=== PATIENT | female | born 1930 | race Caucasian/White ===

== ENCOUNTER 2016-07-18 12:14 | Inpatient (IN) | payer MEDICARE, OTHER ==
[~2016-07-18] VITALS: Ht 162.6 cm; Wt 80.0 kg
[~2016-07-18 12:14] MED LIST: ALPR0.254 PO; ASPI-676; ATEN50TA; CLON-379 PO; CLON0.3T PO; DARI7.5T3; DOCU-144 PO; DOCUSATE PO; DONE5TAB46 PO; IBUP800T25 PO; MEMA10TA16; PARO20TA58; RAMI5CAP23; RISE35TA3 PO; VALS1TAB65 PO
[2016-07-18] MEDS ORDERED: morphine 2 MG INJ IV STA (12:32)
[2016-07-18] MEDS ORDERED: SOD CHLORIDE 0.9% 500 ML IV STA (12:32)
[2016-07-18 13:11] LABS: ADD SCAN DIFF NO
[2016-07-18 13:12] LABS: BASOPHILS % 0.4 % (0.0-2.0); EOSINOPHILS # 0.1 10^3/ul (0.0-0.5); EOSINOPHILS % 0.7 % (0.0-7.0); HEMATOCRIT 41.9 % (37.0-47.0); HEMOGLOBIN 13.5 g/dl (12.0-16.0); LYMPHOCYTES % 13.8 % (15.0-51.0); MEAN CORPUSCULAR HEMOGLOBIN 29.4 pg (29.0-33.0); MEAN CORPUSCULAR HGB CONC 32.2 g/dl (32.0-37.0); MEAN CORPUSCULAR VOLUME 91.3 fl (82.0-101.0); MEAN PLATELET VOLUME 10.3 fl (7.4-10.4); MONOCYTE # 0.5 10^3/ul (0.3-0.9); MONOCYTES % 7.4 % (0.0-11.0); NEUTROPHIL # 5.6 10^3/ul (1.6-7.5); NEUTROPHILS % 77.4 % (39.0-77.0); PLATELET COUNT 226 10^3/UL (140-415); RED BLOOD COUNT 4.59 10^6/ul (4.20-5.40); RED CELL DISTRIBUTION WIDTH 13.5 % (11.5-14.5); WHITE BLOOD COUNT 7.2 10^3/ul (4.8-10.8)
[2016-07-18 13:27] LABS: ALBUMIN 4.1 g/dl (3.3-4.9); CHLORIDE 103 mmol/L (97-110)
[2016-07-18 13:28] LABS: POTASSIUM 3.9 mmol/L (3.5-5.1); SODIUM 142 mmol/L (135-144)
[2016-07-18 13:29] LABS: INR 0.91; PROTIME 12.3 Sec (12.2-14.2)
[2016-07-18 13:30] LABS: ALKALINE PHOSPHATASE 93 IU/L (42-121); ANION GAP 16 (8-16); ASPARTATE AMINO TRANSFERASE 38 IU/L (15-46); BILIRUBIN,INDIRECT 0.9 mg/dl (0-1.1); BILIRUBIN,TOTAL 0.9 mg/dl (0.2-1.3); CARBON DIOXIDE 27 mmol/L (21-31); CREATININE 0.72 mg/dl (0.44-1.00); PARTIAL THROMBOPLASTIN TIME 31.5 Sec (25.0-35.0); TOTAL PROTEIN 7.8 g/dl (6.1-8.1)
[2016-07-18 13:31] LABS: ALANINE AMINOTRANSFERASE 32 IU/L (13-69); BLOOD UREA NITROGEN 25 mg/dl (7-20); CALCIUM 9.6 mg/dl (8.4-10.2); GLUCOSE 113 mg/dl (70-220)
[2016-07-18] MEDS ORDERED: ATOR20TA38 PO (13:42)
[2016-07-18 13:43] LABS: TROPONIN-I < 0.012 ng/ml (0.00-0.12)
[2016-07-18] MEDS ORDERED: ALEN70TA30 PO ×2 (13:43→13:52)
[2016-07-18] MEDS ORDERED: VALS160T20 PO (13:43)
[2016-07-18] MEDS ORDERED: FURO40TA4 PO (13:52)
[2016-07-18] MEDS ORDERED: ESCI5TAB10 PO (13:52)
[2016-07-18] MEDS ORDERED: ASPI81TA3 PO (13:52)
[2016-07-18] MEDS ORDERED: RISP0.5T3 PO (13:53)
[2016-07-18] MEDS ORDERED: MEMA5TAB PO (13:53)
[2016-07-18] MEDS ORDERED: ZOLP5TAB7 PO (13:53)
[2016-07-18] MEDS ORDERED: SENN-53 PO (13:54)
[2016-07-18 14:06] VITALS: Ht 162.6 cm; Wt 80.0 kg
[2016-07-18 14:21] LABS: ADD UMIC YES; URINE BILIRUBIN (Dip) NEGATIVE (NEGATIVE); URINE BLOOD (Dip) TRACE (NEGATIVE); URINE COLOR LT. YELLOW (YELLOW); URINE GLUCOSE (Dip) NEGATIVE (NEGATIVE); URINE KETONES (Dip) NEGATIVE (NEGATIVE); URINE LEUKOCYTE ESTERASE (Dip) NEGATIVE (NEGATIVE); URINE NITRITE (Dip) NEGATIVE (NEGATIVE); URINE TOTAL PROTEIN (Dip) NEGATIVE (NEGATIVE); URINE UROBILINOGEN (Dip) 0.2 E.U./dL (0.1-1.0)
[2016-07-18 14:33] LABS: BACTERIA,URINE RARE; URINE RBCS 0-2 /HPF (0)
--- NOTE | 2016-07-18 14:49 | RADRPT ---
PROCEDURE: XR Chest. CLINICAL INDICATION: Chest pain. Status post fall. TECHNIQUE: Single frontal chest x-ray. COMPARISON: 08/22/2014 FINDINGS: The lungs are clear of acute infiltrates, edema, effusions, or masses. There is left-sided dual natasha jarrett cardiac pacer in place. Low lung volumes with mild bibasilar atelectasis is present.. Cardiac silhouette is magnified. Calcific atherosclerosis of the aorta is present.. The osseous structures a re intact. IMPRESSION: No acute cardiopulmonary disease. Low lung volumes with mild bibasilar atelectasis. Left-sided cardiac pacer in place. RPTAT: JJ .Perry Croft MD, Date Time Electronically viewed and signed by .Perry Croft MD, on 07/18/2016 14:48 .L/
--- NOTE | 2016-07-18 15:01 | RADRPT ---
PROCEDURE: XR Pelvis. CLINICAL INDICATION: Trauma. Pelvic pain. TECHNIQUE: Single AP view of the pelvis. COMPARISON: No prior studies are available for comparison. FINDINGS: There is no fracture or dislocation. There is no lytic or blastic lesion. Articular surfaces are intact. The sacroiliac joints are grossly unremarkable. There is no radiopaque foreign body. IMPRESSION: 1. Unremarkable x-ray pelvis. RPTAT: QQ .Lyndon Encarnacoin MD, MD Date Time Electronically viewed and signed by .Lyndon Encarnacion MD, MD on 07/18/2016 15:01 .R/
--- NOTE | 2016-07-18 15:02 | RADRPT ---
PROCEDURE: Left knee radiographs. CLINICAL INDICATION: Trauma due to a fall. Left knee pain. TECHNIQUE: Three views. Frontal, lateral, and patellar view. COMPARISON: No prior studies are available for comparison. FINDINGS: There is no fracture or dislocation. Vascular calcifications are present consistent with atherosclerosis. There are degenerative changes with osteophytes arising from all 3 joint compartment margins. There is medial and lateral joint compartment narrowing. There is no lytic or blastic lesion. There is no radiopaque foreign body. IMPRESSION: 1. Atherosclerosis. 2. Moderate degenerative change. 3. No fracture. RPTAT: QQ .Lyndon Encarnacion MD, MD Date Time Electronically viewed and signed by .Lyndon Encarnacion MD, on 07/18/2016 15:02 .R/
--- NOTE | 2016-07-18 15:16 | RADRPT ---
PROCEDURE: CT Facial Bones. CLINICAL INDICATION: Trauma. Facial pain. TECHNIQUE: Helical axial sections were obtained through the facial bones without intravenous contr ast enhancement. Sagittal and coronal reformatted images were accomplished using the data from the axial images. Total exam DLP is 831.62 mGy-cm. CTDIvol is 29.52 mGy. One or more of the followin g dose reduction techniques were used: Automated exposure control, adjustment of the mA and/or kV ac cording to patient size, use of iterative reconstruction technique. COMPARISON: No prior study is available for comparison. FINDINGS: This is a limited study due to patient motion. The visualized portions of the paranasal sinuses are grossly normal. There is a comminuted fracture of the nasal bones with posterior displacement on the left. There is no other fracture. The orbits are normal. The globes are intact. The extraocular muscles and optic nerves are normal. The nasal septum is midline. The ostiomeatal complexes are normal. The turbinates are unremarkable. The mandible and maxilla are intact. The zygomatic arches and pterygoid plates are normal. Images through the upper cervical spine demonstrate degenerative change with osteophytes at C3-4, C4-5, C5- 6, and C6-7. IMPRESSION: 1. Limited study due to patient motion. 2. Comminuted fracture of the nasal bones with posterior displacement on the left. 3. Degenerative changes of the cervical spine. 4. Otherwise unremarkable CT scan of the facial bones. RPTAT: QQ .Lyndon Encarnacion MD, MD Date Time Electronically viewed and signed by .Lyndon Encarnacion MD, on 07/18/2016 15:15 .R/
--- NOTE | 2016-07-18 15:21 | RADRPT ---
PROCEDURE: Noncontrast CT Head. CLINICAL INDICATION: Status post fall. Trauma. TECHNIQUE: Noncontrast CT of the head was obtained. The administered radiation dose was CTDI vol = 43.38 mGy, DLP = 630.2 mGy-cm. One or more of the following dose reduction techniques were used: Aut omated exposure control, Adjustment of the mA and/or kV according to patient size, or Use of iterati ve reconstruction technique. COMPARISON: Noncontrast CT of the head from August 22, 2014. FINDINGS: There is moderate central and peripheral cerebral volume loss. There is severe bilateral hippocampal volume loss. There is extensive periventricular hypoattenuation suggesting chronic microvascular is chemic changes. There are mild to moderate vascular calcifications within the intracranial carotid arteries. There is a chronic right basal ganglia lacunar infarction. There is a partially empty sella turcica. There is a 4 mm ovoid hyperdensity within the right fronta l vertex (image 52 series 601).There is also a smaller lateral ovoid hyperdensity. There is no loss of shin-white differentiation to suggest acute territorial infarction. There is no extra-axial fluid collection. There is no mass effect. No midline shift is identified. The patient is status post bilateral lens surgery. The paranasal sinuses are well aerated. No destructive osseous lesion is identified. There is subcutaneous air within the left nasal soft ti ssues which may represent underlying laceration. IMPRESSION: 1. New subcentimeter right posterior frontal vertex hyperdensity with smaller adjacent more lateral hyperdensity. These may represent small intraparenchymal hemorrhages/contusions given history of tra jose however short follow-up imaging is recommended to document resolution. If these persist, MRI of the brain with and without contrast may be performed to exclude cortical metastases versus other hy perdense lesions which cannot be excluded. 2. Moderate central and peripheral cerebral volume loss with severe bilateral hippocampal volume los s. 3. Advanced chronic microvascular ischemic changes. 4. Partially empty sella turcica. 5. Chronic right basal ganglia lacunar infarction. 6. Subcutaneous air within the left nasal soft tissues which may represent underlying laceration. P lease refer to the CT of the facial bones report from the same day. Further findings as detailed above. These findings were discussed with Dr. Gabriel High at 03:12 p.m. on July 18, 2016. RPTAT: PP .Ozzie Shepherd MD, MD Date Time Electronically viewed and signed by .Ozzie Shepherd MD, MD on 07/18/2016 15:20 .F/
--- NOTE | 2016-07-18 15:22 | RADRPT ---
PROCEDURE: CT Cervical Spine without contrast. CLINICAL INDICATION: Trauma due to a fall. Neck pain. TECHNIQUE: Helical axial sections were obtained through the cervical spine without intravenous con trast enhancement. Sagittal and coronal reformatted images were accomplished using the data from th e axial images. Total exam DLP is 461.67 mGy-cm. CTDIvol is 22.19 mGy. One or more of the followi ng dose reduction techniques were used: Automated exposure control, adjustment of the mA and/or kV a ccording to patient size, use of iterative reconstruction technique. COMPARISON: No prior studies are available for comparison. FINDINGS: This is a limited study due to patient motion. There is grossly normal alignment of the vertebrae. There is no fracture. There are degenerative changes with osteophytes at C3-4, C4-5, C5-6, and C6-7. The prevertebral soft tissues are unremarkable. The lung apices are grossly normal. IMPRESSION: 1. Limited study due to patient motion. 2. No obvious fracture or malalignment. 3. Degenerative changes. 4. Otherwise grossly normal CT scan of the cervical spine. RPTAT: QQ .Lyndon Encarnacion MD, Date Time Electronically viewed and signed by .Lyndon Encarnacion MD, on 07/18/2016 15:21 .R/
[2016-07-18] MEDS ORDERED: ONDANSETRON 4 MG INJ IV STA (15:26)
--- NOTE | 2016-07-18 18:12 | HP ---
Date/Time of Note Date/Time of Note DATE: 07/18/16 TIME: 18:09 Assessment/Plan VTE Prophylaxis VTE Prophylaxis Intervention: other Lines/Catheters IV C[facility]ter Type [facility]from [facility] Saline Lock Urinary Cath still in place: No Assessment/Plan Assessment/Plan 85 yo F s/p fall with 1. Brain lesions concerning for bleeing versus dementia 2. Comminuted nasal bone fracture with nasal bleed 3. HTN 4. Dyslipidemia 5. s/p Pacemaker 6. 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 7. Previous CVA PLAN: * Admit med surg * ENT / neurosurgical consults * repeat CT in am / unable to do MRI 2/ pacemaker * Continue home meds * Supportive care and pain control PROPHYLAXIS: SCDS / Pepcid HPI/ROS Admit Date/Time Admit Date/Time 07/18/16 Hx of Present Illness PRESENTING COMPLAINT: fall and nose bleeds HISTORY OF PRESENTING COMPLAINT: This 85-year-old female is brought in for a fall yesterday in which she fell forward and struck her face on the floor. The mechanism of the fall is unknown because the patient has baseline dementia and which makes her not communicative. She did strike her knee she does have mild swelling that has improved since yesterday. She still is able to walk but has not ambulated since her fall yesterday. She has been able to take p.o. today. The patient is usually very ambulant and spends the better part of most days ambulating aimlessly. She was on hospice therapy and whenshe initially fell, she had a bad nosebleed, the hospice nurse came and checked her, and used icepacks which helped, but bleeding recurred over night which made family decide to bring her to ER. ROS Subjective hx not possible: pt non-verbal (due to severe dementia), other PMH/Family/Social Past Medical History * endstage dementia * HTN * HLD * Pacemaker Social History Smoking Status: Never smoker Exam/Review of Systems Vital Signs Vitals VS - Last 72 Hours, by Label Date Time Temp Pulse Resp B/P Pulse Ox O2 Delivery O2 Flow Rate FiO2 07/18/16 14:21 62 20 148/74 95 Room Air 07/18/16 14:15 Nasal Cannula 07/18/16 14:06 98.9 64 18 148/74 98 Vital Signs Date Time Temp Pulse Resp B/P Pulse Ox O2 Delivery O2 Flow Rate FiO2 07/18/16 14:21 62 20 148/74 95 Room Air 07/18/16 14:06 98.9 Exam Exam Const: [] Mild distress, appears uncomfortable Head: See ENT section Eyes: Normal Conjunctiva, EOMI, PERRL ENT: Bilateral nares full of blood clot, facial bruising surrounding nose,, tenderness to palpation of facial bones, tympanic membranes clear bilaterally with no fluid or blood. Somewhat dry mucous membranes of the mouth Neck: Full range of motion..~ No apparent midline tenderness Resp: Clear to auscultation bilaterally Cardio: Regular rate and rhythm, no murmurs Abd: Soft, no apparent tenderness, non distended. Normal bowel sounds Skin: No petechiae or rashes Back: No midline or flank tenderness Ext: No cyanosis, or edema, complete skeletal survey performed. Patient still does have mild edema of her left knee without apparent tenderness, other joints movable without deformity limitation of motion or evidence of pain. Distal pulses intact all 4 extremities Neur: Awake and alert, noncommunicative even with [place] grid caster, able to move all 4 extremities, able to perform purposeful movements of pushing people away are attempting to do anything to her. Psych: Agitation. Labs Result Diagram: 07/18/16 1305 07/18/16 1305 Procedures Procedures Laboratory Tests Test 07/18/16 12:32 07/18/16 13:05 Urine Color LT. YELLOW Urine Clarity CLEAR Urine pH 6.0 Urine Specific Fate 1.020 Urine Ketones NEGATIVE Urine Nitrite NEGATIVE Urine Bilirubin NEGATIVE Urine Urobilinogen 0.2 E.U./dL Urine Leukocyte Esterase NEGATIVE Urine Microscopic RBC 0-2/HPF Urine Microscopic WBC NONE SEEN/HPF Urine Epithelial Cells RARE Urine Squamous Epithelial Cells Urine Bacteria RARE Urine Hemoglobin TRACE Urine Glucose NEGATIVE% Urine Total Protein NEGATIVE White Blood Count 7.210^3/ul Red Blood Count 4.5910^6/ul Hemoglobin 13.5g/dl Hematocrit 41.9% Mean Corpuscular Volume 91.3fl Mean Corpuscular Hemoglobin 29.4pg Mean Corpuscular Hemoglobin Concent 32.2g/dl Red Cell Distribution Width 13.5% Platelet Count 84029^3/UL Mean Platelet Volume 10.3fl Neutrophils % 77.4% Lymphocytes % 13.8% Monocytes % 7.4% Eosinophils % 0.7% Basophils % 0.4% Nucleated Red Blood Cells % 0.0/100WBC Neutrophils # 5.610^3/ul Lymphocytes # 1.010^3/ul Monocytes # 0.510^3/ul Eosinophils # 0.110^3/ul Basophils # 0.010^3/ul Nucleated Red Blood Cells # 0.010^3/ul Prothrombin Time 12.3Sec Prothrombin Time Ratio 1.0 INR International Normalized Ratio 0.91 Activated Partial Thromboplast Time 31.5Sec Sodium Level 142mmol/L Potassium Level 3.9mmol/L Chloride Level 103mmol/L Carbon Dioxide Level 27mmol/L Anion Gap 16 Blood Urea Nitrogen 25mg/dl Creatinine 0.72mg/dl Glucose Level 113mg/dl Calcium Level 9.6mg/dl Total Bilirubin 0.9mg/dl Direct Bilirubin 0.00mg/dl Indirect Bilirubin 0.9mg/dl Aspartate Amino Transf (AST/SGOT) 38IU/L Alanine Aminotransferase (ALT/SGPT) 32IU/L Alkaline Phosphatase 93IU/L Troponin I < 0.012ng/ml Total Protein 7.8g/dl Albumin 4.1g/dl Globulin 3.70g/dl Albumin/Globulin Ratio 1.10 ER INTERVENTIONS Medications (Trade) Dose Ordered Sig/Luiza Route PRN Reason Start Time Stop Time Status Last Admin Dose Admin Sodium Chloride (NS) 500 ml @ 500 mls/hr Q1H STAT IV 07/18/16 12:32 07/18/16 13:31 DC 07/18/16 13:56 500 MLS/HR Morphine Sulfate (morphine) 2 mg ONCE STAT IV 07/18/16 12:32 07/18/16 12:37 DC 07/18/16 13:57 2 MG Ondansetron HCl (Zofran Inj) 4 mg ONCE STAT IV 07/18/16 15:26 07/18/16 15:27 DC 07/18/16 15:31 4 MG Ondansetron HCl (Zofran Inj) 4 mg BRIDGE ORDER PRN IV NAUSEA AND/OR VOMITING 07/18/16 18:30 07/19/16 18:29 Acetaminophen (Tylenol Tab) 650 mg ER BRIDGE PRN PO MILD PAIN/FEVER 07/18/16 18:30 07/19/16 18:29 PROCEDURE: XR Chest. CLINICAL INDICATION: Chest pain. Status post fall. TECHNIQUE: Single frontal chest x-ray. COMPARISON: 08/22/2014 FINDINGS: The lungs are clear of acute infiltrates, edema, effusions, or masses. There is left-sided dual chamber cardiac pacer in place. Low lung volumes with mild bibasilar atelectasis is present.. Cardiac silhouette is magnified. Calcific atherosclerosis of the aorta is present.. The osseous structures are intact. IMPRESSION: No acute cardiopulmonary disease. Low lung volumes with mild bibasilar atelectasis. Left-sided cardiac pacer in place. RPTAT: JJ .Perry Croft MD, MD Date Time Electronically viewed and signed by .Perry Croft MD, MD on 07/18/2016 14:48 .L/ CC: GABRIEL ALONSO DO PROCEDURE: Noncontrast CT Head. CLINICAL INDICATION: Status post fall. Trauma. TECHNIQUE: Noncontrast CT of the head was obtained. The administered radiation dose was CTDI vol = 43.38 mGy, DLP = 630.2 mGy-cm. One or more of the following dose reduction techniques were used: Automated exposure control, Adjustment of the mA and/or kV according to patient size, or Use of iterative reconstruction technique. COMPARISON: Noncontrast CT of the head from August 22, 2014. FINDINGS: There is moderate central and peripheral cerebral volume loss. There is severe bilateral hippocampal volume loss. There is extensive periventricular hypoattenuation suggesting chronic microvascular ischemic changes. There are mild to moderate vascular calcifications within the intracranial carotid arteries. There is a chronic right basal ganglia lacunar infarction. There is a partially empty sella turcica. There is a 4 mm ovoid hyperdensity within the right frontal vertex (image 52 series 601).There is also a smaller lateral ovoid hyperdensity. There is no loss of shin-white differentiation to suggest acute territorial infarction. There is no extra-axial fluid collection. There is no mass effect. No midline shift is identified. The patient is status post bilateral lens surgery. The paranasal sinuses are well aerated. No destructive osseous lesion is identified. There is subcutaneous air within the left nasal soft tissues which may represent underlying laceration. IMPRESSION: 1. New subcentimeter right posterior frontal vertex hyperdensity with smaller adjacent more lateral hyperdensity. These may represent small intraparenchymal hemorrhages/contusions given history of trauma however short follow-up imaging is recommended to document resolution. If these persist, MRI of the brain with and without contrast may be performed to exclude cortical metastases versus other hyperdense lesions which cannot be excluded. 2. Moderate central and peripheral cerebral volume loss with severe bilateral hippocampal volume loss. 3. Advanced chronic microvascular ischemic changes. 4. Partially empty sella turcica. 5. Chronic right basal ganglia lacunar infarction. 6. Subcutaneous air within the left nasal soft tissues which may represent underlying laceration. Please refer to the CT of the facial bones report from the same day. Further findings as detailed above. These findings were discussed with Dr. Gabriel Alonso at 03:12 p.m. on July 18, 2016. RPTAT: PP .Ozzie Shepherd MD, MD Date Time Electronically viewed and signed by .Ozzie Shepherd MD, MD on 07/18/2016 15:20 .F/ CC: GABRIEL ALONSO DO PROCEDURE: CT Cervical Spine without contrast. CLINICAL INDICATION: Trauma due to a fall. Neck pain. TECHNIQUE: Helical axial sections were obtained through the cervical spine without intravenous contrast enhancement. Sagittal and coronal reformatted images were accomplished using the data from the axial images. Total exam DLP is 461.67 mGy-cm. CTDIvol is 22.19 mGy. One or more of the following dose reduction techniques were used: Automated exposure control, adjustment of the mA and/or kV according to patient size, use of iterative reconstruction technique. COMPARISON: No prior studies are available for comparison. FINDINGS: This is a limited study due to patient motion. There is grossly normal alignment of the vertebrae. There is no fracture. There are degenerative changes with osteophytes at C3-4, C4-5, C5-6, and C6-7. The prevertebral soft tissues are unremarkable. The lung apices are grossly normal. IMPRESSION: 1. Limited study due to patient motion. 2. No obvious fracture or malalignment. 3. Degenerative changes. 4. Otherwise grossly normal CT scan of the cervical spine. RPTAT: QQ .Lyndon Encarnacion MD, MD Date Time Electronically viewed and signed by .Lyndon Encarnacion MD, MD on 07/18/2016 15:21 .R/ CC: GABRIEL ALONSO DO PROCEDURE: CT Facial Bones. CLINICAL INDICATION: Trauma. Facial pain. TECHNIQUE: Helical axial sections were obtained through the facial bones without intravenous contrast enhancement. Sagittal and coronal reformatted images were accomplished using the data from the axial images. Total exam DLP is 831.62 mGy-cm. CTDIvol is 29.52 mGy. One or more of the following dose reduction techniques were used: Automated exposure control, adjustment of the mA and/or kV according to patient size, use of iterative reconstruction technique. COMPARISON: No prior study is available for comparison. FINDINGS: This is a limited study due to patient motion. The visualized portions of the paranasal sinuses are grossly normal. There is a comminuted fracture of the nasal bones with posterior displacement on the left. There is no other fracture. The orbits are normal. The globes are intact. The extraocular muscles and optic nerves are normal. The nasal septum is midline. The ostiomeatal complexes are normal. The turbinates are unremarkable. The mandible and maxilla are intact. The zygomatic arches and pterygoid plates are normal. Images through the upper cervical spine demonstrate degenerative change with osteophytes at C3-4, C4-5, C5-6, and C6-7. IMPRESSION: 1. Limited study due to patient motion. 2. Comminuted fracture of the nasal bones with posterior displacement on the left. 3. Degenerative changes of the cervical spine. 4. Otherwise unremarkable CT scan of the facial bones. RPTAT: QQ .Lyndon Encarnacion MD, MD Date Time Electronically viewed and signed by .Lyndon Encarnacion MD, MD on 07/18/2016 15:15 .R/ CC: GABRIEL ALONSO BOLATITO M. July 18, 2016 18:12
[2016-07-18] MEDS ORDERED: ONDANSETRON 4 MG INJ IV PRN ×2 (18:30→20:00)
[2016-07-18] MEDS ORDERED: ACETAMINOPHEN 325 MG TAB PO PRN (18:30)
[2016-07-18] MEDS ORDERED: morphine 2 MG INJ IV ONE (19:30)
--- NOTE | 2016-07-18 19:36 | ERA ---
ER Documentation Chief Complaint Date/Time DATE: 07/18/16 TIME: 19:24 Chief Complaint BIBA FOR NOSE BLEEDING,S/P FALL HPI This 85-year-old female is brought in for a fall yesterday in which she fell forward and struck her face on the floor. The mechanism of the fall is unknown because the patient has baseline dementia and which makes her not communicative. She did strike her knee she does have mild swelling that has improved since yesterday. She still is able to walk but has not ambulated since her fall yesterday. She has been able to take p.o. today. ROS All systems reviewed and are negative except as per history of present illness. Medications Home Meds Reported Medications Sennosides* (Senna Lax*) 8.6 Mg Tablet, 1 TAB PO DAILY, TAB 07/18/16 Zolpidem Tartrate* (Zolpidem Tartrate*) 5 Mg Tablet, 5 MG PO QHS Y for INSOMNIA , #30 TAB 07/18/16 Memantine* (Namenda*) 5 Mg Tablet, 5 MG PO DAILY, #30 TAB 07/18/16 Risperidone* (Risperidone*) 0.5 Mg Tablet, 0.5 MG PO DAILY, TAB 07/18/16 Escitalopram Oxalate* (Escitalopram Oxalate*) 5 Mg Tablet, 5 MG PO DAILY, #30 TAB 07/18/16 Furosemide* (Furosemide*) 40 Mg Tablet, 40 MG PO DAILY, TAB 07/18/16 Aspirin* (Aspirin* Chew) 81 Mg Tab.chew, 81 MG PO DAILY, TAB.CHEW 07/18/16 Alendronate Sodium* (Fosamax*) 70 Mg Tablet, 70 MG PO Q7D, #4 TAB 07/18/16 Alendronate Sodium* (Fosamax*) 70 Mg Tablet, 70 MG PO Q7D, #4 TAB 07/18/16 Valsartan* (Diovan*) 160 Mg Tablet, 160 MG PO DAILY, TAB HOLD FOR SBP<120 07/18/16 Atorvastatin Calcium* (Atorvastatin Calcium*) 20 Mg Tablet, 20 MG PO QHS, #30 TAB 07/18/16 Discontinued Reported Medications Risedronate* (Atelvia*) 35 Mg Tablet.dr, 35 MG PO Q7D, TAB 08/22/14 Docusate Sodium* (Colace*) 100 Mg Capsule, 100 MG PO BID, CAP 08/22/14 Clonidine Hcl* (Clonidine Hcl*) 0.3 Mg Tablet, 0.1 MG PO Q6 Y 03/02/13 Ibuprofen* (Motrin*) 800 Mg Tab, 800 MG PO TID 12/05/12 Valsartan-Hydrochlorothiazide (Diovan HCT) 1 Tab Tablet, 1 TAB PO DAILY 12/05/12 Alprazolam (Xanax) 0.25 Mg Tab, 0.25 MG PO DAILY 12/05/12 Clonidine Hcl* (Clonidine Hcl*) 0.1 Mg Tab, 0.1 MG PO Q6 Y 12/05/12 Paroxetine Hcl* (Paxil*) 20 Mg Tablet, DAILY 12/08/11 [Docusate] No Conflict Check, 100 MG PO BID 12/08/11 Donepezil* (Aricept*) 5 Mg Tablet, PO DAILY 12/08/11 Darifenacin* (Enablex*) 7.5 Mg Tab.sr.24h, PO DAILY 03/02/11 Ramipril (Altace) 5 Mg Capsule, PO DAILY 03/02/11 Memantine* (Namenda*) 10 Mg Tablet, PO DAILY 03/02/11 Aspirin (Carissa Child) 81 Mg Chew, PO DAILY 03/02/11 Atenolol* (Atenolol*) 50 Mg Tablet, PO DAILY 03/02/11 Allergies Allergies: Coded Allergies: No Known Allergy (Unverified , 07/18/16) PMhx/Soc History of Surgery: Yes (Pacemaker ) Anesthesia Reaction: No Hx Neurological Disorder: Yes (CVA) Hx Respiratory Disorders: No Hx Cardiac Disorders: Yes (HTN, Hypercholestoremia.) Hx Psychiatric Problems: No Hx Miscellaneous Medical Probl: Yes (Anxiety, Alzheimers, HTN, hyperlipidemia) Hx Alcohol Use: No Hx Substance Use: No Hx Tobacco Use: No Smoking Status: Never smoker Physical Exam Vitals Vital Signs Date Time Temp Pulse Resp B/P Pulse Ox O2 Delivery O2 Flow Rate FiO2 07/18/16 17:59 149/133 97 Room Air 07/18/16 14:21 62 20 148/74 95 Room Air 07/18/16 14:15 Nasal Cannula 07/18/16 14:06 98.9 64 18 148/74 98 Physical Exam Const: [] Mild distress, appears uncomfortable Head: See ENT section Eyes: Normal Conjunctiva, EOMI, PERRL ENT: Bilateral nares full of blood clot, facial bruising surrounding nose,, tenderness to palpation of facial bones, tympanic membranes clear bilaterally with no fluid or blood. Somewhat dry mucous membranes of the mouth Neck: Full range of motion..~ No apparent midline tenderness Resp: Clear to auscultation bilaterally Cardio: Regular rate and rhythm, no murmurs Abd: Soft, no apparent tenderness, non distended. Normal bowel sounds Skin: No petechiae or rashes Back: No midline or flank tenderness Ext: No cyanosis, or edema, complete skeletal survey performed. Patient still does have mild edema of her left knee without apparent tenderness, other joints movable without deformity limitation of motion or evidence of pain. 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 Psych: Occasional agitation. Result Diagram: 07/18/16 1305 07/18/16 1305 Results 24 hrs Laboratory Tests Test 07/18/16 12:32 07/18/16 13:05 Urine Color LT. YELLOW Urine Clarity CLEAR Urine pH 6.0 Urine Specific [place] 1.020 Urine Ketones NEGATIVE Urine Nitrite NEGATIVE Urine Bilirubin NEGATIVE Urine Urobilinogen 0.2 E.U./dL Urine Leukocyte Esterase NEGATIVE Urine Microscopic RBC 0-2/HPF Urine Microscopic WBC NONE SEEN/HPF Urine Epithelial Cells RARE Urine Squamous Epithelial Cells Urine Bacteria RARE Urine Hemoglobin TRACE Urine Glucose NEGATIVE% Urine Total Protein NEGATIVE White Blood Count 7.210^3/ul Red Blood Count 4.5910^6/ul Hemoglobin 13.5g/dl Hematocrit 41.9% Mean Corpuscular Volume 91.3fl Mean Corpuscular Hemoglobin 29.4pg Mean Corpuscular Hemoglobin Concent 32.2g/dl Red Cell Distribution Width 13.5% Platelet Count 61239^3/UL Mean Platelet Volume 10.3fl Neutrophils % 77.4% Lymphocytes % 13.8% Monocytes % 7.4% Eosinophils % 0.7% Basophils % 0.4% Nucleated Red Blood Cells % 0.0/100WBC Neutrophils # 5.610^3/ul Lymphocytes # 1.010^3/ul Monocytes # 0.510^3/ul Eosinophils # 0.110^3/ul Basophils # 0.010^3/ul Nucleated Red Blood Cells # 0.010^3/ul Prothrombin Time 12.3Sec Prothrombin Time Ratio 1.0 INR International Normalized Ratio 0.91 Activated Partial Thromboplast Time 31.5Sec Sodium Level 142mmol/L Potassium Level 3.9mmol/L Chloride Level 103mmol/L Carbon Dioxide Level 27mmol/L Anion Gap 16 Blood Urea Nitrogen 25mg/dl Creatinine 0.72mg/dl Glucose Level 113mg/dl Calcium Level 9.6mg/dl Total Bilirubin 0.9mg/dl Direct Bilirubin 0.00mg/dl Indirect Bilirubin 0.9mg/dl Aspartate Amino Transf (AST/SGOT) 38IU/L Alanine Aminotransferase (ALT/SGPT) 32IU/L Alkaline Phosphatase 93IU/L Troponin I < 0.012ng/ml Total Protein 7.8g/dl Albumin 4.1g/dl Globulin 3.70g/dl Albumin/Globulin Ratio 1.10 Current Medications Medications (Trade) Dose Ordered Sig/Luiza Route PRN Reason Start Time Stop Time Status Last Admin Dose Admin Sodium Chloride (NS) 500 ml @ 500 mls/hr Q1H STAT IV 07/18/16 12:32 07/18/16 13:31 DC 07/18/16 13:56 Morphine Sulfate (morphine) 2 mg ONCE STAT IV 07/18/16 12:32 07/18/16 12:37 DC 07/18/16 13:57 Ondansetron HCl (Zofran Inj) 4 mg ONCE STAT IV 07/18/16 15:26 07/18/16 15:27 DC 07/18/16 15:31 Ondansetron HCl (Zofran Inj) 4 mg BRIDGE ORDER PRN IV NAUSEA AND/OR VOMITING 07/18/16 18:30 07/19/16 18:29 Acetaminophen (Tylenol Tab) 650 mg ER BRIDGE PRN PO MILD PAIN/FEVER 07/18/16 18:30 07/19/16 18:29 Morphine Sulfate (morphine) 2 mg ONCE ONCE IV 07/18/16 19:30 07/18/16 19:31 07/18/16 19:06 Procedures/MDM Head injury with change in behavior and unwillingness to ambulate, nasal bone fractures, possible very small acute brain lesions, dehydration, as well as GI bleed while in the emergency room.. Patient did have dark brown emesis while in the emergency room. This is most likely secondary to the bleeding from her nares pulling up in her stomach causing irritation and vomiting. Other cause of GI bleeding not excluded in the ER. No apparent abdominal pain or abnormalities on physical exam. Reportedly patient has been on hospice. I spoke with Dr. Kaur, neurosurgeon, stated the patient could be admitted to this hospital as the lesions do not require any acute intervention currently. Unable to obtain MRI because patient has a pacemaker. Patient was given IV fluid and Zofran. No signs of infection. Evidence of dehydration on physical exam as well as elevated BUN. Patient will be admitted for hydration and further monitoring status post head injury with altered behavior and a fragile condition. Spoke with Dr. Cummings who saw the patient at the bedside and will be admitting. EKG interpretation: Normal sinus rhythm rate of 79, incomplete bundle branch block, Q waves in lead III, no ST or T-wave changes including face acute ischemia, indeterminate axis manager monitoring interpretation: Normal sinus rhythm without arrhythmia Chest x-ray interpretation: I see no acute process. Poor inspiration, no pulmonary edema, pneumothorax, no infiltrates, no fractures CT brain interpretation: I see no acute process, no hemorrhage no mass-effect no midline shift. 2 hypodensities are mentioned by radiologist which cannot exclude various etiologies including hemorrhage and metastatic disease. CT C-spine interpretation: I see no acute fracture or subluxation. CT facial bones: Comminuted nasal fracture with no orbital fractures and no [place] fractures currently. X-ray left knee interpretation: See no fracture dislocation or other acute process. CT pelvis interpretation: No acute fracture or dislocation. Departure Diagnosis: Primary Impression: Acute head injury Additional Impressions: Unable to ambulate Dehydration Nasal bone fractures Hematemesis Abnormal head CT Condition: Stable ASHLEE ALONSO DO July 18, 2016 19:34
[2016-07-18] MEDS ORDERED: HALOPERIDOL 5 MG INJ IM PRN (20:00)
[2016-07-18] MEDS ORDERED: morphine 2 MG INJ IV PRN (20:00)
[2016-07-18] MEDS ORDERED: HALOPERIDOL 5 MG INJ IM ONE (20:00)
[2016-07-18] MEDS: DEXTROSE 5%-0.45% NACL 1,000 ML IV SCH (21:00)
[2016-07-18 21:41] VITALS: TEMP 97.9
[2016-07-18 22:24] VITALS: BP 176/84; RESP 18
[2016-07-18] MEDS: DOCUSATE SODIUM 100 MG CAP PO SCH (22:45)
[2016-07-19] VITALS (13 sets, daily range): BP systolic 106–167; BP diastolic 51–111; PULSE 60–80; RESP 16–20
--- NOTE | 2016-07-19 01:07 | CONS ---
DATE OF ADMISSION: 07/18/2016 DATE OF CONSULTATION: 07/18/2016 TYPE OF CONSULTATION: Neurological. Thank you, Dr. Cummings, for your kind referral for evaluation of encephalopathy, dementia, status post blunt head trauma, possible contusion. HISTORY OF PRESENT ILLNESS: The patient is an 85-year-old lady with past medical history of severe dementia and hypertension. Her [id number] present at bedside providing details of the history. The patient is not verbal , does not follow commands, does not eat by herself, only drinks Ensure. She wears diapers, and she is completely confused and lost even in her house. Dementia has been present for the last 4 or 5 years but especially worsening in the last year or two. Forgot to mention that she has history of dysrhythmia. She has a pacemaker placed. The patient usually ambulates in her house. She fell forward, not clear reason for the fall. According to the [id number], she speculates that maybe patient felt dizzy, impossible to find out for sure. In any case, her labs show normal CBC. BUN 25, creatinine 0.72. Rest of comprehensive metabolic panel within normal limits. Normal PT, PTT. Urinalysis essentially within normal limits as well. She had facial CAT scan showing limited study because of the motion, but comminuted fracture of the nasal bones with posterior displacement on the left was seen. CT of the cervical spine: No obvious misalignment or fractures. CAT scan of the head shows hyperdensity, subcentimeter, in the right posterior frontal vertex with smaller one adjacent laterally, may represent small intraparenchymal hemorrhages or contusions, or other etiology of hyperdensity could include cortical metastasis for example. MRI of the brain could not be done because of the pacemaker, so close followup imaging was suggested by radiologist. Chest x-ray: No acute disease. Pacemaker is in place. MEDICATIONS: Prior to admission: 1. Atorvastatin. 2. Diovan. 3. Aspirin 81. 4. Lexapro 5 mg. 5. Namenda 5 mg daily. 6. Risperidone 0.5 daily. 7. Zolpidem. 8. Lasix. 9. Senokot. 10. Fosamax. Currently she is on: 1. Pepcid. 2. Colace. 3. Haldol 3 mg q.6 hours p.r.n. agitation. She received 5 mg of Haldol earlier IM because of constant agitation and movements. ALLERGIES: NONE. SOCIAL HISTORY: No alcohol, tobacco, drug use. FAMILY HISTORY: Not contributory. REVIEW OF SYSTEMS: Unable to obtain. PHYSICAL EXAMINATION: VITAL SIGNS: Temperature 97.9, pulse 62, respirations 20, blood pressure 150/ 73. GENERAL: Not in acute distress, lying in bed. HEENT: Normocephalic head. There is a small abrasion, some laceration on the face. NECK: Supple. No meningeal signs. LUNGS: Clear to auscultation bilaterally. CARDIAC: Normal cardiac rhythm and sounds. ABDOMEN: Soft, nontender. EXTREMITIES: No cyanosis, clubbing or edema. NEUROLOGIC: She is lethargic, arousable by voice, restless when aroused. She does have periorbital bruises, forgot to mention as well. Present response to visual threat bilaterally. Pupils about 2 mm bilaterally. Extraocular movements intact. Symmetrical face. Corneal reflexes present bilaterally as well as gag. Motor strength examination limited, but she moves all extremities spontaneously symmetrically, at least 3/5 bilaterally. Present response to noxious stimuli bilaterally. Deep tendon reflexes 2+ upper extremities and knees, was able to get ankle jerk. Upgoing toes bilaterally. Coordination preserved when she is reaching for objects. Gait was not assessed. IMPRESSION: 1. Status post fall, etiology ? 2. Possible small contusions on the CAT scan. Will repeat CAT scan to evaluate stability. 3. The patient has nasal fracture. 4. She has severe baseline dementia. Not verbal, does not follow commands. Does not eat, drinks only Ensure. The patient is trying to pull her IV and trying to get out of bed. Will restart her home risperidone 0.5 mg at least. I'll make it twice daily with additional Haldol as needed. Continue current treatment otherwise. Thank you very much for this interesting consultation. Will also probably put her in soft restraints. Dictated By: SUDARSHAN GRANADOS/JG Conf#: [id number] DID#: [id number] MTDD
[2016-07-19] MEDS: DOCUSATE SODIUM 100 MG CAP PO SCH ×2 (09:00→20:17)
[2016-07-19] MEDS: RISPERIDONE 0.25 MG TAB PO SCH ×2 (09:00→20:17)
[2016-07-19] MEDS: FAMOTIDINE 20 MG INJ IV SCH (09:00)
[2016-07-19] MEDS: DEXTROSE 5%-0.45% NACL 1,000 ML IV SCH ×2 (09:04→22:50)
--- NOTE | 2016-07-19 09:05 | CONS ---
Date/Time of Note Date/Time of Note DATE: 07/19/16 TIME: 08:48 Assessment/Plan Assessment/Plan Problems: (1) Acute head injury Status: Acute Comment: Patient s/p fall with broken nose. Since fall has been non-ambulatory but was very confused at baseline. She did receive pain meds right after fall. CT shows 2 small R frontal lesions which could represent very small contusions but also could be small masses, either intra or extra-axial and either benign or malignant (meningioma or metastasis). If injury, change in status due to concussive effect of fall rather than from mass effect or direct action of presumed contusions. Also, although there is no clear evidence of this, spinal cord pathology such as central cord syndrome cannot be excluded from differential diagnosis. In any case, given her underlying severe dementia, IMO there is no consideration of any neurosurgical intervention be it for head injury, tumor, or spine pathology. Repeat CT brain has been ordered, but even if there is change this would not alter my recommendations. Given pacemaker it would be difficult to further assess either cranial or spinal pathology. I have no strong recommendations regarding medications or other interventions. Consider return to hospice/DNR. Discussed with patient's son. Consultation Date/Type/Reason Admit Date/Time 07/18/16 Date of Consultation: July 19, 2016 Type of Consultation: Neurosurgery Reason for Consultation Brain contusion Hx of Present Illness History obtained from chart as well as patient's son at bedside. Used telephone staff interpreter for [place]. The patient has baseline history of severe dementia over the past few years, especially worse over past 2 years. She had been confused and non-communicative , requiring assistance with all ADLs but ambulatory and walking a lot. Has nurse as caregiver at home. About 24 hours prior to admission she fell, striking face, and she had ongoing bleeding from the nose. After fall she also complained of pain and received medications from nurse for this. Since then she had been unable to walk, bound to bed or wheelchair. Due to bleeding and change, she was brought to the ER. She had been on hospice. Son reports that she is perhaps a bit more drowsy than usual but he thinks this could be due to medications. She has no specific complaints at this time as communication is difficult even in [place]. Of note she has pacemaker in place due to past history of arrhythmia and possible CVA. Also on ASA 81mg daily. ROS impossible due to neurological status Subjective hx not possible: pt non-verbal Past Medical History Medical History: high cholesterol, hypertension, other (severe dementia) Past Surgical History Past Surgical Hx: other (pacemaker) Social History Smoking Status: Never smoker Exam/Review of Systems Vital Signs Vitals Vital Signs Date Time Temp Pulse Resp B/P Pulse Ox O2 Delivery O2 Flow Rate FiO2 07/19/16 04:12 60 07/19/16 04:10 97.9 18 138/85 96 07/18/16 21:41 Room Air Exam Constitutional: other (arouses to stimulation), No alert, No oriented Head: normocephalic Eyes: other (pupils small), No nl conjunctiva (L conjunctival irritation) ENMT: other (perinasal bruising and swelling) Neck: No masses Cardiovascular: nl pulses, No edema Extremities: normal pulses Neurological: other (opens eyes to stimulation, moving purposefully UEs > LEs bilaterally but not to command, incomprehensible vocalizations; face symmetric; increased tone throughout R=L; withdraws all extremities to stimulation; DTRs 0/ 2 throughout; toes upgoing bilaterally; seems to manipulate sheets in coordinated way with hands; detailed exam impossible due to status) Results I reviewed CT. Small hyperdense area about 6mm superior R frontal and tiny 2mm dot further laterally. could be intra-axial or extra-axial; no mass effect; significant brain atrophy Result Diagram: 07/18/16 1305 07/18/16 1305 Results 24 hrs Laboratory Tests Test 07/18/16 12:32 07/18/16 13:05 Urine Color LT. YELLOW Urine Clarity CLEAR Urine pH 6.0 Urine Specific [place] 1.020 Urine Ketones NEGATIVE Urine Nitrite NEGATIVE Urine Bilirubin NEGATIVE Urine Urobilinogen 0.2 E.U./dL Urine Leukocyte Esterase NEGATIVE Urine Microscopic RBC 0-2 Urine Microscopic WBC NONE SEEN Urine Epithelial Cells RARE Urine Squamous Epithelial Cells Urine Bacteria RARE Urine Hemoglobin TRACE Urine Glucose NEGATIVE Urine Total Protein NEGATIVE White Blood Count 7.2 Red Blood Count 4.59 Hemoglobin 13.5 Hematocrit 41.9 Mean Corpuscular Volume 91.3 Mean Corpuscular Hemoglobin 29.4 Mean Corpuscular Hemoglobin Concent 32.2 Red Cell Distribution Width 13.5 Platelet Count 226 Mean Platelet Volume 10.3 # Neutrophils % 77.4 H Lymphocytes % 13.8 L Monocytes % 7.4 Eosinophils % 0.7 Basophils % 0.4 Nucleated Red Blood Cells % 0.0 Neutrophils # 5.6 Lymphocytes # 1.0 Monocytes # 0.5 Eosinophils # 0.1 Basophils # 0.0 Nucleated Red Blood Cells # 0.0 Prothrombin Time 12.3 Prothrombin Time Ratio 1.0 INR International Normalized Ratio 0.91 Activated Partial Thromboplast Time 31.5 Sodium Level 142 Potassium Level 3.9 Chloride Level 103 Carbon Dioxide Level 27 Anion Gap 16 Blood Urea Nitrogen 25 H Creatinine 0.72 Glucose Level 113 Calcium Level 9.6 Total Bilirubin 0.9 Direct Bilirubin 0.00 Indirect Bilirubin 0.9 Aspartate Amino Transf (AST/SGOT) 38 Alanine Aminotransferase (ALT/SGPT) 32 Alkaline Phosphatase 93 Troponin I < 0.012 Total Protein 7.8 Albumin 4.1 Globulin 3.70 H Albumin/Globulin Ratio 1.10 Medications Medications Current Medications Haloperidol (Haldol) 3 mg Q6H PRN IM agitation Last administered on 07/18/16 22:50; Admin Dose 3 MG; Start 07/18/16 at 20:00 Morphine Sulfate (morphine) 2 mg Q4H PRN IV pain; Start 07/18/16 at 20:00 Famotidine (Pepcid Iv) 20 mg DAILY IV ; Start 07/19/16 at 09:00 Docusate Sodium (Colace) 100 mg BID PO ; Start 07/18/16 at 21:00 Ondansetron HCl 4 mg 4 mg Q6H PRN IV NAUSEA AND/OR VOMITING; Start 07/18/16 at 20:00 Dextrose/Sodium Chloride (D5-1/2ns) 1,000 ml @ 75 mls/hr [id number] IV Last administered on 07/18/16 21:00; Admin Dose 75 MLS/HR; Start 07/18/16 at 20:00 Risperidone (Risperdal) 0.5 mg BID PO ; Start 07/19/16 at 09:00 LATISHA HANSON MD July 19, 2016 08:59
[2016-07-19 10:16] LABS: ADD SCAN DIFF NO
[2016-07-19 10:26] LABS: BASOPHILS % 0.7 % (0.0-2.0); EOSINOPHILS # 0.1 10^3/ul (0.0-0.5); EOSINOPHILS % 1.3 % (0.0-7.0); HEMATOCRIT 40.9 % (37.0-47.0); HEMOGLOBIN 13.1 g/dl (12.0-16.0); LYMPHOCYTES # 1.2 10^3/ul (0.8-2.9); LYMPHOCYTES % 20.4 % (15.0-51.0); MEAN CORPUSCULAR HEMOGLOBIN 29.1 pg (29.0-33.0); MEAN CORPUSCULAR VOLUME 90.9 fl (82.0-101.0); MEAN PLATELET VOLUME 10.4 fl (7.4-10.4); MONOCYTE # 0.5 10^3/ul (0.3-0.9); MONOCYTES % 7.8 % (0.0-11.0); NEUTROPHIL # 4.2 10^3/ul (1.6-7.5); NEUTROPHILS % 69.6 % (39.0-77.0); PLATELET COUNT 227 10^3/UL (140-415); RED CELL DISTRIBUTION WIDTH 13.5 % (11.5-14.5)
[2016-07-19 10:36] LABS: POTASSIUM 3.4 mmol/L (3.5-5.1)
[2016-07-19 10:39] LABS: CREATININE 0.7 mg/dl (0.44-1.00)
[2016-07-19 10:41] LABS: INR 0.96; PROTIME 12.8 Sec (12.2-14.2)
[2016-07-19 10:43] LABS: PARTIAL THROMBOPLASTIN TIME 31.2 Sec (25.0-35.0)
--- NOTE | 2016-07-19 11:02 | RADRPT ---
PROCEDURE: CT Brain without. CLINICAL INDICATION: Contusion. TECHNIQUE: A CT of the brain was performed on multidetector high-resolution CT scanner utilizing a xial sections from the skull base through the vertex without contrast. The scan was reviewed in sof t tissue brain and high frequency resolution bone algorithm windows. Images were reviewed on a high -resolution PACS workstation. One or more the following does reduction techniques were utilized: Aut omated exposure control, adjustment of the mA/ or kV according to patient's size, or use of iterativ e reconstruction technique. The exam CTDI = 45.0 mGy and the DLP = 630.2 mGy-cm. COMPARISON: Brain CT 07/18/2016. FINDINGS: Similar 4-5 mm ovoid hyperdensity within the right posterior frontal vertex as well as smaller 2-3 m m ovoid hyperdensity more laterally are again noted which could be extra-axial or juxta-cortical and are concerning for hemorrhage considering history of trauma. The ventricles and sulci are moderately prominent indicative of volume loss. There is no intracrania l hemorrhage, mass effect or midline shift. No abnormal intra-axial or extra-axial fluid collection s are seen. The shin/white matter differentiation is preserved. There is a partially empty sella tur cica. There are moderate to marked foci of hypoattenuation in the white matter, which are nonspecific in e tiology but likely reflect chronic small vessel ischemic changes. Old lacunar infarct in the right l entiform nucleus is noted. There are mild to moderate intracranial vascular calcifications consisten t with atherosclerosis. The visualized paranasal sinuses are essentially clear. There is thinning of bilateral lens indicative of prior lens replacement. IMPRESSION: 1. Similar subcentimeter right posterior frontal vertex hyperdensities which may represent small he morrhagic foci considering history of trauma. Consider follow-up MRI of the brain with and without c ontrast to evaluate for other possible etiologies. 2. Mild to moderate intracranial atherosclerosis and moderate to marked chronic small vessel ischem ic changes. 3. Moderate generalized cerebral and mild cerebellar volume loss. 4. Partially empty sella. 5. Old lacunar infarct in the right lentiform nucleus. RPTAT: HH .Farbod Nasseri, MD, MD Date Time Electronically viewed and signed by .Torie Pearce MD, MD on 07/19/2016 11:02 .N/
[2016-07-19] MEDS ORDERED: POTASSIUM CHLORIDE 20 MEQ POWDER FOR ORAL SOLN PO ONE (12:30)
[2016-07-19] MEDS ORDERED: POTASSIUM CHLORIDE (SR) 10 MEQ TAB PO ONE (12:30)
--- NOTE | 2016-07-19 14:54 | PN ---
DATE: 07/19/2016 HOSPITALIST PROGRESS NOTE TIME OF EVALUATION: 1:30 p.m. SUBJECTIVE DATA: The patient has been lethargic since last night after she got Haldol last night. OBJECTIVE DATA: VITAL SIGNS: Temperature 98.0, pulse rate 60, respiratory rate 16, blood pressure 157/89, oxygen saturation 96% on room air. GENERAL: This is an 85-year-old elderly female lying in bed in no apparent distress. HEENT: Head normocephalic. Eyes: Anicteric sclerae, conjunctivae clear. ENT : Facial bruising.Tenderness on palpation of the facial bones. No active epistaxis. NECK: Supple. No JVD noticed. RESPIRATORY: Bilaterally diminished breath sounds with no adventitious breath sounds heard with no use of accessory muscles of respiration. CARDIAC: Regular rate and rhythm. S1 and S2 heard. GASTROINTESTINAL: Abdomen soft, nontender, nondistended. Bowel sounds positive in all 4 quadrants. GENITOURINARY: Deferred. EXTREMITIES: Bilateral trivial pretibial edema. Peripheral pulses palpable. NEUROLOGIC: The patient is lethargic. LABORATORY AND DIAGNOSTIC DATA: WBC 6.0, hemoglobin 13.1, hematocrit 40.9, platelet count 227. Sodium 141, potassium 3.4, chloride 102, carbon dioxide 26 , anion gap 16, BUN 7, creatinine 0.70, glucose 89, calcium 9.0, magnesium 2.0. Repeat brain CT scan. Similar subcentimeter right posterior frontal vertex hyperdensities which may represent small hemorrhagic foci. ASSESSMENT AND PLAN: 1. Acute head injury. Brain CT scan showing subcentimeter right posterior frontal vertex hyperdensities which may represent a small hemorrhagic foci. Status post evaluation by neurosurgery. Repeat CT scan of the brain also showing similar findings. No surgical interventions. The patient unable to obtain an MRI because the patient has underlying pacemaker. 2. Comminuted fractures of the nasal bones with posterior displacement on the left. No active bleeding. ENT consult has been ordered. Continue pain control. 3. Advanced dementia. Continue conservative management. 4. Essential hypertension. The patient will be started on p.r.n. antihypertensives for any systolic blood pressure readings greater than 160 mmHg. 5. Hypokalemia. The patient's potassium will be repleted. 6. Dyslipidemia. Fasting lipid panel pending. 7. Fluid, electrolytes, and nutrition. Mechanical soft diet. 8. Deep venous thrombosis prophylaxis. Chemical DVT prophylaxis contraindicated. 9. Gastrointestinal prophylaxis with histamine 2 receptor blockers. PLAN: Continue current management. Obtain physical therapy evaluation. Await ENT consultation. The plan of care was discussed with the patient's son, with the help of a certified [facility] manager surgery. The patient will be made a DNR as per the patient's son's request. The case was discussed with Dr. Cordero. SIMON CORDERO MD, AM/JG Conf#: [id number] DID#: [id number] MTDD
--- NOTE | 2016-07-19 20:07 | CONS ---
Date/Time of Note Date/Time of Note DATE: 07/19/16 TIME: 20:03 Consult Date/Type/Reason Admit Date/Time July 18, 2016 at 18:05 Initial Consult Date 07/19/16 Type of Consultation: neurology Subjective no acute events CT x 2 - stable lesions Objective Vital Signs Date Time Temp Pulse Resp B/P Pulse Ox O2 Delivery O2 Flow Rate FiO2 07/19/16 19:55 97.6 85 18 167/72 95 07/18/16 21:41 Room Air Results/Medications Result Diagram: 07/19/16 1000 07/19/16 1000 Results 24 hrs Laboratory Tests Test 07/19/16 10:00 White Blood Count 6.0 Red Blood Count 4.50 Hemoglobin 13.1 Hematocrit 40.9 Mean Corpuscular Volume 90.9 Mean Corpuscular Hemoglobin 29.1 Mean Corpuscular Hemoglobin Concent 32.0 Red Cell Distribution Width 13.5 Platelet Count 227 Mean Platelet Volume 10.4 Neutrophils % 69.6 Lymphocytes % 20.4 Monocytes % 7.8 Eosinophils % 1.3 Basophils % 0.7 Nucleated Red Blood Cells % 0.0 Neutrophils # 4.2 Lymphocytes # 1.2 Monocytes # 0.5 Eosinophils # 0.1 Basophils # 0.0 Nucleated Red Blood Cells # 0.0 Prothrombin Time 12.8 Prothrombin Time Ratio 1.0 INR International Normalized Ratio 0.96 Activated Partial Thromboplast Time 31.2 Sodium Level 141 Potassium Level 3.4 L Chloride Level 102 Carbon Dioxide Level 26 Anion Gap 16 Blood Urea Nitrogen 17 Creatinine 0.70 Glucose Level 89 Calcium Level 9.0 Magnesium Level 2.0 Medications Current Medications Haloperidol (Haldol) 3 mg Q6H PRN IM agitation Last administered on 07/18/16t 22:50; Admin Dose 3 MG; Start 07/18/16 at 20:00 Morphine Sulfate (morphine) 2 mg Q4H PRN IV pain; Start 07/18/16 at 20:00 Famotidine (Pepcid Iv) 20 mg DAILY IV ; Start 07/19/16 at 09:00 Docusate Sodium (Colace) 100 mg BID PO ; Start 07/18/16 at 21:00 Ondansetron HCl 4 mg 4 mg Q6H PRN IV NAUSEA AND/OR VOMITING; Start 07/18/16 at 20:00 Dextrose/Sodium Chloride (D5-1/2ns) 1,000 ml @ 75 mls/hr [id number] IV Last administered on 07/18/16t 21:00; Admin Dose 75 MLS/HR; Start 07/18/16 at 20:00 Risperidone (Risperdal) 0.5 mg BID PO ; Start 07/19/16 at 09:00 Clonidine (Catapres) 0.1 mg Q6H PRN PO SBP>160; Start 07/19/16 at 10:30 Assessment/Plan Chief Complaint/Hosp Course PHYSICAL EXAMINATION: GENERAL: Not in acute distress, lying in bed. HEENT: Normocephalic head. There is a small abrasion on the face, periorbital bruises,. NECK: Supple. No meningeal signs. LUNGS: Clear to auscultation bilaterally. CARDIAC: Normal cardiac rhythm and sounds. ABDOMEN: Soft, nontender. EXTREMITIES: No cyanosis, clubbing or edema. NEUROLOGIC: She is lethargic, arousable by voice, restless when aroused. Present response to visual threat bilaterally. Pupils about 2 mm bilaterally. Extraocular movements intact. Symmetrical face. Corneal reflexes present bilaterally as well as gag. Motor strength examination limited, but she moves all extremities spontaneously symmetrically, at least 3/5 bilaterally. Present response to noxious stimuli bilaterally. Deep tendon reflexes 2+ upper extremities and knees, was able to get ankle jerk. Upgoing toes bilaterally. Coordination preserved when she is reaching for objects. Gait was not assessed. IMPRESSION: 1. Status post fall, etiology ? 2. Possible small contusions on the CAT scan, stable. 3. The patient has nasal fracture. 4. She has severe baseline dementia. Not verbal, does not follow commands. Does not eat, drinks only Ensure. May be d/c home from my perspective. D/w pt's daughter in law, who BTW mentioned to me that pt's son, next of kin, does not want DNR, but full code. I passed to nurse. Problems: SUDARSHAN CUNNINGHAM MD July 19, 2016 20:07
[2016-07-20] VITALS (11 sets, daily range): BP systolic 126–162; BP diastolic 50–83; PULSE 63–94; RESP 18
[2016-07-20 07:46] LABS: ADD SCAN DIFF NO
[2016-07-20 07:47] LABS: BASOPHILS % 0.3 % (0.0-2.0); EOSINOPHILS # 0.1 10^3/ul (0.0-0.5); EOSINOPHILS % 0.7 % (0.0-7.0); HEMATOCRIT 39.4 % (37.0-47.0); HEMOGLOBIN 12.6 g/dl (12.0-16.0); LYMPHOCYTES # 1.3 10^3/ul (0.8-2.9); LYMPHOCYTES % 17.8 % (15.0-51.0); MEAN CORPUSCULAR HEMOGLOBIN 29.4 pg (29.0-33.0); MEAN CORPUSCULAR VOLUME 91.8 fl (82.0-101.0); MEAN PLATELET VOLUME 11.5 fl (7.4-10.4); MONOCYTE # 0.6 10^3/ul (0.3-0.9); MONOCYTES % 7.5 % (0.0-11.0); NEUTROPHIL # 5.4 10^3/ul (1.6-7.5); NEUTROPHILS % 73.4 % (39.0-77.0); PLATELET COUNT 181 10^3/UL (140-415); RED BLOOD COUNT 4.29 10^6/ul (4.20-5.40); RED CELL DISTRIBUTION WIDTH 13.7 % (11.5-14.5); WHITE BLOOD COUNT 7.4 10^3/ul (4.8-10.8)
[2016-07-20 08:07] LABS: MAGNESIUM 1.9 mg/dl (1.7-2.5); PHOSPHORUS 3.5 mg/dl (2.5-4.9)
[2016-07-20] MEDS: RISPERIDONE 0.25 MG TAB PO SCH ×2 (08:47→20:09)
[2016-07-20] MEDS: FAMOTIDINE 20 MG INJ IV SCH (08:47)
[2016-07-20] MEDS: DOCUSATE SODIUM 100 MG CAP PO SCH ×2 (08:47→20:09)
[2016-07-20 09:12] LABS: POTASSIUM 4.5 mmol/L (3.5-5.1)
[2016-07-20 09:15] LABS: CREATININE 0.74 mg/dl (0.44-1.00)
[2016-07-20 09:16] LABS: CALCIUM 9.2 mg/dl (8.4-10.2); CHOL/HDL RATIO 4.3 RATIO
[2016-07-20] MEDS: DEXTROSE 5%-0.45% NACL 1,000 ML IV SCH (11:12)
--- NOTE | 2016-07-20 12:41 | HP ---
DATE OF ADMISSION: 07/18/2016 HISTORY OF PRESENT ILLNESS: Lola Richey is an 85-year-old female with severe dementia who had fal anna 2 days ago. She was at [facility] and ENT was consulted. She has a comminuted nasal sept al fracture seen on CT scan. PAST MEDICAL HISTORY: Severe dementia, hyperlipidemia, hypertension. PAST SURGICAL HISTORY: Pacemaker. MEDICATIONS: List was reviewed. ALLERGIES: NO KNOWN DRUG ALLERGIES. SOCIAL HISTORY: Negative for tobacco, alcohol, drug abuse. FAMILY HISTORY: Negative for any heart, lung, kidney, thyroid disease. REVIEW OF SYSTEMS: Patient has dementia but in discussing with her son, there have been no other is sues. PHYSICAL EXAMINATION: Today, her septum does appear to be deviated to the left but her nasal caviti es are completely impacted with dried blood. The nasal bones are tender. There does appear to be m ild asymmetry and tenderness of the left anterior nasal bone. The oral cavity and oropharynx show t ongue, throat and mouth are normal. Oropharynx is clear. Bilateral nasal endoscopy, I was able to see significant crusting of blood, but there is no evidence of a septal hematoma. IMPRESSION: Deviated septum, nasal fracture, dementia. PLAN: At this point, from my standpoint given that she is DNR, I would not do anything with regards to her nasal bones or septum. I would start some saline nasal spray so it will help to clear out t he dried blood from her posterior nasal cavities so she can breathe more easily. Should there be an y questions or concerns, please feel free to reconsult at that time. Dictated By: VIKKI RUTH/JG Conf#: [id number] DID#: [id number]
--- NOTE | 2016-07-20 13:43 | PN ---
Date/Time of Note Date/Time of Note DATE: 07/20/16 TIME: 13:38 Assessment/Plan VTE Prophylaxis VTE Prophylaxis Intervention: SCD's Lines/Catheters [facility] (from [facility]): Peripheral IV Urinary Cath still in place: No Assessment/Plan Assessment/Plan 1. Status post fall, PT SNF transfer 2. Possible small contusions on the CAT scan, stable. 3. Nasal fracture and deviated septum, no surgery needed per ENT 4. Dementia, chronic, follow up with PCP Subjective 24 Hr Interval Summary Free Text/Dictation no distress. nonverbal. alert, demented Exam/Review of Systems Vital Signs Vitals Vital Signs Date Time Temp Pulse Resp B/P Pulse Ox O2 Delivery O2 Flow Rate FiO2 07/20/16 12:26 80 07/20/16 12:17 98.0 18 139/50 98 07/18/16 21:41 Room Air Intake and Output 07/19/16 07/19/16 07/20/16 15:00 23:00 07:00 Intake Total 560 ml 630 ml Balance 560 ml 630 ml Exam Constitutional: alert, non-verbal Head: normocephalic Eyes: EOMI, PERRL, nl conjunctiva, nl lids ENMT: nl external ears & nose, nl lips & teeth, other (swelling on nose) Neck: non-tender, supple Respiratory: clear to auscultation, normal air movement, No congested cough, No crackles/rales, No diminished breath sounds, No intercostal retraction, No labored breathing, No other, No respirations, No tactile fremitus, No wheezing Cardiovascular: nl pulses, regular rate and rhythm, No S3, No S4, No bruits, No diastolic murmur, No edema, No gallop, No irregular rhythm, No jugular venous distention (JVD), No murmurs/extra sounds, No other, No rub, No systolic murmur Gastrointestinal: nl liver, spleen, non-tender, soft, No ascites, No bowel sounds, No distended, No firm, No hepatomegaly, No mass , No other, No rebound or guarding, No splenomegaly, No surgical scars, No tender Musculoskeletal: nl extremities to inspection Extremities: normal pulses, No calf tenderness, No clubbing, No cyanosis, No edema, No other, No palpable cord, No pitting pedal edema, No tenderness 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, confused Lymph: nl lymph nodes Results Result Diagram: 07/20/16 0707 07/20/16 0707 Results 24 hrs Laboratory Tests Test 07/20/16 07:07 White Blood Count 7.4 # Red Blood Count 4.29 Hemoglobin 12.6 Hematocrit 39.4 Mean Corpuscular Volume 91.8 Mean Corpuscular Hemoglobin 29.4 Mean Corpuscular Hemoglobin Concent 32.0 Red Cell Distribution Width 13.7 Platelet Count 181 # Mean Platelet Volume 11.5 H Neutrophils % 73.4 Lymphocytes % 17.8 Monocytes % 7.5 Eosinophils % 0.7 Basophils % 0.3 Nucleated Red Blood Cells % 0.0 Neutrophils # 5.4 Lymphocytes # 1.3 Monocytes # 0.6 Eosinophils # 0.1 Basophils # 0.0 Nucleated Red Blood Cells # 0.0 Sodium Level 140 Potassium Level 4.5 Chloride Level 105 Carbon Dioxide Level 20 L Anion Gap 20 H Blood Urea Nitrogen 19 Creatinine 0.74 Glucose Level 128 Calcium Level 9.2 Phosphorus Level 3.5 Magnesium Level 1.9 Triglycerides Level 150 H Cholesterol Level 214 H LDL Cholesterol, Calculated 135 HDL Cholesterol 49 Cholesterol/HDL Ratio 4.3 Medications Medications Current Medications Haloperidol (Haldol) 3 mg Q6H PRN IM agitation Last administered on 07/18/16 22:50; Admin Dose 3 MG; Start 07/18/16 at 20:00 Morphine Sulfate (morphine) 2 mg Q4H PRN IV pain; Start 07/18/16 at 20:00 Famotidine (Pepcid Iv) 20 mg DAILY IV Last administered on 07/20/16 08:47; Admin Dose 20 MG; Start 07/19/16 at 09:00 Docusate Sodium (Colace) 100 mg BID PO Last administered on 07/20/16 08:47; Admin Dose 100 MG; Start 07/18/16 at 21:00 Ondansetron HCl 4 mg 4 mg Q6H PRN IV NAUSEA AND/OR VOMITING; Start 07/18/16 at 20:00 Dextrose/Sodium Chloride (D5-1/2ns) 1,000 ml @ 75 mls/hr [id number] IV Last administered on 07/20/16 11:12; Admin Dose 75 MLS/HR; Start 07/18/16 at 20:00 Risperidone (Risperdal) 0.5 mg BID PO Last administered on 07/20/16t 08:47; Admin Dose 0.5 MG; Start 07/19/16 at 09:00 Clonidine (Catapres) 0.1 mg Q6H PRN PO SBP>160; Start 07/19/16 at 10:30 PABLO SALAZAR MD July 20, 2016 13:43
[2016-07-21] VITALS (13 sets, daily range): BP systolic 100–175; BP diastolic 54–93; PULSE 79–100; RESP 16–20
[2016-07-21] MEDS: DEXTROSE 5%-0.45% NACL 1,000 ML IV SCH ×2 (02:07→15:35)
[2016-07-21] MEDS: DOCUSATE SODIUM 100 MG CAP PO SCH (08:45)
[2016-07-21] MEDS: FAMOTIDINE 20 MG INJ IV SCH (08:46)
[2016-07-21] MEDS: RISPERIDONE 0.25 MG TAB PO SCH (08:46)
[2016-07-21 09:11] LABS: ADD SCAN DIFF NO
[2016-07-21 09:20] LABS: BASOPHILS % 0.2 % (0.0-2.0); EOSINOPHILS % 0.3 % (0.0-7.0); HEMATOCRIT 36.9 % (37.0-47.0); HEMOGLOBIN 11.9 g/dl (12.0-16.0); LYMPHOCYTES # 1.1 10^3/ul (0.8-2.9); MEAN CORPUSCULAR HGB CONC 32.2 g/dl (32.0-37.0); MEAN PLATELET VOLUME 10.3 fl (7.4-10.4); MONOCYTE # 0.7 10^3/ul (0.3-0.9); MONOCYTES % 6.9 % (0.0-11.0); NEUTROPHIL # 8.9 10^3/ul (1.6-7.5); NEUTROPHILS % 82.2 % (39.0-77.0); PLATELET COUNT 229 10^3/UL (140-415); RED CELL DISTRIBUTION WIDTH 13.9 % (11.5-14.5); WHITE BLOOD COUNT 10.8 10^3/ul (4.8-10.8)
[2016-07-21 09:37] LABS: CALCIUM 8.8 mg/dl (8.4-10.2); CREATININE 0.62 mg/dl (0.44-1.00); POTASSIUM 3.7 mmol/L (3.5-5.1)
[2016-07-21] MEDS ORDERED: ACETAMINOPHEN 325 MG TAB PO PRN (14:30)
--- NOTE | 2016-07-21 14:48 | PN ---
Date/Time of Note Date/Time of Note DATE: 07/21/16 TIME: 14:42 Assessment/Plan VTE Prophylaxis VTE Prophylaxis Intervention: SCD's Lines/Catheters [facility] Peripheral IV Urinary Cath still in place: No Assessment/Plan Assessment/Plan 1. Altered mental status, repeat and CXR, needs to repeat CT head if UA and CXR negative 2. s/p fall with possible small contusions on the CAT scan, may need to repeat CT head 3. Nasal fracture and deviated septum, no surgery needed per ENT 4. Dementia, chronic, follow up with PCP Subjective 24 Hr Interval Summary Free Text/Dictation demented Exam/Review of Systems Vital Signs Vitals Vital Signs Date Time Temp Pulse Resp B/P Pulse Ox O2 Delivery O2 Flow Rate FiO2 07/21/16 12:43 100 07/21/16 11:41 99.3 19 134/93 98 07/18/16 21:41 Room Air Intake and Output 07/20/16 07/20/16 07/21/16 15:00 23:00 07:00 Intake Total 570 ml 1200 ml Balance 570 ml 1200 ml Exam Constitutional: non-verbal Psych: nl mood/affect, no complaints Head: atraumatic, normocephalic Eyes: EOMI, nl conjunctiva, nl lids ENMT: other (nose swelling) Neck: non-tender, supple Respiratory: clear to auscultation, normal air movement, No congested cough, No crackles/rales, No diminished breath sounds, No intercostal retraction, No labored breathing, No other, No respirations, No tactile fremitus, No wheezing Cardiovascular: nl pulses, regular rate and rhythm, No S3, No S4, No bruits, No diastolic murmur, No edema, No gallop, No irregular rhythm, No jugular venous distention (JVD), No murmurs/extra sounds, No other, No rub, No systolic murmur Gastrointestinal: nl liver, spleen, non-tender, soft, No ascites, No bowel sounds, No distended, No firm, No hepatomegaly, No mass , No other, No rebound or guarding, No splenomegaly, No surgical scars, No tender Musculoskeletal: nl extremities to inspection Extremities: normal pulses, No calf tenderness, No clubbing, No cyanosis, No edema, No other, No palpable cord, No pitting pedal edema, No tenderness Neurological: confused, lethargic Skin: nl turgor Lymph: nl lymph nodes Results Result Diagram: 07/21/1690407/21/16 08 Results 24 hrs Laboratory Tests Test 07/21/16 08:05 07/21/16 09:05 Sodium Level 135 Potassium Level 3.7 Chloride Level 106 Carbon Dioxide Level 22 Anion Gap 11 # Blood Urea Nitrogen 13 Creatinine 0.62 Glucose Level 159 Calcium Level 8.8 White Blood Count 10.8 # Red Blood Count 4.10 L Hemoglobin 11.9 L Hematocrit 36.9 L Mean Corpuscular Volume 90.0 Mean Corpuscular Hemoglobin 29.0 Mean Corpuscular Hemoglobin Concent 32.2 Red Cell Distribution Width 13.9 Platelet Count 229 # Mean Platelet Volume 10.3 Neutrophils % 82.2 H Lymphocytes % 10.0 L Monocytes % 6.9 Eosinophils % 0.3 Basophils % 0.2 Nucleated Red Blood Cells % 0.0 Neutrophils # 8.9 H Lymphocytes # 1.1 Monocytes # 0.7 Eosinophils # 0.0 Basophils # 0.0 Nucleated Red Blood Cells # 0.0 Medications Medications Current Medications Haloperidol (Haldol) 3 mg Q6H PRN IM agitation Last administered on 07/18/16 22:50; Admin Dose 3 MG; Start 07/18/16 at 20:00 Morphine Sulfate (morphine) 2 mg Q4H PRN IV pain; Start 07/18/16 at 20:00 Famotidine (Pepcid Iv) 20 mg DAILY IV Last administered on 07/21/16 08:46; Admin Dose 20 MG; Start 07/19/16 at 09:00 Docusate Sodium (Colace) 100 mg BID PO Last administered on 07/20/16 20:09; Admin Dose 100 MG; Start 07/18/16 at 21:00 Ondansetron HCl 4 mg 4 mg Q6H PRN IV NAUSEA AND/OR VOMITING; Start 07/18/16 at 20:00 Dextrose/Sodium Chloride (D5-1/2ns) 1,000 ml @ 75 mls/hr [id number] IV Last administered on 07/21/16 02:07; Admin Dose 75 MLS/HR; Start 07/18/16 at 20:00 Risperidone (Risperdal) 0.5 mg BID PO Last administered on 07/21/16 08:46; Admin Dose 0.5 MG; Start 07/19/16 at 09:00 Clonidine (Catapres) 0.1 mg Q6H PRN PO SBP>160 Last administered on 07/20/16 20:12; Admin Dose 0.1 MG; Start 07/19/16 at 10:30 Acetaminophen (Tylenol Tab) 650 mg Q6H PRN PO PAIN AND OR ELEVATED TEMP; Start 07/21/16 at 14:30 PABLO SALAZAR MD July 21, 2016 14:48
--- NOTE | 2016-07-21 15:27 | DS ---
Date/Time of Note Date/Time of Note DATE: 07/21/16 TIME: 15:12 Discharge Summary Admission/Discharge Info Admit Date/Time July 18, 2016 at 18:05 Discharge Date/Time Final Diagnosis 2. s/p mechanical fall, fall precaution, home health 2. possible small contusions on the CAT scan, stable 3. Nasal fracture and deviated septum, no surgery needed per ENT 4. Dementia, chronic, follow up with PCP 5. Dyslipidemia, on statin 6. Hypertension, controlled Patient Condition: Stable Hx of Present Illness This 85-year-old female is brought in for a fall yesterday in which she fell forward and struck her face on the floor. The mechanism of the fall is unknown because the patient has baseline dementia and which makes her not communicative. She did strike her knee she does have mild swelling that has improved since yesterday. She still is able to walk but has not ambulated since her fall yesterday. She has been able to take p.o. today. The patient is usually very ambulant and spends the better part of most days ambulating aimlessly. She was on hospice therapy and when she initially fell, she had a bad nosebleed , the hospice nurse came and checked her, and used icepacks which helped, but bleeding recurred over night which made family decide to bring her to ER. Hospital Course CT scan of head revealed subcentimeter right posterior frontal vertex hyperdensity with smaller adjacent more lateral hyperdensity. These may represent small intraparenchymal CT scan of head reported as hemorrhages/ contusions given history of trauma Patient cannot have MRI due to pacemaker. Neurology consultation recommend no further evaluation and treatment for this. CT face revealed comminuted fracture of the nasal bones with posterior displacement on the left. Patient is seen by ENT, no surgery needed. Patient was sleeping when I check her today and I had difficulty in waking her up. Then the nurse woke her up and she yelled, indicating no acute mental status change. Home Meds Reported Medications Sennosides* (Senna Lax*) 8.6 Mg Tablet, 1 TAB PO DAILY, TAB 07/18/16 Zolpidem Tartrate* (Zolpidem Tartrate*) 5 Mg Tablet, 5 MG PO QHS Y for INSOMNIA , #30 TAB 07/18/16 Memantine* (Namenda*) 5 Mg Tablet, 5 MG PO DAILY, #30 TAB 07/18/16 Risperidone* (Risperidone*) 0.5 Mg Tablet, 0.5 MG PO DAILY, TAB 07/18/16 Escitalopram Oxalate* (Escitalopram Oxalate*) 5 Mg Tablet, 5 MG PO DAILY, #30 TAB 07/18/16 Furosemide* (Furosemide*) 40 Mg Tablet, 40 MG PO DAILY, TAB 07/18/16 Aspirin* (Aspirin* Chew) 81 Mg Tab.chew, 81 MG PO DAILY, TAB.CHEW 07/18/16 Alendronate Sodium* (Fosamax*) 70 Mg Tablet, 70 MG PO Q7D, #4 TAB 07/18/16 Valsartan* (Diovan*) 160 Mg Tablet, 160 MG PO DAILY, TAB HOLD FOR SBP<120 07/18/16 Atorvastatin Calcium* (Atorvastatin Calcium*) 20 Mg Tablet, 20 MG PO QHS, #30 TAB 07/18/16 Discontinued Reported Medications Alendronate Sodium* (Fosamax*) 70 Mg Tablet, 70 MG PO Q7D, #4 TAB 07/18/16 Risedronate* (Atelvia*) 35 Mg Tablet.dr, 35 MG PO Q7D, TAB 08/22/14 Docusate Sodium* (Colace*) 100 Mg Capsule, 100 MG PO BID, CAP 08/22/14 Clonidine Hcl* (Clonidine Hcl*) 0.3 Mg Tablet, 0.1 MG PO Q6 Y 03/02/13 Ibuprofen* (Motrin*) 800 Mg Tab, 800 MG PO TID 12/05/12 Valsartan-Hydrochlorothiazide (Diovan HCT) 1 Tab Tablet, 1 TAB PO DAILY 12/05/12 Alprazolam (Xanax) 0.25 Mg Tab, 0.25 MG PO DAILY 12/05/12 Clonidine Hcl* (Clonidine Hcl*) 0.1 Mg Tab, 0.1 MG PO Q6 Y 12/05/12 Paroxetine Hcl* (Paxil*) 20 Mg Tablet, DAILY 12/08/11 [Docusate] No Conflict Check, 100 MG PO BID 12/08/11 Donepezil* (Aricept*) 5 Mg Tablet, PO DAILY 12/08/11 Darifenacin* (Enablex*) 7.5 Mg Tab.sr.24h, PO DAILY 03/02/11 Ramipril (Altace) 5 Mg Capsule, PO DAILY 03/02/11 Memantine* (Namenda*) 10 Mg Tablet, PO DAILY 03/02/11 Aspirin (Carissa Child) 81 Mg Chew, PO DAILY 03/02/11 Atenolol* (Atenolol*) 50 Mg Tablet, PO DAILY 03/02/11 Follow-up Plan PCP in one week Home health Primary Care Provider [facility] Pending Labs Laboratory Tests Test 07/21/16 08:05 07/21/16 09:05 Sodium Level 135mmol/L (135-144) Potassium Level 3.7mmol/L (3.5-5.1) Chloride Level 106mmol/L (97-110) Carbon Dioxide Level 22mmol/L (21-31) Anion Gap 11 (8-16) Blood Urea Nitrogen 13mg/dl (7-20) Creatinine 0.62mg/dl (0.44-1.00) Glucose Level 159mg/dl (70-220) Calcium Level 8.8mg/dl (8.4-10.2) White Blood Count 10.810^3/ul (4.8-10.8) Red Blood Count 4.1010^6/ul (4.20-5.40) Hemoglobin 11.9g/dl (12.0-16.0) Hematocrit 36.9% (37.0-47.0) Mean Corpuscular Volume 90.0fl (82.0-101.0) Mean Corpuscular Hemoglobin 29.0pg (29.0-33.0) Mean Corpuscular Hemoglobin Concent 32.2g/dl (32.0-37.0) Red Cell Distribution Width 13.9% (11.5-14.5) Platelet Count 86128^3/UL (140-415) Mean Platelet Volume 10.3fl (7.4-10.4) Neutrophils % 82.2% (39.0-77.0) Lymphocytes % 10.0% (15.0-51.0) Monocytes % 6.9% (0.0-11.0) Eosinophils % 0.3% (0.0-7.0) Basophils % 0.2% (0.0-2.0) Nucleated Red Blood Cells % 0.0/100WBC (0.0-0.0) Neutrophils # 8.910^3/ul (1.6-7.5) Lymphocytes # 1.110^3/ul (0.8-2.9) Monocytes # 0.710^3/ul (0.3-0.9) Eosinophils # 0.010^3/ul (0.0-0.5) Basophils # 0.010^3/ul (0.0-0.1) Nucleated Red Blood Cells # 0.010^3/ul (0.0-0.0) PABLO SALAZAR MD July 21, 2016 15:23
--- NOTE | 2016-07-21 17:27 | RADRPT ---
PROCEDURE: XR Chest. CLINICAL INDICATION: Shortness of breath. TECHNIQUE: Single frontal view. COMPARISON: 07/18/2016. FINDINGS: There is mild atelectasis at the lung bases. The lungs are otherwise clear. Calcification is prese nt in the aorta consistent with atherosclerosis. The heart size is normal. There is a left-sided dual lead permanent pacemaker with leads in the right atrium and right ventric le. There is no pleural effusion. There is no pneumothorax. IMPRESSION: 1. Mild atelectasis at the lung bases. 2. Atherosclerosis. 3. Permanent pacemaker. RPTAT: QQ .Lyndon Encarnacion MD, MD Date Time Electronically viewed and signed by .Lyndon Encarnacion MD, MD on 07/21/2016 17:27 .R/
== END 2016-07-21 20:50 | disposition home health service (06) | DRG 154 ==
LOC: E/R 12:14 → MS4 18:05
PROVIDERS: ADMIT Family Medicine; ATTEND Family Medicine
DX: S02.2XXA Fracture of nasal bones, initial encounter for closed fracture (principal); S06.330A Contusion and laceration of cerebrum, unspecified, without loss of consciousness, initial encounter; F03.90 Unspecified dementia, unspecified severity, without behavioral disturbance, psychotic disturbance, mood disturbance, and anxiety; E86.0 Dehydration; I10 Essential (primary) hypertension; Z95.0 Presence of cardiac pacemaker; E78.5 Hyperlipidemia, unspecified; E87.6 Hypokalemia; J34.2 Deviated nasal septum; W17.89XA Other fall from one level to another, initial encounter; Y92.019 Unspecified place in single-family (private) house as the place of occurrence of the external cause; Z86.73 Personal history of transient ischemic attack (TIA), and cerebral infarction without residual deficits
CPT/HCPCS: 70450; 70486; 71010; 72125; 72170; 73562; 80048; 80053; 80061; 81001; 81003; 83735; 84100; 84484; 85025; 85610; 85730; 87086; 93005; 96374; 96375; 96376; 97110; 97162; 97530; A4310; J1630; J2270; J2405; J7040; J7042; P9612

== ENCOUNTER 2016-08-10 23:11 | Inpatient (IN) | payer MEDICARE, OTHER ==
[~2016-08-10] VITALS: Ht 162.6 cm; Wt 70.5 kg
[~2016-08-10 23:11] MED LIST changes: +ALEN70TA30 PO; -ALPR0.254 PO; -ASPI-676; +ASPI81TA3 PO; -ATEN50TA; +ATOR20TA38 PO; -CLON-379 PO; -CLON0.3T PO; -DARI7.5T3; -DOCU-144 PO; -DOCUSATE PO; -DONE5TAB46 PO; +ESCI5TAB10 PO; +FURO40TA4 PO; -IBUP800T25 PO; -MEMA10TA16; +MEMA5TAB PO; -PARO20TA58; -RAMI5CAP23; -RISE35TA3 PO; +RISP0.5T3 PO; +SENN-53 PO; +VALS160T20 PO; -VALS1TAB65 PO; +ZOLP5TAB7 PO
--- NOTE | 2016-08-10 23:25 | ERA ---
ER Documentation Chief Complaint Date/Time DATE: 08/10/16 TIME: 23:24 Chief Complaint Altered level of consciousness HPI The patient is a 85-year-old female, presenting to the ER because of altered level of consciousness more than normal for 2 days, decreased appetite. She does not any fever, chills, neck pain, chest pain, dyspnea, abdominal pain, vomiting. The history is obtained from granddaughter and medical record. She does not smoke nor drink nor walk Past medical history: Dementia, hypertension, dyslipidemia, CAD, history of CVA Past surgical history: Pacemaker ROS All systems reviewed and are negative except as per history of present illness. Medications Home Meds Reported Medications Sennosides* (Senna Lax*) 8.6 Mg Tablet, 1 TAB PO DAILY, TAB 07/18/16 Zolpidem Tartrate* (Zolpidem Tartrate*) 5 Mg Tablet, 5 MG PO QHS Y for INSOMNIA , #30 TAB 07/18/16 Memantine* (Namenda*) 5 Mg Tablet, 5 MG PO DAILY, #30 TAB 07/18/16 Risperidone* (Risperidone*) 0.5 Mg Tablet, 0.5 MG PO DAILY, TAB 07/18/16 Escitalopram Oxalate* (Escitalopram Oxalate*) 5 Mg Tablet, 5 MG PO DAILY, #30 TAB 07/18/16 Furosemide* (Furosemide*) 40 Mg Tablet, 40 MG PO DAILY, TAB 07/18/16 Aspirin* (Aspirin* Chew) 81 Mg Tab.chew, 81 MG PO DAILY, TAB.CHEW 07/18/16 Alendronate Sodium* (Fosamax*) 70 Mg Tablet, 70 MG PO Q7D, #4 TAB 07/18/16 Valsartan* (Diovan*) 160 Mg Tablet, 160 MG PO DAILY, TAB HOLD FOR SBP<120 07/18/16 Atorvastatin Calcium* (Atorvastatin Calcium*) 20 Mg Tablet, 20 MG PO QHS, #30 TAB 07/18/16 Allergies Allergies: Coded Allergies: No Known Allergy (Unverified , 08/11/16) PMhx/Soc History of Surgery: No Anesthesia Reaction: No Hx Neurological Disorder: Yes (Dementia) Hx Respiratory Disorders: No Hx Cardiac Disorders: Yes (HTN, Hypercholestoremia.) Hx Psychiatric Problems: No Hx Miscellaneous Medical Probl: Yes (dementia, ALzheimer's) Hx Alcohol Use: No Hx Substance Use: No Hx Tobacco Use: No Physical Exam Vitals Vital Signs Date Time Temp Pulse Resp B/P Pulse Ox O2 Delivery O2 Flow Rate FiO2 08/11/16 01:42 84 22 104/87 99 Nasal Cannula 2.0 08/11/16 00:01 90 26 105/61 100 Nasal Cannula 3.0 08/10/16 23:30 100 3.0 08/10/16 23:27 Nasal Cannula 3 08/10/16 23:24 97.4 92 17 97/69 97 Physical Exam Const: No acute distress. Dehydrated Head: Atraumatic. Eyes: Normal Conjunctiva. ENT: Normal External Ears, Nose and Mouth. Neck: Full range of motion. No meningismus. Resp: Clear to auscultation bilaterally. Cardio: Regular rate and rhythm. Abd: Soft, non distended, normal bowel sounds, non tender. Skin: No petechiae or rashes. Back: No midline or flank tenderness. Ext: No cyanosis, or edema. Neur: Unable to perform due to her condition Psych: Unable to perform due to her condition Result Diagram: 08/11/16 0150 08/11/16 0150 Results 24 hrs Laboratory Tests Test 08/10/16 23:25 08/11/16 00:40 08/11/16 01:30 08/11/16 01:50 Blood Gas Specimen Source Blood arterial Arterial Blood Date Drawn 08/10/2016 11:30:02 PM Arterial Blood pH (Temp corrected) 7.384 Arterial Blood pCO2 (Temp correct) 32.5mmhg Arterial Blood pO2 (Temp corrected) 90.3mmHG Arterial Blood HCO3 19.0mmol/L Arterial Blood Base Excess -5.0mmol/L Arterial Blood Oxygen Saturation 96.5mmHG Chad Test ACCEPTAB Arterial Blood Gas Puncture Site Right Brachial Arterial Blood Carboxyhemoglobin 0.2% Arterial Blood Methemoglobin 0.3% Blood Gas A-a O2 Differential 85.4mmHg Oxyhemoglobin Percent 96.0% Total Hemoglobin 14.0g/dl Blood Gas Temperature 37.0C Blood Gas Modality NASAL CANNULA FiO2 30.0% Blood Gas Notified Whom MA Blood Gas Notified Time 08/10/2016 11:48:38 PM Bedside Glucose 96mg/dL Urine Color LT. YELLOW Urine Clarity CLOUDY Urine pH 5.5 Urine Specific Harmony 1.020 Urine Ketones NEGATIVE Urine Nitrite POSITIVE Urine Bilirubin NEGATIVE Urine Urobilinogen 1.0 E.U./dL Urine Leukocyte Esterase 3+ Urine Microscopic RBC 5-10/HPF Urine Microscopic WBC >200/HPF Urine Squamous Epithelial Cells FEW Urine Bacteria MANY Urine Hemoglobin 2+ Urine Glucose NEGATIVE% Urine Total Protein 1+ White Blood Count 14.310^3/ul Red Blood Count 4.9210^6/ul Hemoglobin 14.0g/dl Hematocrit 45.3% Mean Corpuscular Volume 92.1fl Mean Corpuscular Hemoglobin 28.5pg Mean Corpuscular Hemoglobin Concent 30.9g/dl Red Cell Distribution Width 14.9% Platelet Count 35190^3/UL Mean Platelet Volume 10.7fl Neutrophils % 83.1% Lymphocytes % 9.5% Monocytes % 6.3% Eosinophils % 0.4% Basophils % 0.4% Nucleated Red Blood Cells % 0.0/100WBC Neutrophils # 11.910^3/ul Lymphocytes # 1.410^3/ul Monocytes # 0.910^3/ul Eosinophils # 0.110^3/ul Basophils # 0.110^3/ul Nucleated Red Blood Cells # 0.010^3/ul Prothrombin Time Pending Prothrombin Time Ratio 1.3 INR International Normalized Ratio 1.28 Activated Partial Thromboplast Time 23.0Sec Sodium Level 154mmol/L Potassium Level 5.9mmol/L Chloride Level 117mmol/L Carbon Dioxide Level 23mmol/L Anion Gap 20 Blood Urea Nitrogen 131mg/dl Creatinine 2.84mg/dl Glucose Level 133mg/dl Lactic Acid Level 1.7mmol/L Calcium Level 9.5mg/dl Total Bilirubin 0.4mg/dl Direct Bilirubin 0.00mg/dl Indirect Bilirubin 0.4mg/dl Aspartate Amino Transf (AST/SGOT) 70IU/L Alanine Aminotransferase (ALT/SGPT) 74IU/L Alkaline Phosphatase 198IU/L Troponin I 0.026ng/ml Total Protein 8.0g/dl Albumin 4.1g/dl Globulin 3.90g/dl Albumin/Globulin Ratio 1.05 Test 08/11/16 01:57 Bedside Urine pH (LAB) 5.5 Bedside Urine Protein (LAB) 2+ Bedside Urine Glucose (UA) Negative Bedside Urine Ketones (LAB) Negative Bedside Urine Blood 2+ Bedside Urine Nitrite (LAB) Positive Bedside Urine Leukocyte Esterase (L 3+ Current Medications Medications (Trade) Dose Ordered Sig/Liuza Route PRN Reason Start Time Stop Time Status Last Admin Dose Admin Sodium Chloride 2180 ml 2,180 ml BOLUS OVER 2 HOURS STAT IV* 08/10/16 23:42 08/11/16 03:04 DC 08/11/16 01:20 Piperacillin Sod/ Tazobactam Sod (Zosyn 3.375gm/ 100 ml (Pmx)) 100 ml @ 200 mls/hr ONCE ONCE IVPB 08/11/16 02:00 08/11/16 02:29 DC 08/11/16 02:08 Lidocaine (Xylocaine 1% (Mpf)) 5 ml ONCE ONCE SC 08/11/16 03:00 08/11/16 03:01 DC Albuterol (Proventil 0.5% (Neb)) 15 mg ONCE ONCE INH 08/11/16 02:58 08/11/16 02:59 DC 08/11/16 03:07 Dextrose (D50w Syringe) 100 ml ONCE ONCE IV 08/11/16 03:00 08/11/16 03:01 DC Insulin Human Regular (Humulin R) 10 unit ONCE ONCE IV 08/11/16 03:00 08/11/16 03:01 DC Sodium Polystyrene Sulfonate 30 gm 30 gm ONCE ONCE MN 08/11/16 03:00 08/11/16 03:01 DC Sodium Chloride (NS) 1,000 ml @ 1,000 mls/hr Q1H ONCE IV 08/11/16 03:30 08/11/16 04:29 Procedures/[place] [id number] Radiology Main Line: [phone] DIAGNOSTIC IMAGING REPORT Patient: MICHELLE PFEIFFER : 1930 Age: 85 Sex: F MR #: [id number] DOS: 08/10/16 2342 Ordering MD: WELLINGTON LUGO MD Location: E/R Room/Bed: PROCEDURE: XR Chest. CLINICAL INDICATION: Chest pain. Possible stroke TECHNIQUE: Portable AP semi right view of the chest was obtained. COMPARISON: 07/21/2016 FINDINGS: The cardiomediastinal silhouette is within normal limits. The left subclavian approach dual chamber cardiac pacemaker is again noted. Left lower lobe subsegmental atelectasis with possible tiny left pleural effusion is noted, the right lung appears clear. There is no evidence of congestive heart failure. Demineralization is noted without evidence of acute osseous abnormality. Calcification of the aorta is present. RPTAT:HJJR IMPRESSION: 1. Mild left lower lobe subsegmental atelectasis with possible small left pleural effusion, pneumonia with parapneumonic effusion is a differential diagnostic possibility in the proper clinical setting, the appearance of the chest not significantly changed from the prior exams. 2. Cardiac pacemaker without congestive heart failure pattern. Physician Ambrose Date Time Electronically viewed and signed by Isaac Cai Physician on 08/11/2016 00:14 JR/ CC: WELLINGTON LUGO MD [place] [id number] Radiology Main Line: [phone] DIAGNOSTIC IMAGING REPORT Patient: MICHELLE PFEIFFER : 1930 Age: 85 Sex: F MR #: [id number] DOS: 08/10/16 2342 Ordering MD: WELLINGTON LUGO MD Location: E/R Room/Bed: PROCEDURE: CT Head without. CLINICAL INDICATION: Sepsis, altered mental status. TECHNIQUE: The study was performed utilizing a multi-slice, multidetector CT scanner. Direct spiral 1 mm axial sections were obtained through the head without the use of intravenous contrast material. 1 or more of the following dose reduction techniques were utilized: Automated exposure control, adjustment of the mA and/or kV according to patient's size, iterative reconstruction technique. Coronal and sagittal reformations were obtained. The images were reviewed on a PACS workstation. RADIATION DOSE: CTDIvol: 45.0 mGy DLP: 720.2 mGy-cm COMPARISON: 07/19/2016, 07/18/2016 FINDINGS: There is no intracranial hemorrhage, extra-axial fluid collection, mass lesion, midline shift or hydrocephalus. The previously visualized subtle hyperdensity in the right posterior frontal / parietal lobe has resolved. No evidence of residual hemorrhage is seen at this time. There is moderate prominence of the cerebral sulci, lateral and third ventricles. There is severe patchy and confluent periventricular and subcortical white matter hypodensity. There is stable mild to moderate arteriosclerotic calcification of the parasellar internal carotid arteries. The shin-white matter differentiation is preserved. The basal cisterns are patent. The midline structures are intact. There is bilateral aphakia. The orbits, calvarium and extracranial soft tissues are normal in appearance. The visualized paranasal sinuses, mastoid air cells and middle ear cavities are normally aerated. IMPRESSION: 1. No acute intracranial abnormality. No intracranial hemorrhage, extra-axial fluid collection, mass lesion or hydrocephalous. 2. Stable moderate peripheral and central cerebral volume loss. 3. Stable severe patchy and confluent periventricular and subcortical white matter hypodensity, likely related to chronic microangiopathic changes. 4. Interval resolution of the previously visualized hyperdense hemorrhage right posterior frontal / parietal lobe RPTAT: HGAS .Dinesh Garcia MD, MD Date Time Electronically viewed and signed by .Dinesh Garcia MD, MD on 08/11/2016 00: 47 .S/ CC: WELLINGTON LUGO MD EKG: Read by emergency physician Rate/Rhythm: Normal Sinus Rhythm 90 beats/min QRS, ST, T-waves: No ST elevation, no T inversion, LAD, low voltage QRS, inferior Q waves Impression: Abnormal EKG MEDICAL MAKING DECISION: The patient is a 85-year-old female, presenting with acute encephalopathy most likely due to metabolic encephalopathy, acute kidney injury, acute hyperkalemia, acute UTI. She was treated with 1 L normal saline for acute dehydration, Zosyn IV for acute cystitis, Goins catheter for acute kidney injury, 2 ampules of D50 IV, 10 units of Regular Insulin IV, albuterol 15 mg nebulizer and Kayexalate suppository for acute hyperkalemia. The differential diagnoses considered include but are not limited to medication non-compliance, pyelonephritis, pneumonia, CVA, tumor, metabolic encephalopathy , septic encephalopathy. Critical Care: Time: 45 minutes excluding all billable procedures. Treatments/Evaluations: Close monitoring and treatment of unstable vital signs, cardiorespiratory, and neurologic status, while maintaining tight balance of fluid, respiratory, and cardiac interventions. Departure Diagnosis: Primary Impression: Acute encephalopathy Additional Impressions: Acute kidney injury Acute cystitis Acute hyperkalemia Abnormal LFTs Dehydration Acute hypernatremia Condition: Critical Comments I discussed the findings with the patient. I discussed the patient with the on- call hospitalist Dr. Cordon at 3 AM who was made aware of the lab, the treatment, the patient condition. The patient is admitted to ICU WELLINGTON LUGO MD Aug 10, 2016 23:25
[2016-08-10] MEDS ORDERED: SODIUM CHLORIDE 0.9% 1L BAG IV* STA (23:42)
[2016-08-10 23:48] LABS: AADO2 Arterial 85.4 mmHg (7.0-24.0); Allen Test ACCEPTAB; Arterial COHb 0.2 % (0.0-3.0); Arterial MetHb 0.3 % (0.0-1.5); MODE NASAL CANNULA
[2016-08-11] VITALS (27 sets, daily range): BP systolic 75–151; BP diastolic 40–115; PULSE 68–90; RESP 14–23; Ht 162.6 cm; Wt 70.5 kg
--- NOTE | 2016-08-11 00:14 | RADRPT ---
PROCEDURE: XR Chest. CLINICAL INDICATION: Chest pain. Possible stroke TECHNIQUE: Portable AP semi right view of the chest was obtained. COMPARISON: 07/21/2016 FINDINGS: The cardiomediastinal silhouette is within normal limits. The left subclavian approach dual chamber cardiac pacemaker is again noted. Left lower lobe subsegmental atelectasis with possible tiny left pleural effusion is noted, the right lung appears clear. There is no evidence of congestive heart failure. Demineralization is noted without evidence of acute osseous abnormality. Calcification of the aorta is present. RPTAT:HJJR IMPRESSION: 1. Mild left lower lobe subsegmental atelectasis with possible small left pleural effusion, pneumoni a with parapneumonic effusion is a differential diagnostic possibility in the proper clinical settin g, the appearance of the chest not significantly changed from the prior exams. 2. Cardiac pacemaker without congestive heart failure pattern. Physician Ambrose Date Time Electronically viewed and signed by Physician Ambrose on 08/11/2016 00:14 /
--- NOTE | 2016-08-11 00:47 | RADRPT ---
PROCEDURE: CT Head without. CLINICAL INDICATION: Sepsis, altered mental status. TECHNIQUE: The study was performed utilizing a multi-slice, multidetector CT scanner. Direct spira l 1 mm axial sections were obtained through the head without the use of intravenous contrast materia l. 1 or more of the following dose reduction techniques were utilized: Automated exposure control, adjustment of the mA and/or kV according to patient's size, iterative reconstruction technique. Co anushka and sagittal reformations were obtained. The images were reviewed on a PACS workstation. RADIATION DOSE: CTDIvol: 45.0 mGyDLP: 720.2 mGy-cm COMPARISON: 07/19/2016, 07/18/2016 FINDINGS: There is no intracranial hemorrhage, extra-axial fluid collection, mass lesion, midline shift or hyd rocephalus. The previously visualized subtle hyperdensity in the right posterior frontal / parietal lobe has resolved. No evidence of residual hemorrhage is seen at this time. There is moderate pro minence of the cerebral sulci, lateral and third ventricles. There is severe patchy and confluent p eriventricular and subcortical white matter hypodensity. There is stable mild to moderate arteriosc lerotic calcification of the parasellar internal carotid arteries. The shin-white matter differenti ation is preserved. The basal cisterns are patent. The midline structures are intact. There is bi lateral aphakia. The orbits, calvarium and extracranial soft tissues are normal in appearance. The visualized paranasal sinuses, mastoid air cells and middle ear cavities are normally aerated. IMPRESSION: 1. No acute intracranial abnormality. No intracranial hemorrhage, extra-axial fluid collection, ma ss lesion or hydrocephalous. 2. Stable moderate peripheral and central cerebral volume loss. 3. Stable severe patchy and confluent periventricular and subcortical white matter hypodensity, lik choco related to chronic microangiopathic changes. 4. Interval resolution of the previously visualized hyperdense hemorrhage right posterior frontal / parietal lobe RPTAT: HGAS .Dinesh Garcia MD, Date Time Electronically viewed and signed by .Dinesh Garcia MD, on 08/11/2016 00:47 .S/
[2016-08-11 01:54] LABS: URINE BLOOD (Dip) POC 2+ (NEGATIVE)
[2016-08-11] MEDS ORDERED: PIPER-TAZO 3.375 GM IV (PMX) 100 ML IVPB ONE (02:00)
[2016-08-11 02:02] LABS: ADD SCAN DIFF NO
[2016-08-11 02:05] LABS: BASOPHIL # 0.1 10^3/ul (0.0-0.1); BASOPHILS % 0.4 % (0.0-2.0); EOSINOPHILS # 0.1 10^3/ul (0.0-0.5); EOSINOPHILS % 0.4 % (0.0-7.0); HEMATOCRIT 45.3 % (37.0-47.0); LYMPHOCYTES # 1.4 10^3/ul (0.8-2.9); LYMPHOCYTES % 9.5 % (15.0-51.0); MEAN CORPUSCULAR HEMOGLOBIN 28.5 pg (29.0-33.0); MEAN CORPUSCULAR HGB CONC 30.9 g/dl (32.0-37.0); MEAN CORPUSCULAR VOLUME 92.1 fl (82.0-101.0); MEAN PLATELET VOLUME 10.7 fl (7.4-10.4); MONOCYTE # 0.9 10^3/ul (0.3-0.9); MONOCYTES % 6.3 % (0.0-11.0); NEUTROPHIL # 11.9 10^3/ul (1.6-7.5); NEUTROPHILS % 83.1 % (39.0-77.0); PLATELET COUNT 359 10^3/UL (140-415); RED BLOOD COUNT 4.92 10^6/ul (4.20-5.40); RED CELL DISTRIBUTION WIDTH 14.9 % (11.5-14.5); WHITE BLOOD COUNT 14.3 10^3/ul (4.8-10.8)
[2016-08-11 02:21] LABS: INR 1.28; PROTIME 16.1 Sec (12.2-14.2); PT RATIO 1.3
[2016-08-11 02:25] LABS: ALBUMIN 4.1 g/dl (3.3-4.9); ALBUMIN/GLOBULIN RATIO 1.05; BILIRUBIN,INDIRECT 0.4 mg/dl (0-1.1); BILIRUBIN,TOTAL 0.4 mg/dl (0.2-1.3); CALCIUM 9.5 mg/dl (8.4-10.2); CREATININE 2.84 mg/dl (0.44-1.00); POTASSIUM 5.9 mmol/L (3.5-5.1)
[2016-08-11 02:34] LABS: ADD UMIC YES; UR BILIRUBIN (Dip) NEGATIVE (NEGATIVE); UR BLOOD (Dip) 2+ (NEGATIVE); UR CLARITY CLOUDY (CLEAR); UR COLOR LT. YELLOW (YELLOW); UR GLUCOSE (Dip) NEGATIVE (NEGATIVE); UR KETONES (Dip) NEGATIVE (NEGATIVE); UR LEUKOCYTE ESTERASE (Dip) 3+ (NEGATIVE); UR NITRITE (Dip) POSITIVE (NEGATIVE); UR TOTAL PROTEIN (Dip) 1+ (NEGATIVE); UR UROBILINOGEN (Dip) 1.0 E.U./dL (0.1-1.0)
[2016-08-11 02:36] LABS: TROPONIN-I 0.026 ng/ml (0.00-0.12)
[2016-08-11] MEDS ORDERED: ALBUTEROL 0.5% (NEB) 2.5 MG/0.5 ML AMP INH ONE (02:58)
[2016-08-11] MEDS ORDERED: INSULIN REGULAR, HUMAN 100 UNIT/1 ML 3ML VIAL IV ONE (03:00)
[2016-08-11] MEDS ORDERED: DEXTROSE 50% 50 ML SYRINGE IV ONE (03:00)
[2016-08-11] MEDS ORDERED: LIDOCAINE 1% (MPF) 5 ML VIAL SC ONE ×2 (03:00→10:00)
[2016-08-11] MEDS ORDERED: NA POLYST SULFON 15 GM/60 ML BTL PR ONE (03:00)
[2016-08-11 03:06] LABS: UR BACTERIA MANY; UR SQUAMOUS EPITHELIAL CELL FEW
[2016-08-11] MEDS ORDERED: SOD CHLORIDE 0.9% 1,000 ML IV ONE (03:30)
[2016-08-11] MEDS ORDERED: DEXTROSE 5%-0.45% NACL 1,000 ML IV SCH (05:04)
[2016-08-11] MEDS: DEXTROSE 5% 1,000 ML IV SCH ×2 (05:23→08:33)
[2016-08-11] MEDS ORDERED: METOCLOPRAMIDE 10 MG INJ IV PRN (05:30)
[2016-08-11] MEDS ORDERED: ALBUTEROL/IPRATROPIUM (NEB) 3 ML AMP NEB PRN (05:30)
[2016-08-11] MEDS ORDERED: ACETAMINOPHEN 650 MG SUPP PR PRN (05:30)
[2016-08-11] MEDS ORDERED: morphine 2 MG INJ IV PRN (05:30)
--- NOTE | 2016-08-11 09:02 | RADRPT ---
PROCEDURE: Retroperitoneal US. CLINICAL INDICATION: JASON,TRANSFERED TO ICU FROM ER AT 6:30AM TECHNIQUE: Multiple sonographic images of the retroperitoneum were obtained. The images were revi ewed on a PACS workstation. COMPARISON: No prior studies are available for comparison. FINDINGS: The right kidney measures 9.6 cm. The left kidney measures 9.8 cm. The renal parenchymal echotexture is mildly increased bilaterally. There is no hydronephrosis. There is no focal renal mass or calcification seen. The bladder is collapsed around a Goins catheter balloon which limits evaluation. IMPRESSION: Mildly atrophic and echogenic kidneys suggest mild medical renal disease. Correlation with BUN and creatinine levels is recommended. No hydronephrosis bilaterally. The bladder is collapsed around a Goins catheter balloon which limits evaluation. RPTAT: EE Physician Yuridia Date Time Electronically viewed and signed by Physician Yuridia on 08/11/2016 09:01 /
[2016-08-11 09:59] LABS: AADO2 Arterial 141.2 mmHg (7.0-24.0); Arterial COHb 0.3 % (0.0-3.0); Arterial Fraction of Oxyhgb 97.8 % (93.0-99.0); Arterial HCO3 18.2 mmol/L (22.0-26.0); Arterial MetHb 0.4 % (0.0-1.5); Arterial Total Hemglobin 13.2 g/dl (12.0-18.0); MODE MASK - SIMPLE
[2016-08-11] MEDS: FAMOTIDINE 20 MG INJ IV SCH (12:28)
--- NOTE | 2016-08-11 12:51 | HP ---
Date/Time of Note Date/Time of Note DATE: 08/11/16 TIME: 12:37 Assessment/Plan VTE Prophylaxis VTE Prophylaxis Intervention: SCD's Lines/Catheters IV Catheter Type (from Nrs): Peripheral IV Urinary Cath still in place: Yes Reason Cath still needed: other (indicate) Assessment/Plan Assessment/Plan IMPRESSION 1. Acute on chronic Encephalopathy 2. Recent Brain bleed s/p fall: resolved 3. JASON 4. Hyperkalemia 5. Hypernatremia 6. Sepsis 2/2 UTI 7. Hx of HTN 8. Dyslipidemia 9. s/p Pacemaker 10. Severe Dementia: pt is non-verbal at baseline 11. Hx of CVA PLAN Broad spectrum abx f/u blood and urine culture results IV fluid Renal u/s, urine electrolytes and nephrology consult Correct electrolytes as needed frequent neurochecks HPI/ROS Admit Date/Time Admit Date/Time Aug 11, 2016 at 05:11 Hx of Present Illness This is an 85 yo female with hx of severe dementia, CVA, HTN, pacemaker, dyslipidemia, brain bleed and comminuted nasal bone fracture s/p recent fall. patient was brought to ER with worsening mentation. Pt is not able to provide hx and as such information is gathered from chart review and from ER. Patient was recently admitted here for comminuted nasal bone fracture and brain bleed after fall. When pt presented to ER, CT head showed Stable severe patchy and confluent periventricular and subcortical white matter hypodensity, likely related to chronic microangiopathic changes. Interval resolution of the previously visualized hyperdense hemorrhage right posterior frontal / parietal lobe. Labs showed several abnormalities including cr of 2.8, K 5.9, Na, 154, BUN 131, cl 117 and abnormal LFTs. . PMH/Family/Social Past Surgical History Past Surgical Hx: other Social History Smoking Status: Never smoker Exam/Review of Systems Vital Signs Vitals Vital Signs Date Time Temp Pulse Resp B/P Pulse Ox O2 Delivery O2 Flow Rate FiO2 08/11/16 12:19 88 08/11/16 10:07 140/115 Mask 8.0 08/11/16 10:00 20 91 08/11/16 08:00 97.9 Intake and Output 08/10/16 08/10/16 08/11/16 15:00 23:00 07:00 Intake Total 1250 ml Output Total 500 ml Balance 750 ml Exam Constitutional: alert, oriented, well developed Head: atraumatic, normocephalic Respiratory: clear to auscultation Cardiovascular: nl pulses, regular rate and rhythm Gastrointestinal: soft, tender Extremities: normal pulses Labs Result Diagram: 08/11/16 0150 08/11/16 0150 Medications Medications Current Medications Metoclopramide HCl (Reglan) 10 mg Q6H PRN IV NAUSEA AND/OR VOMITING; Start 08/11 at 05:30 Acetaminophen (Tylenol Supp) 650 mg Q4H PRN NV PAIN LEVEL 1-3 OR FEVER; Start 08/11/16 at 05:30 Morphine Sulfate (morphine) 2 mg Q4H PRN IV PAIN LEVEL 7-10; Start 08/11/16 at 05:30 Famotidine 20 mg 20 mg DAILY IV Last administered on 08/11/16 12:28; Admin Dose 20 MG; Start 08/11/16 at 09:00 Dextrose (D5W) 1,000 ml @ 100 mls/hr Q10H IV Last administered on 08/11/16 08: 33; Admin Dose 100 MLS/HR; Start 08/11/16 at 05:30 SAMSON HERNANDEZ MD Aug 11, 2016 12:51
[2016-08-11 15:44] LABS: CALCIUM 8.5 mg/dl (8.4-10.2); CREATININE 1.93 mg/dl (0.44-1.00); POTASSIUM 4.5 mmol/L (3.5-5.1)
[2016-08-11 16:30] LABS: POTASSIUM,URINE RANDOM 59.1 mmol/L (25-125)
[2016-08-11] MEDS ORDERED: PIPER-TAZO 3.375 GM IV (PMX) 100 ML IVPB SCH (16:30)
[2016-08-11] MEDS: PIPER-TAZO 2.25 GM (PMX) 50 ML IVPB SCH ×2 (16:46→23:32)
--- NOTE | 2016-08-11 17:14 | CONS ---
DATE OF ADMISSION: 08/11/2016 DATE OF CONSULTATION: 08/11/2016 TYPE OF CONSULTATION: Pulmonary REASON FOR CONSULTATION: Shortness of breath, desaturation. Thank you, Dr. Lennon, for this consultation. HISTORY OF PRESENT ILLNESS: This is an 85-year-old lady with advanced dementia, comes in from home with decreased p.o. intake, increasing confusion, increasing shortness of breath. The patient's fam win state that she has had worsening symptoms as noted, but they have been unable to identify the so urce of infection. She is normally mostly bed bound, is mostly nonverbal. They feed her with a pur eed diet. Admission labs showed leukocytosis and possible left lower lobe infiltrate in addition to renal insufficiency with a BUN of 114, creatinine 1.93. PAST MEDICAL HISTORY: Dementia, history of pacemaker, history of CVA, essential hypertension. MEDICATIONS: Per chart. ALLERGIES: NONE. SOCIAL HISTORY: Nonsmoker, no alcohol, no history of drug use. FAMILY HISTORY: Noncontributory. SOCIAL HISTORY: She lives with her family, requires assistance in ADLs. PHYSICAL EXAMINATION: GENERAL: Elderly-appearing lady, grimaces to painful stimuli. Opens eyes. VITAL SIGNS: Temperature 98, pulse 68, blood pressure 107/71, O2 saturation 96% on face mask. NECK: Supple. No JVD or lymphadenopathy. CARDIAC: S1, S2, no added sounds or murmurs. CHEST: Diminished air entry bilaterally. ABDOMEN: Soft, nontender. No guarding or rebound. EXTREMITIES: No cyanosis, clubbing, or edema. NEUROLOGIC: Generalized weakness. LABORATORY DATA: White count 14.3, hemoglobin 14.0, platelets of 359. BUN 114, creatinine 1.93. A BG: pH 7.36, pCO2 of 32, PaO2 of 142 on simple face mask. IMPRESSION AND PLAN: 1. Possible aspiration pneumonia. 2. Acute on chronic encephalopathy. 3. History of advanced dementia. 4. Likely significant dysphagia. 5. Acute hypoxemic respiratory failure secondary to above. 6. Hyponatremia and renal insufficiency, likely secondary to dehydration. RECOMMENDATIONS: 1. Continue broad-spectrum antibiotics, currently on Zosyn. 2. Aspiration precautions. 3. N.p.o. 4. IV fluids. 5. DVT and GI prophylaxis. I discussed with family at length regarding the patient's poor prognosi s and advanced age. They will discuss code status and let us know their wishes; likely, they do not wish intubation or feeding tube. Dictated By: ENZO ANTONIO MD SV/JG Conf#: [id number] DID#: [id number] CC: ANN LENNON MD;*EndCC*
--- NOTE | 2016-08-11 17:57 | CONS ---
DATE OF ADMISSION: 08/11/2016 DATE OF CONSULTATION: 08/11/2016 TYPE OF CONSULTATION: Nephrology CHIEF COMPLAINT: Shortness of breath. REASON FOR CONSULTATION: Acute versus acute on chronic renal failure with hyperkalemia and fluid ov erload. HISTORY OF PRESENT ILLNESS: This is an 85-year-old female with a history of severe dementia, CVA, h ypertension, history of pacemaker, dyslipidemia, history of previous intracranial hemorrhage and a c omminuted nasal bone fracture status post recent fall. She was brought in for acute on chronic ence phalopathy. The patient had acute kidney injury with hyperkalemia, the potassium was 5.8. She also had sepsis secondary to UTI. The patient gets admitted to the ICU. She is currently making urine about 30 to 40 mL/hour, but she is not able to provide any detailed history. All the history is obt ained from the patient's daughter at bedside. As per the daughter, the patient had a fall episode recently and she has been feeling shortness of b reath, weakness, fatigue and not eating well for the last few days. REVIEW OF SYSTEMS: Other review of systems has been obtained and is negative except what is mention ed in the history of present illness. PAST MEDICAL HISTORY: Notable for hypertension, hyperlipidemia, history of pacemaker placement, sev ere Alzheimer's dementia, history of CVA. SOCIAL HISTORY: The patient lives with her daughter and son-in-law. No smoking, alcohol or recreat ional drug use. FAMILY HISTORY: No family history of coronary artery disease/stroke/chronic kidney disease. PHYSICAL EXAMINATION: VITAL SIGNS: Temperature 97.4, heart rate 79, respirations 22, blood pressure 97/71, saturation is 90% on 8 liters mask. GENERAL: Alert but patient is lethargic and not cooperative. HEENT: Pupils equal, round, reactive to light and accommodation. NECK: Supple. Jugular venous distention up to the mid neck. No lymphadenopathy. LUNGS: Bibasilar crackles present up to the mid lung zone. HEART: S1, S2, tachycardia, no murmur. ABDOMEN: Soft, nontender, nondistended. Bowel sounds are present. EXTREMITIES: Mild to 1+ pitting edema, no clubbing, no cyanosis. GENITOURINARY: Goins catheter in place. NEUROLOGICAL: The patient is currently lethargic secondary to sepsis and encephalopathy, not able t o cooperate in a full neurological examination. PSYCHIATRIC: Not able to assess due to encephalopathy. SKIN: No rash. LABORATORY DATA/DIAGNOSTIC IMAGING: WBC 14.3, hemoglobin 14, platelet count 359. Sodium 154, pota ssium 5.9, chloride 114, bicarbonate 23, BUN 131, creatinine 2.8, glucose 133, calcium 9.5. LFTs ar e slightly elevated, AST 70, ALT 74. Troponin 0.026. PT 16.1, PTT 23, INR 1.23. Urinalysis shows positive nitrite, 3+ leukocyte esterase, 2+ hemogl obin, 1+ hemoglobin. IMPRESSION: This is an 85-year-old female with multiple medical problems including hypertension, hy perlipidemia, history of pacemaker and dementia, who gets admitted for acute on chronic encephalopat hy and sepsis secondary to urinary tract infection and renal has been consulted for: 1. Acute kidney injury, multifactorial, possibly secondary to severe prerenal azotemia causing isch emic acute tubular necrosis and secondary to sepsis causing ischemic acute tubular necrosis. 2. Acute hyperkalemia secondary to acute kidney injury. 3. Acute hypernatremia secondary to moderate to severe dehydration. 4. Sepsis secondary to urinary tract infection. 5. Acute on chronic encephalopathy. 6. History of recent intracranial hemorrhage, status post fall. 7. History of cerebrovascular accident. 8. History of severe dementia. 9. History of pacemaker placement. 10. History of hypertension. 11. History of dyslipidemia. PLAN: 1. Thank you, Dr. Lokesh keller, for this consultation. The patient has already received Kayexalate for her hyperkalemia in the emergency room. Currently, she is making urine approximately 30 to 40 m L/hour. I will start the patient on IV fluids D5W at 100 mL/hour. 2. BMP at 3 p.m. 3. Urine studies including a urine sodium, urine protein-creatinine ratio and urine eosinophils wit h a CK total and uric acid has been ordered. 4. Renal ultrasound for workup of the chronic kidney disease and to assess the kidney size and echo genicity. The patient's daughter was at bedside and I had a discussion with the patient's daughter about possi ble need of hemodialysis if patient does not improve, because currently she has hyperkalemia and sev ere uremia, possibly causing acute uremic encephalopathy. She agreed for it and we will continue to monitor her renal functions and decide for further plan about renal replacement therapy if she need s it. The patient is currently seen in the ICU, and total time spent in this patient's evaluation, making assessment and plan, communicating with the patient's daughter at bedside took more than 90 minutes. Dictated By: SONIA COY MD, KP/JG Conf#: [id number] DID#: [id number]
[2016-08-11 18:01] LABS: PROTEIN/CREAT RATIO 0.64 RATIO
[2016-08-11] MEDS: ENOXAPARIN 30 MG/0.3 ML SYG SC SCH (18:21)
[2016-08-12] VITALS (16 sets, daily range): BP systolic 94–137; BP diastolic 49–94; PULSE 79–88; RESP 16–28
[2016-08-12] MEDS: DEXTROSE 5% 1,000 ML IV SCH ×4 (03:22→20:34)
[2016-08-12] MEDS: PIPER-TAZO 2.25 GM (PMX) 50 ML IVPB SCH ×3 (06:06→20:33)
[2016-08-12 06:31] LABS: ADD SCAN DIFF NO
[2016-08-12 06:35] LABS: BASOPHILS % 0.2 % (0.0-2.0); EOSINOPHILS # 0.1 10^3/ul (0.0-0.5); EOSINOPHILS % 0.5 % (0.0-7.0); HEMATOCRIT 35.8 % (37.0-47.0); HEMOGLOBIN 11.1 g/dl (12.0-16.0); LYMPHOCYTES # 0.8 10^3/ul (0.8-2.9); LYMPHOCYTES % 7.6 % (15.0-51.0); MEAN CORPUSCULAR HEMOGLOBIN 28.5 pg (29.0-33.0); MEAN CORPUSCULAR VOLUME 91.8 fl (82.0-101.0); MEAN PLATELET VOLUME 11.3 fl (7.4-10.4); MONOCYTE # 0.7 10^3/ul (0.3-0.9); MONOCYTES % 6.7 % (0.0-11.0); NEUTROPHIL # 8.5 10^3/ul (1.6-7.5); NEUTROPHILS % 84.7 % (39.0-77.0); PLATELET COUNT 277 10^3/UL (140-415); RED CELL DISTRIBUTION WIDTH 15.1 % (11.5-14.5); WHITE BLOOD COUNT 10.1 10^3/ul (4.8-10.8)
[2016-08-12 06:57] LABS: ALBUMIN 3.1 g/dl (3.3-4.9); ALBUMIN/GLOBULIN RATIO 0.91; BILIRUBIN,INDIRECT 0.5 mg/dl (0-1.1); BILIRUBIN,TOTAL 0.5 mg/dl (0.2-1.3); CALCIUM 8.8 mg/dl (8.4-10.2); CREATININE 1.25 mg/dl (0.44-1.00); POTASSIUM 3.6 mmol/L (3.5-5.1); TOTAL PROTEIN 6.5 g/dl (6.1-8.1)
[2016-08-12 07:00] LABS: URIC ACID 7.3 mg/dl (3.1-7.9)
[2016-08-12] MEDS: FAMOTIDINE 20 MG INJ IV SCH (08:40)
[2016-08-12] MEDS ORDERED: LIDOCAINE 1% (MPF) 5 ML VIAL SC ONE (09:30)
--- NOTE | 2016-08-12 09:56 | PN ---
Date/Time of Note Date/Time of Note DATE: 08/12/16 TIME: 09:52 Assessment/Plan VTE Prophylaxis VTE Prophylaxis Intervention: LMWH Lines/Catheters IV [facility] Type (from [facility] Peripheral IV Urinary Cath still in place: Yes Reason Cath still needed: other (indicate) (monitor I&O) Assessment/Plan Chief Complaint/Hosp Course Assessment and plan 1. Sepsis UTI. Follow-up on urine culture. Continue antibiotics. Afebrile at present. Continue to monitor. 2. Acute on chronic encephalopathy. Discussed with family, patient appears to be at her baseline. Continue with aspiration precautions 3. AK I. Deputy Manager following. Medications to be renally dosed. 4. Hypernatremia. IV fluids per tanning drum operator 5. Anemia likely of chronic disease. Stable at present. Will monitor. 6. History of hypertension. Appears stable at present. Will continue to monitor. 7. Dementia. Continue with aspiration precautions Disposition and plan: Transfer to telemetry. Continue antibiotics. Follow-up on urine culture. Monitor renal panel. Discussed plan of care with Dr. Lennon Problems: Subjective 24 Hr Interval Summary Free Text/Dictation No apparent distress seen at this time. Exam/Review of Systems Vital Signs Vitals Vital Signs Date Time Temp Pulse Resp B/P Pulse Ox O2 Delivery O2 Flow Rate FiO2 08/12/16 08:00 Nasal Cannula 3.0 08/12/16 08:00 87 08/12/16 08:00 97.5 19 94/71 100 Intake and Output 08/11/16 08/11/16 08/12/16 14:59 22:59 06:59 Intake Total 800 ml 450 ml 1050 ml Output Total 390 ml 420 ml 400 ml Balance 410 ml 30 ml 650 ml Exam Constitutional: alert, other (Incoherent) Head: atraumatic Neck: supple, No jvd Respiratory: other (Minimally diminished at base) Cardiovascular: other (Pacemaker in place regular rate) Gastrointestinal: non-tender, soft (Regular rate) Musculoskeletal: other (Noted with deformity of bilateral feet) Neurological: confused Results Result Diagram: 08/12/16 0555 08/12/16 0555 Results 24 hrs Laboratory Tests Test 08/11/16 11:45 08/11/16 15:10 08/11/16 15:15 08/12/16 05:55 Lactic Acid Level 1.7 Sodium Level 152 H 153 H Potassium Level 4.5 3.6 Chloride Level 122 H 123 H Carbon Dioxide Level 22 22 Anion Gap 13 # 12 Blood Urea Nitrogen 114 H 87 H Creatinine 1.93 H 1.25 H Glucose Level 177 160 Calcium Level 8.5 8.8 Urine Eosinophils % 3.0 H Urine Random Creatinine 63.76 Urine Random Sodium 29 L Urine Protein/Creatinine Ratio 0.64 Urine Total Protein 41.0 H White Blood Count 10.1 # Red Blood Count 3.90 #L Hemoglobin 11.1 #L Hematocrit 35.8 #L Mean Corpuscular Volume 91.8 Mean Corpuscular Hemoglobin 28.5 L Mean Corpuscular Hemoglobin Concent 31.0 L Red Cell Distribution Width 15.1 H Platelet Count 277 # Mean Platelet Volume 11.3 H Neutrophils % 84.7 H Lymphocytes % 7.6 L Monocytes % 6.7 Eosinophils % 0.5 Basophils % 0.2 Nucleated Red Blood Cells % 0.0 Neutrophils # 8.5 H Lymphocytes # 0.8 Monocytes # 0.7 Eosinophils # 0.1 Basophils # 0.0 Nucleated Red Blood Cells # 0.0 Uric Acid 7.3 Total Bilirubin 0.5 Direct Bilirubin 0.00 Indirect Bilirubin 0.5 Aspartate Amino Transf (AST/SGOT) 87 H Alanine Aminotransferase (ALT/SGPT) 72 H Alkaline Phosphatase 166 H Creatine Kinase 2327 H Total Protein 6.5 # Albumin 3.1 #L Globulin 3.40 H Albumin/Globulin Ratio 0.91 Medications Medications Current Medications Metoclopramide HCl (Reglan) 10 mg Q6H PRN IV NAUSEA AND/OR VOMITING; Start 08/11 at 05:30 Acetaminophen (Tylenol Supp) 650 mg Q4H PRN [place] PAIN LEVEL 1-3 OR FEVER; Start 08/11/16 at 05:30 Morphine Sulfate (morphine) 2 mg Q4H PRN IV PAIN LEVEL 7-10; Start 08/11/16 at 05:30 Famotidine 20 mg 20 mg DAILY IV Last administered on 08/12/16 08:40; Admin Dose 20 MG; Start 08/11/16 at 09:00 Dextrose 1,000 ml @ 100 mls/hr Q10H IV Last administered on 08/12/16 07:00; Admin Dose 100 MLS/HR; Start 08/11/16 at 05:30 Piperacillin Sod/ Tazobactam Sod (Zosyn 2.25gm/ 50ml (Pmx)) 50 ml @ 100 mls/hr Q8 IVPB Last administered on 08/12/16 06:06; Admin Dose 100 MLS/HR; Start 08/11 at 16:30 Enoxaparin Sodium (Lovenox) 30 mg DAILY SC Last administered on 08/11/16 18:21 ; Admin Dose 30 MG; Start 08/11/16 at 17:00 CAMDEN ANDRADE Aug 12, 2016 09:56
[2016-08-12] MEDS: ENOXAPARIN 30 MG/0.3 ML SYG SC SCH ×2 (12:00→18:50)
--- NOTE | 2016-08-12 15:49 | CONS ---
Date/Time of Note Date/Time of Note DATE: 08/12/16 TIME: 15:34 Assessment/Plan Assessment/Plan Additional Assessment/Plan This is an 85-year-old female with multiple medical problems including hypertension, hyperlipidemia, history of pacemaker and dementia, who gets admitted for acute on chronic encephalopathy and sepsis secondary to urinary tract infection and renal has been consulted for: - Acute kidney injury, multifactorial, possibly secondary to severe prerenal azotemia causing ischemic acute tubular necrosis and secondary to sepsis causing ischemic acute tubular necrosis. - BUN/Cr = 87/1.25 - UO = 1.2 ML - cont. IV fluids D5W at 100 mL/hour. Am labs - Acute hyperkalemia secondary to acute kidney injury- resolved - Acute hypernatremia secondary to moderate to severe dehydration - Na 153 - Sepsis secondary to urinary tract infection. - Acute on chronic encephalopathy. - History of recent intracranial hemorrhage, status post fall. - History of cerebrovascular accident. - History of severe dementia. - History of pacemaker placement. - History of hypertension. - History of dyslipidemia. PLAN: - Urine studies including a - urine sodium- 29 - urine protein- 41.0 - creatinine ratio- 0.64 - urine eosinophils with a CK- total - 3.0 - uric acid- 7.3 - Renal ultrasound - Mildly atrophic and echogenic kidneys suggest mild medical renal disease. No hydronephrosis bilaterally. Further recommendations depend upon patient's clinical course. Plan of care komal Dale /staff Consultation Date/Type/Reason Admit Date/Time Aug 11, 2016 at 05:11 Initial Consult Date Type of Consultation: Nephrology 24 HR Interval Summary Free Text/Dictation afebrile, got transferred from ICU, seems comfortable, dw staff Exam/Review of Systems Vital Signs Vitals Vital Signs Date Time Temp Pulse Resp B/P Pulse Ox O2 Delivery O2 Flow Rate FiO2 08/12/16 15:32 98.2 79 19 119/58 98 08/12/16 11:18 Nasal Cannula 08/12/16 10:00 3.0 Intake and Output 08/11/16 08/11/16 08/12/16 15:00 23:00 07:00 Intake Total 800 ml 350 ml 1200 ml Output Total 420 ml 440 ml 400 ml Balance 380 ml -90 ml 800 ml Exam Respiratory: clear to auscultation, normal air movement Cardiovascular: nl pulses, regular rate and rhythm Gastrointestinal: non-tender, soft Musculoskeletal: other Extremities: normal pulses Neurological: lethargic Results Result Diagram: 08/12/16 0555 08/12/16 0555 Results 24 hrs Laboratory Tests Test 08/12/16 05:55 White Blood Count 10.1 # Red Blood Count 3.90 #L Hemoglobin 11.1 #L Hematocrit 35.8 #L Mean Corpuscular Volume 91.8 Mean Corpuscular Hemoglobin 28.5 L Mean Corpuscular Hemoglobin Concent 31.0 L Red Cell Distribution Width 15.1 H Platelet Count 277 # Mean Platelet Volume 11.3 H Neutrophils % 84.7 H Lymphocytes % 7.6 L Monocytes % 6.7 Eosinophils % 0.5 Basophils % 0.2 Nucleated Red Blood Cells % 0.0 Neutrophils # 8.5 H Lymphocytes # 0.8 Monocytes # 0.7 Eosinophils # 0.1 Basophils # 0.0 Nucleated Red Blood Cells # 0.0 Sodium Level 153 H Potassium Level 3.6 Chloride Level 123 H Carbon Dioxide Level 22 Anion Gap 12 Blood Urea Nitrogen 87 H Creatinine 1.25 H Glucose Level 160 Uric Acid 7.3 Calcium Level 8.8 Total Bilirubin 0.5 Direct Bilirubin 0.00 Indirect Bilirubin 0.5 Aspartate Amino Transf (AST/SGOT) 87 H Alanine Aminotransferase (ALT/SGPT) 72 H Alkaline Phosphatase 166 H Creatine Kinase 2327 H Total Protein 6.5 # Albumin 3.1 #L Globulin 3.40 H Albumin/Globulin Ratio 0.91 Medications Medications Current Medications Metoclopramide HCl (Reglan) 10 mg Q6H PRN IV NAUSEA AND/OR VOMITING; Start 08/11 at 05:30 Acetaminophen (Tylenol Supp) 650 mg Q4H PRN [place] PAIN LEVEL 1-3 OR FEVER; Start 08/11/16 at 05:30 Morphine Sulfate (morphine) 2 mg Q4H PRN IV PAIN LEVEL 7-10; Start 08/11/16 at 05:30 Famotidine 20 mg 20 mg DAILY IV Last administered on 08/12/16 08:40; Admin Dose 20 MG; Start 08/11/16 at 09:00 Dextrose 1,000 ml @ 100 mls/hr Q10H IV Last administered on 08/12/16 13:00; Admin Dose 100 MLS/HR; Start 08/11/16 at 05:30 Piperacillin Sod/ Tazobactam Sod (Zosyn 2.25gm/ 50ml (Pmx)) 50 ml @ 100 mls/hr Q8 IVPB Last administered on 08/12/16 13:31; Admin Dose 100 MLS/HR; Start 08/11 at 16:30 Enoxaparin Sodium (Lovenox) 30 mg DAILY SC Last administered on 08/11/16 18:21 ; Admin Dose 30 MG; Start 08/11/16 at 17:00 ESDRAS HUDSON Aug 12, 2016 15:45
--- NOTE | 2016-08-12 16:55 | RADRPT ---
PROCEDURE: Left Lower Extremity Venous Duplex US CLINICAL INDICATION: Left lower extremity pain and swelling. TECHNIQUE: Multiple longitudinal and transverse images of the the left lower extremity veins were obtained with shin scale and color Doppler imaging. 2D grayscale measurements with compression, col or Doppler flow, and augmentation was performed. The calf veins were interrogated as well. COMPARISON: No prior studies are available for comparison. FINDINGS: There is a partially occlusive deep venous thrombosis in the distal left common femoral vein. The s uperficial femoral vein, popliteal vein are normally compressible and patent.. IMPRESSION: 1. Partially occlusive deep venous thrombosis at the distal left common femoral vein. Call report: A call report of the findings was made to patient's nurse Radha on 08/12/2016 4:51:08 PM.. RPTAT: QQ .Perry Croft MD, MD Date Time Electronically viewed and signed by .Perry Croft MD, MD on 08/12/2016 16:55 .L/
--- NOTE | 2016-08-12 19:03 | CONS ---
Date/Time of Note Date/Time of Note DATE: 08/12/16 TIME: 19:02 Consult Date/Type/Reason Admit Date/Time Aug 11, 2016 at 05:11 Initial Consult Date Type of Consultation: Pulm Subjective No events. Objective Vital Signs Date Time Temp Pulse Resp B/P Pulse Ox O2 Delivery O2 Flow Rate FiO2 08/12/16 15:32 98.2 79 19 119/58 98 08/12/16 12:00 Nasal Cannula 2.0 Intake and Output 08/11/16 08/11/16 08/12/16 15:00 23:00 07:00 Intake Total 800 ml 350 ml 1200 ml Output Total 420 ml 440 ml 400 ml Balance 380 ml -90 ml 800 ml Exam HEENT: Neck supple; no JVD; no LAD CVS: RRR, S1 and S2 CHEST: Clear ABD: Soft, NT, + BS EXT: No c/c/e Results/Medications Result Diagram: 08/12/16 0555 08/12/16 0555 Results 24 hrs Laboratory Tests Test 08/12/16 05:55 White Blood Count 10.1 # Red Blood Count 3.90 #L Hemoglobin 11.1 #L Hematocrit 35.8 #L Mean Corpuscular Volume 91.8 Mean Corpuscular Hemoglobin 28.5 L Mean Corpuscular Hemoglobin Concent 31.0 L Red Cell Distribution Width 15.1 H Platelet Count 277 # Mean Platelet Volume 11.3 H Neutrophils % 84.7 H Lymphocytes % 7.6 L Monocytes % 6.7 Eosinophils % 0.5 Basophils % 0.2 Nucleated Red Blood Cells % 0.0 Neutrophils # 8.5 H Lymphocytes # 0.8 Monocytes # 0.7 Eosinophils # 0.1 Basophils # 0.0 Nucleated Red Blood Cells # 0.0 Sodium Level 153 H Potassium Level 3.6 Chloride Level 123 H Carbon Dioxide Level 22 Anion Gap 12 Blood Urea Nitrogen 87 H Creatinine 1.25 H Glucose Level 160 Uric Acid 7.3 Calcium Level 8.8 Total Bilirubin 0.5 Direct Bilirubin 0.00 Indirect Bilirubin 0.5 Aspartate Amino Transf (AST/SGOT) 87 H Alanine Aminotransferase (ALT/SGPT) 72 H Alkaline Phosphatase 166 H Creatine Kinase 2327 H Total Protein 6.5 # Albumin 3.1 #L Globulin 3.40 H Albumin/Globulin Ratio 0.91 Medications Current Medications Metoclopramide HCl (Reglan) 10 mg Q6H PRN IV NAUSEA AND/OR VOMITING; Start 08/11 at 05:30 Acetaminophen (Tylenol Supp) 650 mg Q4H PRN [place] PAIN LEVEL 1-3 OR FEVER; Start 08/11/16 at 05:30 Morphine Sulfate (morphine) 2 mg Q4H PRN IV PAIN LEVEL 7-10; Start 08/11/16 at 05:30 Famotidine 20 mg 20 mg DAILY IV Last administered on 08/12/16 08:40; Admin Dose 20 MG; Start 08/11/16 at 09:00 Dextrose 1,000 ml @ 100 mls/hr Q10H IV Last administered on 08/12/16 13:00; Admin Dose 100 MLS/HR; Start 08/11/16 at 05:30 Piperacillin Sod/ Tazobactam Sod (Zosyn 2.25gm/ 50ml (Pmx)) 50 ml @ 100 mls/hr Q8 IVPB Last administered on 08/12/16 13:31; Admin Dose 100 MLS/HR; Start 08/11 at 16:30 Enoxaparin Sodium (Lovenox) 30 mg DAILY SC Last administered on 08/12/16 18:50 ; Admin Dose 30 MG; Start 08/11/16 at 17:00 Assessment/Plan Additional Assessment/Plan IMP: 1. Sepsis UTI. 2. Acute on chronic encephalopathy. 3. JASON 4. Hypernatremia. 5. Anemia RECS: 1. Abx 2. Aspiration precautions 3. Increase free H20 VITA JONES MD Aug 12, 2016 19:03
[2016-08-13] VITALS (11 sets, daily range): BP systolic 112–151; BP diastolic 60–65; PULSE 64–77; RESP 16–18
[2016-08-13] MEDS: PIPER-TAZO 2.25 GM (PMX) 50 ML IVPB SCH ×3 (05:23→21:04)
[2016-08-13 06:04] LABS: ADD SCAN DIFF NO
[2016-08-13 06:12] LABS: BASOPHILS % 0.3 % (0.0-2.0); EOSINOPHILS # 0.1 10^3/ul (0.0-0.5); EOSINOPHILS % 1.6 % (0.0-7.0); HEMATOCRIT 37.4 % (37.0-47.0); LYMPHOCYTES # 1.4 10^3/ul (0.8-2.9); LYMPHOCYTES % 15.8 % (15.0-51.0); MEAN CORPUSCULAR HEMOGLOBIN 27.7 pg (29.0-33.0); MEAN CORPUSCULAR HGB CONC 29.4 g/dl (32.0-37.0); MEAN CORPUSCULAR VOLUME 94.2 fl (82.0-101.0); MEAN PLATELET VOLUME 11.2 fl (7.4-10.4); MONOCYTE # 0.7 10^3/ul (0.3-0.9); MONOCYTES % 8.1 % (0.0-11.0); NEUTROPHIL # 6.3 10^3/ul (1.6-7.5); NEUTROPHILS % 73.5 % (39.0-77.0); PLATELET COUNT 254 10^3/UL (140-415); RED BLOOD COUNT 3.97 10^6/ul (4.20-5.40); WHITE BLOOD COUNT 8.6 10^3/ul (4.8-10.8)
[2016-08-13 06:35] LABS: CALCIUM 8.5 mg/dl (8.4-10.2); CREATININE 1.02 mg/dl (0.44-1.00); POTASSIUM 3.3 mmol/L (3.5-5.1)
[2016-08-13] MEDS: DEXTROSE 5% 1,000 ML IV SCH ×3 (07:30→17:30)
[2016-08-13] MEDS: ENOXAPARIN 30 MG/0.3 ML SYG SC SCH ×2 (09:00→19:23)
[2016-08-13] MEDS: FAMOTIDINE 20 MG INJ IV SCH (09:30)
--- NOTE | 2016-08-13 11:15 | PN ---
Date/Time of Note Date/Time of Note DATE: 08/13/16 TIME: 11:08 Assessment/Plan VTE Prophylaxis VTE Prophylaxis Intervention: LMWH Lines/Catheters [facility] Peripheral IV Urinary Cath still in place: Yes Reason Cath still needed: other (indicate) (monitor I&O) Assessment/Plan Chief Complaint/Hosp Course Assessment and plan 1. Sepsis UTI. Follow-up on urine culture. Continue antibiotics. Afebrile at present. Continue to monitor. 2. Acute on chronic encephalopathy. Discussed with family, patient appears to be at her baseline. Continue with aspiration precautions 3. [place] I. Electric Stove Mechanic following. Medications to be renally dosed. 4. Hypernatremia. IV fluids per regional administrative assistant 5. Anemia likely of chronic disease. Stable at present. Will monitor. 6. History of hypertension. Appears stable at present. Will continue to monitor. 7. Dementia. Continue with aspiration precautions 8. Dysphagia. will get GI consult for possible peg placement Disposition and plan: will get GI consult for possible PEG placement. Will follow up Discussed plan of care with Dr. Lennon Problems: Subjective 24 Hr Interval Summary Free Text/Dictation no s/s of distress. comfortable at present Exam/Review of Systems Vital Signs Vitals Vital Signs Date Time Temp Pulse Resp B/P Pulse Ox O2 Delivery O2 Flow Rate FiO2 08/13/16 08:20 65 08/13/16 08:05 Nasal Cannula 2.0 08/13/16 07:13 98.3 18 151/63 97 Intake and Output 08/12/16 08/12/16 08/13/16 15:00 23:00 07:00 Intake Total 350 ml 550 ml 550 ml Output Total 175 ml 250 ml 650 ml Balance 175 ml 300 ml -100 ml Results Result Diagram: 08/13/16 0535 08/13/16 0535 Results 24 hrs Laboratory Tests Test 08/13/16 05:35 White Blood Count 8.6 Red Blood Count 3.97 L Hemoglobin 11.0 L Hematocrit 37.4 Mean Corpuscular Volume 94.2 Mean Corpuscular Hemoglobin 27.7 L Mean Corpuscular Hemoglobin Concent 29.4 L Red Cell Distribution Width 15.0 H Platelet Count 254 Mean Platelet Volume 11.2 H Neutrophils % 73.5 Lymphocytes % 15.8 Monocytes % 8.1 Eosinophils % 1.6 Basophils % 0.3 Nucleated Red Blood Cells % 0.0 Neutrophils # 6.3 Lymphocytes # 1.4 Monocytes # 0.7 Eosinophils # 0.1 Basophils # 0.0 Nucleated Red Blood Cells # 0.0 Sodium Level 148 H Potassium Level 3.3 L Chloride Level 117 H Carbon Dioxide Level 22 Anion Gap 12 Blood Urea Nitrogen 54 #H Creatinine 1.02 H Glucose Level 123 Calcium Level 8.5 Medications Medications Current Medications Metoclopramide HCl (Reglan) 10 mg Q6H PRN IV NAUSEA AND/OR VOMITING; Start 08/11 at 05:30 Acetaminophen (Tylenol Supp) 650 mg Q4H PRN [place] PAIN LEVEL 1-3 OR FEVER; Start 08/11/16 at 05:30 Morphine Sulfate (morphine) 2 mg Q4H PRN IV PAIN LEVEL 7-10; Start 08/11/16 at 05:30 Famotidine 20 mg 20 mg DAILY IV Last administered on 08/13/16 09:30; Admin Dose 20 MG; Start 08/11/16 at 09:00 Dextrose 1,000 ml @ 100 mls/hr Q10H IV Last administered on 08/12/16 20:34; Admin Dose 100 MLS/HR; Start 08/11/16 at 05:30 Piperacillin Sod/ Tazobactam Sod (Zosyn 2.25gm/ 50ml (Pmx)) 50 ml @ 100 mls/hr Q8 IVPB Last administered on 08/13/16 05:23; Admin Dose 100 MLS/HR; Start 08/11 at 16:30 Enoxaparin Sodium 30 mg 30 mg DAILY SC Last administered on 08/12/16 18:50; Admin Dose 30 MG; Start 08/11/16 at 17:00 Potassium Chloride/Sodium Chloride (KCl/NS) 165 ml @ 55 mls/hr ONCE ONCE IVPB ; Start 08/13/16 at 12:00; Stop 08/13/16 at 14:59 CAMDEN ANDRADE Aug 13, 2016 11:15
[2016-08-13] MEDS ORDERED: POTASSIUM CHLORIDE 30 MEQ in SOD CHLORIDE 0.9% 150 ML IVPB ONE (12:00)
--- NOTE | 2016-08-13 14:40 | CONS ---
Date/Time of Note Date/Time of Note DATE: 08/13/16 TIME: 14:26 Assessment/Plan Assessment/Plan Additional Assessment/Plan Assessment * Failure to thrive/Dysphagia * Encephalopathy * Dementia * Sepsis improving * Anemia improving Plan * PEG tomorrow risk and benefit explained to family agreed with the planned procedure * Continue present management Consultation Date/Type/Reason Admit Date/Time Aug 11, 2016 at 05:11 Date of Consultation: Aug 13, 2016 Type of Consultation: Gastroenterology Reason for Consultation PEG placement Referring Provider: CAMDEN ANDRADE Hx of Present Illness 85 year old female who was referred to us for possible PEG placement for nutrition.Past medical history includes dementia,CVA,hypertension,pacemaker , dyslipidemia and was brought to ER because of worsening mental status She was encephalopathic.She was admitted ICU later transferred to telemetry.Speech therapy was unable to evaluate the patient because she is non verbal,and has not been eating for the past 3 days in our hospital so a referral for PEG insertion was made. I talked with the granddaughter regarding the planned PEG insertion and agreed with the planned procedure Past Medical History Medical History: GERD, hypertension, other (CVA) Past Surgical History Past Surgical Hx: other Social History Smoking Status: Never smoker Exam/Review of Systems Vital Signs Vitals Vital Signs Date Time Temp Pulse Resp B/P Pulse Ox O2 Delivery O2 Flow Rate FiO2 08/13/16 12:16 64 08/13/16 11:24 97.6 18 124/60 97 08/13/16 08:05 Nasal Cannula 2.0 Intake and Output 08/12/16 08/12/16 08/13/16 15:00 23:00 07:00 Intake Total 350 ml 550 ml 550 ml Output Total 175 ml 250 ml 650 ml Balance 175 ml 300 ml -100 ml Exam Constitutional: frail Psych: other (flat affect) Head: atraumatic, normocephalic Eyes: PERRL Neck: non-tender, supple Respiratory: clear to auscultation, diminished breath sounds, normal air movement Cardiovascular: nl pulses, regular rate and rhythm Gastrointestinal: bowel sounds, nl liver, spleen, non-tender, soft Musculoskeletal: nl extremities to inspection Neurological: lethargic Skin: nl turgor, No rash or lesions Lymph: nl lymph nodes Results Result Diagram: 08/13/16 0535 08/13/16 0535 Results 24 hrs Laboratory Tests Test 08/13/16 05:35 White Blood Count 8.6 Red Blood Count 3.97 L Hemoglobin 11.0 L Hematocrit 37.4 Mean Corpuscular Volume 94.2 Mean Corpuscular Hemoglobin 27.7 L Mean Corpuscular Hemoglobin Concent 29.4 L Red Cell Distribution Width 15.0 H Platelet Count 254 Mean Platelet Volume 11.2 H Neutrophils % 73.5 Lymphocytes % 15.8 Monocytes % 8.1 Eosinophils % 1.6 Basophils % 0.3 Nucleated Red Blood Cells % 0.0 Neutrophils # 6.3 Lymphocytes # 1.4 Monocytes # 0.7 Eosinophils # 0.1 Basophils # 0.0 Nucleated Red Blood Cells # 0.0 Sodium Level 148 H Potassium Level 3.3 L Chloride Level 117 H Carbon Dioxide Level 22 Anion Gap 12 Blood Urea Nitrogen 54 #H Creatinine 1.02 H Glucose Level 123 Calcium Level 8.5 Medications Medications Current Medications Metoclopramide HCl (Reglan) 10 mg Q6H PRN IV NAUSEA AND/OR VOMITING; Start 08/11 at 05:30 Acetaminophen (Tylenol Supp) 650 mg Q4H PRN [place] PAIN LEVEL 1-3 OR FEVER; Start 08/11/16 at 05:30 Morphine Sulfate (morphine) 2 mg Q4H PRN IV PAIN LEVEL 7-10; Start 08/11/16 at 05:30 Famotidine 20 mg 20 mg DAILY IV Last administered on 08/13/16 09:30; Admin Dose 20 MG; Start 08/11/16 at 09:00 Dextrose 1,000 ml @ 100 mls/hr Q10H IV Last administered on 08/13/16 11:20; Admin Dose 100 MLS/HR; Start 08/11/16 at 05:30 Piperacillin Sod/ Tazobactam Sod (Zosyn 2.25gm/ 50ml (Pmx)) 50 ml @ 100 mls/hr Q8 IVPB Last administered on 08/13/16 14:08; Admin Dose 100 MLS/HR; Start 08/11 at 16:30 Enoxaparin Sodium 30 mg 30 mg DAILY SC Last administered on 08/12/16 18:50; Admin Dose 30 MG; Start 08/11/16 at 17:00 Potassium Chloride/Sodium Chloride (KCl/NS) 165 ml @ 55 mls/hr ONCE ONCE IVPB Last administered on 6/11/17at 14:12; Admin Dose 55 MLS/HR; Start 08/13/16 at 12:00; Stop 08/13/16 at 14:59 Zinc Sulfate (Zinc Sulfate) 220 mg DAILY PO ; Start 08/14/16 at 09:00 Ascorbic Acid (Vitamin C) 500 mg DAILY PO ; Start 08/14/16 at 09:00 MONROE FAGAN MD Aug 13, 2016 14:36
--- NOTE | 2016-08-13 15:11 | CONS ---
Date/Time of Note Date/Time of Note DATE: 08/13/16 TIME: 15:05 Assessment/Plan Assessment/Plan Additional Assessment/Plan This is an 85-year-old female with multiple medical problems including hypertension, hyperlipidemia, history of pacemaker and dementia, who gets admitted for acute on chronic encephalopathy and sepsis secondary to urinary tract infection and renal has been consulted for: - Acute kidney injury, multifactorial, possibly secondary to severe prerenal azotemia causing ischemic acute tubular necrosis and secondary to sepsis causing ischemic acute tubular necrosis. - BUN/Cr improved = 87/1.25 - UO = 1.1 ML - cont. IV fluids D5W at 100 mL/hour. Am labs - LLE DVT-Partially occlusive deep venous thrombosis at the distal left common femoral vein. -per primary - on Lovenox- was held this am as patient will get PICC line today - Acute hyperkalemia secondary to acute kidney injury- resolved - Acute hypernatremia secondary to moderate to severe dehydration - Na 153 - Sepsis secondary to urinary tract infection. - Acute on chronic encephalopathy. - History of recent intracranial hemorrhage, status post fall. - History of cerebrovascular accident. - History of severe dementia. - History of pacemaker placement. - History of hypertension. - History of dyslipidemia. PLAN: - Urine studies including a - urine sodium- 29 - urine protein- 41.0 - creatinine ratio- 0.64 - urine eosinophils with a CK- total - 3.0 - uric acid- 7.3 - Renal ultrasound - Mildly atrophic and echogenic kidneys suggest mild medical renal disease. No hydronephrosis bilaterally. Further recommendations depend upon patient's clinical course. Plan of care dw Dr Teresa Dale /staff Consultation Date/Type/Reason Admit Date/Time Aug 11, 2016 at 05:11 Type of Consultation: Nephrology Referring Provider: CAMDEN ANDRADE 24 HR Interval Summary Free Text/Dictation Patient is going for PICC placement, afebrile, LLE DVT posotive.granddaughter at bed side- all Qs aswered Subjective hx not possible: pt non-verbal Constitutional: requiring IVF, requiring O2 Exam/Review of Systems Vital Signs Vitals Vital Signs Date Time Temp Pulse Resp B/P Pulse Ox O2 Delivery O2 Flow Rate FiO2 08/13/16 12:16 64 08/13/16 11:24 97.6 18 124/60 97 08/13/16 08:05 Nasal Cannula 2.0 Intake and Output 08/12/16 08/12/16 08/13/16 15:00 23:00 07:00 Intake Total 350 ml 550 ml 550 ml Output Total 175 ml 250 ml 650 ml Balance 175 ml 300 ml -100 ml Exam Respiratory: clear to auscultation, normal air movement Cardiovascular: nl pulses, regular rate and rhythm Gastrointestinal: non-tender, soft Neurological: lethargic, other (responsed to pain) Skin: other (LLE large bruise- no bleeding, positive for DVT) Results Result Diagram: 08/13/16 0535 08/13/16 0535 Results 24 hrs Laboratory Tests Test 08/13/16 05:35 White Blood Count 8.6 Red Blood Count 3.97 L Hemoglobin 11.0 L Hematocrit 37.4 Mean Corpuscular Volume 94.2 Mean Corpuscular Hemoglobin 27.7 L Mean Corpuscular Hemoglobin Concent 29.4 L Red Cell Distribution Width 15.0 H Platelet Count 254 Mean Platelet Volume 11.2 H Neutrophils % 73.5 Lymphocytes % 15.8 Monocytes % 8.1 Eosinophils % 1.6 Basophils % 0.3 Nucleated Red Blood Cells % 0.0 Neutrophils # 6.3 Lymphocytes # 1.4 Monocytes # 0.7 Eosinophils # 0.1 Basophils # 0.0 Nucleated Red Blood Cells # 0.0 Sodium Level 148 H Potassium Level 3.3 L Chloride Level 117 H Carbon Dioxide Level 22 Anion Gap 12 Blood Urea Nitrogen 54 #H Creatinine 1.02 H Glucose Level 123 Calcium Level 8.5 Medications Medications Current Medications Metoclopramide HCl (Reglan) 10 mg Q6H PRN IV NAUSEA AND/OR VOMITING; Start 08/11 at 05:30 Acetaminophen (Tylenol Supp) 650 mg Q4H PRN [place] PAIN LEVEL 1-3 OR FEVER; Start 08/11/16 at 05:30 Morphine Sulfate (morphine) 2 mg Q4H PRN IV PAIN LEVEL 7-10; Start 08/11/16 at 05:30 Famotidine 20 mg 20 mg DAILY IV Last administered on 08/13/16 09:30; Admin Dose 20 MG; Start 08/11/16 at 09:00 Dextrose 1,000 ml @ 100 mls/hr Q10H IV Last administered on 08/13/16 11:20; Admin Dose 100 MLS/HR; Start 08/11/16 at 05:30 Piperacillin Sod/ Tazobactam Sod (Zosyn 2.25gm/ 50ml (Pmx)) 50 ml @ 100 mls/hr Q8 IVPB Last administered on 08/13/16 14:08; Admin Dose 100 MLS/HR; Start 08/11 at 16:30 Enoxaparin Sodium (Lovenox) 30 mg DAILY SC Last administered on 08/12/16 18:50 ; Admin Dose 30 MG; Start 08/11/16 at 17:00 Zinc Sulfate (Zinc Sulfate) 220 mg DAILY PO ; Start 08/14/16 at 09:00 Ascorbic Acid (Vitamin C) 500 mg DAILY PO ; Start 08/14/16 at 09:00 ESDRAS HUDSON Aug 13, 2016 15:11 ESDRAS HUDSON Aug 13, 2016 15:11
--- NOTE | 2016-08-13 16:44 | RADRPT ---
PROCEDURE: XR Chest. CLINICAL INDICATION: Respiratory distress. TECHNIQUE: AP view of the chest was performed. COMPARISON: August 10, 2016 FINDINGS: There is a right PICC line with the tip in the superior vena cava in good positioning and ready for use. The heart size is unchanged. There is a stable left subclavian dual-chamber pacer. There is stable left base atelectasis with a trace effusion. No pneumothorax. The osseous structures are osteopenic. IMPRESSION: Right PICC line in good positioning and ready for use. Stable left base atelectasis with a trace le ft pleural effusion. Overall, no significant interval change. RPTAT: QQ. .Lina Britton MD, Date Time Electronically viewed and signed by .Lina Britton MD, on 08/13/2016 16:43 .F/
[2016-08-13] MEDS ORDERED: HEPARIN (10 UNITS/ML) 5ML SYG IV ONE (17:30)
--- NOTE | 2016-08-13 18:10 | CONS ---
Date/Time of Note Date/Time of Note DATE: 08/13/16 TIME: 18:09 Consult Date/Type/Reason Admit Date/Time Aug 11, 2016 at 05:11 Type of Consultation: pulm Ordering Provider: CAMDEN ANDRADE Subjective No events. Objective Vital Signs Date Time Temp Pulse Resp B/P Pulse Ox O2 Delivery O2 Flow Rate FiO2 08/13/16 17:47 72 08/13/16 16:13 3.0 08/13/16 11:24 97.6 18 124/60 97 08/13/16 08:05 Nasal Cannula Intake and Output 08/12/16 08/12/16 08/13/16 15:00 23:00 07:00 Intake Total 350 ml 550 ml 550 ml Output Total 175 ml 250 ml 650 ml Balance 175 ml 300 ml -100 ml Exam HEENT: Neck supple; no JVD; no LAD CVS: RRR, S1 and S2 CHEST: Clear ABD: Soft, NT, + BS EXT: No c/c/e Results/Medications Result Diagram: 08/13/16 0535 08/13/16 0535 Results 24 hrs Laboratory Tests Test 08/13/16 05:35 White Blood Count 8.6 Red Blood Count 3.97 L Hemoglobin 11.0 L Hematocrit 37.4 Mean Corpuscular Volume 94.2 Mean Corpuscular Hemoglobin 27.7 L Mean Corpuscular Hemoglobin Concent 29.4 L Red Cell Distribution Width 15.0 H Platelet Count 254 Mean Platelet Volume 11.2 H Neutrophils % 73.5 Lymphocytes % 15.8 Monocytes % 8.1 Eosinophils % 1.6 Basophils % 0.3 Nucleated Red Blood Cells % 0.0 Neutrophils # 6.3 Lymphocytes # 1.4 Monocytes # 0.7 Eosinophils # 0.1 Basophils # 0.0 Nucleated Red Blood Cells # 0.0 Sodium Level 148 H Potassium Level 3.3 L Chloride Level 117 H Carbon Dioxide Level 22 Anion Gap 12 Blood Urea Nitrogen 54 #H Creatinine 1.02 H Glucose Level 123 Calcium Level 8.5 Medications Current Medications Metoclopramide HCl (Reglan) 10 mg Q6H PRN IV NAUSEA AND/OR VOMITING; Start 08/11 at 05:30 Acetaminophen (Tylenol Supp) 650 mg Q4H PRN [place] PAIN LEVEL 1-3 OR FEVER; Start 08/11/16 at 05:30 Morphine Sulfate (morphine) 2 mg Q4H PRN IV PAIN LEVEL 7-10; Start 08/11/16 at 05:30 Famotidine 20 mg 20 mg DAILY IV Last administered on 08/13/16 09:30; Admin Dose 20 MG; Start 08/11/16 at 09:00 Dextrose 1,000 ml @ 100 mls/hr Q10H IV Last administered on 08/13/16 11:20; Admin Dose 100 MLS/HR; Start 08/11/16 at 05:30 Piperacillin Sod/ Tazobactam Sod (Zosyn 2.25gm/ 50ml (Pmx)) 50 ml @ 100 mls/hr Q8 IVPB Last administered on 08/13/16 14:08; Admin Dose 100 MLS/HR; Start 08/11 at 16:30 Enoxaparin Sodium (Lovenox) 30 mg DAILY SC Last administered on 08/12/16 18:50 ; Admin Dose 30 MG; Start 08/11/16 at 17:00 Zinc Sulfate (Zinc Sulfate) 220 mg DAILY PO ; Start 08/14/16 at 09:00 Ascorbic Acid (Vitamin C) 500 mg DAILY PO ; Start 08/14/16 at 09:00 Assessment/Plan Additional Assessment/Plan IMP: 1. Sepsis/UTI 2. Acute on chronic encephalopathy. 3. JASON 4. Hypernatremia. 5. Anemia RECS: 1. Abx 2. Aspiration precautions 3. Increase free H20 4 Await PEG VITA JONES MD Aug 13, 2016 18:10
[2016-08-14] VITALS (19 sets, daily range): BP systolic 104–151; BP diastolic 53–79; PULSE 61–86; RESP 16–29
[2016-08-14] MEDS: DEXTROSE 5% 1,000 ML IV SCH ×3 (05:17→21:40)
[2016-08-14] MEDS: PIPER-TAZO 2.25 GM (PMX) 50 ML IVPB SCH ×3 (05:20→21:40)
[2016-08-14 06:52] LABS: ADD SCAN DIFF NO
[2016-08-14 06:59] LABS: BASOPHILS % 0.4 % (0.0-2.0); EOSINOPHILS # 0.1 10^3/ul (0.0-0.5); EOSINOPHILS % 1.9 % (0.0-7.0); HEMATOCRIT 32.7 % (37.0-47.0); HEMOGLOBIN 10.1 g/dl (12.0-16.0); LYMPHOCYTES # 1.4 10^3/ul (0.8-2.9); LYMPHOCYTES % 20.8 % (15.0-51.0); MEAN CORPUSCULAR HEMOGLOBIN 28.1 pg (29.0-33.0); MEAN CORPUSCULAR HGB CONC 30.9 g/dl (32.0-37.0); MEAN CORPUSCULAR VOLUME 90.8 fl (82.0-101.0); MEAN PLATELET VOLUME 11.4 fl (7.4-10.4); MONOCYTE # 0.6 10^3/ul (0.3-0.9); MONOCYTES % 8.8 % (0.0-11.0); NEUTROPHIL # 4.7 10^3/ul (1.6-7.5); NEUTROPHILS % 67.1 % (39.0-77.0); PLATELET COUNT 231 10^3/UL (140-415); RED CELL DISTRIBUTION WIDTH 14.5 % (11.5-14.5); WHITE BLOOD COUNT 6.9 10^3/ul (4.8-10.8)
[2016-08-14] MEDS ORDERED: LIDOCAINE 2% (SDV) 5 ML INJ ONE (07:00)
[2016-08-14 07:25] LABS: CALCIUM 8.5 mg/dl (8.4-10.2); CREATININE 0.72 mg/dl (0.44-1.00); POTASSIUM 3.3 mmol/L (3.5-5.1)
[2016-08-14] MEDS: ZINC SULFATE 220 MG CAP PO SCH (09:00)
[2016-08-14] MEDS: ASCORBIC ACID 500 MG TAB PO SCH (09:00)
[2016-08-14] MEDS: FAMOTIDINE 20 MG INJ IV SCH (09:15)
[2016-08-14] MEDS: ENOXAPARIN 30 MG/0.3 ML SYG SC SCH (09:18)
--- NOTE | 2016-08-14 10:06 | CONS ---
DATE OF ADMISSION: 08/11/2016 DATE OF CONSULTATION: 08/13/2016 HISTORY OF PRESENT ILLNESS: This is an 85-year-old female who was admitted to [facility] on 08/11/2016. Patient was admitted with acute on chronic encephalopathy, prior history of intracranial hemorrhage, status post mechanical fall. She also has comorbid medical problems includ ing fluid and electrolyte disorders, urinary tract infection. MEDICATIONS: Please refer to reconciliation sheet. ALLERGIES: NO KNOWN DRUG ALLERGIES. MAJOR MEDICAL PROBLEMS IN THE PAST: Entirely as per history of present illness, plus I have an inco mplete database. The patient has been moved out of the intensive care unit and is currently on medi cindy/surgical floor. The patient's granddaughter was in the room at the time when I examined the pat iefrannie and obtained a more clear past medical history. SOCIAL HISTORY: Lives with family members. FAMILY HISTORY: Noncontributory. REVIEW OF SYSTEMS: Noncontributory towards this consultation and otherwise unremarkable. PHYSICAL EXAMINATION: GENERAL: Shows an ill-appearing female in no major acute distress, clearly confused on examination. Not responding to any verbal commands. HEENT: She is normocephalic and atraumatic. Anicteric, acyanotic. CHEST: Shows bilateral clear breath sounds throughout both lung keating. COR: S1, S2, without S3, S4, murmur, gallop, rub. Normal rate, normal rhythm. ABDOMEN: Grossly benign. NEUROLOGIC: She is noncommunicative. She does not respond to any verbal or tactile stimulation. S he is moving all 4 extremities. She is grimacing and moaning. LABORATORY TESTS: White blood cell count of 8.6, hemoglobin 11.0, hematocrit of 37.4, MCV of 94.2, platelet count of 254,000. Chemistries: Serum sodium 148, potassium 3.3, chloride 117, bicarbonate 22, BUN of 54, creatinine of 1.02, blood sugar 123. ASSESSMENT AND PLAN: In speaking to family member, granddaughter at the bedside, there are other [facility] members, but she is the only participant the discussion at this time. In so far as background information, she states her grandmother could not participate in any activities of daily living and required total care, although she was able to walk on her own, but not do any other activities. She was walking outside her house when she did fall. They found the patient on the ground, and called paramedics to bring her to the emergency room, where she was admitted at that time. Family member h as a clear understanding of her grandmother's medical condition and quality of life. Acceptable jesi lity of life will be discussed with other family members, her fears, concerns, and spirituality has been discussed and are not major issues at this time. Communication preferences are directly health care delivery team to family members. Caregiver concerns that her grandmother will not suffer, and that she receives good care both in the hospital and when she is discharged from the hospital. Goal s of care are not clearly outlined at this time, except the patient is a DO NOT RESUSCITATE. The estimated prognosis based upon physical findings and past history is very poor. Palliative perf ormance scale was less than 30%. FAST 7E: I am concerned about pain and symptom management, as the patient is grimacing at this time, probably secondary to her recent fall. Psychosocial, spiritual issues, existentitial issues will be addressed. Ethical issues: Patient is a DO NOT RESUSCITATE. I believe there is indication here that patient could be referred to hospice care at the time of her discharge. Code status once again has been addressed, and a POLST form should be addressed prior to patient lacey martinez discharged from the hospital. Dictated By: ATIF ODOM MD, LP/JG Conf#: [id number] DID#: [id number]
--- NOTE | 2016-08-14 10:52 | RADRPT ---
PROCEDURE: US guidance for PICC line CLINICAL INDICATION: PICC line placement TECHNIQUE: Multiple real-time images were acquired of the patient's arm utilizing a high resolutio n transducer. This was performed by the PICC line nurse for venous access. COMPARISON: None FINDINGS: Ultrasound guidance for PICC line placement. IMPRESSION: Ultrasound guidance for PICC line placement. RPTAT: AA .Ko Hodge MD, MD Date Time Electronically viewed and signed by .Ko Hodge MD, on 08/14/2016 10:51 .S/
--- NOTE | 2016-08-14 11:59 | CONS ---
Date/Time of Note Date/Time of Note DATE: 08/14/16 TIME: 11:57 Assessment/Plan Assessment/Plan Additional Assessment/Plan Assessment recommendations; 1. Patient admitted for UTI with sepsis with clinical improvement. 2. Intravascular volume depletion with prerenal azotemia, improving with IV hydration. 3. Left common femoral vein DVT. 4. Possible underlying dementia. Continue current treatment. Consultation Date/Type/Reason Admit Date/Time Aug 11, 2016 at 05:11 Initial Consult Date 08/13/16 Type of Consultation: Pulmonary Referring Provider: CAMDEN ANDRADE 24 HR Interval Summary Free Text/Dictation Patient condition is gradually improving. Patient is arousable but does not follow any commands. Has remained hemodynamically stable. General exam; elderly woman, arousable, currently in no distress. Exam/Review of Systems Vital Signs Vitals Vital Signs Date Time Temp Pulse Resp B/P Pulse Ox O2 Delivery O2 Flow Rate FiO2 08/14/16 11:12 98.0 79 19 151/76 97 08/14/16 02:14 2.0 08/13/16 20:00 Nasal Cannula Intake and Output 08/13/16 08/13/16 08/14/16 15:00 23:00 07:00 Intake Total 500 ml 50 ml 1700 ml Output Total 500 ml 700 ml Balance 500 ml -450 ml 1000 ml Exam HEENT examination; supple neck, no JVD. No lymphadenopathy. Midline trachea. No thyromegaly. Patient is edentulous. Has bilateral intraocular lens implants. Chest examination; clear to auscultation. S1-S2 audible, no murmurs. Regular rhythm. Abdomen examination; soft, no organomegaly. Nondistended. Bowel sounds audible. Extremity examination; no peripheral edema. ECONOMICS LECTURER examination; patient is awake but does not respond to any commands. Results Result Diagram: 08/14/16 0552 08/14/16 0552 Results 24 hrs Laboratory Tests Test 08/14/16 05:52 White Blood Count 6.9 Red Blood Count 3.60 L Hemoglobin 10.1 L Hematocrit 32.7 L Mean Corpuscular Volume 90.8 Mean Corpuscular Hemoglobin 28.1 L Mean Corpuscular Hemoglobin Concent 30.9 L Red Cell Distribution Width 14.5 Platelet Count 231 Mean Platelet Volume 11.4 H Neutrophils % 67.1 Lymphocytes % 20.8 Monocytes % 8.8 Eosinophils % 1.9 Basophils % 0.4 Nucleated Red Blood Cells % 0.0 Neutrophils # 4.7 Lymphocytes # 1.4 Monocytes # 0.6 Eosinophils # 0.1 Basophils # 0.0 Nucleated Red Blood Cells # 0.0 Sodium Level 146 H Potassium Level 3.3 L Chloride Level 118 H Carbon Dioxide Level 21 Anion Gap 10 Blood Urea Nitrogen 31 #H Creatinine 0.72 Glucose Level 99 Calcium Level 8.5 Medications Medications Current Medications Metoclopramide HCl (Reglan) 10 mg Q6H PRN IV NAUSEA AND/OR VOMITING; Start 08/11 at 05:30 Acetaminophen (Tylenol Supp) 650 mg Q4H PRN [place] PAIN LEVEL 1-3 OR FEVER; Start 08/11/16 at 05:30 Morphine Sulfate (morphine) 2 mg Q4H PRN IV PAIN LEVEL 7-10; Start 08/11/16 at 05:30 Famotidine 20 mg 20 mg DAILY IV Last administered on 08/14/16 09:15; Admin Dose 20 MG; Start 08/11/16 at 09:00 Dextrose 1,000 ml @ 100 mls/hr Q10H IV Last administered on 08/14/16 05:17; Admin Dose 100 MLS/HR; Start 08/11/16 at 05:30 Piperacillin Sod/ Tazobactam Sod (Zosyn 2.25gm/ 50ml (Pmx)) 50 ml @ 100 mls/hr Q8 IVPB Last administered on 08/14/16 05:20; Admin Dose 100 MLS/HR; Start 08/11 at 16:30 Enoxaparin Sodium (Lovenox) 30 mg DAILY SC Last administered on 08/14/16 09:18 ; Admin Dose 30 MG; Start 08/11/16 at 17:00 Zinc Sulfate (Zinc Sulfate) 220 mg DAILY PO ; Start 08/14/16 at 09:00 Ascorbic Acid (Vitamin C) 500 mg DAILY PO ; Start 08/14/16 at 09:00 YESENIA STONE 12, 2017 11:59
[2016-08-14] MEDS ORDERED: ENOXAPARIN 40 MG/0.4 ML SYG SC SCH (13:00)
--- NOTE | 2016-08-14 14:05 | PN ---
Date/Time of Note Date/Time of Note DATE: 08/14/16 TIME: 13:55 Assessment/Plan VTE Prophylaxis VTE Prophylaxis Intervention: SCD's Lines/Catheters IV Catheter Type (from Nrsg): PICC Line Central line still needed: No Urinary Cath still in place: Yes Reason Cath still needed: skin wounds contaminated by urine Assessment/Plan Assessment/Plan 85 yo F with pmhx advanced Alzheimers admitted for acute renal failure likely 2/ 2 multipathogen UTI. Pt also with progressive dysphagia, most likely the result of her Alzheimers. Family requesting PEG placement, already seen by GI last week. #UTI: cont zosyn pending further culture data #dysphagia: long discussion had today with family about how given pt's advanced Alzheimers, PEG will not prolong life. Giving pt more calories than she's currently taking in PO will not impact her aspiration risk or the trajectory of her underlying neurodegenerative disorder. Family insisting on PEG nonetheless. #pressure ulcers: wound care on cs of note, family requesting eval for additional help at home, especially with wound care. social service consult placed dispo pending PEG placement. plan is for pt to return to family home DNR Subjective 24 Hr Interval Summary Free Text/Dictation Pt sitting up in bed. I had a long coversation with patient''s daughter and daughter's about role of PEG tubes in advanced Alzheimers-->notably that this will not improve/correct pt's dysphagia which is the result of her Alzheimers which unfortunately is not amenable to correction. Also dw pt's family that PEG placement will not prolong patient's life. Of note all of the above was dw pt's family using [place] language line Exam/Review of Systems Vital Signs Vitals Vital Signs Date Time Temp Pulse Resp B/P Pulse Ox O2 Delivery O2 Flow Rate FiO2 08/14/16 12:18 79 08/14/16 11:12 98.0 19 151/76 97 08/14/16 02:14 2.0 08/13/16 20:00 Nasal Cannula Intake and Output 08/13/16 08/13/16 08/14/16 15:00 23:00 07:00 Intake Total 500 ml 50 ml 1700 ml Output Total 500 ml 700 ml Balance 500 ml -450 ml 1000 ml Exam nad, sitting up in bed, tracks to family no mrg lungs clear abd soft +multiple pressure sores on LEs Results Result Diagram: 08/14/16 0552 08/14/16 0552 Results 24 hrs Laboratory Tests Test 08/14/16 05:52 White Blood Count 6.9 Red Blood Count 3.60 L Hemoglobin 10.1 L Hematocrit 32.7 L Mean Corpuscular Volume 90.8 Mean Corpuscular Hemoglobin 28.1 L Mean Corpuscular Hemoglobin Concent 30.9 L Red Cell Distribution Width 14.5 Platelet Count 231 Mean Platelet Volume 11.4 H Neutrophils % 67.1 Lymphocytes % 20.8 Monocytes % 8.8 Eosinophils % 1.9 Basophils % 0.4 Nucleated Red Blood Cells % 0.0 Neutrophils # 4.7 Lymphocytes # 1.4 Monocytes # 0.6 Eosinophils # 0.1 Basophils # 0.0 Nucleated Red Blood Cells # 0.0 Sodium Level 146 H Potassium Level 3.3 L Chloride Level 118 H Carbon Dioxide Level 21 Anion Gap 10 Blood Urea Nitrogen 31 #H Creatinine 0.72 Glucose Level 99 Calcium Level 8.5 Medications Medications Current Medications Metoclopramide HCl (Reglan) 10 mg Q6H PRN IV NAUSEA AND/OR VOMITING; Start 08/11 at 05:30 Acetaminophen (Tylenol Supp) 650 mg Q4H PRN [place] PAIN LEVEL 1-3 OR FEVER; Start 08/11/16 at 05:30 Morphine Sulfate (morphine) 2 mg Q4H PRN IV PAIN LEVEL 7-10; Start 08/11/16 at 05:30 Famotidine 20 mg 20 mg DAILY IV Last administered on 08/14/16 09:15; Admin Dose 20 MG; Start 08/11/16 at 09:00 Dextrose 1,000 ml @ 100 mls/hr Q10H IV Last administered on 08/14/16 12:50; Admin Dose 100 MLS/HR; Start 08/11/16 at 05:30 Piperacillin Sod/ Tazobactam Sod (Zosyn 2.25gm/ 50ml (Pmx)) 50 ml @ 100 mls/hr Q8 IVPB Last administered on 08/14/16 13:15; Admin Dose 100 MLS/HR; Start 08/11 at 16:30 Zinc Sulfate (Zinc Sulfate) 220 mg DAILY PO ; Start 08/14/16 at 09:00 Ascorbic Acid (Vitamin C) 500 mg DAILY PO ; Start 08/14/16 at 09:00 Enoxaparin Sodium (Lovenox) 70 mg DAILY SC ; Start 08/15/16 at 09:00 Procedures Procedures urine culture results reviewed. Mel Mi, sensitives for other pathogens pending SUMMER BHATTI MD Aug 14, 2016 14:05
[2016-08-14] MEDS: POVIDONE IODINE 10% 28.4 GM OINT TOP SCH (16:55)
[2016-08-14] MEDS: COLLAGENASE 30 GM TUBE TOP SCH (16:55)
[2016-08-14] MEDS ORDERED: CEFAZOLIN 2 GM/50 ML (PMX) 50 ML IVPB ONE (18:21)
[2016-08-14] MEDS ORDERED: PROPOFOL 20 ML ONE (18:52)
--- NOTE | 2016-08-14 19:51 | CONS ---
Date/Time of Note Date/Time of Note DATE: 08/14/16 TIME: 19:47 Assessment/Plan Assessment/Plan Additional Assessment/Plan 1. JASON due to ATN from sepsis 2. Sepsis due to UTI 3. Acute on chronic encephalopathy 4. Hypernatremia 5. Anemia of chronic disease 6. Hypertension 7. Dementia Plan : Consultation Date/Type/Reason Admit Date/Time Aug 11, 2016 at 05:11 Initial Consult Date 08/11/16 Type of Consultation: NEPHROLOGY Referring Provider: CAMDEN ANDRADE 24 HR Interval Summary Free Text/Dictation Cr improved to normal K low Exam/Review of Systems Vital Signs Vitals Vital Signs Date Time Temp Pulse Resp B/P Pulse Ox O2 Delivery O2 Flow Rate FiO2 08/14/16 19:33 66 24 114/58 98 Nasal Cannula 2.0 08/14/16 19:14 98.2 Intake and Output 08/13/16 08/13/16 08/14/16 15:00 23:00 07:00 Intake Total 500 ml 50 ml 1700 ml Output Total 500 ml 700 ml Balance 500 ml -450 ml 1000 ml Exam nad, sitting up in bed, tracks to family no mrg lungs clear abd soft +multiple pressure sores on LEs Results Result Diagram: 08/14/16 0552 08/14/16 0552 Results 24 hrs Laboratory Tests Test 08/14/16 05:52 White Blood Count 6.9 Red Blood Count 3.60 L Hemoglobin 10.1 L Hematocrit 32.7 L Mean Corpuscular Volume 90.8 Mean Corpuscular Hemoglobin 28.1 L Mean Corpuscular Hemoglobin Concent 30.9 L Red Cell Distribution Width 14.5 Platelet Count 231 Mean Platelet Volume 11.4 H Neutrophils % 67.1 Lymphocytes % 20.8 Monocytes % 8.8 Eosinophils % 1.9 Basophils % 0.4 Nucleated Red Blood Cells % 0.0 Neutrophils # 4.7 Lymphocytes # 1.4 Monocytes # 0.6 Eosinophils # 0.1 Basophils # 0.0 Nucleated Red Blood Cells # 0.0 Sodium Level 146 H Potassium Level 3.3 L Chloride Level 118 H Carbon Dioxide Level 21 Anion Gap 10 Blood Urea Nitrogen 31 #H Creatinine 0.72 Glucose Level 99 Calcium Level 8.5 Medications Medications Current Medications Metoclopramide HCl (Reglan) 10 mg Q6H PRN IV NAUSEA AND/OR VOMITING; Start 08/11 at 05:30 Acetaminophen (Tylenol Supp) 650 mg Q4H PRN [place] PAIN LEVEL 1-3 OR FEVER; Start 08/11/16 at 05:30 Morphine Sulfate (morphine) 2 mg Q4H PRN IV PAIN LEVEL 7-10; Start 08/11/16 at 05:30 Famotidine 20 mg 20 mg DAILY IV Last administered on 08/14/16 09:15; Admin Dose 20 MG; Start 08/11/16 at 09:00 Dextrose 1,000 ml @ 100 mls/hr Q10H IV Last administered on 08/14/16 12:50; Admin Dose 100 MLS/HR; Start 08/11/16 at 05:30 Piperacillin Sod/ Tazobactam Sod (Zosyn 2.25gm/ 50ml (Pmx)) 50 ml @ 100 mls/hr Q8 IVPB Last administered on 08/14/16 13:15; Admin Dose 100 MLS/HR; Start 08/11 at 16:30 Zinc Sulfate (Zinc Sulfate) 220 mg DAILY PO ; Start 08/14/16 at 09:00 Ascorbic Acid (Vitamin C) 500 mg DAILY PO ; Start 08/14/16 at 09:00 Enoxaparin Sodium (Lovenox) 70 mg DAILY SC ; Start 08/15/16 at 09:00 Collagenase (Santyl) 1 applic DAILY TOP Last administered on 08/14/16 16:55; Admin Dose 1 APPLIC; Start 08/14/16 at 16:00 Povidone Iodine (Povidone-Iodine) 1 applic DAILY TOP Last administered on 16:55; Admin Dose 1 APPLIC; Start 08/14/16 at 16:00 SONIA COY MD Aug 14, 2016 19:51
--- NOTE | 2016-08-14 21:57 | GILP ---
DATE OF PROCEDURE: NAME OF PROCEDURE: Esophagogastroduodenoscopy with biopsies. SURGEON: Drake Oliveros MD. HISTORY AND INDICATIONS: The patient is being evaluated for placement of gastrostomy tube. PREMEDICATION: Monitored anesthesia care by anesthesiologist. INSTRUMENT USED: Olympus panendoscope. TECHNIQUE: After informed consent, with the patient and/or family members understanding the procedur e, its indications, potential risks and complications, including but not limited to: allergic reacti on, bleeding, perforation, infection or leakage, and after all pertinent questions were answered to the patient and/or family members satisfaction, the patient and/or family member signed witnessed in formed consent. Following this, premedication was administered slowly IV push, under careful cardiovascular and resp iratory monitoring with pulse oximetry, blood pressure and playground monitor. Once the sedative effect wa s achieved the patient was place in the supine position, the panendoscope was introduced and advance d under visual guidance. Careful examination of the upper gastrointestinal tract, on insertion as well as withdrawal of the i nstrument disclosed the following findings: ESOPHAGUS: The mucosa of the entire esophagus appears within normal limits. There is no evidence o f esophagitis, varices, neoplasm, or stricture. STOMACH: Upon entrance to the stomach air was insufflated, the gastric galarza distended normally. T he mucosa of the fundus, body, and antrum of the stomach was carefully examined both head-on and on retroflexion, and shows no abnormalities. There is no evidence of gastritis, ulcers, or neoplasm. PYLORUS: The pylorus appears patent and within normal limits, with no evidence of gastric outlet ob struction. DUODENUM: The duodenal mucosa was carefully examined in the duodenal bulb as well as the second por tion of the duodenum and appears unremarkable with no evidence of duodenitis, ulcer, or neoplasm. The instrument was then brought back to the stomach and the anterior wall mid-body was identified by transillumination and "finger indentation," this area was then marked in the anterior wall of the a bdomen, it was cleansed with Betadine and infiltrated with Xylocaine 1%. Following this a trocar ne edle was introduced into the gastric lumen under visual control with the endoscope, once in the paradise yessi lumen a guide wire was advanced and secured with a polypectomy snare, at this point the endoscop e was withdrawn bringing the guide wire out through the patients mouth. Following this a gastrostom y tube was introduced over the guide wire, with the Sacks-Vinne technique without difficulty, a smal l incision was performed in the skin to allow easy passage of the G-tube, once the position of the g astrostomy tube was confirmed, the external stopper and connectors were installed, and a clean dress ing applied. The patient tolerated the procedure well and was transferred out of the endoscopy suite awake, and i n good condition to continue recovery under observation, feedings will started in the next 12-24h an d gastrostomy care will be instituted. Gastrostomy tube used [place] 20 gastrostomy tube. IMPRESSION: Uneventful percutaneous endoscopic gastrostomy tube placement with placement of [place] 20 gastrostomy tube with no incident or complication. PLAN: The patient will be started on feedings tomorrow morning. Further recommendation will depend on her clinical course. Dictated By: DRAKE OLIVEROS MS/JG Conf#: [id number] DID#: [id number] CC: DRAKE OLIVEROS; SAMSON HERNANDEZ MD;*EndCC*
[2016-08-15] VITALS (12 sets, daily range): BP systolic 130–153; BP diastolic 66–86; PULSE 60–84; RESP 18–20
[2016-08-15] MEDS: PIPER-TAZO 2.25 GM (PMX) 50 ML IVPB SCH (06:00)
[2016-08-15 07:37] LABS: CREATININE 0.66 mg/dl (0.44-1.00)
[2016-08-15 07:40] LABS: POTASSIUM 2.9 mmol/L (3.5-5.1)
[2016-08-15] MEDS ORDERED: POTASSIUM CHLORIDE (SR) 20 MEQ TAB PO STA (08:24)
[2016-08-15] MEDS ORDERED: POTASSIUM CHLORIDE 20 MEQ POWDER FOR ORAL SOLN PO STA (09:16)
[2016-08-15] MEDS: CEPHALEXIN 500 MG CAP PO SCH ×2 (09:27→21:00)
[2016-08-15] MEDS: ZINC SULFATE 220 MG CAP PO SCH (09:27)
[2016-08-15] MEDS: COLLAGENASE 30 GM TUBE TOP SCH (09:27)
[2016-08-15] MEDS: ASCORBIC ACID 500 MG TAB PO SCH (09:27)
[2016-08-15] MEDS: POVIDONE IODINE 10% 28.4 GM OINT TOP SCH (09:27)
[2016-08-15] MEDS: DEXTROSE 5% 1,000 ML IV SCH (09:30)
[2016-08-15] MEDS: ENOXAPARIN 100 MG/ML SYG SC SCH (09:46)
--- NOTE | 2016-08-15 12:14 | PN ---
Date/Time of Note Date/Time of Note DATE: 08/15/16 TIME: 12:13 Assessment/Plan VTE Prophylaxis VTE Prophylaxis Intervention: SCD's Lines/Catheters IV Catheter Type (from Nrsg): PICC Line Central line still needed: No Urinary Cath still in place: Yes Reason Cath still needed: other (indicate) (none) Assessment/Plan Assessment/Plan 85 yo F with pmhx advanced Alzheimers admitted for acute renal failure likely 2/ 2 multipathogen UTI. Pt also with progressive dysphagia, most likely the result of her Alzheimers. sp PEG 6.12. #UTI:narrow abx to keflex. total length of therapy should be 210 days #dysphagia: PEG yesterday #pressure ulcers: wound care on cs of note, family requesting eval for additional help at home, especially with wound care. social service consult placed dispo pending SW eval for home needs DNR Subjective 24 Hr Interval Summary Free Text/Dictation PEG placed last night. Contrary to what I was told my other care providers, pt NOT currently in a hospice program Exam/Review of Systems Vital Signs Vitals Vital Signs Date Time Temp Pulse Resp B/P Pulse Ox O2 Delivery O2 Flow Rate FiO2 08/15/16 11:04 98.0 89 18 130/74 96 08/15/16 08:00 Nasal Cannula 2.0 Intake and Output 08/14/16 08/14/16 08/15/16 15:00 23:00 07:00 Intake Total 50 ml 1050 ml 800 ml Output Total 400 ml 700 ml Balance 50 ml 650 ml 100 ml Exam sitting up in bed nad no mrg lungs clear abd soft no rashes Results Result Diagram: 08/14/16 0552 08/15/16 0619 Results 24 hrs Laboratory Tests Test 08/15/16 06:19 Sodium Level 143 Potassium Level 2.9 *L Chloride Level 113 H Carbon Dioxide Level 26 Anion Gap 7 L Blood Urea Nitrogen 15 # Creatinine 0.66 Glucose Level 133 Calcium Level 8.0 L Medications Medications Current Medications Metoclopramide HCl (Reglan) 10 mg Q6H PRN IV NAUSEA AND/OR VOMITING; Start 08/11 at 05:30 Acetaminophen (Tylenol Supp) 650 mg Q4H PRN [place] PAIN LEVEL 1-3 OR FEVER; Start 08/11/16 at 05:30 Morphine Sulfate (morphine) 2 mg Q4H PRN IV PAIN LEVEL 7-10; Start 08/11/16 at 05:30 Zinc Sulfate (Zinc Sulfate) 220 mg DAILY PO Last administered on 08/15/16 09: 27; Admin Dose 220 MG; Start 08/14/16 at 09:00 Ascorbic Acid (Vitamin C) 500 mg DAILY PO Last administered on 08/15/16 09:27 ; Admin Dose 500 MG; Start 08/14/16 at 09:00 Enoxaparin Sodium (Lovenox) 70 mg DAILY SC Last administered on 08/15/16 09:46 ; Admin Dose 70 MG; Start 08/15/16 at 09:00 Collagenase (Santyl) 1 applic DAILY TOP Last administered on 08/15/16 09:27; Admin Dose 1 APPLIC; Start 08/14/16 at 16:00 Povidone Iodine (Povidone-Iodine) 1 applic DAILY TOP Last administered on 09:27; Admin Dose 1 APPLIC; Start 08/14/16 at 16:00 Cephalexin (Keflex) 500 mg Q12 PO Last administered on 08/15/16 09:27; Admin Dose 500 MG; Start 08/15/16 at 09:00 Procedures Procedures urine culture results reviewed SUMMER Mcmillan MD Aug 15, 2016 12:14
--- NOTE | 2016-08-15 13:06 | CONS ---
Date/Time of Note Date/Time of Note DATE: 08/15/16 TIME: 13:04 Assessment/Plan Assessment/Plan Additional Assessment/Plan Assessment recommendations; next 1. Patient admitted for UTI with marked clinical improvement. Off antibiotics now. 2. Prerenal azotemia from dehydration with interval correction as well. 3. Left superficial common femoral vein DVT. Continue current treatment. Consider apixaban for DVT at least for duration of 6 months. Consider discharge. Consultation Date/Type/Reason Admit Date/Time Aug 11, 2016 at 05:11 Initial Consult Date 08/13/16 Type of Consultation: Pulmonary Referring Provider: CAMDEN ANDRADE 24 HR Interval Summary Free Text/Dictation Patient condition is stable. Remains awake and alert. No adverse events reported. General examination; elderly woman, awake alert currently in no distress. Exam/Review of Systems Vital Signs Vitals Vital Signs Date Time Temp Pulse Resp B/P Pulse Ox O2 Delivery O2 Flow Rate FiO2 08/15/16 12:00 84 08/15/16 11:04 98.0 18 130/74 96 08/15/16 08:00 Nasal Cannula 2.0 Intake and Output 08/14/16 08/14/16 08/15/16 15:00 23:00 07:00 Intake Total 50 ml 1050 ml 800 ml Output Total 400 ml 700 ml Balance 50 ml 650 ml 100 ml Exam HEENT examination; supple neck, no JVD. No lymphadenopathy. Midline trachea. No thyromegaly. Vision is edentulous, has bilateral intraocular lens implants. Chest examination; clear to auscultation. S1-S2 audible, no murmurs. Regular rhythm. Abdomen examination; soft, scaphoid. No organomegaly. Bowel sounds audible. Extremity examination; no peripheral edema. OXYGEN EQUIPMENT AIDE examination; no focal deficit. Results Result Diagram: 08/14/16 0552 08/15/16 0619 Results 24 hrs Laboratory Tests Test 08/15/16 06:19 Sodium Level 143 Potassium Level 2.9 *L Chloride Level 113 H Carbon Dioxide Level 26 Anion Gap 7 L Blood Urea Nitrogen 15 # Creatinine 0.66 Glucose Level 133 Calcium Level 8.0 L Medications Medications Current Medications Metoclopramide HCl (Reglan) 10 mg Q6H PRN IV NAUSEA AND/OR VOMITING; Start 08/11 at 05:30 Acetaminophen (Tylenol Supp) 650 mg Q4H PRN [place] PAIN LEVEL 1-3 OR FEVER; Start 08/11/16 at 05:30 Morphine Sulfate (morphine) 2 mg Q4H PRN IV PAIN LEVEL 7-10; Start 08/11/16 at 05:30 Zinc Sulfate (Zinc Sulfate) 220 mg DAILY PO Last administered on 08/15/16 09: 27; Admin Dose 220 MG; Start 08/14/16 at 09:00 Ascorbic Acid (Vitamin C) 500 mg DAILY PO Last administered on 08/15/16 09:27 ; Admin Dose 500 MG; Start 08/14/16 at 09:00 Enoxaparin Sodium (Lovenox) 70 mg DAILY SC Last administered on 08/15/16 09:46 ; Admin Dose 70 MG; Start 08/15/16 at 09:00 Collagenase (Santyl) 1 applic DAILY TOP Last administered on 08/15/16 09:27; Admin Dose 1 APPLIC; Start 08/14/16 at 16:00 Povidone Iodine (Povidone-Iodine) 1 applic DAILY TOP Last administered on 09:27; Admin Dose 1 APPLIC; Start 08/14/16 at 16:00 Cephalexin (Keflex) 500 mg Q12 PO Last administered on 08/15/16 09:27; Admin Dose 500 MG; Start 08/15/16 at 09:00 YESENIA STONE Aug 15, 2016 13:06
--- NOTE | 2016-08-15 13:52 | PN ---
Date/Time of Note Date/Time of Note DATE: 08/15/16 TIME: 13:46 Assessment/Plan VTE Prophylaxis VTE Prophylaxis Intervention: SCD's Lines/Catheters IV Catheter Type (from Nrsg): PICC Line Central line still needed: Yes Urinary Cath still in place: Yes Reason Cath still needed: urinary retention Assessment/Plan Assessment/Plan Assessment * Failure to thrive/Dysphagia PEG placement 08/14/2016 * Encephalopathy * Dementia * Sepsis improving * Anemia improving Plan * Start tube feeding once sees by coal picker * Start tube feeding per coal picker recommendation * continue present management Subjective 24 Hr Interval Summary Free Text/Dictation * Course reviewed with RN * Patient seen and examined * Awaiting nutrition evaluation prior to starting tube feeding * PEG site ,dry ,no bleeding Exam/Review of Systems Vital Signs Vitals Vital Signs Date Time Temp Pulse Resp B/P Pulse Ox O2 Delivery O2 Flow Rate FiO2 08/15/16 12:00 84 08/15/16 11:04 98.0 18 130/74 96 08/15/16 08:00 Nasal Cannula 2.0 Intake and Output 08/14/16 08/14/16 08/15/16 14:59 22:59 06:59 Intake Total 50 ml 1050 ml 800 ml Output Total 400 ml 700 ml Balance 50 ml 650 ml 100 ml Exam Constitutional: frail Neck: non-tender, supple Respiratory: clear to auscultation, normal air movement Cardiovascular: nl pulses, regular rate and rhythm Gastrointestinal: bowel sounds, other (peg in placed), soft, No rebound or guarding Musculoskeletal: muscle weakness Extremities: normal pulses Neurological: unresponsive Skin: nl turgor, No rash or lesions Results Result Diagram: 08/14/16 0552 08/15/16 0619 Results 24 hrs Laboratory Tests Test 08/15/16 06:19 Sodium Level 143 Potassium Level 2.9 *L Chloride Level 113 H Carbon Dioxide Level 26 Anion Gap 7 L Blood Urea Nitrogen 15 # Creatinine 0.66 Glucose Level 133 Calcium Level 8.0 L Medications Medications Current Medications Metoclopramide HCl (Reglan) 10 mg Q6H PRN IV NAUSEA AND/OR VOMITING; Start 08/11 at 05:30 Acetaminophen (Tylenol Supp) 650 mg Q4H PRN [place] PAIN LEVEL 1-3 OR FEVER; Start 08/11/16 at 05:30 Morphine Sulfate (morphine) 2 mg Q4H PRN IV PAIN LEVEL 7-10; Start 08/11/16 at 05:30 Zinc Sulfate (Zinc Sulfate) 220 mg DAILY PO Last administered on 08/15/16 09: 27; Admin Dose 220 MG; Start 08/14/16 at 09:00 Ascorbic Acid (Vitamin C) 500 mg DAILY PO Last administered on 08/15/16 09:27 ; Admin Dose 500 MG; Start 08/14/16 at 09:00 Enoxaparin Sodium (Lovenox) 70 mg DAILY SC Last administered on 08/15/16 09:46 ; Admin Dose 70 MG; Start 08/15/16 at 09:00 Collagenase (Santyl) 1 applic DAILY TOP Last administered on 08/15/16 09:27; Admin Dose 1 APPLIC; Start 08/14/16 at 16:00 Povidone Iodine (Povidone-Iodine) 1 applic DAILY TOP Last administered on 09:27; Admin Dose 1 APPLIC; Start 08/14/16 at 16:00 Cephalexin (Keflex) 500 mg Q12 PO Last administered on 08/15/16 09:27; Admin Dose 500 MG; Start 08/15/16 at 09:00 JONES HARMON NP Aug 15, 2016 13:52
--- NOTE | 2016-08-15 13:52 | CONS ---
Date/Time of Note Date/Time of Note DATE: 08/15/16 TIME: 13:49 Assessment/Plan Assessment/Plan Additional Assessment/Plan Patient is a candidate for home Hospice Care. I strongly request hospice referral prior to discharge in a POLST form to be given to family prior to discharge. I will ask social work service to schedule a family conference at their earliest convenience. Consultation Date/Type/Reason Admit Date/Time Aug 11, 2016 at 05:11 Initial Consult Date 08/13/16 Type of Consultation: Palliative CARE Referring Provider: CAMDEN ANDRADE 24 HR Interval Summary Subjective hx not possible: pt non-verbal Exam/Review of Systems Vital Signs Vitals Vital Signs Date Time Temp Pulse Resp B/P Pulse Ox O2 Delivery O2 Flow Rate FiO2 08/15/16 12:00 84 08/15/16 11:04 98.0 18 130/74 96 08/15/16 08:00 Nasal Cannula 2.0 Intake and Output 08/14/16 08/14/16 08/15/16 15:00 23:00 07:00 Intake Total 50 ml 1050 ml 800 ml Output Total 400 ml 700 ml Balance 50 ml 650 ml 100 ml Results Result Diagram: 08/14/16 0552 08/15/16 0619 Results 24 hrs Laboratory Tests Test 08/15/16 06:19 Sodium Level 143 Potassium Level 2.9 *L Chloride Level 113 H Carbon Dioxide Level 26 Anion Gap 7 L Blood Urea Nitrogen 15 # Creatinine 0.66 Glucose Level 133 Calcium Level 8.0 L Medications Medications Current Medications Metoclopramide HCl (Reglan) 10 mg Q6H PRN IV NAUSEA AND/OR VOMITING; Start 08/11 at 05:30 Acetaminophen (Tylenol Supp) 650 mg Q4H PRN [place] PAIN LEVEL 1-3 OR FEVER; Start 08/11/16 at 05:30 Morphine Sulfate (morphine) 2 mg Q4H PRN IV PAIN LEVEL 7-10; Start 08/11/16 at 05:30 Zinc Sulfate (Zinc Sulfate) 220 mg DAILY PO Last administered on 08/15/16 09: 27; Admin Dose 220 MG; Start 08/14/16 at 09:00 Ascorbic Acid (Vitamin C) 500 mg DAILY PO Last administered on 08/15/16 09:27 ; Admin Dose 500 MG; Start 08/14/16 at 09:00 Enoxaparin Sodium (Lovenox) 70 mg DAILY SC Last administered on 08/15/16 09:46 ; Admin Dose 70 MG; Start 08/15/16 at 09:00 Collagenase (Santyl) 1 applic DAILY TOP Last administered on 08/15/16 09:27; Admin Dose 1 APPLIC; Start 08/14/16 at 16:00 Povidone Iodine (Povidone-Iodine) 1 applic DAILY TOP Last administered on 09:27; Admin Dose 1 APPLIC; Start 08/14/16 at 16:00 Cephalexin (Keflex) 500 mg Q12 PO Last administered on 08/15/16 09:27; Admin Dose 500 MG; Start 08/15/16 at 09:00 ATIF ODOM Aug 15, 2016 13:52
--- NOTE | 2016-08-15 21:37 | CONS ---
Date/Time of Note Date/Time of Note DATE: 08/15/16 TIME: 21:36 Assessment/Plan Assessment/Plan Additional Assessment/Plan 1. JASON due to ATN from sepsis 2. Sepsis due to UTI 3. Acute on chronic encephalopathy 4. Hypernatremia 5. Anemia of chronic disease 6. Hypertension 7. Dementia Plan: V abx zosyn Conitnue D5W for hypernatremia- Na improved to 143 K replaced for Hypokalemia BP stable will follow up Consultation Date/Type/Reason Admit Date/Time Aug 11, 2016 at 05:11 Initial Consult Date 08/11/16 Type of Consultation: NEPHROLOGY Referring Provider: CAMDEN ANDRADE Exam/Review of Systems Vital Signs Vitals Vital Signs Date Time Temp Pulse Resp B/P Pulse Ox O2 Delivery O2 Flow Rate FiO2 08/15/16 20:20 73 08/15/16 20:08 98.4 18 136/66 94 08/15/16 17:41 3.0 08/15/16 08:00 Nasal Cannula Intake and Output 08/14/16 08/14/16 08/15/16 14:59 22:59 06:59 Intake Total 50 ml 1050 ml 800 ml Output Total 400 ml 700 ml Balance 50 ml 650 ml 100 ml Results Result Diagram: 08/14/16 0552 08/15/16 0619 Results 24 hrs Laboratory Tests Test 08/15/16 06:19 Sodium Level 143 Potassium Level 2.9 *L Chloride Level 113 H Carbon Dioxide Level 26 Anion Gap 7 L Blood Urea Nitrogen 15 # Creatinine 0.66 Glucose Level 133 Calcium Level 8.0 L Magnesium Level 1.9 Medications Medications Current Medications Metoclopramide HCl (Reglan) 10 mg Q6H PRN IV NAUSEA AND/OR VOMITING; Start 08/11 at 05:30 Acetaminophen (Tylenol Supp) 650 mg Q4H PRN [place] PAIN LEVEL 1-3 OR FEVER; Start 08/11/16 at 05:30 Morphine Sulfate (morphine) 2 mg Q4H PRN IV PAIN LEVEL 7-10; Start 08/11/16 at 05:30 Zinc Sulfate (Zinc Sulfate) 220 mg DAILY PO Last administered on 08/15/16 09: 27; Admin Dose 220 MG; Start 08/14/16 at 09:00 Ascorbic Acid (Vitamin C) 500 mg DAILY PO Last administered on 08/15/16 09:27 ; Admin Dose 500 MG; Start 08/14/16 at 09:00 Enoxaparin Sodium (Lovenox) 70 mg DAILY SC Last administered on 08/15/16 09:46 ; Admin Dose 70 MG; Start 08/15/16 at 09:00 Collagenase (Santyl) 1 applic DAILY TOP Last administered on 08/15/16 09:27; Admin Dose 1 APPLIC; Start 08/14/16 at 16:00 Povidone Iodine (Povidone-Iodine) 1 applic DAILY TOP Last administered on 09:27; Admin Dose 1 APPLIC; Start 08/14/16 at 16:00 Cephalexin (Keflex) 500 mg Q12 PO Last administered on 08/15/16 09:27; Admin Dose 500 MG; Start 08/15/16 at 09:00 SONIA COY MD Aug 15, 2016 21:37
[2016-08-16 00:28] VITALS: BP 132/56; PULSE 75; RESP 18
[2016-08-16 08:07] VITALS: BP 111/55; RESP 18
[2016-08-16] MEDS: ZINC SULFATE 220 MG CAP PO SCH (08:55)
[2016-08-16] MEDS: CEPHALEXIN 500 MG CAP PO SCH ×2 (08:55→21:00)
[2016-08-16] MEDS: ASCORBIC ACID 500 MG TAB PO SCH (08:55)
[2016-08-16] MEDS: COLLAGENASE 30 GM TUBE TOP SCH ×2 (09:00→22:18)
[2016-08-16] MEDS: ENOXAPARIN 100 MG/ML SYG SC SCH (09:09)
--- NOTE | 2016-08-16 12:51 | PN ---
DATE: 08/16/2016 REASON FOR FOLLOWUP: Respiratory distress. SUBJECTIVE: This patient is stable this morning. No new events. Eyes open, makes eye contact, no evidence of respiratory distress. PHYSICAL EXAMINATION: VITAL SIGNS: Temperature 98, pulse is 90, blood pressure 111/55, O2 saturation 96% on 2 L nasal can nula. NECK: Supple. No JVD or lymphadenopathy. CARDIAC: S1, S2, no added sounds or murmurs. CHEST: Diminished air entry bilaterally. ABDOMEN: Soft, nontender. No guarding or rebound. EXTREMITIES: No cyanosis, clubbing, or edema. NEUROLOGIC: Generalized weakness. LABORATORY DATA: White count 6.9, hemoglobin 10.1, platelets of 231, potassium was 2.9 yesterday. IMPRESSION AND PLAN: 1. Recent urinary tract infection, currently improving. 2. Superficial common femoral deep vein thrombus. 3. Dysphagia, now with percutaneous endoscopic gastrostomy placement. 4. Underlying history of dementia. PLAN: 1. The patient is stable for discharge to [facility] facility. 2. Aspiration precautions. 3. Tube feeding as tolerated. 4. DVT and GI prophylaxis. Dictated By: ENZO HOFFMAN/JG Conf#: [id number] DID#: [id number]
[2016-08-16] MEDS ORDERED: CEPH500C PO (12:55)
--- NOTE | 2016-08-16 12:57 | DS ---
Date/Time of Note Date/Time of Note DATE: 08/16/16 TIME: 12:55 Discharge Summary Admission/Discharge Info Admit Date/Time Aug 11, 2016 at 05:11 Discharge Date/Time Final Diagnosis cystitis, dysphagia, deep venous thrombosis of the left lower extremity Patient Condition: Stable Consults gastroenterology, nephrology, pulmonology Procedures 6.8 imaging CXR 1. Mild left lower lobe subsegmental atelectasis with possible small left pleural effusion, pneumonia with parapneumonic effusion is a differential diagnostic possibility in the proper clinical setting, the appearance of the chest not significantly changed from the prior exams. 2. Cardiac pacemaker without congestive heart failure pattern. NCCT Head IMPRESSION: 1. No acute intracranial abnormality. No intracranial hemorrhage, extra-axial fluid collection, mass lesion or hydrocephalous. 2. Stable moderate peripheral and central cerebral volume loss. 3. Stable severe patchy and confluent periventricular and subcortical white matter hypodensity, likely related to chronic microangiopathic changes. 4. Interval resolution of the previously visualized hyperdense hemorrhage right posterior frontal / parietal lobe 6.9 SHANTELLE IMPRESSION: Mildly atrophic and echogenic kidneys suggest mild medical renal disease. Correlation with BUN and creatinine levels is recommended. No hydronephrosis bilaterally. The bladder is collapsed around a Goins catheter balloon which limits evaluation. 6.10 LE dopplers IMPRESSION: 1. Partially occlusive deep venous thrombosis at the distal left common femoral vein. 6.11 US guided PICC placement 6.12 PEG placement by GI Hx of Present Illness This is an 85 yo female with hx of severe dementia, CVA, HTN, pacemaker, dyslipidemia, brain bleed and comminuted nasal bone fracture s/p recent fall. patient was brought to ER with worsening mentation. Pt is not able to provide hx and as such information is gathered from chart review and from ER. Patient was recently admitted here for comminuted nasal bone fracture and brain bleed after fall. When pt presented to ER, CT head showed Stable severe patchy and confluent periventricular and subcortical white matter hypodensity, likely related to chronic microangiopathic changes. Interval resolution of the previously visualized hyperdense hemorrhage right posterior frontal / parietal lobe. Labs showed several abnormalities including cr of 2.8, K 5.9, Na, 154, BUN 131, cl 117 and abnormal LFTs. . Hospital Course Pt started on broad spectrum antibiotics for possible sepsis, urine culture eventually returned with EColi and pt was transitioned to PO Keflex. Early in pt's stay GI was consulted for PEG placement given pt's longstanding hx of dysphagia which is likely the result of her underlying dementia. 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 For finding of DVT, pt started on LMWH, transitioned to Eliquis at discharge. Re dispo, pt previously on home hospice but dissatisfied with agency. They will try to seek a different agency going forward. Changes from admit meds: additional keflex to complete UTI treatment starting dose of Eliquis, pt to f/u with PCP for refills Home Meds Active Scripts Apixaban* (Eliquis*) 5 Mg Tablet, 10 MG PO BID for 7 Days, TAB Prov:SUMMER BHATTI MD 08/16/16 Cephalexin* (Cephalexin*) 500 Mg Capsule, 500 MG PO Q12 for 2 Days, #4 CAP Prov:SUMMER BHATTI MD 08/16/16 Reported Medications Sennosides* (Senna Lax*) 8.6 Mg Tablet, 1 TAB PO DAILY, TAB 07/18/16 Zolpidem Tartrate* (Zolpidem Tartrate*) 5 Mg Tablet, 5 MG PO QHS Y for INSOMNIA , #30 TAB 07/18/16 Memantine* (Namenda*) 5 Mg Tablet, 5 MG PO DAILY, #30 TAB 07/18/16 Risperidone* (Risperidone*) 0.5 Mg Tablet, 0.5 MG PO DAILY, TAB 07/18/16 Escitalopram Oxalate* (Escitalopram Oxalate*) 5 Mg Tablet, 5 MG PO DAILY, #30 TAB 07/18/16 Furosemide* (Furosemide*) 40 Mg Tablet, 40 MG PO DAILY, TAB 07/18/16 Aspirin* (Aspirin* Chew) 81 Mg Tab.chew, 81 MG PO DAILY, TAB.CHEW 07/18/16 Alendronate Sodium* (Fosamax*) 70 Mg Tablet, 70 MG PO Q7D, #4 TAB 07/18/16 Valsartan* (Diovan*) 160 Mg Tablet, 160 MG PO DAILY, TAB HOLD FOR SBP<120 07/18/16 Atorvastatin Calcium* (Atorvastatin Calcium*) 20 Mg Tablet, 20 MG PO QHS, #30 TAB 07/18/16 Follow-up Plan PCP within 7 days to continue anticoagulation Primary Care Provider Main Nguyen Time spent on discharge: > 30 minutes SUMMER BHATTI MD Aug 16, 2016 12:57
[2016-08-16] MEDS ORDERED: APIX5TAB PO (13:03)
--- NOTE | 2016-08-16 17:57 | CONS ---
Date/Time of Note Date/Time of Note DATE: 08/16/16 TIME: 17:55 Assessment/Plan Assessment/Plan Additional Assessment/Plan 1. JASON due to ATN from sepsis 2. Sepsis due to UTI 3. Acute on chronic encephalopathy 4. Hypernatremia 5. Anemia of chronic disease 6. Hypertension 7. Dementia Plan: no labs today to review, K was low yeterday, agressively replaced AM labs ordered to follow up on K BP stable will follow up Consultation Date/Type/Reason Admit Date/Time Aug 11, 2016 at 05:11 Initial Consult Date 08/11/16 Type of Consultation: NEPHROLOGY Referring Provider: CAMDEN ANDRADE 24 HR Interval Summary Free Text/Dictation no acute events, BP stable Exam/Review of Systems Vital Signs Vitals Vital Signs Date Time Temp Pulse Resp B/P Pulse Ox O2 Delivery O2 Flow Rate FiO2 08/16/16 15:45 21 08/16/16 08:07 99.0 90 18 111/55 97 08/16/16 03:44 Nasal Cannula 2.0 Intake and Output 08/15/16 08/15/16 08/16/16 15:00 23:00 07:00 Intake Total 240 ml Output Total 800 ml 550 ml Balance -560 ml -550 ml Results Result Diagram: 08/14/16 0552 08/15/16 0619 Medications Medications Current Medications Metoclopramide HCl (Reglan) 10 mg Q6H PRN IV NAUSEA AND/OR VOMITING; Start 08/11 at 05:30 Acetaminophen (Tylenol Supp) 650 mg Q4H PRN [place] PAIN LEVEL 1-3 OR FEVER; Start 08/11/16 at 05:30 Morphine Sulfate (morphine) 2 mg Q4H PRN IV PAIN LEVEL 7-10; Start 08/11/16 at 05:30 Zinc Sulfate (Zinc Sulfate) 220 mg DAILY PO Last administered on 08/16/16 08: 55; Admin Dose 220 MG; Start 08/14/16 at 09:00 Ascorbic Acid (Vitamin C) 500 mg DAILY PO Last administered on 08/16/16 08:55 ; Admin Dose 500 MG; Start 08/14/16 at 09:00 Enoxaparin Sodium (Lovenox) 70 mg DAILY SC Last administered on 08/16/16 09:09 ; Admin Dose 70 MG; Start 6/13/17 at 09:00 Collagenase (Santyl) 1 applic DAILY TOP Last administered on 08/15/16 09:27; Admin Dose 1 APPLIC; Start 08/14/16 at 16:00 Povidone Iodine (Povidone-Iodine) 1 applic DAILY TOP Last administered on 09:27; Admin Dose 1 APPLIC; Start 08/14/16 at 16:00 Cephalexin (Keflex) 500 mg Q12 PO Last administered on 08/16/16 08:55; Admin Dose 500 MG; Start 08/15/16 at 09:00 SONIA COY MD Aug 16, 2016 17:57
[2016-08-16 21:07] VITALS: BP 132/62; RESP 18
[2016-08-16] MEDS: POVIDONE IODINE 10% 28.4 GM OINT TOP SCH (22:23)
[2016-08-17 06:47] LABS: CALCIUM 8.3 mg/dl (8.4-10.2); CREATININE 0.54 mg/dl (0.44-1.00); POTASSIUM 3.7 mmol/L (3.5-5.1)
[2016-08-17 08:35] VITALS: BP 140/72; RESP 18
[2016-08-17] MEDS: POVIDONE IODINE 10% 28.4 GM OINT TOP SCH (09:59)
[2016-08-17] MEDS: COLLAGENASE 30 GM TUBE TOP SCH (09:59)
[2016-08-17] MEDS: ASCORBIC ACID 500 MG TAB PO SCH (10:33)
[2016-08-17] MEDS: CEPHALEXIN 500 MG CAP PO SCH ×2 (10:33→20:22)
[2016-08-17] MEDS: ZINC SULFATE 220 MG CAP PO SCH (10:33)
[2016-08-17] MEDS: ENOXAPARIN 100 MG/ML SYG SC SCH (10:46)
--- NOTE | 2016-08-17 17:07 | CONS ---
Date/Time of Note Date/Time of Note DATE: 08/17/16 TIME: 17:07 Assessment/Plan Assessment/Plan Additional Assessment/Plan 1. JASON due to ATN from sepsis 2. Sepsis due to UTI 3. Acute on chronic encephalopathy 4. Hypernatremia 5. Anemia of chronic disease 6. Hypertension 7. Dementia Plan: V abx zosyn Conitnue D5W for hypernatremia- Na normal K replaced for Hypokalemia BP stable will follow up Consultation Date/Type/Reason Admit Date/Time Aug 11, 2016 at 05:11 Initial Consult Date 08/11/16 Type of Consultation: NEPHROLOGY Referring Provider: CAMDEN ANDRADE Exam/Review of Systems Vital Signs Vitals Vital Signs Date Time Temp Pulse Resp B/P Pulse Ox O2 Delivery O2 Flow Rate FiO2 08/17/16 16:59 2.0 28 08/17/16 08:35 98.0 86 18 140/72 97 08/16/16 22:29 Nasal Cannula Intake and Output 08/16/16 08/16/16 08/17/16 14:59 22:59 06:59 Intake Total 1000 ml 1100 ml Balance 1000 ml 1100 ml Results Result Diagram: 08/14/16 0552 08/17/16 0506 Results 24 hrs Laboratory Tests Test 08/17/16 05:06 Sodium Level 140 Potassium Level 3.7 Chloride Level 109 Carbon Dioxide Level 25 Anion Gap 10 Blood Urea Nitrogen 19 Creatinine 0.54 Glucose Level 162 Calcium Level 8.3 L Medications Medications Current Medications Metoclopramide HCl (Reglan) 10 mg Q6H PRN IV NAUSEA AND/OR VOMITING; Start 08/11 at 05:30 Morphine Sulfate (morphine) 2 mg Q4H PRN IV PAIN LEVEL 7-10; Start 08/11/16 at 05:30 Zinc Sulfate (Zinc Sulfate) 220 mg DAILY PO Last administered on 08/17/16 10: 33; Admin Dose 220 MG; Start 08/14/16 at 09:00 Ascorbic Acid (Vitamin C) 500 mg DAILY PO Last administered on 08/17/16 10:33 ; Admin Dose 500 MG; Start 08/14/16 at 09:00 Enoxaparin Sodium (Lovenox) 70 mg DAILY SC Last administered on 08/17/16 10:46 ; Admin Dose 70 MG; Start 08/15/16 at 09:00 Collagenase (Santyl) 1 applic DAILY TOP Last administered on 08/17/16 09:59; Admin Dose 1 APPLIC; Start 08/14/16 at 16:00 Povidone Iodine (Povidone-Iodine) 1 applic DAILY TOP Last administered on 09:59; Admin Dose 1 APPLIC; Start 08/14/16 at 16:00 Cephalexin (Keflex) 500 mg Q12 PO Last administered on 08/17/16 10:33; Admin Dose 500 MG; Start 08/15/16 at 09:00 SONIA COY MD Aug 17, 2016 17:07
--- NOTE | 2016-08-17 19:05 | PN ---
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 -cont keflex dyspghagia 2/2 AD: 2/2 PEG LE DVT: cont full ATC Re dispo, pt previously on home hospice but dissatisfied with agency. They will try to seek a different agency going forward. discharge in AM Subjective 24 Hr Interval Summary Free Text/Dictation No acute overnight events. Exam/Review of Systems Vital Signs Vitals Vital Signs Date Time Temp Pulse Resp B/P Pulse Ox O2 Delivery O2 Flow Rate FiO2 08/17/16 16:59 2.0 28 08/17/16 08:35 98.0 86 18 140/72 97 08/17/16 08:00 Nasal Cannula Intake and Output 08/16/16 08/16/16 08/17/16 15:00 23:00 07:00 Intake Total 1000 ml 1100 ml Balance 1000 ml 1100 ml Exam laying flat in bed nad resp nonlabored no abd distension no rashes no le edema Results Result Diagram: 08/14/16 0552 08/17/16 0506 Results 24 hrs Laboratory Tests Test 08/17/16 05:06 Sodium Level 140 Potassium Level 3.7 Chloride Level 109 Carbon Dioxide Level 25 Anion Gap 10 Blood Urea Nitrogen 19 Creatinine 0.54 Glucose Level 162 Calcium Level 8.3 L Medications Medications Current Medications Metoclopramide HCl (Reglan) 10 mg Q6H PRN IV NAUSEA AND/OR VOMITING; Start 08/11 at 05:30 Morphine Sulfate (morphine) 2 mg Q4H PRN IV PAIN LEVEL 7-10; Start 08/11/16 at 05:30 Zinc Sulfate (Zinc Sulfate) 220 mg DAILY PO Last administered on 08/17/16 10: 33; Admin Dose 220 MG; Start 08/14/16 at 09:00 Ascorbic Acid (Vitamin C) 500 mg DAILY PO Last administered on 08/17/16 10:33 ; Admin Dose 500 MG; Start 08/14/16 at 09:00 Enoxaparin Sodium (Lovenox) 70 mg DAILY SC Last administered on 08/17/16 10:46 ; Admin Dose 70 MG; Start 08/15/16 at 09:00 Collagenase (Santyl) 1 applic DAILY TOP Last administered on 08/17/16 09:59; Admin Dose 1 APPLIC; Start 08/14/16 at 16:00 Povidone Iodine (Povidone-Iodine) 1 applic DAILY TOP Last administered on 09:59; Admin Dose 1 APPLIC; Start 08/14/16 at 16:00 Cephalexin (Keflex) 500 mg Q12 PO Last administered on 08/17/16 10:33; Admin Dose 500 MG; Start 08/15/16 at 09:00 SUMMER BHATTI MD Aug 17, 2016 19:05
[2016-08-17 19:53] VITALS: BP 133/61; RESP 16
[2016-08-18 08:40] VITALS: BP 141/79; RESP 18
[2016-08-18] MEDS: ASCORBIC ACID 500 MG TAB PO SCH (09:36)
[2016-08-18] MEDS: ZINC SULFATE 220 MG CAP PO SCH (09:38)
[2016-08-18] MEDS: CEPHALEXIN 500 MG CAP PO SCH ×2 (09:38→21:47)
[2016-08-18] MEDS: COLLAGENASE 30 GM TUBE TOP SCH (09:38)
[2016-08-18] MEDS: POVIDONE IODINE 10% 28.4 GM OINT TOP SCH (09:38)
[2016-08-18] MEDS: ENOXAPARIN 100 MG/ML SYG SC SCH (09:50)
--- NOTE | 2016-08-18 11:51 | CONS ---
Date/Time of Note Date/Time of Note DATE: 08/18/16 TIME: 11:49 Consultation Date/Type/Reason Admit Date/Time Aug 11, 2016 at 05:11 Initial Consult Date 08/13/16 Type of Consultation: Palliative Care Referring Provider: CAMDEN ANDRADE 24 HR Interval Summary Free Text/Dictation Post dated note....Waiting for family conference to be scheduled will discuss with SWS. Exam/Review of Systems Vital Signs Vitals Vital Signs Date Time Temp Pulse Resp B/P Pulse Ox O2 Delivery O2 Flow Rate FiO2 08/18/16 08:40 98.1 91 18 141/79 98 08/18/16 02:43 2.0 28 08/17/16 20:00 Nasal Cannula Intake and Output 08/17/16 08/17/16 08/18/16 15:00 23:00 07:00 Intake Total 1090 ml Balance 1090 ml Results Result Diagram: 08/14/16 0552 08/17/16 0506 Medications Medications Current Medications Metoclopramide HCl (Reglan) 10 mg Q6H PRN IV NAUSEA AND/OR VOMITING; Start 08/11 at 05:30 Morphine Sulfate (morphine) 2 mg Q4H PRN IV PAIN LEVEL 7-10; Start 08/11/16 at 05:30 Zinc Sulfate (Zinc Sulfate) 220 mg DAILY PO Last administered on 08/18/16 09: 38; Admin Dose 220 MG; Start 08/14/16 at 09:00 Ascorbic Acid (Vitamin C) 500 mg DAILY PO Last administered on 08/18/16 09:36 ; Admin Dose 500 MG; Start 08/14/16 at 09:00 Enoxaparin Sodium (Lovenox) 70 mg DAILY SC Last administered on 08/18/16 09:50 ; Admin Dose 70 MG; Start 08/15/16 at 09:00 Collagenase (Santyl) 1 applic DAILY TOP Last administered on 08/18/16 09:38; Admin Dose 1 APPLIC; Start 08/14/16 at 16:00 Povidone Iodine (Povidone-Iodine) 1 applic DAILY TOP Last administered on 09:38; Admin Dose 1 APPLIC; Start 08/14/16 at 16:00 Cephalexin (Keflex) 500 mg Q12 PO Last administered on 08/18/16 09:38; Admin Dose 500 MG; Start 08/15/16 at 09:00 ATIF ODOM Aug 18, 2016 11:51
[2016-08-18] MEDS ORDERED: APIX5TAB PO ×2 (17:34→17:36)
--- NOTE | 2016-08-18 17:38 | DS ---
Date/Time of Note Date/Time of Note DATE: 08/18/16 TIME: 17:38 Discharge Summary Admission/Discharge Info Admit Date/Time Aug 11, 2016 at 05:11 Discharge Date/Time Final Diagnosis cystitis, dysphagia, deep venous thrombosis of the left lower extremity Patient Condition: Stable Consults gastroenterology, nephrology, pulmonology Procedures 6.8 imaging CXR 1. Mild left lower lobe subsegmental atelectasis with possible small left pleural effusion, pneumonia with parapneumonic effusion is a differential diagnostic possibility in the proper clinical setting, the appearance of the chest not significantly changed from the prior exams. 2. Cardiac pacemaker without congestive heart failure pattern. NCCT Head IMPRESSION: 1. No acute intracranial abnormality. No intracranial hemorrhage, extra-axial fluid collection, mass lesion or hydrocephalous. 2. Stable moderate peripheral and central cerebral volume loss. 3. Stable severe patchy and confluent periventricular and subcortical white matter hypodensity, likely related to chronic microangiopathic changes. 4. Interval resolution of the previously visualized hyperdense hemorrhage right posterior frontal / parietal lobe 6.9 SHANTELLE IMPRESSION: Mildly atrophic and echogenic kidneys suggest mild medical renal disease. Correlation with BUN and creatinine levels is recommended. No hydronephrosis bilaterally. The bladder is collapsed around a Goins catheter balloon which limits evaluation. 6.10 LE dopplers IMPRESSION: 1. Partially occlusive deep venous thrombosis at the distal left common femoral vein. 6.11 US guided PICC placement 6.12 PEG placement by GI Hx of Present Illness This is an 85 yo female with hx of severe dementia, CVA, HTN, pacemaker, dyslipidemia, brain bleed and comminuted nasal bone fracture s/p recent fall. patient was brought to ER with worsening mentation. Pt is not able to provide hx and as such information is gathered from chart review and from ER. Patient was recently admitted here for comminuted nasal bone fracture and brain bleed after fall. When pt presented to ER, CT head showed Stable severe patchy and confluent periventricular and subcortical white matter hypodensity, likely related to chronic microangiopathic changes. Interval resolution of the previously visualized hyperdense hemorrhage right posterior frontal / parietal lobe. Labs showed several abnormalities including cr of 2.8, K 5.9, Na, 154, BUN 131, cl 117 and abnormal LFTs. . Hospital Course Pt started on broad spectrum antibiotics for possible sepsis, urine culture eventually returned with EColi and pt was transitioned to PO Keflex, completed abx as inpatient Early in pt's stay GI was consulted for PEG placement given pt's longstanding hx of dysphagia which is likely the result of her underlying dementia. 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 For finding of DVT, pt started on LMWH, transitioned to Eliquis at discharge. Re dispo, pt going home with home hospice. Changes from admit meds: starting dose then first week of maintenance dose of of Eliquis, pt to f/u with PCP for refills Home Meds Active Scripts Apixaban* (Eliquis*) 5 Mg Tablet, 5 MG PO BID for 7 Days, TAB START THIS LOWER DOSE OF YOUR BLOOD THINNER ONCE YOU HAVE FINISHED THE HIGHER DOSE. ASK YOUR HOSPICE AGENCY TO CONTINUE THIS MEDICATION AT THIS DOSE Prov:SUMMER BHATTI MD 08/18/16 Apixaban* (Eliquis*) 5 Mg Tablet, 10 MG PO BID for 7 Days, TAB TAKE THESE HIGH DOSE BLOOD THINNERS FOR THE FIRST WEEK Prov:SUMMER BHATTI MD 08/18/16 Reported Medications Sennosides* (Senna Lax*) 8.6 Mg Tablet, 1 TAB PO DAILY, TAB 07/18/16 Zolpidem Tartrate* (Zolpidem Tartrate*) 5 Mg Tablet, 5 MG PO QHS Y for INSOMNIA , #30 TAB 07/18/16 Memantine* (Namenda*) 5 Mg Tablet, 5 MG PO DAILY, #30 TAB 07/18/16 Risperidone* (Risperidone*) 0.5 Mg Tablet, 0.5 MG PO DAILY, TAB 07/18/16 Escitalopram Oxalate* (Escitalopram Oxalate*) 5 Mg Tablet, 5 MG PO DAILY, #30 TAB 07/18/16 Furosemide* (Furosemide*) 40 Mg Tablet, 40 MG PO DAILY, TAB 07/18/16 Aspirin* (Aspirin* Chew) 81 Mg Tab.chew, 81 MG PO DAILY, TAB.CHEW 07/18/16 Alendronate Sodium* (Fosamax*) 70 Mg Tablet, 70 MG PO Q7D, #4 TAB 07/18/16 Valsartan* (Diovan*) 160 Mg Tablet, 160 MG PO DAILY, TAB HOLD FOR SBP<120 07/18/16 Atorvastatin Calcium* (Atorvastatin Calcium*) 20 Mg Tablet, 20 MG PO QHS, #30 TAB 07/18/16 Primary Care Provider Main Nguyen Time spent on discharge: > 30 minutes SUMMER BHATTI MD Aug 18, 2016 17:38
--- NOTE | 2016-08-18 18:49 | CONS ---
Date/Time of Note Date/Time of Note DATE: 08/18/16 TIME: 18:47 Assessment/Plan Assessment/Plan Additional Assessment/Plan 1. JASON due to ATN from sepsis 2. Sepsis due to UTI 3. Acute on chronic encephalopathy 4. Hypernatremia 5. Anemia of chronic disease 6. Hypertension 7. Dementia Plan: V abx zosyn Electrolytes stable today BP stable will follow up Consultation Date/Type/Reason Admit Date/Time Aug 11, 2016 at 05:11 Initial Consult Date 08/11/16 Type of Consultation: NEPHROLOGY Referring Provider: CAMDEN ANDRADE Exam/Review of Systems Vital Signs Vitals Vital Signs Date Time Temp Pulse Resp B/P Pulse Ox O2 Delivery O2 Flow Rate FiO2 08/18/16 13:58 2.0 08/18/16 08:40 98.1 91 18 141/79 98 08/18/16 08:00 Nasal Cannula 08/18/16 02:43 28 Intake and Output 08/17/16 08/17/16 08/18/16 15:00 23:00 07:00 Intake Total 1090 ml Balance 1090 ml Exam nad, sitting up in bed, tracks to family no mrg lungs clear abd soft +multiple pressure sores on LEs Results Result Diagram: 08/14/16 0552 08/17/16 0506 Medications Medications Current Medications Metoclopramide HCl (Reglan) 10 mg Q6H PRN IV NAUSEA AND/OR VOMITING; Start 08/11 at 05:30 Morphine Sulfate (morphine) 2 mg Q4H PRN IV PAIN LEVEL 7-10; Start 08/11/16 at 05:30 Zinc Sulfate (Zinc Sulfate) 220 mg DAILY PO Last administered on 08/18/16 09: 38; Admin Dose 220 MG; Start 08/14/16 at 09:00 Ascorbic Acid (Vitamin C) 500 mg DAILY PO Last administered on 08/18/16 09:36 ; Admin Dose 500 MG; Start 08/14/16 at 09:00 Enoxaparin Sodium (Lovenox) 70 mg DAILY SC Last administered on 08/18/16 09:50 ; Admin Dose 70 MG; Start 08/15/16 at 09:00 Collagenase (Santyl) 1 applic DAILY TOP Last administered on 08/18/16 09:38; Admin Dose 1 APPLIC; Start 08/14/16 at 16:00 Povidone Iodine (Povidone-Iodine) 1 applic DAILY TOP Last administered on 09:38; Admin Dose 1 APPLIC; Start 08/14/16 at 16:00 Cephalexin (Keflex) 500 mg Q12 PO Last administered on 08/18/16 09:38; Admin Dose 500 MG; Start 08/15/16 at 09:00 SONIA COY MD Aug 18, 2016 18:49
[2016-08-18 19:46] VITALS: BP 134/73; RESP 20
[2016-08-18 23:30] VITALS: BP 131/61; RESP 18
[2016-08-19] MEDS ORDERED: KETOROLAC 15 MG INJ ONE (18:11)
[2016-08-19] MEDS ORDERED: HYDROCODONE/APAP (10/325) TAB ONE (18:12)
== END 2016-08-19 00:05 | disposition hospice, home (50) | DRG 871 ==
LOC: E/R 23:11 → ICU 08-11 05:11 → TEL 08-12 11:00 → MS2 08-15 23:50
PROVIDERS: ADMIT Internal Medicine; ATTEND Internal Medicine
PROC: 4A133R1 Monitoring of Arterial Saturation, Peripheral, Percutaneous Approach (ICD-10-PCS; 2016-08-10)
PROC: 02HV33Z Insertion of Infusion Device into Superior Vena Cava, Percutaneous Approach (ICD-10-PCS; 2016-08-13)
PROC: B548ZZA Ultrasonography of Superior Vena Cava, Guidance (ICD-10-PCS; 2016-08-13)
PROC: 0DH63UZ Insertion of Feeding Device into Stomach, Percutaneous Approach (ICD-10-PCS; principal; 2016-08-14 20:30)
DX: A41.9 Sepsis, unspecified organism (principal); G93.49 Other encephalopathy; J96.01 Acute respiratory failure with hypoxia; N17.0 Acute kidney failure with tubular necrosis; I82.412 Acute embolism and thrombosis of left femoral vein; E87.0 Hyperosmolality and hypernatremia; R13.10 Dysphagia, unspecified; N30.00 Acute cystitis without hematuria; Z66 Do not resuscitate; I10 Essential (primary) hypertension; E78.5 Hyperlipidemia, unspecified; I25.10 Atherosclerotic heart disease of native coronary artery without angina pectoris; G30.9 Alzheimer's disease, unspecified; F02.80 Dementia in other diseases classified elsewhere, unspecified severity, without behavioral disturbance, psychotic disturbance, mood disturbance, and anxiety; E87.5 Hyperkalemia; E86.0 Dehydration; D63.8 Anemia in other chronic diseases classified elsewhere; L89.90 Pressure ulcer of unspecified site, unspecified stage; R62.7 Adult failure to thrive; Z91.81 History of falling; Z86.73 Personal history of transient ischemic attack (TIA), and cerebral infarction without residual deficits; Z87.820 Personal history of traumatic brain injury; Z95.0 Presence of cardiac pacemaker; Z79.82 Long term (current) use of aspirin
CPT/HCPCS: 36569; 36600; 70450; 71010; 76775; 76937; 80048; 80053; 81001; 81003; 82436; 82550; 82570; 82803; 82962; 83605; 83735; 84133; 84300; 84484; 84560; 85025; 85610; 85730; 87040; 87045; 87075; 87086; 89190; 92526; 92610; 93005; 93971; 94664; 96365; 96366; 96375; J0690; J1642; J1650; J1815; J1885; J2543; J7030; J7070

== ENCOUNTER 2016-11-02 09:38 | Inpatient (IN) | payer MEDICARE, OTHER ==
[2016-11-02] VITALS (7 sets, daily range): BP systolic 93–143; BP diastolic 53–65; PULSE 90–91; RESP 18–22; TEMP 96.3; Ht 165.1 cm; Wt 63.6 kg
[~2016-11-02] VITALS: Ht 165.1 cm; Wt 63.6 kg
[~2016-11-02 09:38] MED LIST changes: +APIX5TAB PO
[2016-11-02] MEDS ORDERED: ACETAMINOPHEN 650 MG SUPP PR STA (09:51)
[2016-11-02] MEDS ORDERED: ALBUTEROL 0.083% (NEB) 2.5 MG/3 ML AMP HHN STA (09:51)
[2016-11-02] MEDS ORDERED: SODIUM CHLORIDE 0.9% 1L BAG IV* STA (09:51)
--- NOTE | 2016-11-02 09:51 | ERA ---
ER Documentation Chief Complaint Date/Time DATE: 11/02/16 TIME: 09:45 Chief Complaint HPI 85-year-old woman brought in by EMS from home for shortness of breath beginning this morning, patient is fed via gastrostomy tube and granddaughter who was at the bedside states she aspirated last night. She has a long history of encephalopathy, dysphagia, end-stage Alzheimer's disease, bedbound state, and G- tube feedings. Her status is DNR. She has had no blood per rectum or melena. HPI limited as patient is nonverbal but supplemented by speaking to EMS and family members were later at the bedside. ROS All systems reviewed and are negative except as per history of present illness. Medications Home Meds Reported Medications Amlodipine Besylate* (Norvasc*) 5 Mg Tablet, 5 MG PO DAILY, TAB 11/02/16 Donepezil* (Aricept*) 5 Mg Tablet, 5 MG PO DAILY, TAB 11/02/16 Memantine* (Namenda* XR) 28 Mg Cap.spr.24, 28 MG PO DAILY, #30 TAB 11/02/16 Aspirin* (Aspirin* EC) 81 Mg Tablet.dr, 81 MG PO DAILY, TAB 11/02/16 Atenolol* (Atenolol*) 50 Mg Tablet, 50 MG PO DAILY, #30 TAB 11/02/16 Dexlansoprazole (Dexilant) 60 Mg Cap.mp, 60 MG PO DAILY, #30 CAP 11/02/16 Discontinued Reported Medications Sennosides* (Senna Lax*) 8.6 Mg Tablet, 1 TAB PO DAILY, TAB 07/18/16 Zolpidem Tartrate* (Zolpidem Tartrate*) 5 Mg Tablet, 5 MG PO QHS Y for INSOMNIA , #30 TAB 07/18/16 Memantine* (Namenda*) 5 Mg Tablet, 5 MG PO DAILY, #30 TAB 07/18/16 Risperidone* (Risperidone*) 0.5 Mg Tablet, 0.5 MG PO DAILY, TAB 07/18/16 Escitalopram Oxalate* (Escitalopram Oxalate*) 5 Mg Tablet, 5 MG PO DAILY, #30 TAB 07/18/16 Furosemide* (Furosemide*) 40 Mg Tablet, 40 MG PO DAILY, TAB 07/18/16 Aspirin* (Aspirin* Chew) 81 Mg Tab.chew, 81 MG PO DAILY, TAB.CHEW 07/18/16 Alendronate Sodium* (Fosamax*) 70 Mg Tablet, 70 MG PO Q7D, #4 TAB 07/18/16 Valsartan* (Diovan*) 160 Mg Tablet, 160 MG PO DAILY, TAB HOLD FOR SBP<120 07/18/16 Atorvastatin Calcium* (Atorvastatin Calcium*) 20 Mg Tablet, 20 MG PO QHS, #30 TAB 07/18/16 Discontinued Scripts Apixaban* (Eliquis*) 5 Mg Tablet, 5 MG PO BID for 7 Days, TAB START THIS LOWER DOSE OF YOUR BLOOD THINNER ONCE YOU HAVE FINISHED THE HIGHER DOSE. ASK YOUR HOSPICE AGENCY TO CONTINUE THIS MEDICATION AT THIS DOSE Prov:SUMMER BHATTI MD 08/18/16 Apixaban* (Eliquis*) 5 Mg Tablet, 10 MG PO BID for 7 Days, TAB TAKE THESE HIGH DOSE BLOOD THINNERS FOR THE FIRST WEEK Prov:SUMMER BHATTI MD 08/18/16 Allergies Allergies: Coded Allergies: No Known Allergy (Unverified , 11/02/16) PMhx/Soc dementia, CVA, HTN, pacemaker, dyslipidemia, Intracerebral hemorrhage History of Surgery: Yes Anesthesia Reaction: No Hx Neurological Disorder: Yes Hx Respiratory Disorders: No Hx Cardiac Disorders: Yes Hx Psychiatric Problems: No Hx Miscellaneous Medical Probl: No Hx Alcohol Use: No Hx Substance Use: No Hx Tobacco Use: No FmHx Family History: No diabetes Physical Exam Vitals Vital Signs Date Time Temp Pulse Resp B/P Pulse Ox O2 Delivery O2 Flow Rate FiO2 11/02/16 12:00 96.3 116 32 76/50 89 Non Rebreather 15.0 11/02/16 10:41 115 24 100 Non Rebreather Mask 15.0 11/02/16 10:29 100.5 106 36 93/48 93 Non Rebreather 15.0 11/02/16 09:54 Non Rebreather 15 11/02/16 09:54 Non Rebreather 15.0 11/02/16 09:41 101.4 114 24 75/21 89 11/02/16 09:41 101.4 115 24 75/21 92 Per nurses records Physical Exam GENERAL: Elderly, chronically debilitated woman, encephalopathic, unresponsive, febrile HEENT: Dry mucous membranes, pink conjunctiva, pupils minimally reactive NEURO: Nonverbal, eyes closed, no facial asymmetry CARDIAC: Tachycardic and regular, no murmurs rubs or gallops LUNGS: Crackles bilaterally poor air entry bilaterally ABDOMEN: Soft nontender, no guarding, no rigidity, no rebound, no psoas sign no obturator sign. SKIN: Hot to touch, dry, no hematomas or lacerations EXTREMITIES: No clubbing cyanosis or edema, calves are bilaterally symmetrical, no Homans sign, no popliteal cord sign. Distal pulses equal and bilateral PSYCH: Unable to assess Result Diagram: 11/02/16 1005 11/02/16 1005 Results 24 hrs Laboratory Tests Test 11/02/16 10:05 White Blood Count 11.910^3/ul Red Blood Count 3.6110^6/ul Hemoglobin 9.0g/dl Hematocrit 28.2% Mean Corpuscular Volume 78.1fl Mean Corpuscular Hemoglobin 24.9pg Mean Corpuscular Hemoglobin Concent 31.9g/dl Red Cell Distribution Width 17.0% Platelet Count 85774^3/UL Mean Platelet Volume 8.6fl Neutrophils % 81.9% Lymphocytes % 9.7% Monocytes % 7.5% Eosinophils % 0.3% Basophils % 0.3% Nucleated Red Blood Cells % 0.0/100WBC Neutrophils # (Manual) 9.710^3/ul Lymphocytes # 1.210^3/ul Monocytes # 0.910^3/ul Eosinophils # 0.010^3/ul Basophils # 0.010^3/ul Nucleated Red Blood Cells # 0.010^3/ul Prothrombin Time 19.2Sec Prothrombin Time Ratio 1.5 INR International Normalized Ratio 1.60 Activated Partial Thromboplast Time 34.7Sec Sodium Level 121mmol/L Potassium Level 4.4mmol/L Chloride Level 87mmol/L Carbon Dioxide Level 19mmol/L Anion Gap 19 Blood Urea Nitrogen 23mg/dl Creatinine 0.77mg/dl Glucose Level 84mg/dl Lactic Acid Level 4.9mmol/L Calcium Level 6.4mg/dl Total Bilirubin 0.0mg/dl Direct Bilirubin 0.00mg/dl Indirect Bilirubin 0.0mg/dl Aspartate Amino Transf (AST/SGOT) 44IU/L Alanine Aminotransferase (ALT/SGPT) 42IU/L Alkaline Phosphatase 89IU/L Troponin I 0.026ng/ml Total Protein 4.2g/dl Albumin 1.8g/dl Globulin 2.40g/dl Albumin/Globulin Ratio 0.75 Lipase 34U/L Current Medications Medications (Trade) Dose Ordered Sig/Luiza Route PRN Reason Start Time Stop Time Status Last Admin Dose Admin Sodium Chloride (NS) 3,000 ml BOLUS OVER 2 HOURS STAT IV* 11/02/16 09:51 11/02/16 09:54 DC 11/02/16 10:24 Acetaminophen 650 mg 650 mg ONCE STAT IA 11/02/16 09:51 11/02/16 09:54 DC 11/02/16 10:26 Vancomycin HCl 250 ml @ 125 mls/hr ONCE ONCE IVPB 11/02/16 10:00 11/02/16 11:59 DC 11/02/16 10:27 Levofloxacin/ Dextrose (Levaquin 750 Mg/ D5W 150 ml (Pmx)) 150 ml @ 100 mls/hr ONCE ONCE IVPB 11/02/16 10:00 11/02/16 11:29 DC 11/02/16 10:26 Albuterol (Proventil 0.083% (Neb)) 10 mg ONCE STAT HHN 11/02/16 09:51 11/02/16 09:54 DC 11/02/16 10:40 Procedures/MDM IV line was established patient was placed on renewable energy 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 Patient was febrile. Blood and urine cultures have been ordered results are pending I will follow-up. I administered 3 L normal saline intravenously for suspected sepsis and initial hypotension. One view chest x-ray performed, read by me there is right middle lobe infiltrate , no pneumothorax, no end of the diaphragm. EKG performed, read by me revealed a sinus tachycardia at 112 bpm, right axis deviation and a narrow QRS complex with 0.[address] elevations in inferior leads and precordial T-wave inversions overall consistent with acute inferior ischemia. Family members do not want complicated interventional measures performed including but not limited to intubation, chest compressions, triple lumen catheter placement or coronary artery intervention. Patient is unstable at this time and given her end-of-life wishes and her comorbid conditions is not a candidate for PCI. I administered acetaminophen per rectum for fever, levofloxacin 750 mg IV and vancomycin 1 g IV. Patient also received albuterol 10 mg via nebulizer. CBC revealed mild anemia with hematocrit of 28, electrolytes revealed dehydration with a hyponatremia at 121, liver function tests normal, troponin negative. Lactic acid elevated 4.9. Patient's infectious symptoms have not stabilized and the patient is at risk of rapid decompensation. The patient will be admitted for careful hydration, antibiotic therapy, and infectious source control. Severe Sepsis Assessment: Infectious Source: Aspiration pneumonia End organ damage indicated by: [Lactate > 2.0 mmol/L Hypotension( SBP < 90 or >40 mmHG drop or MAP < 65) Acute Resp Failure (sat < 92% w/o oxygen) Severe Sepsis Managment: Blood Cultures X 2 before broad spectrum antibiotics initiated within 3 hours of recognition. 30 ml/kg NS bolus Completed Initial Lactate: 4.9 Repeat Lactate elevated Critical Care: Time: 40 minutes, this was time separate from other billable procedures. Treatments/Evaluations: Emergent fluid management, while maintaining close respiratory support. Immediate broad spectrum antibiotic therapy. Simultaneous assessment for possible sources in order to direct therapy. Consideration for invasive and chemical support to prevent respiratory or cardiac collapse. Septic Shock Assessment (1 hour post 30 ml/kg fluid bolus): Hypotension (SBP < 90 or 40 mmHg drop, MAP < 65): Yes Lactic acid > 4.0 yes Perfusion Reassessment for Septic Shock: Temp 99.8, pulse 110 bpm, respiratory rate 30 breaths per minute, blood pressure 90/60 mmHg, Heart Exam: Tachycardic Lung Exam: Positive crackles worse of the right compared to the left Capillary Refill: Delayed Peripheral Pulses: Radially present Skin: Hot and dry to touch Hypotensive Treatment (not required for isolated lactic acid elevation): Comfort Care: No Central LIne: Family refused and does not want complicated interventions including central line placement which I spoke to them about. Vasopressor started: Will defer as patient is DNR I considered further perfusion assessment with CVP measurement, SCVO2, bedside ultrasound volume assessment, passive leg raise, trial of further fluid bolus. And preceded with aggressive IV fluid hydration and broad-spectrum antibiotics Accepting Care Team: Current data and ongoing care discussed. Time: Time of admission Primary Provider: Hospitalist Consulting: Infectious disease and pulmonology Outstanding Data: none Departure Diagnosis: Primary Impression: Septic shock Additional Impressions: Aspiration pneumonia Qualified Code: J69.0 - Aspiration pneumonia of right middle lobe due to vomit Acute hyponatremia Dehydration Acute encephalopathy Acute respiratory failure Qualified Code: J96.01 - Acute respiratory failure with hypoxia and hypercapnia Dementia Qualified Code: G30.1 - Late onset Alzheimer's disease with behavioral disturbance DNR (do not resuscitate) Condition: Critical VIKKI ZARATE MD Nov 02, 2016 09:51
[2016-11-02] MEDS ORDERED: VANCOMYCIN 1 GM (PMX) 250 ML IVPB ONE (10:00)
[2016-11-02] MEDS ORDERED: LEVOFLOXACIN 750MG/D5W (PMX) 150 ML IVPB ONE (10:00)
[2016-11-02] MEDS ORDERED: ATEN50TA PO (10:11)
[2016-11-02] MEDS ORDERED: ASPI-664 PO (10:11)
[2016-11-02] MEDS ORDERED: DEXL60CA2 PO (10:11)
[2016-11-02] MEDS ORDERED: DONE5TAB46 PO (10:12)
[2016-11-02] MEDS ORDERED: MEMA28CA PO (10:12)
[2016-11-02] MEDS ORDERED: AMLO5TAB4 PO (10:12)
--- NOTE | 2016-11-02 10:25 | RADRPT ---
PROCEDURE: XR Chest 1 View. CLINICAL INDICATION: Shortness of breath. TECHNIQUE: AP view of the chest was obtained. COMPARISON: August 13, 2016 FINDINGS: The heart size is within normal limits. Calcified atherosclerosis is noted in the aorta. Left-sided dual chamber pacemaker has its leads over the heart and appears stable. Perihilar right lower lobe infiltrates are observed. Blunting of the left costophrenic angle is seen. Osseous structures are intact. IMPRESSION: Calcified atherosclerosis in the aorta. Perihilar right lower lobe infiltrates. Blunting of the left costophrenic angle that may reflect small pleural effusion. RPTAT: AA .Shai Lancaster MD, Date Time Electronically viewed and signed by .Shai Lancaster MD, on 11/02/2016 10:24 .P/
[2016-11-02 11:52] LABS: ABNORMAL IP MESSAGE 1; BASOPHILS % 0.3 % (0.0-2.0); EOSINOPHILS % 0.3 % (0.0-7.0); HEMATOCRIT 28.2 % (37.0-47.0); LYMPHOCYTES # 1.2 10^3/ul (0.8-2.9); LYMPHOCYTES % 9.7 % (15.0-51.0); MEAN CORPUSCULAR HEMOGLOBIN 24.9 pg (29.0-33.0); MEAN CORPUSCULAR HGB CONC 31.9 g/dl (32.0-37.0); MEAN CORPUSCULAR VOLUME 78.1 fl (82.0-101.0); MEAN PLATELET VOLUME 8.6 fl (7.4-10.4); MONOCYTE # 0.9 10^3/ul (0.3-0.9); MONOCYTES % 7.5 % (0.0-11.0); NEUTROPHILS % 81.9 % (39.0-77.0); PLATELET COUNT 408 10^3/UL (140-415); RED BLOOD COUNT 3.61 10^6/ul (4.20-5.40); WHITE BLOOD COUNT 11.9 10^3/ul (4.8-10.8)
[2016-11-02 12:06] LABS: POSITIVE DIFF @See below
[2016-11-02 12:41] LABS: INR 1.6; PROTIME 19.2 Sec (12.2-14.2); PT RATIO 1.5
[2016-11-02 12:42] LABS: PARTIAL THROMBOPLASTIN TIME 34.7 Sec (25.0-35.0)
[2016-11-02 12:48] LABS: ALBUMIN 1.8 g/dl (3.3-4.9); ALBUMIN/GLOBULIN RATIO 0.75; CALCIUM 6.4 mg/dl (8.4-10.2); CREATININE 0.77 mg/dl (0.44-1.00); POTASSIUM 4.4 mmol/L (3.5-5.1); TOTAL PROTEIN 4.2 g/dl (6.1-8.1)
[2016-11-02 12:58] LABS: TROPONIN-I 0.026 ng/ml (0.00-0.12)
[2016-11-02] MEDS ORDERED: morphine 2 MG INJ IV PRN (14:00)
[2016-11-02] MEDS ORDERED: ACETAMINOPHEN 650 MG SUPP PR PRN (14:00)
[2016-11-02] MEDS ORDERED: HYDROCODONE/APAP (5/325) TAB PO PRN ×2 (14:00)
[2016-11-02] MEDS ORDERED: CEFTRIAXONE 1 GM/50 ML (PMX) 50 ML IVPB SCH (14:00)
[2016-11-02] MEDS ORDERED: VANCOMYCIN IV PER PHARMACY XX SCH (14:00)
[2016-11-02] MEDS ORDERED: DOCUSATE SODIUM 100 MG CAP PO PRN (14:00)
[2016-11-02] MEDS ORDERED: MAGNESIUM HYDROXIDE 30ML CUP PO PRN (14:00)
[2016-11-02] MEDS ORDERED: AZITHROMYCIN 500MG/NS (PMX) 250 ML IV SCH (14:00)
[2016-11-02] MEDS ORDERED: ONDANSETRON 4 MG INJ IV PRN (14:00)
[2016-11-02] MEDS ORDERED: SOD CHLORIDE 0.9% 1,970 ML IV ONE (14:00)
[2016-11-02] MEDS ORDERED: NACL 0.9% 3 ML SYG IV SCH (14:00)
[2016-11-02] MEDS ORDERED: BISACODYL 10 MG SUPP PR PRN (14:00)
[2016-11-02] MEDS ORDERED: ACETAMINOPHEN 325 MG TAB PO PRN (14:00)
[2016-11-02 14:52] LABS: AADO2 Arterial 607.9 mmHg (7.0-24.0); Allen Test ACCEPTAB; Arterial Base Excess -8.7 mmol/L (-3.0-3); Arterial COHb 0.3 % (0.0-3.0); Arterial Fraction of Oxyhgb 90.1 % (93.0-99.0); Arterial HCO3 17.3 mmol/L (22.0-26.0); Arterial MetHb 0.4 % (0.0-1.5); MODE MASK - NRB
--- NOTE | 2016-11-02 15:46 | CONS ---
Date/Time of Note Date/Time of Note DATE: 11/02/16 TIME: 15:39 Assessment/Plan Assessment/Plan Additional Assessment/Plan Chest x-ray was reviewed which is showing right upper lobe infiltrate. Assessment and recommendations; 1. Patient admitted with vomiting leading to aspiration pneumonia. With severe hypoxemia and metabolic acidosis. 2. Intravascular volume depletion. 3. Advanced dementia. 4. Hyponatremia. 5. Hypotension with interval correction after being fluid resuscitated. 6. History of cardiac arrhythmia. 7. History of atrial fibrillation. Next Continue current treatment. Administer sodium bicarbonate. Continue current antibiotic regimen. Monitor serum sodium level. I did have a very detailed discussion patient's granddaughter and to offer sounds at bedside and apprised them of guarded prognosis. The family wishes comfort care provision in case the patient's condition worsens. Consultation Date/Type/Reason Admit Date/Time Nov 02, 2016 at 15:32 Date of Consultation: Nov 02, 2016 Type of Consultation: Pulmonary Reason for Consultation Pulmonary consultation obtained for evaluation of severe pneumonia and hypoxemia. History of presenting illness; patient is a 85-year-old lady who was brought into the emergency room by the family with complaints of being short of breath. Upon evaluation a chest x-ray was done which is showing right lower lobe pneumonia patient has been put on 100% nonrebreather mask and an ABG was done which is showing severe hypoxemia and metabolic acidosis. Patient has advanced dementia and was unable to give any history whatsoever. History was obtained from medical records as well as from patient's granddaughter and 2 of her sons who were present in the room. According to the patient's granddaughter the patient was being tube fed however she had a vomiting episode this morning after which patient became short of breath. Past medical history; 1. Patient with history of advanced dementia, patient is completely noncommunicative and is totally dependent on care. 2. History of intracerebral hemorrhage. 3. Atrial fibrillation. 4. Status post G-tube placement. 5. Cardiac arrhythmia, status post pacemaker. Medications; reviewed. Allergies; none. Social history; patient never smoked. Family history; patient is a . Has 2 sons. 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 Review of systems; unable to be obtained. Next General exam; elderly woman, on 100% nonrebreather mask, unresponsive. Currently in no distress. Past Surgical History Past Surgical Hx: other Social History Smoking Status: Never smoker Exam/Review of Systems Vital Signs Vitals Vital Signs Date Time Temp Pulse Resp B/P Pulse Ox O2 Delivery O2 Flow Rate FiO2 11/02/16 12:00 96.3 116 32 76/50 89 Non Rebreather 15.0 Exam HEENT exam; supple neck, no JVD. No lymphadenopathy. Midline trachea. No thyromegaly. Patient is edentulous. Has bilateral intraocular lens implants. Oral mucosa is dry. Chest exam; diminished breath sounds bilaterally with bilateral crackles. S1- S2 audible, irregular rhythm Abdomen exam; soft, G-tube in place. No organomegaly. Bowel sounds audible. Extremity exam; there is a dressing applied over the left lower extremity with ulceration involving the tibia. All ulcerations involving the right lower extremity as well pulses not palpable. EXPERIMENTAL BOX TESTER exam; patient remains completely unresponsive. Results Result Diagram: 11/02/16 1005 11/02/16 1005 Results 24 hrs Laboratory Tests Test 11/02/16 10:05 11/02/16 13:44 White Blood Count 11.9 #H Red Blood Count 3.61 L Hemoglobin 9.0 L Hematocrit 28.2 L Mean Corpuscular Volume 78.1 L Mean Corpuscular Hemoglobin 24.9 L Mean Corpuscular Hemoglobin Concent 31.9 L Red Cell Distribution Width 17.0 H Platelet Count 408 # Mean Platelet Volume 8.6 # Neutrophils % 81.9 H Lymphocytes % 9.7 L Monocytes % 7.5 Eosinophils % 0.3 Basophils % 0.3 Nucleated Red Blood Cells % 0.0 Neutrophils # (Manual) 9.7 H Lymphocytes # 1.2 Monocytes # 0.9 Eosinophils # 0.0 Basophils # 0.0 Nucleated Red Blood Cells # 0.0 Prothrombin Time 19.2 H Prothrombin Time Ratio 1.5 INR International Normalized Ratio 1.60 Activated Partial Thromboplast Time 34.7 Sodium Level 121 L Potassium Level 4.4 Chloride Level 87 L Carbon Dioxide Level 19 L Anion Gap 19 H Blood Urea Nitrogen 23 H Creatinine 0.77 Glucose Level 84 Lactic Acid Level 4.9 *H Calcium Level 6.4 L Total Bilirubin 0.0 L Direct Bilirubin 0.00 Indirect Bilirubin 0.0 Aspartate Amino Transf (AST/SGOT) 44 Alanine Aminotransferase (ALT/SGPT) 42 Alkaline Phosphatase 89 Troponin I 0.026 Total Protein 4.2 L Albumin 1.8 L Globulin 2.40 Albumin/Globulin Ratio 0.75 Lipase 34 Blood Gas Specimen Source Blood arterial Arterial Blood Date Drawn 11/02/2016 2:30:58 PM Arterial Blood pH (Temp corrected) 7.280 *L Arterial Blood pCO2 (Temp correct) 37.7 Arterial Blood pO2 (Temp corrected) 67.4 L Arterial Blood HCO3 17.3 L Arterial Blood Base Excess -8.7 L Arterial Blood Oxygen Saturation 90.7 L Chad Test ACCEPTAB Arterial Blood Gas Puncture Site Left Radial Arterial Blood Carboxyhemoglobin 0.3 Arterial Blood Methemoglobin 0.4 Blood Gas A-a O2 Differential 607.9 H Oxyhemoglobin Percent 90.1 L Total Hemoglobin 10.0 L Blood Gas Temperature 37.0 Blood Gas Modality MASK - NRB FiO2 100.0 Blood Gas Critical Value Read Back CAMDEN ANDRADE Blood Gas Notified Whom Blood Gas Notified Time 11/02/2016 2:49:29 PM Medications Medications Current Medications Amlodipine Besylate (Norvasc) 5 mg DAILY PO ; Start 11/03/16 at 09:00 Aspirin (Halfprin) 81 mg DAILY PO ; Start 11/03/16 at 09:00 Atenolol (Tenormin) 50 mg DAILY PO ; Start 11/03/16 at 09:00 Donepezil HCl (Aricept) 5 mg DAILY PO ; Start 11/03/16 at 09:00 Memantine (Namenda) 10 mg BID PO ; Start 11/02/16 at 21:00 Ondansetron HCl (Zofran Inj) 4 mg Q6H PRN IV NAUSEA AND/OR VOMITING; Start at 14:00 Acetaminophen (Tylenol Tab) 650 mg Q6H PRN PO PAIN LEVEL 1-3 OR FEVER; Start at 14:00 Acetaminophen (Tylenol Supp) 650 mg Q6H PRN [place] PAIN LEVEL 1-3 OR FEVER; Start 11/02/16 at 14:00 Acetaminophen/ Hydrocodone Bitart (Roland (5/325)) 1 tab Q6H PRN PO MODERATE PAIN LEVEL 4-6; Start 11/02/16 at 14:00 Acetaminophen/ Hydrocodone Bitart (Roland (5/325)) 2 tab Q6H PRN PO SEVERE PAIN LEVEL 7-10; Start 11/02/16 at 14:00 Morphine Sulfate (morphine) 2 mg Q4H PRN IV SEVERE PAIN LEVEL 7-10; Start 11/02 at 14:00 Docusate Sodium (Colace) 100 mg Q12H PRN PO CONSTIPATION; Start 11/02/16 at 14: 00 Magnesium Hydroxide (Milk Of Mag) 30 ml DAILY PRN PO CONSTIPATION; Start at 14:00 Bisacodyl (Dulcolax Supp) 10 mg DAILY PRN [place] CONSTIPATION; Start 11/02/16 at 14 :00 Pantoprazole 40 mg 40 mg DAILY@06 IV ; Start 11/03/16 at 06:00 Cefepime HCl 50 ml @ 100 mls/hr Q12 IVPB ; Start 11/02/16 at 14:30 Vancomycin HCl/ Sodium Chloride (Vancocin/NS) 150 ml @ 75 mls/hr Q24H IVPB ; Start 11/03/16 at 10:00 YESENIA STONE Nov 02, 2016 15:46
--- NOTE | 2016-11-02 16:24 | CONS ---
Date/Time of Note Date/Time of Note DATE: 11/02/16 TIME: 16:22 Assessment/Plan Assessment/Plan Additional Assessment/Plan Acute respiratory failure Operation pneumonia Dementia Hypotension Hydration Long conversation with patient's granddaughter discuss ongoing level of care. She stated to us that her grandmother has advanced dementia and she can do none of her ADLs without assistance. They are not interested in advanced care cardiopulmonary resuscitation or intubation ever she is made her opinions known but patient's son is not here from in the process of trying to find him he is on campus now. This discussion was done in detail patient's granddaughter however we will wait to make the appropriate changes in the chart when patient' s son arrives. Consultation Date/Type/Reason Admit Date/Time Nov 02, 2016 at 15:32 Past Surgical History Past Surgical Hx: other Social History Smoking Status: Never smoker Exam/Review of Systems Vital Signs Vitals Vital Signs Date Time Temp Pulse Resp B/P Pulse Ox O2 Delivery O2 Flow Rate FiO2 11/02/16 12:00 96.3 116 32 76/50 89 Non Rebreather 15.0 Results Result Diagram: 11/02/16 1005 11/02/16 1005 Results 24 hrs Laboratory Tests Test 11/02/16 10:05 11/02/16 13:44 White Blood Count 11.9 #H Red Blood Count 3.61 L Hemoglobin 9.0 L Hematocrit 28.2 L Mean Corpuscular Volume 78.1 L Mean Corpuscular Hemoglobin 24.9 L Mean Corpuscular Hemoglobin Concent 31.9 L Red Cell Distribution Width 17.0 H Platelet Count 408 # Mean Platelet Volume 8.6 # Neutrophils % 81.9 H Lymphocytes % 9.7 L Monocytes % 7.5 Eosinophils % 0.3 Basophils % 0.3 Nucleated Red Blood Cells % 0.0 Neutrophils # (Manual) 9.7 H Lymphocytes # 1.2 Monocytes # 0.9 Eosinophils # 0.0 Basophils # 0.0 Nucleated Red Blood Cells # 0.0 Prothrombin Time 19.2 H Prothrombin Time Ratio 1.5 INR International Normalized Ratio 1.60 Activated Partial Thromboplast Time 34.7 Sodium Level 121 L Potassium Level 4.4 Chloride Level 87 L Carbon Dioxide Level 19 L Anion Gap 19 H Blood Urea Nitrogen 23 H Creatinine 0.77 Glucose Level 84 Lactic Acid Level 4.9 *H Calcium Level 6.4 L Total Bilirubin 0.0 L Direct Bilirubin 0.00 Indirect Bilirubin 0.0 Aspartate Amino Transf (AST/SGOT) 44 Alanine Aminotransferase (ALT/SGPT) 42 Alkaline Phosphatase 89 Troponin I 0.026 Total Protein 4.2 L Albumin 1.8 L Globulin 2.40 Albumin/Globulin Ratio 0.75 Lipase 34 Blood Gas Specimen Source Blood arterial Arterial Blood Date Drawn 11/02/2016 2:30:58 PM Arterial Blood pH (Temp corrected) 7.280 *L Arterial Blood pCO2 (Temp correct) 37.7 Arterial Blood pO2 (Temp corrected) 67.4 L Arterial Blood HCO3 17.3 L Arterial Blood Base Excess -8.7 L Arterial Blood Oxygen Saturation 90.7 L Chad Test ACCEPTAB Arterial Blood Gas Puncture Site Left Radial Arterial Blood Carboxyhemoglobin 0.3 Arterial Blood Methemoglobin 0.4 Blood Gas A-a O2 Differential 607.9 H Oxyhemoglobin Percent 90.1 L Total Hemoglobin 10.0 L Blood Gas Temperature 37.0 Blood Gas Modality MASK - NRB FiO2 100.0 Blood Gas Critical Value Read Back CAMDEN ANDRADE Blood Gas Notified Whom Blood Gas Notified Time 11/02/2016 2:49:29 PM Medications Medications Current Medications Amlodipine Besylate (Norvasc) 5 mg DAILY PO ; Start 11/03/16 at 09:00 Aspirin (Halfprin) 81 mg DAILY PO ; Start 11/03/16 at 09:00 Atenolol (Tenormin) 50 mg DAILY PO ; Start 11/03/16 at 09:00 Donepezil HCl (Aricept) 5 mg DAILY PO ; Start 11/03/16 at 09:00 Memantine (Namenda) 10 mg BID PO ; Start 11/02/16 at 21:00 Ondansetron HCl (Zofran Inj) 4 mg Q6H PRN IV NAUSEA AND/OR VOMITING; Start at 14:00 Acetaminophen (Tylenol Tab) 650 mg Q6H PRN PO PAIN LEVEL 1-3 OR FEVER; Start at 14:00 Acetaminophen (Tylenol Supp) 650 mg Q6H PRN [place] PAIN LEVEL 1-3 OR FEVER; Start 11/02/16 at 14:00 Acetaminophen/ Hydrocodone Bitart ([place] (5/325)) 1 tab Q6H PRN PO MODERATE PAIN LEVEL 4-6; Start 11/02/16 at 14:00 Acetaminophen/ Hydrocodone Bitart ([place]gil (5/325)) 2 tab Q6H PRN PO SEVERE PAIN LEVEL 7-10; Start 11/02/16 at 14:00 Morphine Sulfate (morphine) 2 mg Q4H PRN IV SEVERE PAIN LEVEL 7-10; Start 11/02 at 14:00 Docusate Sodium (Colace) 100 mg Q12H PRN PO CONSTIPATION; Start 11/02/16 at 14: 00 Magnesium Hydroxide (Milk Of Mag) 30 ml DAILY PRN PO CONSTIPATION; Start at 14:00 Bisacodyl (Dulcolax Supp) 10 mg DAILY PRN [place] CONSTIPATION; Start 11/02/16 at 14 :00 Pantoprazole 40 mg 40 mg DAILY@06 IV ; Start 11/03/16 at 06:00 Cefepime HCl 50 ml @ 100 mls/hr Q12 IVPB ; Start 11/02/16 at 14:30 Vancomycin HCl/ Sodium Chloride (Vancocin/NS) 150 ml @ 75 mls/hr Q24H IVPB ; Start 11/03/16 at 10:00 Sodium Bicarbonate (Na Bicarb 8.4% Syg) 50 ml ONCE ONCE IV ; Start 11/02/16 at 16:30; Stop 11/02/16 at 16:31 ATIF ODOM Nov 02, 2016 16:24
[2016-11-02] MEDS ORDERED: NA BICARBONATE 8.4% 50 ML SYG IV ONE (16:30)
--- NOTE | 2016-11-02 16:49 | HP ---
Date/Time of Note Date/Time of Note DATE: 11/02/16 TIME: 16:18 Assessment/Plan VTE Prophylaxis VTE Prophylaxis Intervention: SCD's Assessment/Plan Chief Complaint/Hosp Course Impression and plan 1. Septic shock likely secondary to aspiration pneumonia. Patient noted with elevated fever and tachycardia and hypotension and lactic acid of 4.9. Continue IV fluids. On aspiration precautions. On antibiotics. Will get ID consult to follow. Will provide with vasopressors as needed 2. Respiratory failure secondary to #1. On nonrebreather at this time. Patient is DNR/DNI. palliative care physician is following. Belt Splicer is following. Bronchodilators as needed. 3. Hyponatremia. Likely secondary to dehydration. Follow-up on sodium level. Continue with IV fluids. Will recheck level. Get chiller operator pending clinical course. 4. Hypotension secondary to #1. Continue IV fluids. Vasopressors as needed. Will transfer to ICU if vasopressors initiated 5. History of cardiac arrhythmia. Continue to monitor on telemetry. Pacemaker in place. 6. Essential hypertension. Off antihypertensives for now due to hypotension 7. Multiple decubitus ulcers on bilateral legs and sacral area. Wound care consult to follow. Will also do blood cultures. Disposition and plan: Overall prognosis appears poor. Palliative care physician is following. Patient is DNR/DNI at this time. Will follow up with consultants Admission process time greater than 50 minutes Discussed plan of care with Dr. Luo Problems: HPI/ROS Admit Date/Time Admit Date/Time Nov 02, 2016 at 15:32 Hx of Present Illness This is a 85-year-old female with reported past medical history of pacemaker, arrhythmia, hypertension, dementia, Alzheimer's disease, who came to [facility] after reports of increased shortness of breath. It was reported that patient suffered a fall in July 2016 and since then has been bedbound as well as dysphagia requiring PEG tube placement. As result she does have multiple decubitus ulcers on right lateral olmstead and left lateral olmstead as well as left lateral heel. Patient today comes in after 2 days worsening shortness of breath. Was reported that patient had been receiving PEG tube feedings and reportedly vomited 2 days ago. Patient likely aspirated and as such was brought to [facility] due to her worse breathing. She did have x-ray done of her chest that showed calcified atherosclerosis in the aorta and perihilar right lower lobe infiltrate. There is also seen blunting of the left costophrenic angle suspect for small pleural effusion. On labs she was noted with a white count of 11.9 hemoglobin of 9.0 hematocrit 28.2 and platelets of 408. She was hyponatremic with sodium of 121. Lactic acid was noted at 4.9. Patient also noted to be febrile with temperature as high as 1 1.4 and hypertensive with blood pressure as low as 75/21 with clinical picture of septic shock likely secondary to pneumonia. Currently patient remains on nonrebreather and tachycardic with overall poor prognosis. We will evaluate her for the aformentiond issues. ROS Unable to obtain due to patient's mental status. PMH/Family/Social Past Medical History Medical/surgical history 1. Pacemaker placement 2. History of arrhythmia 2. Hypertension 4. Alzheimer's disease 5. Dementia Past Surgical History Past Surgical Hx: other Social History Alcohol Use: none Smoking Status: Never smoker Drug Use: none Exam/Review of Systems Vital Signs Vitals Vital Signs Date Time Temp Pulse Resp B/P Pulse Ox O2 Delivery O2 Flow Rate FiO2 11/02/16 12:00 96.3 116 32 76/50 89 Non Rebreather 15.0 Exam Constitutional: alert, distress Head: normocephalic Eyes: nl conjunctiva Neck: No jvd Respiratory: crackles/rales, diminished breath sounds Cardiovascular: other Gastrointestinal: soft Neurological: lethargic Skin: other (Multiple decubitus ulcers noted on right lateral olmstead as well as left lateral olmstead and left lateral heel) Labs Result Diagram: 11/02/16 1005 11/02/16 1005 Medications Medications Current Medications Amlodipine Besylate (Norvasc) 5 mg DAILY PO ; Start 11/03/16 at 09:00 Aspirin (Halfprin) 81 mg DAILY PO ; Start 11/03/16 at 09:00 Atenolol (Tenormin) 50 mg DAILY PO ; Start 11/03/16 at 09:00 Donepezil HCl (Aricept) 5 mg DAILY PO ; Start 11/03/16 at 09:00 Memantine (Namenda) 10 mg BID PO ; Start 11/02/16 at 21:00 Ondansetron HCl (Zofran Inj) 4 mg Q6H PRN IV NAUSEA AND/OR VOMITING; Start at 14:00 Acetaminophen (Tylenol Tab) 650 mg Q6H PRN PO PAIN LEVEL 1-3 OR FEVER; Start at 14:00 Acetaminophen (Tylenol Supp) 650 mg Q6H PRN [place] PAIN LEVEL 1-3 OR FEVER; Start 11/02/16 at 14:00 Acetaminophen/ Hydrocodone Bitart ([place]helly (5/325)) 1 tab Q6H PRN PO MODERATE PAIN LEVEL 4-6; Start 11/02/16 at 14:00 Acetaminophen/ Hydrocodone Bitart (Shelly (5/325)) 2 tab Q6H PRN PO SEVERE PAIN LEVEL 7-10; Start 11/02/16 at 14:00 Morphine Sulfate (morphine) 2 mg Q4H PRN IV SEVERE PAIN LEVEL 7-10; Start 11/02 at 14:00 Docusate Sodium (Colace) 100 mg Q12H PRN PO CONSTIPATION; Start 11/02/16 at 14: 00 Magnesium Hydroxide (Milk Of Mag) 30 ml DAILY PRN PO CONSTIPATION; Start at 14:00 Bisacodyl (Dulcolax Supp) 10 mg DAILY PRN [place] CONSTIPATION; Start 11/02/16 at 14 :00 Pantoprazole 40 mg 40 mg DAILY@06 IV ; Start 11/03/16 at 06:00 Cefepime HCl 50 ml @ 100 mls/hr Q12 IVPB ; Start 11/02/16 at 14:30 Vancomycin HCl/ Sodium Chloride (Vancocin/NS) 150 ml @ 75 mls/hr Q24H IVPB ; Start 11/03/16 at 10:00 Sodium Bicarbonate (Na Bicarb 8.4% Syg) 50 ml ONCE ONCE IV ; Start 11/02/16 at 16:30; Stop 11/02/16 at 16:31 CAMDEN ANDRADE Nov 02, 2016 16:31
[2016-11-02] MEDS: MEMANTINE 10 MG TAB PO SCH (20:13)
[2016-11-02] MEDS: CEFEPIME 2GM/50 ML (PMX) 50 ML IVPB SCH (20:25)
[2016-11-02] MEDS: SOD CHLORIDE 0.9% 1,000 ML IV SCH (20:25)
[2016-11-03] VITALS (26 sets, daily range): BP systolic 63–113; BP diastolic 42–63; PULSE 72–114; RESP 19–37
[2016-11-03] MEDS: CEFEPIME 2GM/50 ML (PMX) 50 ML IVPB SCH (01:00)
[2016-11-03] MEDS ORDERED: ALBUTEROL/IPRATROPIUM (NEB) 3 ML AMP HHN PRN (03:00)
[2016-11-03] MEDS ORDERED: FUROSEMIDE 20 MG INJ IV ONE (03:00)
[2016-11-03] MEDS ORDERED: PANTOPRAZOLE 40 MG INJ IV SCH (06:00)
[2016-11-03 07:32] LABS: AADO2 Arterial 592.2 mmHg (7.0-24.0); Allen Test ACCEPTAB; Arterial Base Excess -3.5 mmol/L (-3.0-3); Arterial COHb 0.3 % (0.0-3.0); Arterial Fraction of Oxyhgb 70.9 % (93.0-99.0); Arterial HCO3 26.3 mmol/L (22.0-26.0); Arterial MetHb 0.4 % (0.0-1.5); Arterial Total Hemglobin 11.3 g/dl (12.0-18.0); MODE MASK - NRB
[2016-11-03 08:27] LABS: ABNORMAL IP MESSAGE 1; BASOPHILS % 0.4 % (0.0-2.0); EOSINOPHILS % 0.1 % (0.0-7.0); HEMATOCRIT 34.9 % (37.0-47.0); HEMOGLOBIN 10.8 g/dl (12.0-16.0); LYMPHOCYTES # 0.4 10^3/ul (0.8-2.9); LYMPHOCYTES % 4.9 % (15.0-51.0); MEAN CORPUSCULAR HEMOGLOBIN 24.7 pg (29.0-33.0); MEAN CORPUSCULAR HGB CONC 30.9 g/dl (32.0-37.0); MEAN CORPUSCULAR VOLUME 79.9 fl (82.0-101.0); MEAN PLATELET VOLUME 8.7 fl (7.4-10.4); MONOCYTE # 0.3 10^3/ul (0.3-0.9); MONOCYTES % 3.6 % (0.0-11.0); NEUTROPHILS % 89.6 % (39.0-77.0); PLATELET COUNT 421 10^3/UL (140-415); RED BLOOD COUNT 4.37 10^6/ul (4.20-5.40); RED CELL DISTRIBUTION WIDTH 16.7 % (11.5-14.5); WHITE BLOOD COUNT 7.8 10^3/ul (4.8-10.8)
--- NOTE | 2016-11-03 08:27 | RADRPT ---
PROCEDURE: XR Chest. CLINICAL INDICATION: O2 desaturation derick 80-year-old female. TECHNIQUE: Single frontal view of the chest was obtained. COMPARISON: Chest x-ray 11/02/2016 10:02 a.m. FINDINGS: Monitor electrodes project across the chest. There is a dual channel pacemaker with electrode leads projecting at the level of the right atrium and right ventricle. There are degenerative osteophyte s in the thoracic spine. The heart is enlarged. The cardiomediastinal silhouette and hilar structu res are normal. The pulmonary vasculature is normal. There are vascular calcifications and ectasia of the left-sided thoracic aorta. There are persistent right perihilar and right lower lobe infiltra tanya associated with a right pleural effusion. There is a small left pleural effusion and increased density in the left lower lung field. IMPRESSION: 1. There has been slight interval worsening of the infiltrates in the right hilar area and right low er lobe as compared to 11/02/2016. Mild CHF is not excluded. 2. Increased density in the left lower lung field is also worsened over the interval and may repres ent infiltrate and/or associated left pleural effusion. 3. Atherosclerosis of the aortic arch. RPTAT:AAJJ Physician Daryl Date Time Electronically viewed and signed by Physician Daryl on 11/03/2016 08:26 MYRIAM/
[2016-11-03 08:30] LABS: POSITIVE DIFF @See below
[2016-11-03 08:58] LABS: ALBUMIN 2.1 g/dl (3.3-4.9); ALBUMIN/GLOBULIN RATIO 0.8; CALCIUM 7.6 mg/dl (8.4-10.2); CHOL/HDL RATIO 4.3 RATIO; CREATININE 0.53 mg/dl (0.44-1.00); MAGNESIUM 2.1 mg/dl (1.7-2.5); PHOSPHORUS 5.1 mg/dl (2.5-4.9); POTASSIUM 5.1 mmol/L (3.5-5.1); TOTAL PROTEIN 4.7 g/dl (6.1-8.1)
[2016-11-03] MEDS: AMLODIPINE 5 MG TAB PO SCH (09:00)
[2016-11-03 09:06] LABS: T3 UPTAKE 52.8 % (23.5-40.5)
--- NOTE | 2016-11-03 09:15 | CONS ---
Date/Time of Note Date/Time of Note DATE: 11/03/16 TIME: 08:53 Assessment/Plan Assessment/Plan Chief Complaint/Hosp Course - severe sepsis due to bacteremia, and probable aspiration pneumonia/pneumonitis - bacteremia due to Gram positive cocci in pairs and clusters, suspected source is her decubitus ulcer - multiple decubitus ulcers involving LLE, b/l heel, sacrum - infection of decubitus ulcer of LLE, sacrum - hypoxic respiratory failure due to probable aspiration pneumonia/pneumonitis - probable aspiration pneumonia/pneumonitis post-emesis - PEG tube dependence - dementia - h/o arrhythmias, pacemaker recommendations - await the speciation and sensitivity of gram positive cocci in pairs and clusters - I called the micro lab this morning. The information will not be ready until tomorrow - also pending result: wound culture from LLE - urine culture has not been collected. This was re-ordered and reminded Pt's RN to collect it stat - I ordered: repeat blood cultures x2 to confirm clearance of bacteremia, a separate wound culture from the sacrum, and respiratory culture from the next suctioning - I recommend: IV vancomycin and pip/tazo - wound care consult management d/w Pt's RN Problems: Consultation Date/Type/Reason Admit Date/Time Nov 02, 2016 at 15:32 Date of Consultation: Nov 03, 2016 Type of Consultation: ID Reason for Consultation severe sepsis Referring Provider: CAMDEN ANDRADE Hx of Present Illness This is an 85 yo female with dementia, bed-bound, PEG dependent Pt. Pt is non- verbal and cannot give me her subjective history. Pt was admitted on 11/02/2016 due to dyspnea and hypoxic respiratory failure. Pt reportedly had emesis prior to the onset of her illness. At ER, she was febrile 101.4F, tachycardic, WBC 11.9 and lactic acid 4.9. CXR showed evolving infiltrate vs. fluid in LLL. She has multiple decubitus ulcers some of which are draining purulent material. Pt was started on empiric IV vanc and cefepime. She received diuretic. She has been on a non-rebreather face mask. Today, her blood cultures started to grow Gram positive cocci in pairs and chains. Pt's WBC and lactic acid level improved. FRANTZ Andrade requested ID consultation on this Pt. Subjective hx not possible: pt non-verbal Past Medical History Medical History: congestive heart failure, coronary artery disease, other ( pacemaker) Past Surgical History Past Surgical Hx: other (pacemaker, PEG placement) Social History Alcohol Use: none Smoking Status: Never smoker Drug Use: none Exam/Review of Systems Vital Signs Vitals Vital Signs Date Time Temp Pulse Resp B/P Pulse Ox O2 Delivery O2 Flow Rate FiO2 11/03/16 08:30 108 11/03/16 07:51 97.9 35 113/63 91 11/03/16 02:51 Non Rebreather Mask 11/02/16 19:30 15.0 Intake and Output 11/02/16 11/02/16 11/03/16 15:00 23:00 07:00 Intake Total 410 ml Output Total 250 ml 600 ml Balance -250 ml -190 ml Exam Constitutional: frail, non-verbal Psych: confusion Head: atraumatic, normocephalic Eyes: nl lids ENMT: nl external ears & nose Respiratory: crackles/rales Cardiovascular: nl pulses, regular rate and rhythm Gastrointestinal: non-tender, soft Genitourinary - Female: other (FC) Extremities: No edema Neurological: confused, lethargic Skin: rash or lesions (draining wound of LLE, decub of b/l heel, draining wound with eschar of the sacrum) Results Result Diagram: 11/03/16 0738 11/02/16 1731 Results 24 hrs Laboratory Tests Test 11/02/16 10:05 11/02/16 13:44 11/02/16 17:30 11/02/16 17:31 White Blood Count 11.9 #H Red Blood Count 3.61 L Hemoglobin 9.0 L Hematocrit 28.2 L Mean Corpuscular Volume 78.1 L Mean Corpuscular Hemoglobin 24.9 L Mean Corpuscular Hemoglobin Concent 31.9 L Red Cell Distribution Width 17.0 H Platelet Count 408 # Mean Platelet Volume 8.6 # Neutrophils % 81.9 H Lymphocytes % 9.7 L Monocytes % 7.5 Eosinophils % 0.3 Basophils % 0.3 Nucleated Red Blood Cells % 0.0 Neutrophils # (Manual) 9.7 H Lymphocytes # 1.2 Monocytes # 0.9 Eosinophils # 0.0 Basophils # 0.0 Nucleated Red Blood Cells # 0.0 Prothrombin Time 19.2 H Prothrombin Time Ratio 1.5 INR International Normalized Ratio 1.60 Activated Partial Thromboplast Time 34.7 Sodium Level 121 L 116 *L Potassium Level 4.4 Chloride Level 87 L Carbon Dioxide Level 19 L Anion Gap 19 H Blood Urea Nitrogen 23 H Creatinine 0.77 Glucose Level 84 Lactic Acid Level 4.9 *H 5.5 *H Calcium Level 6.4 L Total Bilirubin 0.0 L Direct Bilirubin 0.00 Indirect Bilirubin 0.0 Aspartate Amino Transf (AST/SGOT) 44 Alanine Aminotransferase (ALT/SGPT) 42 Alkaline Phosphatase 89 Troponin I 0.026 Total Protein 4.2 L Albumin 1.8 L Globulin 2.40 Albumin/Globulin Ratio 0.75 Lipase 34 Blood Gas Specimen Source Blood arterial Arterial Blood Date Drawn 11/02/2016 2:30:58 PM Arterial Blood pH (Temp corrected) 7.280 *L Arterial Blood pCO2 (Temp correct) 37.7 Arterial Blood pO2 (Temp corrected) 67.4 L Arterial Blood HCO3 17.3 L Arterial Blood Base Excess -8.7 L Arterial Blood Oxygen Saturation 90.7 L Chad Test ACCEPTAB Arterial Blood Gas Puncture Site Left Radial Arterial Blood Carboxyhemoglobin 0.3 Arterial Blood Methemoglobin 0.4 Blood Gas A-a O2 Differential 607.9 H Oxyhemoglobin Percent 90.1 L Total Hemoglobin 10.0 L Blood Gas Temperature 37.0 Blood Gas Modality MASK - NRB FiO2 100.0 Blood Gas Critical Value Read Back CAMDEN ANDRADE Blood Gas Notified Whom Blood Gas Notified Time 11/02/2016 2:49:29 PM Test 11/02/16 19:43 11/02/16 20:22 11/03/16 07:01 11/03/16 07:38 Lactic Acid Level 3.0 *H 2.6 *H Bedside Glucose 103 Blood Gas Specimen Source Blood arterial Arterial Blood Date Drawn 11/03/2016 7:20:25 AM Arterial Blood pH (Temp corrected) 7.163 *L Arterial Blood pCO2 (Temp correct) 74.9 H Arterial Blood pO2 (Temp corrected) 45.9 *L Arterial Blood HCO3 26.3 H Arterial Blood Base Excess -3.5 L Arterial Blood Oxygen Saturation 71.4 L Chad Test ACCEPTAB Arterial Blood Gas Puncture Site Left Radial Arterial Blood Carboxyhemoglobin 0.3 Arterial Blood Methemoglobin 0.4 Blood Gas A-a O2 Differential 592.2 H Oxyhemoglobin Percent 70.9 L Total Hemoglobin 11.3 L Blood Gas Temperature 37.0 Blood Gas Modality MASK - NRB FiO2 100.0 Blood Gas Critical Value Read Back I MARY RN Blood Gas Notified Whom RONALDOD Blood Gas Notified Time 11/03/2016 7:30:25 AM White Blood Count 7.8 # Red Blood Count 4.37 # Hemoglobin 10.8 L Hematocrit 34.9 #L Mean Corpuscular Volume 79.9 L Mean Corpuscular Hemoglobin 24.7 L Mean Corpuscular Hemoglobin Concent 30.9 L Red Cell Distribution Width 16.7 H Platelet Count 421 H Mean Platelet Volume 8.7 Neutrophils % 89.6 H Lymphocytes % 4.9 L Monocytes % 3.6 Eosinophils % 0.1 Basophils % 0.4 Nucleated Red Blood Cells % 0.0 Neutrophils # (Manual) 7.0 Lymphocytes # 0.4 L Monocytes # 0.3 Eosinophils # 0.0 Basophils # 0.0 Nucleated Red Blood Cells # 0.0 Hemoglobin A1c 5.4 Medications Medications Current Medications Amlodipine Besylate (Norvasc) 5 mg DAILY PO ; Start 11/03/16 at 09:00 Aspirin (Halfprin) 81 mg DAILY PO ; Start 11/03/16 at 09:00 Atenolol (Tenormin) 50 mg DAILY PO ; Start 11/03/16 at 09:00 Donepezil HCl (Aricept) 5 mg DAILY PO ; Start 11/03/16 at 09:00 Memantine (Namenda) 10 mg BID PO ; Start 11/02/16 at 21:00 Ondansetron HCl (Zofran Inj) 4 mg Q6H PRN IV NAUSEA AND/OR VOMITING; Start at 14:00 Acetaminophen (Tylenol Tab) 650 mg Q6H PRN PO PAIN LEVEL 1-3 OR FEVER; Start at 14:00 Acetaminophen (Tylenol Supp) 650 mg Q6H PRN [place] PAIN LEVEL 1-3 OR FEVER; Start 11/02/16 at 14:00 Acetaminophen/ Hydrocodone Bitart ([place] (5/325)) 1 tab Q6H PRN PO MODERATE PAIN LEVEL 4-6; Start 11/02/16 at 14:00 Acetaminophen/ Hydrocodone Bitart ([place] (5/325)) 2 tab Q6H PRN PO SEVERE PAIN LEVEL 7-10; Start 11/02/16 at 14:00 Morphine Sulfate (morphine) 2 mg Q4H PRN IV SEVERE PAIN LEVEL 7-10; Start 11/02 at 14:00 Docusate Sodium (Colace) 100 mg Q12H PRN PO CONSTIPATION; Start 11/02/16 at 14: 00 Magnesium Hydroxide (Milk Of Mag) 30 ml DAILY PRN PO CONSTIPATION; Start at 14:00 Bisacodyl (Dulcolax Supp) 10 mg DAILY PRN [place] CONSTIPATION; Start 11/02/16 at 14 :00 Pantoprazole 40 mg 40 mg DAILY@06 IV Last administered on 11/03/16t 05:52; Admin Dose 40 MG; Start 11/03/16 at 06:00 Vancomycin HCl 750 mg/Sodium Chloride 150 ml @ 75 mls/hr Q24H IVPB ; Start 11/03 at 10:00 Sodium Chloride 1,000 ml @ 100 mls/hr Q10H IV Last administered on 11/02/16t 20:25; Admin Dose 100 MLS/HR; Start 11/02/16 at 20:00; Status Future hold Piperacillin Sod/ Tazobactam Sod (Zosyn 3.375gm/ 100 ml (Pmx)) 100 ml @ 200 mls /hr Q8 IVPB ; Start 11/03/16 at 14:00; Status ANISA FERGUSON M.D. Nov 03, 2016 09:04
[2016-11-03 09:19] LABS: THYROID STIMULATING HORMONE 0.496 MIU/L (0.465-4.680)
[2016-11-03] MEDS ORDERED: PENDING SANTYL ORDER FOR WOUND CARE XX PRN (09:30)
[2016-11-03] MEDS ORDERED: VANCOMYCIN 750 MG in SOD CHLORIDE 0.9% 150 ML IVPB SCH (10:00)
[2016-11-03] MEDS: ASPIRIN (EC) 81 MG TAB PO SCH (11:02)
[2016-11-03] MEDS: ATENOLOL 50 MG TAB PO SCH (11:02)
[2016-11-03] MEDS: DONEPEZIL 5 MG TAB PO SCH (11:03)
[2016-11-03] MEDS: MEMANTINE 10 MG TAB PO SCH ×2 (11:03→20:59)
[2016-11-03] MEDS: COLLAGENASE 30 GM TUBE TOP SCH (12:03)
[2016-11-03] MEDS: PIPER-TAZO 3.375 GM IV (PMX) 100 ML IVPB SCH ×3 (12:07→18:18)
--- NOTE | 2016-11-03 12:20 | CONS ---
Date/Time of Note Date/Time of Note DATE: 11/03/16 TIME: 12:18 Assessment/Plan Assessment/Plan Additional Assessment/Plan Chest x-ray was reviewed from today which is again showing significant right lower lobe pneumonia. Scattered infiltrates are present in left lower lobe as well. Patient currently on BiPAP 17/10, 100% FiO2. Backup rate of 16/min. Assessment and recommendations; 1. Patient admitted with severe aspiration pneumonia. 2. Advanced dementia. 3. Chronic atrial fibrillation. 4. Hyponatremia. 5. Hypotension with interval resolution after being fluid resuscitated. Continue current supportive care. Prognosis is poor. Consultation Date/Type/Reason Admit Date/Time Nov 02, 2016 at 15:32 Initial Consult Date 11/03/16 Type of Consultation: Pulmonary Referring Provider: CAMDEN ANDRADE 24 HR Interval Summary Free Text/Dictation Patient condition remains tenuous at best. On BiPAP with 100% FiO2. Patient remains completely unresponsive which is her baseline mental status due to advanced dementia. Exam/Review of Systems Vital Signs Vitals Vital Signs Date Time Temp Pulse Resp B/P Pulse Ox O2 Delivery O2 Flow Rate FiO2 11/03/16 11:36 97.4 106 37 101/51 94 11/03/16 11:00 100 11/03/16 02:51 Non Rebreather Mask 11/02/16 19:30 15.0 Intake and Output 11/02/16 11/02/16 11/03/16 15:00 23:00 07:00 Intake Total 410 ml Output Total 250 ml 600 ml Balance -250 ml -190 ml Exam HEENT exam; supple neck, no JVD. No lymphadenopathy. Midline trachea. Patient is edentulous. Pupils are small bilaterally. Chest exam; diminished breath sounds throughout. S1-S2 audible, irregular rhythm. Pacemaker in left chest wall. Abdomen exam; soft, non-distended. G-tube in place. Bowel sounds are sluggish. Extremities trace peripheral edema. 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 Results Result Diagram: 11/03/16 0738 11/03/16 0738 Results 24 hrs Laboratory Tests Test 11/02/16 13:44 11/02/16 17:30 11/02/16 17:31 11/02/16 19:43 Blood Gas Specimen Source Blood arterial Arterial Blood Date Drawn 11/02/2016 2:30:58 PM Arterial Blood pH (Temp corrected) 7.280 *L Arterial Blood pCO2 (Temp correct) 37.7 Arterial Blood pO2 (Temp corrected) 67.4 L Arterial Blood HCO3 17.3 L Arterial Blood Base Excess -8.7 L Arterial Blood Oxygen Saturation 90.7 L Chad Test ACCEPTAB Arterial Blood Gas Puncture Site Left Radial Arterial Blood Carboxyhemoglobin 0.3 Arterial Blood Methemoglobin 0.4 Blood Gas A-a O2 Differential 607.9 H Oxyhemoglobin Percent 90.1 L Total Hemoglobin 10.0 L Blood Gas Temperature 37.0 Blood Gas Modality MASK - NRB FiO2 100.0 Blood Gas Critical Value Read Back CAMDEN ANDRADE Blood Gas Notified Whom Blood Gas Notified Time 11/02/2016 2:49:29 PM Lactic Acid Level 5.5 *H 3.0 *H Sodium Level 116 *L Test 11/02/16 20:22 11/03/16 07:01 11/03/16 07:38 Bedside Glucose 103 Blood Gas Specimen Source Blood arterial Arterial Blood Date Drawn 11/03/2016 7:20:25 AM Arterial Blood pH (Temp corrected) 7.163 *L Arterial Blood pCO2 (Temp correct) 74.9 H Arterial Blood pO2 (Temp corrected) 45.9 *L Arterial Blood HCO3 26.3 H Arterial Blood Base Excess -3.5 L Arterial Blood Oxygen Saturation 71.4 L Chad Test ACCEPTAB Arterial Blood Gas Puncture Site Left Radial Arterial Blood Carboxyhemoglobin 0.3 Arterial Blood Methemoglobin 0.4 Blood Gas A-a O2 Differential 592.2 H Oxyhemoglobin Percent 70.9 L Total Hemoglobin 11.3 L Blood Gas Temperature 37.0 Blood Gas Modality MASK - NRB FiO2 100.0 Blood Gas Critical Value Read Back Jarocho HERNANDEZ RN Blood Gas Notified Whom RONALDOD Blood Gas Notified Time 11/03/2016 7:30:25 AM White Blood Count 7.8 # Red Blood Count 4.37 # Hemoglobin 10.8 L Hematocrit 34.9 #L Mean Corpuscular Volume 79.9 L Mean Corpuscular Hemoglobin 24.7 L Mean Corpuscular Hemoglobin Concent 30.9 L Red Cell Distribution Width 16.7 H Platelet Count 421 H Mean Platelet Volume 8.7 Neutrophils % 89.6 H Lymphocytes % 4.9 L Monocytes % 3.6 Eosinophils % 0.1 Basophils % 0.4 Nucleated Red Blood Cells % 0.0 Neutrophils # (Manual) 7.0 Lymphocytes # 0.4 L Monocytes # 0.3 Eosinophils # 0.0 Basophils # 0.0 Nucleated Red Blood Cells # 0.0 Sodium Level 120 L Potassium Level 5.1 Chloride Level 88 L Carbon Dioxide Level 25 Anion Gap 12 # Blood Urea Nitrogen 23 H Creatinine 0.53 Glucose Level 95 Hemoglobin A1c 5.4 Lactic Acid Level 2.6 *H Calcium Level 7.6 L Phosphorus Level 5.1 H Magnesium Level 2.1 Total Bilirubin 0.0 L Direct Bilirubin 0.00 Indirect Bilirubin 0.0 Aspartate Amino Transf (AST/SGOT) 68 H Alanine Aminotransferase (ALT/SGPT) 58 Alkaline Phosphatase 133 H Total Protein 4.7 L Albumin 2.1 L Globulin 2.60 Albumin/Globulin Ratio 0.80 Triglycerides Level 99 Cholesterol Level 130 LDL Cholesterol, Calculated 80 HDL Cholesterol 30 L Cholesterol/HDL Ratio 4.3 Thyroid Stimulating Hormone (TSH) 0.496 Free Thyroxine Index 2.01 Thyroxine (T4) 3.8 L Triiodothyronine (T3) Uptake 52.8 H Medications Medications Current Medications Amlodipine Besylate (Norvasc) 5 mg DAILY PO ; Start 11/03/16 at 09:00 Aspirin (Halfprin) 81 mg DAILY PO Last administered on 11/03/16 11:02; Admin Dose 81 MG; Start 11/03/16 at 09:00 Atenolol (Tenormin) 50 mg DAILY PO Last administered on 11/03/16 11:02; Admin Dose 50 MG; Start 11/03/16 at 09:00 Donepezil HCl (Aricept) 5 mg DAILY PO Last administered on 11/03/16 11:03; Admin Dose 5 MG; Start 11/03/16 at 09:00 Memantine (Namenda) 10 mg BID PO Last administered on 11/03/16 11:03; Admin Dose 10 MG; Start 11/02/16 at 21:00 Ondansetron HCl (Zofran Inj) 4 mg Q6H PRN IV NAUSEA AND/OR VOMITING; Start at 14:00 Acetaminophen (Tylenol Tab) 650 mg Q6H PRN PO PAIN LEVEL 1-3 OR FEVER; Start at 14:00 Acetaminophen (Tylenol Supp) 650 mg Q6H PRN [place] PAIN LEVEL 1-3 OR FEVER; Start 11/02/16 at 14:00 Acetaminophen/ Hydrocodone Bitart ([place] (5/325)) 1 tab Q6H PRN PO MODERATE PAIN LEVEL 4-6; Start 11/02/16 at 14:00 Acetaminophen/ Hydrocodone Bitart ([place] (5/325)) 2 tab Q6H PRN PO SEVERE PAIN LEVEL 7-10; Start 11/02/16 at 14:00 Morphine Sulfate (morphine) 2 mg Q4H PRN IV SEVERE PAIN LEVEL 7-10; Start 11/02 at 14:00 Docusate Sodium (Colace) 100 mg Q12H PRN PO CONSTIPATION; Start 11/02/16 at 14: 00 Magnesium Hydroxide (Milk Of Mag) 30 ml DAILY PRN PO CONSTIPATION; Start at 14:00 Bisacodyl (Dulcolax Supp) 10 mg DAILY PRN [place] CONSTIPATION; Start 11/02/16 at 14 :00 Pantoprazole 40 mg 40 mg DAILY@06 IV Last administered on 11/03/16 05:52; Admin Dose 40 MG; Start 11/03/16 at 06:00 Vancomycin HCl 750 mg/Sodium Chloride 150 ml @ 75 mls/hr Q24H IVPB ; Start 11/03 at 10:00 Sodium Chloride 1,000 ml @ 100 mls/hr Q10H IV Last administered on 11/02/16 20:25; Admin Dose 100 MLS/HR; Start 11/02/16 at 20:00; Status Future hold Piperacillin Sod/ Tazobactam Sod (Zosyn 3.375gm/ 100 ml (Pmx)) 100 ml @ 200 mls /hr Q8 IVPB Last administered on 11/03/16 12:07; Admin Dose 200 MLS/HR; Start 11/03/16 at 09:00 Collagenase (Santyl) 1 applic DAILY TOP Last administered on 11/03/16 12:03; Admin Dose 1 APPLIC; Start 11/03/16 at 12:00 YESENIA STONE Nov 03, 2016 12:20
--- NOTE | 2016-11-03 13:13 | PN ---
Date/Time of Note Date/Time of Note DATE: 11/03/16 TIME: 13:02 Assessment/Plan VTE Prophylaxis VTE Prophylaxis Intervention: LMWH Lines/Catheters IV [facility] Type [facility]from [facility] Saline Lock Urinary Cath still in place: Yes Reason Cath still needed: other (indicate) Assessment/Plan Assessment/Plan 1. Aspiration pneumonia, on zosyn 2. Sepsis with Septic shock IVF and antibiotics(zosyn/vancomycin) 3. Respiratory failure secondary to #1. on BiPAP with FiO2 100% 4. Hyponatremia. Likely secondary to dehydration. Follow-up on sodium level. Continue with IV fluids. Will recheck level. 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 5. Dementia 6. Chronic atrial fibrillation, 7. Essential hypertension. Off antihypertensives for now due to hypotension 8. Multiple decubitus ulcers on bilateral legs and sacral area. Wound care consult to follow. Will also do blood cultures. 9. Microcytic anemia, follow up with CBC 10. Code status: no code 11. DVT prophylaxis: lovenox Subjective 24 Hr Interval Summary Free Text/Dictation nonverbal, opens eyes. on BiPAP Exam/Review of Systems Vital Signs Vitals Vital Signs Date Time Temp Pulse Resp B/P Pulse Ox O2 Delivery O2 Flow Rate FiO2 11/03/16 12:18 92 11/03/16 11:36 97.4 37 101/51 94 11/03/16 11:00 100 11/03/16 02:51 Non Rebreather Mask 11/02/16 19:30 15.0 Intake and Output 11/02/16 11/02/16 11/03/16 15:00 23:00 07:00 Intake Total 410 ml Output Total 250 ml 600 ml Balance -250 ml -190 ml Exam Constitutional: non-verbal Head: atraumatic, normocephalic Eyes: PERRL, nl conjunctiva, nl lids ENMT: nl external ears & nose, nl lips & teeth, nl nasal mucosa & septum Neck: supple Respiratory: other (some rhonchi) Cardiovascular: irregular rhythm Gastrointestinal: nl liver, spleen, non-tender, soft Musculoskeletal: nl extremities to inspection Extremities: normal pulses, No calf tenderness, No clubbing, No cyanosis, No edema, No other, No palpable cord, No pitting pedal edema, No tenderness Neurological: PARISH 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 II-XII intact, confused, lethargic Skin: nl turgor Lymph: nl lymph nodes Results Result Diagram: 11/03/16 0738 11/03/16 0738 Results 24 hrs Laboratory Tests Test 11/02/16 13:44 11/02/16 17:30 11/02/16 17:31 11/02/16 19:43 Blood Gas Specimen Source Blood arterial Arterial Blood Date Drawn 11/02/2016 2:30:58 PM Arterial Blood pH (Temp corrected) 7.280 *L Arterial Blood pCO2 (Temp correct) 37.7 Arterial Blood pO2 (Temp corrected) 67.4 L Arterial Blood HCO3 17.3 L Arterial Blood Base Excess -8.7 L Arterial Blood Oxygen Saturation 90.7 L Chad Test ACCEPTAB Arterial Blood Gas Puncture Site Left Radial Arterial Blood Carboxyhemoglobin 0.3 Arterial Blood Methemoglobin 0.4 Blood Gas A-a O2 Differential 607.9 H Oxyhemoglobin Percent 90.1 L Total Hemoglobin 10.0 L Blood Gas Temperature 37.0 Blood Gas Modality MASK - NRB FiO2 100.0 Blood Gas Critical Value Read Back CAMDEN ANDRADE Blood Gas Notified Whom Blood Gas Notified Time 11/02/2016 2:49:29 PM Lactic Acid Level 5.5 *H 3.0 *H Sodium Level 116 *L Test 11/02/16 20:22 11/03/16 07:01 11/03/16 07:38 Bedside Glucose 103 Blood Gas Specimen Source Blood arterial Arterial Blood Date Drawn 11/03/2016 7:20:25 AM Arterial Blood pH (Temp corrected) 7.163 *L Arterial Blood pCO2 (Temp correct) 74.9 H Arterial Blood pO2 (Temp corrected) 45.9 *L Arterial Blood HCO3 26.3 H Arterial Blood Base Excess -3.5 L Arterial Blood Oxygen Saturation 71.4 L Chad Test ACCEPTAB Arterial Blood Gas Puncture Site Left Radial Arterial Blood Carboxyhemoglobin 0.3 Arterial Blood Methemoglobin 0.4 Blood Gas A-a O2 Differential 592.2 H Oxyhemoglobin Percent 70.9 L Total Hemoglobin 11.3 L Blood Gas Temperature 37.0 Blood Gas Modality MASK - NRB FiO2 100.0 Blood Gas Critical Value Read Back Jarocho HERNANDEZ RN Blood Gas Notified Whom GASTON Blood Gas Notified Time 11/03/2016 7:30:25 AM White Blood Count 7.8 # Red Blood Count 4.37 # Hemoglobin 10.8 L Hematocrit 34.9 #L Mean Corpuscular Volume 79.9 L Mean Corpuscular Hemoglobin 24.7 L Mean Corpuscular Hemoglobin Concent 30.9 L Red Cell Distribution Width 16.7 H Platelet Count 421 H Mean Platelet Volume 8.7 Neutrophils % 89.6 H Lymphocytes % 4.9 L Monocytes % 3.6 Eosinophils % 0.1 Basophils % 0.4 Nucleated Red Blood Cells % 0.0 Neutrophils # (Manual) 7.0 Lymphocytes # 0.4 L Monocytes # 0.3 Eosinophils # 0.0 Basophils # 0.0 Nucleated Red Blood Cells # 0.0 Sodium Level 120 L Potassium Level 5.1 Chloride Level 88 L Carbon Dioxide Level 25 Anion Gap 12 # Blood Urea Nitrogen 23 H Creatinine 0.53 Glucose Level 95 Hemoglobin A1c 5.4 Lactic Acid Level 2.6 *H Calcium Level 7.6 L Phosphorus Level 5.1 H Magnesium Level 2.1 Total Bilirubin 0.0 L Direct Bilirubin 0.00 Indirect Bilirubin 0.0 Aspartate Amino Transf (AST/SGOT) 68 H Alanine Aminotransferase (ALT/SGPT) 58 Alkaline Phosphatase 133 H Total Protein 4.7 L Albumin 2.1 L Globulin 2.60 Albumin/Globulin Ratio 0.80 Triglycerides Level 99 Cholesterol Level 130 LDL Cholesterol, Calculated 80 HDL Cholesterol 30 L Cholesterol/HDL Ratio 4.3 Thyroid Stimulating Hormone (TSH) 0.496 Free Thyroxine Index 2.01 Thyroxine (T4) 3.8 L Triiodothyronine (T3) Uptake 52.8 H Medications Medications Current Medications Amlodipine Besylate (Norvasc) 5 mg DAILY PO ; Start 11/03/16 at 09:00 Aspirin (Halfprin) 81 mg DAILY PO Last administered on 11/03/16 11:02; Admin Dose 81 MG; Start 11/03/16 at 09:00 Atenolol (Tenormin) 50 mg DAILY PO Last administered on 11/03/16 11:02; Admin Dose 50 MG; Start 11/03/16 at 09:00 Donepezil HCl (Aricept) 5 mg DAILY PO Last administered on 11/03/16 11:03; Admin Dose 5 MG; Start 11/03/16 at 09:00 Memantine (Namenda) 10 mg BID PO Last administered on 11/03/16 11:03; Admin Dose 10 MG; Start 11/02/16 at 21:00 Ondansetron HCl (Zofran Inj) 4 mg Q6H PRN IV NAUSEA AND/OR VOMITING; Start at 14:00 Acetaminophen (Tylenol Tab) 650 mg Q6H PRN PO PAIN LEVEL 1-3 OR FEVER; Start at 14:00 Acetaminophen (Tylenol Supp) 650 mg Q6H PRN [place] PAIN LEVEL 1-3 OR FEVER; Start 11/02/16 at 14:00 Acetaminophen/ Hydrocodone Bitart ([place] (5/325)) 1 tab Q6H PRN PO MODERATE PAIN LEVEL 4-6; Start 11/02/16 at 14:00 Acetaminophen/ Hydrocodone Bitart ([place] (5/325)) 2 tab Q6H PRN PO SEVERE PAIN LEVEL 7-10; Start 11/02/16 at 14:00 Morphine Sulfate (morphine) 2 mg Q4H PRN IV SEVERE PAIN LEVEL 7-10; Start 11/02 at 14:00 Docusate Sodium (Colace) 100 mg Q12H PRN PO CONSTIPATION; Start 11/02/16 at 14: 00 Magnesium Hydroxide (Milk Of Mag) 30 ml DAILY PRN PO CONSTIPATION; Start at 14:00 Bisacodyl (Dulcolax Supp) 10 mg DAILY PRN [place] CONSTIPATION; Start 11/02/16 at 14 :00 Pantoprazole 40 mg 40 mg DAILY@06 IV Last administered on 11/03/16 05:52; Admin Dose 40 MG; Start 11/03/16 at 06:00 Vancomycin HCl 750 mg/Sodium Chloride 150 ml @ 75 mls/hr Q24H IVPB ; Start 11/03 at 10:00 Sodium Chloride 1,000 ml @ 100 mls/hr Q10H IV Last administered on 11/02/16 20:25; Admin Dose 100 MLS/HR; Start 11/02/16 at 20:00; Status Future hold Piperacillin Sod/ Tazobactam Sod (Zosyn 3.375gm/ 100 ml (Pmx)) 100 ml @ 200 mls /hr Q8 IVPB Last administered on 11/03/16 12:07; Admin Dose 200 MLS/HR; Start 11/03/16 at 09:00 Collagenase (Santyl) 1 applic DAILY TOP Last administered on 9/1/17at 12:03; Admin Dose 1 APPLIC; Start 11/03/16 at 12:00 PABLO SALAZAR MD Nov 03, 2016 13:12
[2016-11-03 14:12] LABS: ADD UMIC YES; UR AMORPHOUS CRYSTAL FEW /HPF (NONE SEEN); UR ASCORBIC ACID NEGATIVE (NEGATIVE); UR BILIRUBIN (Dip) NEGATIVE (NEGATIVE); UR BLOOD (Dip) 2+ mg/dL (NEGATIVE); UR CLARITY CLOUDY (CLEAR); UR COLOR YELLOW (YELLOW); UR GLUCOSE (Dip) NEGATIVE (NEGATIVE); UR KETONES (Dip) NEGATIVE (NEGATIVE); UR LEUKOCYTE ESTERASE (Dip) NEGATIVE Leu/ul (NEGATIVE); UR MUCUS FEW /HPF (NONE SEEN); UR NITRITE (Dip) NEGATIVE (NEGATIVE); UR RBC > 182 /HPF (0-5); UR SPECIFIC GRAVITY (Dip) 1.015 (1.003-1.030); UR SQUAMOUS EPITHELIAL CELL FEW /HPF (FEW); UR TOTAL PROTEIN (Dip) 1+ mg/dl (NEGATIVE); UR UROBILINOGEN (Dip) 1+ mg/dL (NEGATIVE); UR WBC CLUMPS FEW /HPF (NONE SEEN)
[2016-11-03] MEDS: VANCOMYCIN 1 GM in NS 250 ML IVPB SCH (15:33)
[2016-11-03] MEDS: ENOXAPARIN 40 MG/0.4 ML SYG SC SCH (15:35)
[2016-11-03] MEDS: SOD CHLORIDE 0.9% 1,000 ML IV SCH (16:00)
[2016-11-03] MEDS ORDERED: SOD CHLORIDE 0.9% 250 ML IV ONE (17:00)
[2016-11-03] MEDS ORDERED: SOD CHLORIDE 0.9% 1,000 ML IV ONE (21:30)
[2016-11-03] MEDS ORDERED: ALBUMIN HUMAN 25% 100 ML IV ONE (21:30)
[2016-11-03] MEDS: MIDODRINE 5 MG TAB PO SCH (21:45)
[2016-11-04] VITALS (30 sets, daily range): BP systolic 73–143; BP diastolic 47–64; PULSE 72–112; RESP 20–35
[2016-11-04] MEDS: SOD CHLORIDE 0.9% 1,000 ML IV SCH ×5 (00:30→22:00)
[2016-11-04] MEDS ORDERED: SOD CHLORIDE 0.9% 500 ML IV ONE (03:35)
[2016-11-04] MEDS: PIPER-TAZO 3.375 GM IV (PMX) 100 ML IVPB SCH ×3 (05:00→22:00)
[2016-11-04 07:49] LABS: ABNORMAL IP MESSAGE 1; BASOPHILS % 0.1 % (0.0-2.0); EOSINOPHILS # 0.1 10^3/ul (0.0-0.5); EOSINOPHILS % 0.6 % (0.0-7.0); HEMATOCRIT 24.8 % (37.0-47.0); HEMOGLOBIN 8.1 g/dl (12.0-16.0); LYMPHOCYTES # 0.6 10^3/ul (0.8-2.9); LYMPHOCYTES % 7.4 % (15.0-51.0); MEAN CORPUSCULAR HEMOGLOBIN 25.3 pg (29.0-33.0); MEAN CORPUSCULAR HGB CONC 32.7 g/dl (32.0-37.0); MEAN CORPUSCULAR VOLUME 77.5 fl (82.0-101.0); MONOCYTE # 0.2 10^3/ul (0.3-0.9); MONOCYTES % 2.9 % (0.0-11.0); NEUTROPHILS % 80.6 % (39.0-77.0); NUCLEATED RED BLOOD CELLS% 0.4 /100WBC (0.0-0.0); PLATELET COUNT 271 10^3/UL (140-415); RED CELL DISTRIBUTION WIDTH 16.8 % (11.5-14.5); WHITE BLOOD COUNT 8.3 10^3/ul (4.8-10.8)
[2016-11-04 07:51] LABS: POSITIVE DIFF @See below
[2016-11-04 08:20] LABS: CALCIUM 7.5 mg/dl (8.4-10.2); CREATININE 0.51 mg/dl (0.44-1.00); POTASSIUM 4.1 mmol/L (3.5-5.1)
[2016-11-04] MEDS: AMLODIPINE 5 MG TAB PO SCH (08:20)
[2016-11-04] MEDS: MEMANTINE 10 MG TAB PO SCH ×2 (08:21→22:00)
[2016-11-04] MEDS: FAMOTIDINE 20 MG INJ IV SCH (08:21)
[2016-11-04] MEDS: ATENOLOL 50 MG TAB PO SCH (08:21)
[2016-11-04] MEDS: DONEPEZIL 5 MG TAB PO SCH (08:22)
[2016-11-04] MEDS: MIDODRINE 5 MG TAB PO SCH ×3 (08:22→17:03)
[2016-11-04] MEDS: ASPIRIN (EC) 81 MG TAB PO SCH (08:22)
[2016-11-04] MEDS: ENOXAPARIN 40 MG/0.4 ML SYG SC SCH (08:23)
[2016-11-04] MEDS: COLLAGENASE 30 GM TUBE TOP SCH (08:26)
--- NOTE | 2016-11-04 11:32 | CONS ---
Date/Time of Note Date/Time of Note DATE: 11/04/16 TIME: 11:31 Consult Date/Type/Reason Admit Date/Time Nov 02, 2016 at 15:32 Initial Consult Date 11/03/16 Type of Consultation: Pulmonary Ordering Provider: CAMDEN ANDRADE Subjective Continues BiPAP. Objective Vital Signs Date Time Temp Pulse Resp B/P Pulse Ox O2 Delivery O2 Flow Rate FiO2 11/04/16 10:00 104 117/58 11/04/16 07:46 97.5 33 100 11/04/16 05:40 100 11/04/16 05:19 BIPAP 11/03/16 08:30 15.0 Intake and Output 11/03/16 11/03/16 11/04/16 14:59 22:59 06:59 Intake Total 100 ml 1810 ml Output Total 200 ml 500 ml Balance 100 ml -200 ml 1310 ml Exam GENERAL: Elderly [place] lady VITAL SIGNS: per chart NECK: Supple. No JVD or lymphadenopathy. CARDIAC EXAM: S1, S2. No added sounds or murmurs. CHEST: Diminished air entry both lung keating ABDOMEN: Soft, nontender. No guarding or rebound. EXTREMITIES: No cyanosis, clubbing or edema. NEUROLOGIC: Generalized weakness. No focal deficits. Results/Medications Result Diagram: 11/04/16 0709 11/04/16 0709 Results 24 hrs Laboratory Tests Test 11/04/16 07:09 White Blood Count 8.3 Red Blood Count 3.20 #L Hemoglobin 8.1 #L Hematocrit 24.8 #L Mean Corpuscular Volume 77.5 L Mean Corpuscular Hemoglobin 25.3 L Mean Corpuscular Hemoglobin Concent 32.7 Red Cell Distribution Width 16.8 H Platelet Count 271 # Mean Platelet Volume 9.0 Neutrophils % 80.6 H Lymphocytes % 7.4 L Monocytes % 2.9 Eosinophils % 0.6 Basophils % 0.1 Nucleated Red Blood Cells % 0.4 H Neutrophils # (Manual) 6.7 Lymphocytes # 0.6 L Monocytes # 0.2 L Eosinophils # 0.1 Basophils # 0.0 Nucleated Red Blood Cells # 0.0 Sodium Level 123 L Potassium Level 4.1 Chloride Level 95 L Carbon Dioxide Level 20 L Anion Gap 12 Blood Urea Nitrogen 29 H Creatinine 0.51 Glucose Level 163 Calcium Level 7.5 L Medications Current Medications Amlodipine Besylate (Norvasc) 5 mg DAILY PO ; Start 11/03/16 at 09:00 Aspirin (Halfprin) 81 mg DAILY PO Last administered on 11/04/16 08:22; Admin Dose 81 MG; Start 11/03/16 at 09:00 Atenolol (Tenormin) 50 mg DAILY PO Last administered on 11/03/16 11:02; Admin Dose 50 MG; Start 11/03/16 at 09:00 Donepezil HCl (Aricept) 5 mg DAILY PO Last administered on 11/04/16 08:22; Admin Dose 5 MG; Start 11/03/16 at 09:00 Memantine (Namenda) 10 mg BID PO Last administered on 11/04/16 08:21; Admin Dose 10 MG; Start 11/02/16 at 21:00 Ondansetron HCl (Zofran Inj) 4 mg Q6H PRN IV NAUSEA AND/OR VOMITING; Start at 14:00 Acetaminophen (Tylenol Tab) 650 mg Q6H PRN PO PAIN LEVEL 1-3 OR FEVER; Start at 14:00 Acetaminophen (Tylenol Supp) 650 mg Q6H PRN [place] PAIN LEVEL 1-3 OR FEVER; Start 11/02/16 at 14:00 Acetaminophen/ Hydrocodone Bitart ([place] (5/325)) 1 tab Q6H PRN PO MODERATE PAIN LEVEL 4-6; Start 11/02/16 at 14:00 Acetaminophen/ Hydrocodone Bitart ([place] (5/325)) 2 tab Q6H PRN PO SEVERE PAIN LEVEL 7-10; Start 11/02/16 at 14:00 Morphine Sulfate (morphine) 2 mg Q4H PRN IV SEVERE PAIN LEVEL 7-10; Start 11/02 at 14:00 Docusate Sodium (Colace) 100 mg Q12H PRN PO CONSTIPATION; Start 11/02/16 at 14: 00 Magnesium Hydroxide (Milk Of Mag) 30 ml DAILY PRN PO CONSTIPATION; Start at 14:00 Bisacodyl 10 mg 10 mg DAILY PRN [place] CONSTIPATION; Start 11/02/16 at 14:00 Sodium Chloride (NS) 1,000 ml @ 100 mls/hr Q10H IV Last administered on 06:27; Admin Dose 100 MLS/HR; Start 11/02/16 at 20:00; Status Future hold Collagenase (Santyl) 1 applic DAILY TOP Last administered on 11/04/16 08:26; Admin Dose 1 APPLIC; Start 11/03/16 at 12:00 Enoxaparin Sodium 40 mg 40 mg DAILY SC Last administered on 11/04/16 08:23; Admin Dose 40 MG; Start 11/03/16 at 14:00 Vancomycin HCl 250 ml @ 125 mls/hr Q24H IVPB Last administered on 11/03/16 15: 33; Admin Dose 125 MLS/HR; Start 11/03/16 at 15:00 Piperacillin Sod/ Tazobactam Sod (Zosyn 3.375gm/ 100 ml (Pmx)) 100 ml @ 200 mls /hr Q8H IVPB Last administered on 11/04/16 05:00; Admin Dose 200 MLS/HR; Start 11/03/16 at 20:00 Famotidine (Pepcid Iv) 20 mg DAILY IV Last administered on 11/04/16 08:21; Admin Dose 20 MG; Start 11/04/16 at 09:00 Midodrine (Proamatine) 10 mg TID@09,13,17 PO Last administered on 11/04/16 08: 22; Admin Dose 10 MG; Start 11/03/16 at 21:30 Assessment/Plan Chief Complaint/Hosp Course 1. Patient admitted with severe aspiration pneumonia. 2. Advanced dementia. 3. Chronic atrial fibrillation. 4. Hyponatremia. 5. Hypotension with interval resolution after being fluid resuscitated. Plan 1. Continue noninvasive positive pressure ventilation 2. Aspiration precautions 3. DVT and GI prophylaxis 4. Palliative care recommendations Problems: ENZO ANTONIO MD, [facility] Nov 04, 2016 11:32
--- NOTE | 2016-11-04 12:21 | CONS ---
Date/Time of Note Date/Time of Note DATE: 11/04/16 TIME: 12:15 Consultation Date/Type/Reason Admit Date/Time Nov 02, 2016 at 15:32 Type of Consultation: nephrology Hx of Present Illness Hx of Present Illness This is a 85-year-old female with reported past medical history of pacemaker, arrhythmia, hypertension, dementia, Alzheimer's disease, who came to [facility] after reports of increased shortness of breath. It was reported that patient suffered a fall in July 2016 and since then has been bedbound as well as dysphagia requiring PEG tube placement. As result she does have multiple decubitus ulcers on right lateral olmstead and left lateral olmstead as well as left lateral heel. Patient today comes in after 2 days worsening shortness of breath. Was reported that patient had been receiving PEG tube feedings. Patient likely aspirated and as such was brought to [facility] due to her worse breathing. She did have x-ray done of her chest that showed calcified atherosclerosis in the aorta and perihilar right lower lobe infiltrate. There is also seen blunting of the left costophrenic angle suspect for small pleural effusion. Patient also noted to be febrile with temperature as high as 1 1.4 and hypertensive with blood pressure as low as 75/21 with clinical picture of septic shock likely secondary to pneumonia. She is noted to have hyponatremia which is responding well to NS IVF no neuro symptoms blood pressure also responded well to fluids we were asked to assist with management of her electrolyte issues PMH/Family/Social Past Medical History Medical/surgical history 1. Pacemaker placement 2. History of arrhythmia 2. Hypertension 4. Alzheimer's disease 5. Dementia Past Surgical History Past Surgical Hx: other Social History Alcohol Use: none Smoking Status: Never smoker Drug Use: none ROS 14 point ROS was done and pertinent findings are in HPI Exam Constitutional: alert, distress Head: normocephalic Eyes: nl conjunctiva Neck: No jvd Respiratory: crackles/rales, diminished breath sounds Cardiovascular: other Gastrointestinal: soft Neurological: lethargic Skin: other (Multiple decubitus ulcers noted on right lateral olmstead as well as left lateral olmstead and left lateral heel) Impression and plan 1. Hyponatremia. multifactorial. Ddx includes but limited to SIADH due to pna, salt and volume depletion in setting of lasix use and free water flushes through PEG, CHF. She is responding to NS, however she is becoming volume overloaded will need to decrease rate. no indication for 3 percent saline. will check urine studies 2. Septic shock likely secondary to aspiration pneumonia. Patient noted with elevated fever and tachycardia and hypotension and lactic acid of 4.9. 3. Resp failure: imaging studies were reviewed 4. Hypotension: resolved 5. History of cardiac arrhythmia. Continue to monitor on telemetry. Pacemaker in place. 6. Essential hypertension. Off antihypertensives for now due to hypotension 7. Multiple decubitus ulcers on bilateral legs and sacral area. Wound care consult to follow. Will also do blood cultures. Psychological: confusion Past Medical History Medical History: congestive heart failure, coronary artery disease, other ( pacemaker) Past Surgical History Past Surgical Hx: other (pacemaker, PEG placement) Social History Alcohol Use: none Smoking Status: Never smoker Drug Use: none Exam/Review of Systems Vital Signs Vitals Vital Signs Date Time Temp Pulse Resp B/P Pulse Ox O2 Delivery O2 Flow Rate FiO2 11/04/16 12:06 111 95/56 11/04/16 11:33 97.8 35 100 11/04/16 05:40 100 11/04/16 05:19 BIPAP 11/03/16 08:30 15.0 Intake and Output 11/03/16 11/03/16 11/04/16 15:00 23:00 07:00 Intake Total 100 ml 1810 ml Output Total 200 ml 500 ml Balance 100 ml -200 ml 1310 ml Results Result Diagram: 11/04/16 0709 11/04/16 0709 Results 24 hrs Laboratory Tests Test 11/04/16 07:09 White Blood Count 8.3 Red Blood Count 3.20 #L Hemoglobin 8.1 #L Hematocrit 24.8 #L Mean Corpuscular Volume 77.5 L Mean Corpuscular Hemoglobin 25.3 L Mean Corpuscular Hemoglobin Concent 32.7 Red Cell Distribution Width 16.8 H Platelet Count 271 # Mean Platelet Volume 9.0 Neutrophils % 80.6 H Lymphocytes % 7.4 L Monocytes % 2.9 Eosinophils % 0.6 Basophils % 0.1 Nucleated Red Blood Cells % 0.4 H Neutrophils # (Manual) 6.7 Lymphocytes # 0.6 L Monocytes # 0.2 L Eosinophils # 0.1 Basophils # 0.0 Nucleated Red Blood Cells # 0.0 Sodium Level 123 L Potassium Level 4.1 Chloride Level 95 L Carbon Dioxide Level 20 L Anion Gap 12 Blood Urea Nitrogen 29 H Creatinine 0.51 Glucose Level 163 Calcium Level 7.5 L Medications Medications Current Medications Amlodipine Besylate (Norvasc) 5 mg DAILY PO ; Start 11/03/16 at 09:00 Aspirin (Halfprin) 81 mg DAILY PO Last administered on 11/04/16 08:22; Admin Dose 81 MG; Start 11/03/16 at 09:00 Atenolol (Tenormin) 50 mg DAILY PO Last administered on 11/03/16 11:02; Admin Dose 50 MG; Start 11/03/16 at 09:00 Donepezil HCl (Aricept) 5 mg DAILY PO Last administered on 11/04/16 08:22; Admin Dose 5 MG; Start 11/03/16 at 09:00 Memantine (Namenda) 10 mg BID PO Last administered on 11/04/16 08:21; Admin Dose 10 MG; Start 11/02/16 at 21:00 Ondansetron HCl (Zofran Inj) 4 mg Q6H PRN IV NAUSEA AND/OR VOMITING; Start at 14:00 Acetaminophen (Tylenol Tab) 650 mg Q6H PRN PO PAIN LEVEL 1-3 OR FEVER; Start at 14:00 Acetaminophen (Tylenol Supp) 650 mg Q6H PRN [place] PAIN LEVEL 1-3 OR FEVER; Start 11/02/16 at 14:00 Acetaminophen/ Hydrocodone Bitart ([place] (5/325)) 1 tab Q6H PRN PO MODERATE PAIN LEVEL 4-6; Start 11/02/16 at 14:00 Acetaminophen/ Hydrocodone Bitart ([place] (5/325)) 2 tab Q6H PRN PO SEVERE PAIN LEVEL 7-10; Start 11/02/16 at 14:00 Morphine Sulfate (morphine) 2 mg Q4H PRN IV SEVERE PAIN LEVEL 7-10; Start 11/02 at 14:00 Docusate Sodium (Colace) 100 mg Q12H PRN PO CONSTIPATION; Start 11/02/16 at 14: 00 Magnesium Hydroxide (Milk Of Mag) 30 ml DAILY PRN PO CONSTIPATION; Start at 14:00 Bisacodyl 10 mg 10 mg DAILY PRN [place] CONSTIPATION; Start 11/02/16 at 14:00 Sodium Chloride (NS) 1,000 ml @ 100 mls/hr Q10H IV Last administered on 12:01; Admin Dose 100 MLS/HR; Start 11/02/16 at 20:00; Status Future hold Collagenase (Santyl) 1 applic DAILY TOP Last administered on 11/04/16 08:26; Admin Dose 1 APPLIC; Start 11/03/16 at 12:00 Enoxaparin Sodium 40 mg 40 mg DAILY SC Last administered on 11/04/16 08:23; Admin Dose 40 MG; Start 11/03/16 at 14:00 Vancomycin HCl 250 ml @ 125 mls/hr Q24H IVPB Last administered on 11/03/16 15: 33; Admin Dose 125 MLS/HR; Start 11/03/16 at 15:00 Piperacillin Sod/ Tazobactam Sod (Zosyn 3.375gm/ 100 ml (Pmx)) 100 ml @ 200 mls /hr Q8H IVPB Last administered on 11/04/16 12:00; Admin Dose 200 MLS/HR; Start 11/03/16 at 20:00 Famotidine (Pepcid Iv) 20 mg DAILY IV Last administered on 11/04/16 08:21; Admin Dose 20 MG; Start 11/04/16 at 09:00 Midodrine (Proamatine) 10 mg TID@09,13,17 PO Last administered on 11/04/16 12: 01; Admin Dose 10 MG; Start 11/03/16 at 21:30 Miscellaneous Information (*Rx Drug Level Order Reminder*) VANCOMYCIN TROUGH 11/05 AT 1400 ONCE ONCE XX ; Start 11/05/16 at 14:00; Stop 11/05/16 at 14:01 CHAD CALHOUN DO Nov 04, 2016 12:21
--- NOTE | 2016-11-04 14:20 | PN ---
Date/Time of Note Date/Time of Note DATE: 11/04/16 TIME: 14:16 Assessment/Plan Lines/Catheters IV Catheter Type (from [facility]): Saline Lock Urinary Cath still in place: Yes Assessment/Plan Chief Complaint/Hosp Course Assessment/Plan 1. Septic shock likely secondary to aspiration pneumonia. Continue with antibiotics. Beet Worker following. 2. Respiratory failure secondary to #1. Seen on BiPAP today. Patient is DNR/ DNI. Palliative care physician is following. Beet Worker is following. Bronchodilators as needed. 3. Hyponatremia. IVF per desktop administrator. Monitor level 4. Hypotension secondary to #1. Continue IV fluids as needed 5. History of cardiac arrhythmia. Continue to monitor on telemetry. Pacemaker in place. 6. Essential hypertension. Off antihypertensives for now due to hypotension 7. Multiple decubitus ulcers on bilateral legs and sacral area. Continue with wound care Disposition and plan: Overall prognosis appears poor. . Patient is DNR/DNI at this time. Will discuss with family goals of care and possible comfort measures. Discussed plan of care with Dr. Luo Problems: Subjective 24 Hr Interval Summary Free Text/Dictation Remains on BiPAP. No purposeful response to Exam/Review of Systems Vital Signs Vitals Vital Signs Date Time Temp Pulse Resp B/P Pulse Ox O2 Delivery O2 Flow Rate FiO2 11/04/16 12:14 87 11/04/16 12:06 95/56 11/04/16 11:33 97.8 35 100 11/04/16 05:40 100 11/04/16 05:19 BIPAP 11/03/16 08:30 15.0 Intake and Output 11/03/16 11/03/16 11/04/16 15:00 23:00 07:00 Intake Total 100 ml 1810 ml Output Total 200 ml 500 ml Balance 100 ml -200 ml 1310 ml Exam Constitutional: somnolent, on bipap, Head: normocephalic Eyes: nl conjunctiva Neck: No jvd Respiratory: crackles/rales, diminished breath sounds Cardiovascular: other Gastrointestinal: soft Neurological: lethargic no purposeful response Skin: other (Multiple decubitus ulcers noted on right lateral olmstead as well as left lateral olmstead and left lateral heel) Results Result Diagram: 11/04/16 0709 11/04/16 0709 Results 24 hrs Laboratory Tests Test 11/04/16 07:09 11/04/16 12:25 White Blood Count 8.3 Red Blood Count 3.20 #L Hemoglobin 8.1 #L Hematocrit 24.8 #L Mean Corpuscular Volume 77.5 L Mean Corpuscular Hemoglobin 25.3 L Mean Corpuscular Hemoglobin Concent 32.7 Red Cell Distribution Width 16.8 H Platelet Count 271 # Mean Platelet Volume 9.0 Neutrophils % 80.6 H Lymphocytes % 7.4 L Monocytes % 2.9 Eosinophils % 0.6 Basophils % 0.1 Nucleated Red Blood Cells % 0.4 H Neutrophils # (Manual) 6.7 Lymphocytes # 0.6 L Monocytes # 0.2 L Eosinophils # 0.1 Basophils # 0.0 Nucleated Red Blood Cells # 0.0 Sodium Level 123 L Potassium Level 4.1 Chloride Level 95 L Carbon Dioxide Level 20 L Anion Gap 12 Blood Urea Nitrogen 29 H Creatinine 0.51 Glucose Level 163 Calcium Level 7.5 L Urine Osmolality 409 Urine Random Sodium < 5 L Medications Medications Current Medications Amlodipine Besylate (Norvasc) 5 mg DAILY PO ; Start 11/03/16 at 09:00 Aspirin (Halfprin) 81 mg DAILY PO Last administered on 11/04/16 08:22; Admin Dose 81 MG; Start 11/03/16 at 09:00 Atenolol (Tenormin) 50 mg DAILY PO Last administered on 11/03/16 11:02; Admin Dose 50 MG; Start 11/03/16 at 09:00 Donepezil HCl (Aricept) 5 mg DAILY PO Last administered on 11/04/16 08:22; Admin Dose 5 MG; Start 11/03/16 at 09:00 Memantine (Namenda) 10 mg BID PO Last administered on 11/04/16 08:21; Admin Dose 10 MG; Start 11/02/16 at 21:00 Ondansetron HCl (Zofran Inj) 4 mg Q6H PRN IV NAUSEA AND/OR VOMITING; Start at 14:00 Acetaminophen (Tylenol Tab) 650 mg Q6H PRN PO PAIN LEVEL 1-3 OR FEVER; Start at 14:00 Acetaminophen (Tylenol Supp) 650 mg Q6H PRN [place] PAIN LEVEL 1-3 OR FEVER; Start 11/02/16 at 14:00 Acetaminophen/ Hydrocodone Bitart ([place] (5/325)) 1 tab Q6H PRN PO MODERATE PAIN LEVEL 4-6; Start 11/02/16 at 14:00 Acetaminophen/ Hydrocodone Bitart ([place] (5/325)) 2 tab Q6H PRN PO SEVERE PAIN LEVEL 7-10; Start 11/02/16 at 14:00 Morphine Sulfate (morphine) 2 mg Q4H PRN IV SEVERE PAIN LEVEL 7-10; Start 11/02 at 14:00 Docusate Sodium (Colace) 100 mg Q12H PRN PO CONSTIPATION; Start 11/02/16 at 14: 00 Magnesium Hydroxide (Milk Of Mag) 30 ml DAILY PRN PO CONSTIPATION; Start at 14:00 Bisacodyl 10 mg 10 mg DAILY PRN [place] CONSTIPATION; Start 11/02/16 at 14:00 Sodium Chloride (NS) 1,000 ml @ 100 mls/hr Q10H IV Last administered on 12:01; Admin Dose 100 MLS/HR; Start 11/02/16 at 20:00; Status Future hold Collagenase (Santyl) 1 applic DAILY TOP Last administered on 11/04/16 08:26; Admin Dose 1 APPLIC; Start 11/03/16 at 12:00 Enoxaparin Sodium 40 mg 40 mg DAILY SC Last administered on 11/04/16 08:23; Admin Dose 40 MG; Start 11/03/16 at 14:00 Vancomycin HCl 250 ml @ 125 mls/hr Q24H IVPB Last administered on 11/03/16 15: 33; Admin Dose 125 MLS/HR; Start 11/03/16 at 15:00 Piperacillin Sod/ Tazobactam Sod (Zosyn 3.375gm/ 100 ml (Pmx)) 100 ml @ 200 mls /hr Q8H IVPB Last administered on 11/04/16 12:00; Admin Dose 200 MLS/HR; Start 11/03/16 at 20:00 Famotidine (Pepcid Iv) 20 mg DAILY IV Last administered on 11/04/16 08:21; Admin Dose 20 MG; Start 11/04/16 at 09:00 Midodrine (Proamatine) 10 mg TID@09,13,17 PO Last administered on 11/04/16 12: 01; Admin Dose 10 MG; Start 11/03/16 at 21:30 Miscellaneous Information (*Rx Drug Level Order Reminder*) VANCOMYCIN TROUGH 11/05 AT 1400 ONCE ONCE XX ; Start 11/05/16 at 14:00; Stop 11/05/16 at 14:01 CAMDEN ANDRADE Nov 04, 2016 14:20
[2016-11-04] MEDS: VANCOMYCIN 1 GM in NS 250 ML IVPB SCH (14:56)
--- NOTE | 2016-11-04 20:16 | CONS ---
PAULA MELARA NP 11/04/16 2015: Date/Time of Note Date/Time of Note DATE: 11/04/16 TIME: 20:04 Assessment/Plan Assessment/Plan Chief Complaint/Hosp Course - severe sepsis due to bacteremia, and probable aspiration pneumonia/pneumonitis - bacteremia due to staph aureus likely due to decubitus ulcer - multiple decubitus ulcers involving LLE, b/l heel, sacrum - infection of decubitus ulcer of LLE, sacrum; wound cx growing staph aureus and GNR - hypoxic respiratory failure due to probable aspiration pneumonia/pneumonitis - probable aspiration pneumonia/pneumonitis post-emesis - PEG tube dependence - dementia - h/o arrhythmias, pacemaker - DNR recommendations: - follow up final blood (S. aureus on 11/02 and GPC on 11/03), urine (NTD), sputum (in process), and wound culture (S. aureus and GNR) from LLE results - repeat blood cultures x2 to confirm clearance of bacteremia - continue IV vancomycin and pip/tazo; will adjust antibiotics based on final culture results - wound care consult Management d/w Dr. Parrish Problems: Consultation Date/Type/Reason Admit Date/Time Nov 02, 2016 at 15:32 Initial Consult Date 11/03/16 Type of Consultation: Infectious Disease Referring Provider: CAMDEN ANDRADE 24 HR Interval Summary Free Text/Dictation Unable to perform ROS d/t baseline dementia, lethargy and pt on Bipap Subjective hx not possible: pt non-verbal Exam/Review of Systems Vital Signs Vitals Vital Signs Date Time Temp Pulse Resp B/P Pulse Ox O2 Delivery O2 Flow Rate FiO2 11/04/16 17:04 90 11/04/16 17:02 99 90 11/04/16 16:05 97.3 35 99/54 11/04/16 05:19 BIPAP 11/03/16 08:30 15.0 Intake and Output 11/03/16 11/03/16 11/04/16 15:00 23:00 07:00 Intake Total 100 ml 1810 ml Output Total 200 ml 500 ml Balance 100 ml -200 ml 1310 ml Exam Constitutional: frail, non-verbal, other (on Bipap) Head: atraumatic, normocephalic Respiratory: crackles/rales Cardiovascular: regular rate and rhythm Gastrointestinal: non-tender, other (Gtube with tube feeds), soft Genitourinary - Female: other (Goins catheter present) Extremities: edema Neurological: confused, lethargic Skin: other (multiple wounds - see nurse note and photos for details; LLE and and bilateral heel dressings c/d/i; wound with eschar of the sacrum) Results Result Diagram: 11/04/16 0709 11/04/16 0709 Results 24 hrs Laboratory Tests Test 11/04/16 07:09 11/04/16 12:25 White Blood Count 8.3 Red Blood Count 3.20 #L Hemoglobin 8.1 #L Hematocrit 24.8 #L Mean Corpuscular Volume 77.5 L Mean Corpuscular Hemoglobin 25.3 L Mean Corpuscular Hemoglobin Concent 32.7 Red Cell Distribution Width 16.8 H Platelet Count 271 # Mean Platelet Volume 9.0 Neutrophils % 80.6 H Lymphocytes % 7.4 L Monocytes % 2.9 Eosinophils % 0.6 Basophils % 0.1 Nucleated Red Blood Cells % 0.4 H Neutrophils # (Manual) 6.7 Lymphocytes # 0.6 L Monocytes # 0.2 L Eosinophils # 0.1 Basophils # 0.0 Nucleated Red Blood Cells # 0.0 Sodium Level 123 L Potassium Level 4.1 Chloride Level 95 L Carbon Dioxide Level 20 L Anion Gap 12 Blood Urea Nitrogen 29 H Creatinine 0.51 Glucose Level 163 Calcium Level 7.5 L Urine Osmolality 409 Urine Random Sodium < 5 L Medications Medications Current Medications Amlodipine Besylate (Norvasc) 5 mg DAILY PO ; Start 11/03/16 at 09:00 Aspirin (Halfprin) 81 mg DAILY PO Last administered on 11/04/16 08:22; Admin Dose 81 MG; Start 11/03/16 at 09:00 Atenolol (Tenormin) 50 mg DAILY PO Last administered on 11/03/16 11:02; Admin Dose 50 MG; Start 11/03/16 at 09:00 Donepezil HCl (Aricept) 5 mg DAILY PO Last administered on 11/04/16 08:22; Admin Dose 5 MG; Start 11/03/16 at 09:00 Memantine (Namenda) 10 mg BID PO Last administered on 11/04/16 08:21; Admin Dose 10 MG; Start 11/02/16 at 21:00 Ondansetron HCl (Zofran Inj) 4 mg Q6H PRN IV NAUSEA AND/OR VOMITING; Start at 14:00 Acetaminophen (Tylenol Tab) 650 mg Q6H PRN PO PAIN LEVEL 1-3 OR FEVER; Start at 14:00 Acetaminophen (Tylenol Supp) 650 mg Q6H PRN [place] PAIN LEVEL 1-3 OR FEVER; Start 11/02/16 at 14:00 Acetaminophen/ Hydrocodone Bitart ([place] (5/325)) 1 tab Q6H PRN PO MODERATE PAIN LEVEL 4-6; Start 11/02/16 at 14:00 Acetaminophen/ Hydrocodone Bitart ([place] (5/325)) 2 tab Q6H PRN PO SEVERE PAIN LEVEL 7-10; Start 11/02/16 at 14:00 Morphine Sulfate (morphine) 2 mg Q4H PRN IV SEVERE PAIN LEVEL 7-10; Start 11/02 at 14:00 Docusate Sodium (Colace) 100 mg Q12H PRN PO CONSTIPATION; Start 11/02/16 at 14: 00 Magnesium Hydroxide (Milk Of Mag) 30 ml DAILY PRN PO CONSTIPATION; Start at 14:00 Bisacodyl 10 mg 10 mg DAILY PRN [place] CONSTIPATION; Start 11/02/16 at 14:00 Sodium Chloride (NS) 1,000 ml @ 100 mls/hr Q10H IV Last administered on 12:01; Admin Dose 100 MLS/HR; Start 11/02/16 at 20:00; Status Future hold Collagenase (Santyl) 1 applic DAILY TOP Last administered on 11/04/16 08:26; Admin Dose 1 APPLIC; Start 11/03/16 at 12:00 Enoxaparin Sodium 40 mg 40 mg DAILY SC Last administered on 11/04/16 08:23; Admin Dose 40 MG; Start 11/03/16 at 14:00 Vancomycin HCl 250 ml @ 125 mls/hr Q24H IVPB Last administered on 11/04/16 14: 56; Admin Dose 125 MLS/HR; Start 11/03/16 at 15:00 Piperacillin Sod/ Tazobactam Sod (Zosyn 3.375gm/ 100 ml (Pmx)) 100 ml @ 200 mls /hr Q8H IVPB Last administered on 11/04/16 12:00; Admin Dose 200 MLS/HR; Start 11/03/16 at 20:00 Famotidine (Pepcid Iv) 20 mg DAILY IV Last administered on 11/04/16 08:21; Admin Dose 20 MG; Start 11/04/16 at 09:00 Midodrine (Proamatine) 10 mg TID@,13,17 PO Last administered on 11/04/16 17: 03; Admin Dose 10 MG; Start 11/03/16 at 21:30 Miscellaneous Information (*Rx Drug Level Order Reminder*) VANCOMYCIN TROUGH 11/05 AT 1400 ONCE ONCE XX ; Start 11/05/16 at 14:00; Stop 11/05/16 at 14:01 ANISA PARRISH M.D. 11/05/16 1809: Assessment/Plan Assessment/Plan Additional Assessment/Plan Francois attestation: I discussed the management with FRANTZ Melara and agree with above Exam/Review of Systems Results Result Diagram: 11/04/16 0709 11/04/16 0709 PAULA MELARA NP Nov 04, 2016 20:15 ANISA PARRISH M.D. Nov 05, 2016 18:09
[2016-11-05] VITALS (24 sets, daily range): BP systolic 93–121; BP diastolic 51–68; PULSE 70–81; RESP 16–28
[2016-11-05] MEDS: PIPER-TAZO 3.375 GM IV (PMX) 100 ML IVPB SCH ×3 (04:20→20:14)
[2016-11-05 07:44] LABS: ABNORMAL IP MESSAGE 1; HEMATOCRIT 25.1 % (37.0-47.0); HEMOGLOBIN 7.8 g/dl (12.0-16.0); MEAN CORPUSCULAR HEMOGLOBIN 25.5 pg (29.0-33.0); MEAN CORPUSCULAR HGB CONC 31.1 g/dl (32.0-37.0); NUCLEATED RED BLOOD CELLS% 0.3 /100WBC (0.0-0.0); PLATELET COUNT 388 10^3/UL (140-415); POSITIVE DIFF @See below; RED BLOOD COUNT 3.06 10^6/ul (4.20-5.40); RED CELL DISTRIBUTION WIDTH 17.1 % (11.5-14.5); WHITE BLOOD COUNT 15.8 10^3/ul (4.8-10.8)
[2016-11-05 08:02] LABS: CALCIUM 7.8 mg/dl (8.4-10.2); CREATININE 0.54 mg/dl (0.44-1.00); POTASSIUM 3.7 mmol/L (3.5-5.1)
[2016-11-05] MEDS: AMLODIPINE 5 MG TAB PO SCH (08:37)
[2016-11-05] MEDS: ATENOLOL 50 MG TAB PO SCH (08:37)
[2016-11-05] MEDS: FAMOTIDINE 20 MG INJ IV SCH (08:43)
[2016-11-05] MEDS: DONEPEZIL 5 MG TAB PO SCH (08:43)
[2016-11-05] MEDS: ASPIRIN (EC) 81 MG TAB PO SCH (08:43)
[2016-11-05] MEDS: MEMANTINE 10 MG TAB PO SCH ×2 (08:44→20:14)
[2016-11-05] MEDS: SOD CHLORIDE 0.9% 1,000 ML IV SCH ×2 (08:44→17:10)
[2016-11-05] MEDS: ENOXAPARIN 40 MG/0.4 ML SYG SC SCH (08:55)
[2016-11-05] MEDS: COLLAGENASE 30 GM TUBE TOP SCH (09:00)
[2016-11-05] MEDS: MIDODRINE 5 MG TAB PO SCH ×3 (09:47→17:00)
--- NOTE | 2016-11-05 09:54 | CONS ---
Date/Time of Note Date/Time of Note DATE: 11/05/16 TIME: 09:53 Consult Date/Type/Reason Admit Date/Time Nov 02, 2016 at 15:32 Initial Consult Date 11/03/16 Type of Consultation: Pulm Ordering Provider: CAMDEN ANDRADE Subjective No significant changes. Objective Vital Signs Date Time Temp Pulse Resp B/P Pulse Ox O2 Delivery O2 Flow Rate FiO2 11/05/16 08:12 79 11/05/16 08:01 96.4 28 104/53 97 11/05/16 04:47 100 11/04/16 05:19 BIPAP 11/03/16 08:30 15.0 Intake and Output 11/04/16 11/04/16 11/05/16 15:00 23:00 07:00 Intake Total 1000 ml 1250 ml 630 ml Output Total 300 ml 400 ml Balance 1000 ml 950 ml 230 ml Exam GENERAL: Elderly [place] lady VITAL SIGNS: per chart NECK: Supple. No JVD or lymphadenopathy. CARDIAC EXAM: S1, S2. No added sounds or murmurs. CHEST: Diminished air entry both lung keating ABDOMEN: Soft, nontender. No guarding or rebound. EXTREMITIES: No cyanosis, clubbing or edema. NEUROLOGIC: Generalized weakness. No focal deficits. Results/Medications Result Diagram: 11/05/16 0640 11/05/16 0640 Results 24 hrs Laboratory Tests Test 11/04/16 12:25 11/05/16 06:40 Urine Osmolality 409 Urine Random Sodium < 5 L White Blood Count 15.8 #H Red Blood Count 3.06 L Hemoglobin 7.8 L Hematocrit 25.1 L Mean Corpuscular Volume 82.0 Mean Corpuscular Hemoglobin 25.5 L Mean Corpuscular Hemoglobin Concent 31.1 L Red Cell Distribution Width 17.1 H Platelet Count 388 # Mean Platelet Volume 9.0 Neutrophils % Lymphocytes % Monocytes % Eosinophils % Basophils % Nucleated Red Blood Cells % 0.3 H Neutrophils # (Manual) 13.3 H Lymphocytes # Monocytes # Eosinophils # Basophils # Nucleated Red Blood Cells # Sodium Level 129 L Potassium Level 3.7 Chloride Level 99 Carbon Dioxide Level 23 Anion Gap 11 Blood Urea Nitrogen 29 H Creatinine 0.54 Glucose Level 136 Calcium Level 7.8 L Medications Current Medications Amlodipine Besylate (Norvasc) 5 mg DAILY PO ; Start 11/03/16 at 09:00 Aspirin (Halfprin) 81 mg DAILY PO Last administered on 11/05/16 08:43; Admin Dose 81 MG; Start 11/03/16 at 09:00 Atenolol (Tenormin) 50 mg DAILY PO Last administered on 11/03/16 11:02; Admin Dose 50 MG; Start 11/03/16 at 09:00 Donepezil HCl (Aricept) 5 mg DAILY PO Last administered on 11/05/16 08:43; Admin Dose 5 MG; Start 11/03/16 at 09:00 Memantine (Namenda) 10 mg BID PO Last administered on 11/05/16 08:44; Admin Dose 10 MG; Start 11/02/16 at 21:00 Ondansetron HCl (Zofran Inj) 4 mg Q6H PRN IV NAUSEA AND/OR VOMITING; Start at 14:00 Acetaminophen (Tylenol Tab) 650 mg Q6H PRN PO PAIN LEVEL 1-3 OR FEVER Last administered on 11/04/16 22:00; Admin Dose 650 MG; Start 11/02/16 at 14:00 Acetaminophen (Tylenol Supp) 650 mg Q6H PRN [place] PAIN LEVEL 1-3 OR FEVER; Start 11/02/16 at 14:00 Acetaminophen/ Hydrocodone Bitart ([place] (5/325)) 1 tab Q6H PRN PO MODERATE PAIN LEVEL 4-6; Start 11/02/16 at 14:00 Acetaminophen/ Hydrocodone Bitart ([place] (5/325)) 2 tab Q6H PRN PO SEVERE PAIN LEVEL 7-10; Start 11/02/16 at 14:00 Morphine Sulfate (morphine) 2 mg Q4H PRN IV SEVERE PAIN LEVEL 7-10; Start 11/02 at 14:00 Docusate Sodium (Colace) 100 mg Q12H PRN PO CONSTIPATION; Start 11/02/16 at 14: 00 Magnesium Hydroxide (Milk Of Mag) 30 ml DAILY PRN PO CONSTIPATION; Start at 14:00 Bisacodyl 10 mg 10 mg DAILY PRN [place] CONSTIPATION; Start 11/02/16 at 14:00 Sodium Chloride (NS) 1,000 ml @ 100 mls/hr Q10H IV Last administered on 08:44; Admin Dose 100 MLS/HR; Start 11/02/16 at 20:00; Status Future hold Collagenase (Santyl) 1 applic DAILY TOP Last administered on 11/04/16 08:26; Admin Dose 1 APPLIC; Start 11/03/16 at 12:00 Enoxaparin Sodium 40 mg 40 mg DAILY SC Last administered on 11/05/16 08:55; Admin Dose 40 MG; Start 11/03/16 at 14:00 Vancomycin HCl 250 ml @ 125 mls/hr Q24H IVPB Last administered on 11/04/16 14: 56; Admin Dose 125 MLS/HR; Start 11/03/16 at 15:00 Piperacillin Sod/ Tazobactam Sod (Zosyn 3.375gm/ 100 ml (Pmx)) 100 ml @ 200 mls /hr Q8H IVPB Last administered on 11/05/16 04:20; Admin Dose 200 MLS/HR; Start 11/03/16 at 20:00 Famotidine (Pepcid Iv) 20 mg DAILY IV Last administered on 11/05/16 08:43; Admin Dose 20 MG; Start 11/04/16 at 09:00 Midodrine (Proamatine) 10 mg TID@09,13,17 PO Last administered on 11/05/16 09: 47; Admin Dose 10 MG; Start 11/03/16 at 21:30 Miscellaneous Information (*Rx Drug Level Order Reminder*) VANCOMYCIN TROUGH 11/05 AT 1400 ONCE ONCE XX ; Start 11/05/16 at 14:00; Stop 11/05/16 at 14:01 Assessment/Plan Chief Complaint/Hosp Course 1. Patient admitted with severe aspiration pneumonia. 2. Advanced dementia. 3. Chronic atrial fibrillation. 4. Hyponatremia. 5. Hypotension with interval resolution after being fluid resuscitated. Plan 1. Continue noninvasive positive pressure ventilation 2. Aspiration precautions 3. DVT and GI prophylaxis 4. Palliative care recommendations recommend inpatient hospice. Problems: ENZO ANTONIO MD, [facility] Nov 05, 2016 09:54
--- NOTE | 2016-11-05 10:20 | PN ---
Date/Time of Note Date/Time of Note DATE: 11/05/16 TIME: 10:18 Assessment/Plan VTE Prophylaxis VTE Prophylaxis Intervention: other Lines/Catheters [facility] Saline Lock Urinary Cath still in place: Yes Reason Cath still needed: urinary retention Assessment/Plan Chief Complaint/Hosp Course Hx of Present Illness This is a 85-year-old female with reported past medical history of pacemaker, arrhythmia, hypertension, dementia, Alzheimer's disease, who came to [facility] after reports of increased shortness of breath. It was reported that patient suffered a fall in July 2016 and since then has been bedbound as well as dysphagia requiring PEG tube placement. As result she does have multiple decubitus ulcers on right lateral olmstead and left lateral olmstead as well as left lateral heel. Patient today comes in after 2 days worsening shortness of breath. Was reported that patient had been receiving PEG tube feedings. Patient likely aspirated and as such was brought to [facility] due to her worse breathing. She did have x-ray done of her chest that showed calcified atherosclerosis in the aorta and perihilar right lower lobe infiltrate. There is also seen blunting of the left costophrenic angle suspect for small pleural effusion. Patient also noted to be febrile with temperature as high as 1 1.4 and hypertensive with blood pressure as low as 75/21 with clinical picture of septic shock likely secondary to pneumonia. She is noted to have hyponatremia which is responding well to NS IVF no neuro symptoms blood pressure also responded well to fluids we were asked to assist with management of her electrolyte issues no significant event overnight no nausea, vomiting, new rash, hematuria or melena Exam Constitutional: alert, distress Head: normocephalic Eyes: nl conjunctiva Neck: No jvd Respiratory: crackles/rales, diminished breath sounds Cardiovascular: other Gastrointestinal: soft Neurological: lethargic Skin: other (Multiple decubitus ulcers noted on right lateral olmstead as well as left lateral olmstead and left lateral heel) Impression and plan 1. Hyponatremia. multifactorial. urine studies confirm salt and volume depletion in setting of lasix use and free water flushes through PEG, CHF. She is responding to NS, however she is becoming volume overloaded will need to decrease rate. no indication for 3 percent saline. 2. Septic shock likely secondary to aspiration pneumonia. Patient noted with elevated fever and tachycardia and hypotension and lactic acid of 4.9. 3. Resp failure: imaging studies were reviewed 4. Hypotension: resolved 5. History of cardiac arrhythmia. Continue to monitor on telemetry. Pacemaker in place. 6. Essential hypertension. Off antihypertensives for now due to hypotension 7. Multiple decubitus ulcers on bilateral legs and sacral area. Wound care consult to follow. Will also do blood cultures. Problems: Exam/Review of Systems Vital Signs Vitals Vital Signs Date Time Temp Pulse Resp B/P Pulse Ox O2 Delivery O2 Flow Rate FiO2 11/05/16 08:12 79 11/05/16 08:01 96.4 28 104/53 97 11/05/16 04:47 100 11/04/16 05:19 BIPAP 11/03/16 08:30 15.0 Intake and Output 11/04/16 11/04/16 11/05/16 15:00 23:00 07:00 Intake Total 1000 ml 1250 ml 630 ml Output Total 300 ml 400 ml Balance 1000 ml 950 ml 230 ml Results Result Diagram: 11/05/16 0640 11/05/16 0640 Results 24 hrs Laboratory Tests Test 11/04/16 12:25 11/05/16 06:40 Urine Osmolality 409 Urine Random Sodium < 5 L White Blood Count 15.8 #H Red Blood Count 3.06 L Hemoglobin 7.8 L Hematocrit 25.1 L Mean Corpuscular Volume 82.0 Mean Corpuscular Hemoglobin 25.5 L Mean Corpuscular Hemoglobin Concent 31.1 L Red Cell Distribution Width 17.1 H Platelet Count 388 # Mean Platelet Volume 9.0 Neutrophils % Lymphocytes % Monocytes % Eosinophils % Basophils % Nucleated Red Blood Cells % 0.3 H Neutrophils # (Manual) 13.3 H Lymphocytes # Monocytes # Eosinophils # Basophils # Nucleated Red Blood Cells # Sodium Level 129 L Potassium Level 3.7 Chloride Level 99 Carbon Dioxide Level 23 Anion Gap 11 Blood Urea Nitrogen 29 H Creatinine 0.54 Glucose Level 136 Calcium Level 7.8 L Medications Medications Current Medications Amlodipine Besylate (Norvasc) 5 mg DAILY PO ; Start 11/03/16 at 09:00 Aspirin (Halfprin) 81 mg DAILY PO Last administered on 11/05/16 08:43; Admin Dose 81 MG; Start 11/03/16 at 09:00 Atenolol (Tenormin) 50 mg DAILY PO Last administered on 11/03/16 11:02; Admin Dose 50 MG; Start 11/03/16 at 09:00 Donepezil HCl (Aricept) 5 mg DAILY PO Last administered on 11/05/16 08:43; Admin Dose 5 MG; Start 11/03/16 at 09:00 Memantine (Namenda) 10 mg BID PO Last administered on 11/05/16 08:44; Admin Dose 10 MG; Start 11/02/16 at 21:00 Ondansetron HCl (Zofran Inj) 4 mg Q6H PRN IV NAUSEA AND/OR VOMITING; Start at 14:00 Acetaminophen (Tylenol Tab) 650 mg Q6H PRN PO PAIN LEVEL 1-3 OR FEVER Last administered on 11/04/16 22:00; Admin Dose 650 MG; Start 11/02/16 at 14:00 Acetaminophen (Tylenol Supp) 650 mg Q6H PRN [place] PAIN LEVEL 1-3 OR FEVER; Start 11/02/16 at 14:00 Acetaminophen/ Hydrocodone Bitart ([place] (5/325)) 1 tab Q6H PRN PO MODERATE PAIN LEVEL 4-6; Start 11/02/16 at 14:00 Acetaminophen/ Hydrocodone Bitart ([place] (5/325)) 2 tab Q6H PRN PO SEVERE PAIN LEVEL 7-10; Start 11/02/16 at 14:00 Morphine Sulfate (morphine) 2 mg Q4H PRN IV SEVERE PAIN LEVEL 7-10; Start 11/02 at 14:00 Docusate Sodium (Colace) 100 mg Q12H PRN PO CONSTIPATION; Start 11/02/16 at 14: 00 Magnesium Hydroxide (Milk Of Mag) 30 ml DAILY PRN PO CONSTIPATION; Start at 14:00 Bisacodyl 10 mg 10 mg DAILY PRN [place] CONSTIPATION; Start 11/02/16 at 14:00 Sodium Chloride (NS) 1,000 ml @ 100 mls/hr Q10H IV Last administered on 08:44; Admin Dose 100 MLS/HR; Start 11/02/16 at 20:00; Status Future hold Collagenase (Santyl) 1 applic DAILY TOP Last administered on 11/04/16 08:26; Admin Dose 1 APPLIC; Start 11/03/16 at 12:00 Enoxaparin Sodium 40 mg 40 mg DAILY SC Last administered on 11/05/16 08:55; Admin Dose 40 MG; Start 11/03/16 at 14:00 Vancomycin HCl 250 ml @ 125 mls/hr Q24H IVPB Last administered on 11/04/16 14: 56; Admin Dose 125 MLS/HR; Start 11/03/16 at 15:00 Piperacillin Sod/ Tazobactam Sod (Zosyn 3.375gm/ 100 ml (Pmx)) 100 ml @ 200 mls /hr Q8H IVPB Last administered on 11/05/16 04:20; Admin Dose 200 MLS/HR; Start 11/03/16 at 20:00 Famotidine (Pepcid Iv) 20 mg DAILY IV Last administered on 11/05/16 08:43; Admin Dose 20 MG; Start 11/04/16 at 09:00 Midodrine (Proamatine) 10 mg TID@09,13,17 PO Last administered on 11/05/16 09: 47; Admin Dose 10 MG; Start 11/03/16 at 21:30 Miscellaneous Information (*Rx Drug Level Order Reminder*) VANCOMYCIN TROUGH 11/05 AT 1400 ONCE ONCE XX ; Start 11/05/16 at 14:00; Stop 11/05/16 at 14:01 CHAD CALHOUN DO Nov 05, 2016 10:20
[2016-11-05 10:36] LABS: ANISOCYTOSIS 1+ (0-0); ERYTHROBLAST% (NRBC) (M) 1 % (0-0); METAMYELOCYTES %M 1 % (0-0); MONOCYTES % (M) 2 % (0-11); MYELOCYTES % (M) 2 % (0-0); PLATELET ESTIMATE NORMAL; POLYCHROMASIA 3+ (0-0); PROMYELOCYTES #M 0 10^3/ul (0-0); PROMYELOCYTES % (M) 2 % (0-0)
--- NOTE | 2016-11-05 13:32 | PN ---
Date/Time of Note Date/Time of Note DATE: 11/05/16 TIME: 13:29 Assessment/Plan VTE Prophylaxis VTE Prophylaxis Intervention: LMWH Lines/Catheters IV [facility] (from [facility] Saline Lock Urinary Cath still in place: Yes Assessment/Plan Chief Complaint/Hosp Course Assessment/Plan 1. Septic shock likely secondary to aspiration pneumonia. Continue with antibiotics. Lab Pack Chemist following. 2. Respiratory failure secondary to #1. Seen on BiPAP today. Patient is DNR/ DNI. Palliative care physician is following. Lab Pack Chemist is following. Bronchodilators as needed. 3. Hyponatremia. IVF per forming roll operator. Monitor level 4. Hypotension secondary to #1. Continue IV fluids as needed 5. History of cardiac arrhythmia. Continue to monitor on telemetry. Pacemaker in place. 6. Essential hypertension. Off antihypertensives for now due to hypotension 7. Multiple decubitus ulcers on bilateral legs and sacral area. Continue with wound care Disposition and plan: Overall prognosis remains poor. plan for inhouse hospice eval. Discussed plan of care with Dr. Luo Problems: Subjective 24 Hr Interval Summary Free Text/Dictation remains on bipap, unchanged, somnolent Exam/Review of Systems Vital Signs Vitals Vital Signs Date Time Temp Pulse Resp B/P Pulse Ox O2 Delivery O2 Flow Rate FiO2 11/05/16 12:38 75 11/05/16 11:48 97.5 16 118/68 100 11/05/16 04:47 100 11/04/16 05:19 BIPAP 11/03/16 08:30 15.0 Intake and Output 11/04/16 11/04/16 11/05/16 15:00 23:00 07:00 Intake Total 1000 ml 1250 ml 630 ml Output Total 300 ml 400 ml Balance 1000 ml 950 ml 230 ml Exam Constitutional: somnolent, on bipap, unchanged Head: normocephalic Eyes: nl conjunctiva Neck: No jvd Respiratory: crackles/rales, diminished breath sounds Cardiovascular: other Gastrointestinal: soft Neurological: lethargic no purposeful response Skin: other (Multiple decubitus ulcers noted on right lateral olm[place] as well as left lateral olm[place] and left lateral heel) Results Result Diagram: 11/05/16 0640 11/05/16 0640 Results 24 hrs Laboratory Tests Test 11/05/16 06:40 White Blood Count 15.8 #H Red Blood Count 3.06 L Hemoglobin 7.8 L Hematocrit 25.1 L Mean Corpuscular Volume 82.0 Mean Corpuscular Hemoglobin 25.5 L Mean Corpuscular Hemoglobin Concent 31.1 L Red Cell Distribution Width 17.1 H Platelet Count 388 # Mean Platelet Volume 9.0 Neutrophils % Segmented Neutrophils % (Manual) 69 Band Neutrophils % (Manual) 20 H Lymphocytes % Lymphocytes % (Manual) 4 L Monocytes % Monocytes % (Manual) 2 Eosinophils % Basophils % Metamyelocytes % (manual) 1 H Myelocytes % (Manual) 2 H Promyelocytes % (Manual) 2 H Nucleated Red Blood Cells % 1 H Neutrophils # (Manual) 11.4 H Band Neutrophils # 3.1 H Absolute Lymphocytes (Manual) 0.6 L Lymphocytes # Monocytes # Absolute Monocytes (Manual) 0.3 Eosinophils # Basophils # Metamyelocytes # 0.1 H Myelocytes # 0.3 H Promyelocytes # 0 Nucleated Red Blood Cells # Platelet Estimate NORMAL Polychromasia 3+ Anisocytosis 1+ Sodium Level 129 L Potassium Level 3.7 Chloride Level 99 Carbon Dioxide Level 23 Anion Gap 11 Blood Urea Nitrogen 29 H Creatinine 0.54 Glucose Level 136 Uric Acid 4.0 Calcium Level 7.8 L Medications Medications Current Medications Amlodipine Besylate (Norvasc) 5 mg DAILY PO ; Start 11/03/16 at 09:00 Aspirin (Halfprin) 81 mg DAILY PO Last administered on 11/05/16 08:43; Admin Dose 81 MG; Start 11/03/16 at 09:00 Atenolol (Tenormin) 50 mg DAILY PO Last administered on 11/03/16 11:02; Admin Dose 50 MG; Start 11/03/16 at 09:00 Donepezil HCl (Aricept) 5 mg DAILY PO Last administered on 11/05/16 08:43; Admin Dose 5 MG; Start 11/03/16 at 09:00 Memantine (Namenda) 10 mg BID PO Last administered on 11/05/16 08:44; Admin Dose 10 MG; Start 11/02/16 at 21:00 Ondansetron HCl (Zofran Inj) 4 mg Q6H PRN IV NAUSEA AND/OR VOMITING; Start at 14:00 Acetaminophen (Tylenol Tab) 650 mg Q6H PRN PO PAIN LEVEL 1-3 OR FEVER Last administered on 11/04/16 22:00; Admin Dose 650 MG; Start 11/02/16 at 14:00 Acetaminophen (Tylenol Supp) 650 mg Q6H PRN [place] PAIN LEVEL 1-3 OR FEVER; Start 11/02/16 at 14:00 Acetaminophen/ Hydrocodone Bitart ([place] (5/325)) 1 tab Q6H PRN PO MODERATE PAIN LEVEL 4-6; Start 11/02/16 at 14:00 Acetaminophen/ Hydrocodone Bitart ([place] (5/325)) 2 tab Q6H PRN PO SEVERE PAIN LEVEL 7-10; Start 11/02/16 at 14:00 Morphine Sulfate (morphine) 2 mg Q4H PRN IV SEVERE PAIN LEVEL 7-10; Start 11/02 at 14:00 Docusate Sodium (Colace) 100 mg Q12H PRN PO CONSTIPATION; Start 11/02/16 at 14: 00 Magnesium Hydroxide (Milk Of Mag) 30 ml DAILY PRN PO CONSTIPATION; Start at 14:00 Bisacodyl 10 mg 10 mg DAILY PRN [place] CONSTIPATION; Start 11/02/16 at 14:00 Sodium Chloride (NS) 1,000 ml @ 100 mls/hr Q10H IV Last administered on 08:44; Admin Dose 100 MLS/HR; Start 11/02/16 at 20:00; Status Future hold Collagenase (Santyl) 1 applic DAILY TOP Last administered on 11/04/16 08:26; Admin Dose 1 APPLIC; Start 11/03/16 at 12:00 Enoxaparin Sodium 40 mg 40 mg DAILY SC Last administered on 11/05/16 08:55; Admin Dose 40 MG; Start 11/03/16 at 14:00 Vancomycin HCl 250 ml @ 125 mls/hr Q24H IVPB Last administered on 11/04/16 14: 56; Admin Dose 125 MLS/HR; Start 11/03/16 at 15:00 Piperacillin Sod/ Tazobactam Sod (Zosyn 3.375gm/ 100 ml (Pmx)) 100 ml @ 200 mls /hr Q8H IVPB Last administered on 11/05/16 12:08; Admin Dose 200 MLS/HR; Start 11/03/16 at 20:00 Famotidine (Pepcid Iv) 20 mg DAILY IV Last administered on 11/05/16 08:43; Admin Dose 20 MG; Start 11/04/16 at 09:00 Midodrine (Proamatine) 10 mg TID@,, PO Last administered on 11/05/16 09: 47; Admin Dose 10 MG; Start 11/03/16 at 21:30 Miscellaneous Information (*Rx Drug Level Order Reminder*) VANCOMYCIN TROUGH 11/05 AT 1400 ONCE ONCE XX ; Start 11/05/16 at 14:00; Stop 11/05/16 at 14:01 CAMDEN ANDRADE Nov 05, 2016 13:32
[2016-11-05] MEDS: VANCOMYCIN 1 GM in NS 250 ML IVPB SCH (15:24)
--- NOTE | 2016-11-05 18:13 | CONS ---
Date/Time of Note Date/Time of Note DATE: 11/05/16 TIME: 18:09 Assessment/Plan Assessment/Plan Chief Complaint/Hosp Course - severe sepsis due to bacteremia, and probable aspiration pneumonia/pneumonitis - bacteremia due to MSSA likely from the decubitus ulcer of the sacrum and LLE - multiple decubitus ulcers: LLE, b/l heel, sacrum - infection of decubitus ulcer of LLE due to MSSA, pseudomonas and another Gram negative bacteria - infection of decubitus ulcer of the sacrum due to MSSA and Gram negative bacteria - hypoxic respiratory failure due to probable aspiration pneumonia/pneumonitis - probable aspiration pneumonia/pneumonitis post-emesis - pleural effusion - CHF - h/o arrhythmias, pacemaker - PEG tube dependence - dementia - DNR recommendations: - pending results: sensitivity of blood cultures from 11/03/2016 (S. aureus), repeat blood cultures (11/04/2016), wound cultures from sacrum and from LLE - will repeat blood cultures until they are clear - repeat CXR to eval infiltrate and/or pleural effusion - d/c IV vancomycin - continue pip/tazo; will adjust antibiotics based on final culture results - wound care consult management d/w Pt's granddaughter by bedside Problems: Consultation Date/Type/Reason Admit Date/Time Nov 02, 2016 at 15:32 Initial Consult Date 11/03/16 Type of Consultation: ID Referring Provider: CAMDEN ANDRADE 24 HR Interval Summary Subjective hx not possible: pt non-verbal Exam/Review of Systems Vital Signs Vitals Vital Signs Date Time Temp Pulse Resp B/P Pulse Ox O2 Delivery O2 Flow Rate FiO2 11/05/16 17:13 74 11/05/16 15:42 96.4 18 121/55 99 11/05/16 15:02 100 11/04/16 05:19 BIPAP 11/03/16 08:30 15.0 Intake and Output 11/04/16 11/04/16 11/05/16 14:59 22:59 06:59 Intake Total 1000 ml 1250 ml 630 ml Output Total 300 ml 400 ml Balance 1000 ml 950 ml 230 ml Exam Constitutional: frail, non-verbal Psych: confusion Head: normocephalic, other (Bipap) Eyes: nl lids ENMT: nl external ears & nose, nl nasal mucosa & septum Respiratory: diminished breath sounds Cardiovascular: nl pulses, regular rate and rhythm Gastrointestinal: non-tender, other (PEG), soft, No distended Musculoskeletal: nl extremities to inspection Extremities: edema Neurological: confused, lethargic Skin: rash or lesions (b/l LEs and sacrum) Results Result Diagram: 11/05/16 0640 11/05/16 0640 Results 24 hrs Laboratory Tests Test 11/05/16 06:40 11/05/16 14:03 White Blood Count 15.8 #H Red Blood Count 3.06 L Hemoglobin 7.8 L Hematocrit 25.1 L Mean Corpuscular Volume 82.0 Mean Corpuscular Hemoglobin 25.5 L Mean Corpuscular Hemoglobin Concent 31.1 L Red Cell Distribution Width 17.1 H Platelet Count 388 # Mean Platelet Volume 9.0 Neutrophils % Segmented Neutrophils % (Manual) 69 Band Neutrophils % (Manual) 20 H Lymphocytes % Lymphocytes % (Manual) 4 L Monocytes % Monocytes % (Manual) 2 Eosinophils % Basophils % Metamyelocytes % (manual) 1 H Myelocytes % (Manual) 2 H Promyelocytes % (Manual) 2 H Nucleated Red Blood Cells % 1 H Neutrophils # (Manual) 11.4 H Band Neutrophils # 3.1 H Absolute Lymphocytes (Manual) 0.6 L Lymphocytes # Monocytes # Absolute Monocytes (Manual) 0.3 Eosinophils # Basophils # Metamyelocytes # 0.1 H Myelocytes # 0.3 H Promyelocytes # 0 Nucleated Red Blood Cells # Platelet Estimate NORMAL Polychromasia 3+ Anisocytosis 1+ Sodium Level 129 L Potassium Level 3.7 Chloride Level 99 Carbon Dioxide Level 23 Anion Gap 11 Blood Urea Nitrogen 29 H Creatinine 0.54 Glucose Level 136 Uric Acid 4.0 Calcium Level 7.8 L Vancomycin Level Trough 10.3 Medications Medications Current Medications Amlodipine Besylate (Norvasc) 5 mg DAILY PO ; Start 11/03/16 at 09:00 Aspirin (Halfprin) 81 mg DAILY PO Last administered on 11/05/16 08:43; Admin Dose 81 MG; Start 11/03/16 at 09:00 Atenolol (Tenormin) 50 mg DAILY PO Last administered on 11/03/16 11:02; Admin Dose 50 MG; Start 11/03/16 at 09:00 Donepezil HCl (Aricept) 5 mg DAILY PO Last administered on 11/05/16 08:43; Admin Dose 5 MG; Start 11/03/16 at 09:00 Memantine (Namenda) 10 mg BID PO Last administered on 11/05/16 08:44; Admin Dose 10 MG; Start 11/02/16 at 21:00 Ondansetron HCl (Zofran Inj) 4 mg Q6H PRN IV NAUSEA AND/OR VOMITING; Start at 14:00 Acetaminophen (Tylenol Tab) 650 mg Q6H PRN PO PAIN LEVEL 1-3 OR FEVER Last administered on 11/04/16 22:00; Admin Dose 650 MG; Start 11/02/16 at 14:00 Acetaminophen (Tylenol Supp) 650 mg Q6H PRN [place] PAIN LEVEL 1-3 OR FEVER; Start 11/02/16 at 14:00 Acetaminophen/ Hydrocodone Bitart ([place] (5/325)) 1 tab Q6H PRN PO MODERATE PAIN LEVEL 4-6; Start 11/02/16 at 14:00 Acetaminophen/ Hydrocodone Bitart ([place] (5/325)) 2 tab Q6H PRN PO SEVERE PAIN LEVEL 7-10; Start 11/02/16 at 14:00 Morphine Sulfate (morphine) 2 mg Q4H PRN IV SEVERE PAIN LEVEL 7-10; Start 11/02 at 14:00 Docusate Sodium (Colace) 100 mg Q12H PRN PO CONSTIPATION; Start 11/02/16 at 14: 00 Magnesium Hydroxide (Milk Of Mag) 30 ml DAILY PRN PO CONSTIPATION; Start at 14:00 Bisacodyl 10 mg 10 mg DAILY PRN [place] CONSTIPATION; Start 11/02/16 at 14:00 Sodium Chloride (NS) 1,000 ml @ 100 mls/hr Q10H IV Last administered on 08:44; Admin Dose 100 MLS/HR; Start 11/02/16 at 20:00; Status Future hold Collagenase (Santyl) 1 applic DAILY TOP Last administered on 11/04/16 08:26; Admin Dose 1 APPLIC; Start 11/03/16 at 12:00 Enoxaparin Sodium 40 mg 40 mg DAILY SC Last administered on 11/05/16 08:55; Admin Dose 40 MG; Start 11/03/16 at 14:00 Vancomycin HCl 250 ml @ 125 mls/hr Q24H IVPB Last administered on 11/05/16 15: 24; Admin Dose 125 MLS/HR; Start 11/03/16 at 15:00; Stop 11/05/16 at 20:00 Piperacillin Sod/ Tazobactam Sod (Zosyn 3.375gm/ 100 ml (Pmx)) 100 ml @ 200 mls /hr Q8H IVPB Last administered on 11/05/16 12:08; Admin Dose 200 MLS/HR; Start 11/03/16 at 20:00 Famotidine (Pepcid Iv) 20 mg DAILY IV Last administered on 11/05/16 08:43; Admin Dose 20 MG; Start 11/04/16 at 09:00 Midodrine 10 mg 10 mg TID@,,17 PO Last administered on 11/05/16 09:47; Admin Dose 10 MG; Start 11/03/16 at 21:30 Vancomycin HCl/ Sodium Chloride (Vancocin/NS) 250 ml @ 83.333 mls/ hr Q24H IVPB ; Start 11/06/16 at 10:00 ANISA RO M.D. Nov 05, 2016 18:13
[2016-11-06] VITALS (24 sets, daily range): BP systolic 87–108; BP diastolic 50–62; PULSE 51–84; RESP 18–24
[2016-11-06] MEDS: PIPER-TAZO 3.375 GM IV (PMX) 100 ML IVPB SCH ×3 (05:14→20:47)
[2016-11-06] MEDS: SOD CHLORIDE 0.9% 1,000 ML IV SCH (05:14)
--- NOTE | 2016-11-06 09:41 | CONS ---
Date/Time of Note Date/Time of Note DATE: 11/06/16 TIME: 09:38 Assessment/Plan Assessment/Plan Additional Assessment/Plan Assessment and recommendations; 1. Patient admitted with severe bilateral pneumonia with radiological improvement. Currently on appropriate broad-spectrum antibiotic coverage. 2. Advanced dementia. 3. Chronic atrial fibrillation. 4. Persistent hypoxemia. Continue current treatment. Prognosis is poor. Consultation Date/Type/Reason Admit Date/Time Nov 02, 2016 at 15:32 Initial Consult Date 11/03/16 Type of Consultation: Pulmonary Referring Provider: CAMDEN ANDRADE 24 HR Interval Summary Free Text/Dictation Patient condition remains tenuous at best. Still requiring BiPAP at 100% FiO2. Due to advanced dementia patient remains completely unresponsive. Exam/Review of Systems Vital Signs Vitals Vital Signs Date Time Temp Pulse Resp B/P Pulse Ox O2 Delivery O2 Flow Rate FiO2 11/06/16 08:26 76 97 100 11/06/16 07:57 98.6 18 108/52 11/04/16 05:19 BIPAP 11/03/16 08:30 15.0 Intake and Output 11/05/16 11/05/16 11/06/16 15:00 23:00 07:00 Intake Total 1000 ml 1750 ml 660 ml Output Total 400 ml 650 ml Balance 1000 ml 1350 ml 10 ml Exam HEENT exam; supple neck, no JVD. No lymphadenopathy. Midline trachea. Patient is edentulous. Chest exam; diminished breath sounds bilaterally. S1-S2 audible, irregular rhythm. No murmurs. Abdominal exam; soft, no organomegaly. Bowel sounds audible. Extremity exam; trace edema. CORPORATE QUALITY ENGINEER exam; patient remains unresponsive. Results Result Diagram: 11/05/16 0640 11/05/16 0640 Results 24 hrs Laboratory Tests Test 11/05/16 14:03 Vancomycin Level Trough 10.3 Medications Medications Current Medications Amlodipine Besylate (Norvasc) 5 mg DAILY PO ; Start 11/03/16 at 09:00 Aspirin (Halfprin) 81 mg DAILY PO Last administered on 11/05/16 08:43; Admin Dose 81 MG; Start 11/03/16 at 09:00 Atenolol (Tenormin) 50 mg DAILY PO Last administered on 11/03/16 11:02; Admin Dose 50 MG; Start 11/03/16 at 09:00 Donepezil HCl (Aricept) 5 mg DAILY PO Last administered on 11/05/16 08:43; Admin Dose 5 MG; Start 11/03/16 at 09:00 Memantine (Namenda) 10 mg BID PO Last administered on 11/05/16 20:14; Admin Dose 10 MG; Start 11/02/16 at 21:00 Ondansetron HCl (Zofran Inj) 4 mg Q6H PRN IV NAUSEA AND/OR VOMITING; Start at 14:00 Acetaminophen (Tylenol Tab) 650 mg Q6H PRN PO PAIN LEVEL 1-3 OR FEVER Last administered on 11/04/16 22:00; Admin Dose 650 MG; Start 11/02/16 at 14:00 Acetaminophen (Tylenol Supp) 650 mg Q6H PRN [place] PAIN LEVEL 1-3 OR FEVER; Start 11/02/16 at 14:00 Acetaminophen/ Hydrocodone Bitart ([place] (5/325)) 1 tab Q6H PRN PO MODERATE PAIN LEVEL 4-6; Start 11/02/16 at 14:00 Acetaminophen/ Hydrocodone Bitart ([place] (5/325)) 2 tab Q6H PRN PO SEVERE PAIN LEVEL 7-10; Start 11/02/16 at 14:00 Morphine Sulfate (morphine) 2 mg Q4H PRN IV SEVERE PAIN LEVEL 7-10; Start 11/02 at 14:00 Docusate Sodium (Colace) 100 mg Q12H PRN PO CONSTIPATION; Start 11/02/16 at 14: 00 Magnesium Hydroxide (Milk Of Mag) 30 ml DAILY PRN PO CONSTIPATION; Start at 14:00 Bisacodyl 10 mg 10 mg DAILY PRN [place] CONSTIPATION; Start 11/02/16 at 14:00 Sodium Chloride (NS) 1,000 ml @ 50 mls/hr Q20H IV Last administered on 05:14; Admin Dose 100 MLS/HR; Start 11/02/16 at 20:00; Status Future hold Collagenase (Santyl) 1 applic DAILY TOP Last administered on 11/04/16 08:26; Admin Dose 1 APPLIC; Start 11/03/16 at 12:00 Enoxaparin Sodium 40 mg 40 mg DAILY SC Last administered on 11/05/16 08:55; Admin Dose 40 MG; Start 11/03/16 at 14:00 Piperacillin Sod/ Tazobactam Sod (Zosyn 3.375gm/ 100 ml (Pmx)) 100 ml @ 200 mls /hr Q8H IVPB Last administered on 11/06/16 05:14; Admin Dose 200 MLS/HR; Start 11/03/16 at 20:00 Famotidine (Pepcid Iv) 20 mg DAILY IV Last administered on 11/05/16 08:43; Admin Dose 20 MG; Start 11/04/16 at 09:00 Midodrine (Proamatine) 10 mg TID@,,17 PO Last administered on 11/05/16 09: 47; Admin Dose 10 MG; Start 11/03/16 at 21:30 YESENIA STONE Nov 06, 2016 09:41
--- NOTE | 2016-11-06 09:46 | PN ---
DATE: 11/06/2016 SUBJECTIVE DATA: The patient is currently on BiPAP in serious condition. No other events noted. OBJECTIVE DATA: VITAL SIGNS: Blood pressure is 108/52, respirations 18, pulse 67, temperature 98.6. HEENT: Head is normocephalic. NECK: Supple. HEART: Regular rate. LUNGS: Diminished breath sounds at the base. ABDOMEN: Soft, nontender to palpation. No rebound or guarding. EXTREMITIES: Negative for clubbing, cyanosis. No edema. DERMATOLOGIC: No rashes. MUSCULOSKELETAL: No joint effusion. NEUROLOGIC: Unchanged exam. MEDICATIONS: Patient patient's medications reviewed. LABORATORY AND DIAGNOSTIC DATA: Currently pending. ASSESSMENT AND PLAN: 1. Hyponatremia, etiology is likely multifactorial. The patient is currently on normal saline with improvement in sodium levels. Will continue to monitor. 2. Sepsis. Continue current antibiotic regimen. 3. Respiratory failure. The patient is on BiPAP. Continue. 4. Hypertension, resolved. 5. Anemia. Continue to monitor on telemetry. 6. Hypertension, currently off antihypertensive medication. 7. Multiple decubitus wound. Continue wound care. Dictated By: Connor Hodgson DO /abimbola/chan /Document#: [id number]
[2016-11-06] MEDS: FAMOTIDINE 20 MG INJ IV SCH (09:50)
[2016-11-06] MEDS: DONEPEZIL 5 MG TAB PO SCH (09:50)
[2016-11-06] MEDS: MEMANTINE 10 MG TAB PO SCH ×2 (09:51→20:47)
[2016-11-06] MEDS: ASPIRIN (EC) 81 MG TAB PO SCH (09:51)
[2016-11-06] MEDS: ATENOLOL 50 MG TAB PO SCH (09:52)
[2016-11-06] MEDS: AMLODIPINE 5 MG TAB PO SCH (09:53)
[2016-11-06] MEDS: COLLAGENASE 30 GM TUBE TOP SCH (09:55)
[2016-11-06] MEDS ORDERED: VANCOMYCIN 1.25 GM in SOD CHLORIDE 0.9% 250 ML IVPB SCH (10:00)
[2016-11-06] MEDS: ENOXAPARIN 40 MG/0.4 ML SYG SC SCH (10:17)
[2016-11-06] MEDS: MIDODRINE 5 MG TAB PO SCH ×3 (10:40→18:28)
[2016-11-06 11:48] LABS: ABNORMAL IP MESSAGE 1; HEMATOCRIT 25.3 % (37.0-47.0); HEMOGLOBIN 7.6 g/dl (12.0-16.0); MEAN CORPUSCULAR HEMOGLOBIN 25.2 pg (29.0-33.0); MEAN CORPUSCULAR VOLUME 84.1 fl (82.0-101.0); MEAN PLATELET VOLUME 8.3 fl (7.4-10.4); NUCLEATED RED BLOOD CELLS% 0.6 /100WBC (0.0-0.0); PLATELET COUNT 328 10^3/UL (140-415); RED BLOOD COUNT 3.01 10^6/ul (4.20-5.40); RED CELL DISTRIBUTION WIDTH 17.5 % (11.5-14.5); WHITE BLOOD COUNT 14.9 10^3/ul (4.8-10.8)
[2016-11-06 12:11] LABS: CREATININE 0.52 mg/dl (0.44-1.00); POTASSIUM 3.7 mmol/L (3.5-5.1)
[2016-11-06 12:20] LABS: POSITIVE DIFF @See below
[2016-11-06 13:37] LABS: EOSINOPHILS % (M) 2 % (0-7); ERYTHROBLAST% (NRBC) (M) 1 % (0-0); HYPOCHROMASIA 1+ (0-0); MONOCYTES % (M) 8 % (0-11); PLATELET ESTIMATE DECREASED; POLYCHROMASIA 3+ (0-0)
--- NOTE | 2016-11-06 15:01 | PN ---
Date/Time of Note Date/Time of Note DATE: 11/06/16 TIME: 14:33 Assessment/Plan VTE Prophylaxis VTE Prophylaxis Intervention: SCD's Lines/Catheters IV Catheter Type (from Nrsg): Saline Lock Urinary Cath still in place: Yes Reason Cath still needed: pres ulcer contaminated by urine Assessment/Plan Assessment/Plan 85 yo F with advanced dementia with resultant dysphagia discharged on home hospice readmitted for SOB 2/2 aspiration pna. PLAN #aspiraiton pna: -cont abx #hyponatremia: TSH ok, check AM cortisol. suspect SIADH -no free water -need to stop IVFs as pt appears to be getting volume overloaded given swelling #dispo: hospice team to talk to patient's family to clarify goals of care. Given respiratory situation, likely qualifies for GIP Subjective 24 Hr Interval Summary Free Text/Dictation Case dw rep from hospice, unclear why pt was brought back to the hospital as I discharged her last month on home hospice Exam/Review of Systems Vital Signs Vitals Vital Signs Date Time Temp Pulse Resp B/P Pulse Ox O2 Delivery O2 Flow Rate FiO2 11/06/16 12:45 65 100 100 11/06/16 11:37 98.8 18 90/55 11/04/16 05:19 BIPAP 11/03/16 08:30 15.0 Intake and Output 11/05/16 11/05/16 11/06/16 15:00 23:00 07:00 Intake Total 1000 ml 1750 ml 660 ml Output Total 400 ml 650 ml Balance 1000 ml 1350 ml 10 ml Exam wearing BiPap wheezes over ant lung keating abd soft +BL UE swellling no rashes Results Result Diagram: 11/06/16 1136 11/06/16 1136 Results 24 hrs Laboratory Tests Test 11/06/16 11:36 White Blood Count 14.9 H Red Blood Count 3.01 L Hemoglobin 7.6 L Hematocrit 25.3 L Mean Corpuscular Volume 84.1 Mean Corpuscular Hemoglobin 25.2 L Mean Corpuscular Hemoglobin Concent 30.0 L Red Cell Distribution Width 17.5 H Platelet Count 328 Mean Platelet Volume 8.3 Neutrophils % Segmented Neutrophils % (Manual) 70 Band Neutrophils % (Manual) 14 H Lymphocytes % Lymphocytes % (Manual) 7 L Monocytes % Monocytes % (Manual) 8 Eosinophils % Eosinophils % (Manual) 2 Basophils % Nucleated Red Blood Cells % 1 H Neutrophils # (Manual) 10.7 H Band Neutrophils # 2.0 H Absolute Lymphocytes (Manual) 1.0 Lymphocytes # Monocytes # Absolute Monocytes (Manual) 1.1 H Eosinophils # Basophils # Nucleated Red Blood Cells # Platelet Estimate DECREASED Polychromasia 3+ Hypochromasia 1+ Sodium Level 128 L Potassium Level 3.7 Chloride Level 99 Carbon Dioxide Level 25 Anion Gap 8 Blood Urea Nitrogen 34 H Creatinine 0.52 Glucose Level 143 Calcium Level 8.0 L Medications Medications Current Medications Amlodipine Besylate (Norvasc) 5 mg DAILY PO Last administered on 11/06/16 09:53 ; Admin Dose 5 MG; Start 11/03/16 at 09:00 Aspirin (Halfprin) 81 mg DAILY PO Last administered on 11/06/16 09:51; Admin Dose 81 MG; Start 11/03/16 at 09:00 Atenolol (Tenormin) 50 mg DAILY PO Last administered on 11/06/16 09:52; Admin Dose 50 MG; Start 11/03/16 at 09:00 Donepezil HCl (Aricept) 5 mg DAILY PO Last administered on 11/06/16 09:50; Admin Dose 5 MG; Start 11/03/16 at 09:00 Memantine (Namenda) 10 mg BID PO Last administered on 11/06/16 09:51; Admin Dose 10 MG; Start 11/02/16 at 21:00 Ondansetron HCl (Zofran Inj) 4 mg Q6H PRN IV NAUSEA AND/OR VOMITING; Start at 14:00 Acetaminophen (Tylenol Tab) 650 mg Q6H PRN PO PAIN LEVEL 1-3 OR FEVER Last administered on 11/04/16 22:00; Admin Dose 650 MG; Start 11/02/16 at 14:00 Acetaminophen (Tylenol Supp) 650 mg Q6H PRN [place] PAIN LEVEL 1-3 OR FEVER; Start 11/02/16 at 14:00 Acetaminophen/ Hydrocodone Bitart ([place] (5/325)) 1 tab Q6H PRN PO MODERATE PAIN LEVEL 4-6; Start 11/02/16 at 14:00 Acetaminophen/ Hydrocodone Bitart ([place] (5/325)) 2 tab Q6H PRN PO SEVERE PAIN LEVEL 7-10; Start 11/02/16 at 14:00 Morphine Sulfate (morphine) 2 mg Q4H PRN IV SEVERE PAIN LEVEL 7-10; Start 11/02 at 14:00 Docusate Sodium (Colace) 100 mg Q12H PRN PO CONSTIPATION; Start 11/02/16 at 14: 00 Magnesium Hydroxide (Milk Of Mag) 30 ml DAILY PRN PO CONSTIPATION; Start at 14:00 Bisacodyl 10 mg 10 mg DAILY PRN [place] CONSTIPATION; Start 11/02/16 at 14:00 Sodium Chloride (NS) 1,000 ml @ 50 mls/hr Q20H IV Last administered on 05:14; Admin Dose 100 MLS/HR; Start 11/02/16 at 20:00; Status Future hold Collagenase (Santyl) 1 applic DAILY TOP Last administered on 11/06/16 09:55; Admin Dose 1 APPLIC; Start 11/03/16 at 12:00 Enoxaparin Sodium 40 mg 40 mg DAILY SC Last administered on 11/06/16 10:17; Admin Dose 40 MG; Start 11/03/16 at 14:00 Piperacillin Sod/ Tazobactam Sod (Zosyn 3.375gm/ 100 ml (Pmx)) 100 ml @ 200 mls /hr Q8H IVPB Last administered on 11/06/16 12:18; Admin Dose 200 MLS/HR; Start 11/03/16 at 20:00 Famotidine (Pepcid Iv) 20 mg DAILY IV Last administered on 11/06/16 09:50; Admin Dose 20 MG; Start 11/04/16 at 09:00 Midodrine (Proamatine) 10 mg TID@,,17 PO Last administered on 11/06/16 12: 17; Admin Dose 10 MG; Start 11/03/16 at 21:30 SUMMER BHATTI MD Nov 06, 2016 14:52
--- NOTE | 2016-11-06 17:15 | CONS ---
PAULA MELARA SUPERVISOR LAUNDRY 11/06/16 1715: Date/Time of Note Date/Time of Note DATE: 11/06/16 TIME: 17:06 Assessment/Plan Assessment/Plan Chief Complaint/Hosp Course - severe sepsis due to bacteremia, and probable aspiration pneumonia/pneumonitis - bacteremia due to MSSA likely from the decubitus ulcer of the sacrum and LLE - multiple decubitus ulcers: LLE, b/l heel, sacrum - infection of decubitus ulcer of LLE due to MSSA, pseudomonas and another Gram negative bacteria - infection of decubitus ulcer of the sacrum due to MSSA and Gram negative bacteria - hypoxic respiratory failure due to probable aspiration pneumonia/pneumonitis - probable aspiration pneumonia/pneumonitis post-emesis - pleural effusion - CHF - h/o arrhythmias, pacemaker - PEG tube dependence - dementia - DNR recommendations: - pending results: repeat blood cultures (NTD) on 11/04/2016, wound cultures from sacrum (prelim - stenotrophomonas, CoNS, GNR, and coliform) and from LLE (MSSA, pseudomonas, and E. Coli) - repeat CXR in AM to eval infiltrate and/or pleural effusion (ordered) - continue pip/tazo; will adjust antibiotics based on final culture results - wound care consult Management d/w Pt's you and Dr. Parrish Problems: Consultation Date/Type/Reason Admit Date/Time Nov 02, 2016 at 15:32 Initial Consult Date 11/03/16 Type of Consultation: Infectious Disease Referring Provider: CAMDEN ANDRADE 24 HR Interval Summary Free Text/Dictation No acute issues. Remains afebrile. Unable to perform ROS d/t encephalopathy. Exam/Review of Systems Vital Signs Vitals Vital Signs Date Time Temp Pulse Resp B/P Pulse Ox O2 Delivery O2 Flow Rate FiO2 11/06/16 16:21 63 11/06/16 15:44 98.6 18 92/62 100 11/06/16 14:59 100 11/04/16 05:19 BIPAP 11/03/16 08:30 15.0 Intake and Output 11/05/16 11/05/16 11/06/16 15:00 23:00 07:00 Intake Total 1000 ml 1750 ml 660 ml Output Total 400 ml 650 ml Balance 1000 ml 1350 ml 10 ml Exam Constitutional: frail, non-verbal, other (on Bipap) Head: atraumatic, normocephalic Respiratory: crackles/rales Cardiovascular: regular rate and rhythm Gastrointestinal: non-tender, other (Gtube with tube feeds), soft Genitourinary - Female: other (Goins catheter present) Extremities: edema Neurological: lethargic Skin: other (multiple wounds - see nurse note and photos for details; LLE and and bilateral heel dressings c/d/i; wound with eschar of the sacrum) Results Result Diagram: 11/06/16 1136 11/06/16 1136 Results 24 hrs Laboratory Tests Test 11/06/16 11:36 11/06/16 15:13 White Blood Count 14.9 H Red Blood Count 3.01 L Hemoglobin 7.6 L Hematocrit 25.3 L Mean Corpuscular Volume 84.1 Mean Corpuscular Hemoglobin 25.2 L Mean Corpuscular Hemoglobin Concent 30.0 L Red Cell Distribution Width 17.5 H Platelet Count 328 Mean Platelet Volume 8.3 Neutrophils % Segmented Neutrophils % (Manual) 70 Band Neutrophils % (Manual) 14 H Lymphocytes % Lymphocytes % (Manual) 7 L Monocytes % Monocytes % (Manual) 8 Eosinophils % Eosinophils % (Manual) 2 Basophils % Nucleated Red Blood Cells % 1 H Neutrophils # (Manual) 10.7 H Band Neutrophils # 2.0 H Absolute Lymphocytes (Manual) 1.0 Lymphocytes # Monocytes # Absolute Monocytes (Manual) 1.1 H Eosinophils # Basophils # Nucleated Red Blood Cells # Platelet Estimate DECREASED Polychromasia 3+ Hypochromasia 1+ Sodium Level 128 L Potassium Level 3.7 Chloride Level 99 Carbon Dioxide Level 25 Anion Gap 8 Blood Urea Nitrogen 34 H Creatinine 0.52 Glucose Level 143 Calcium Level 8.0 L Random Cortisol 50.9 Medications Medications Current Medications Amlodipine Besylate (Norvasc) 5 mg DAILY PO Last administered on 11/06/16 09:53 ; Admin Dose 5 MG; Start 11/03/16 at 09:00 Aspirin (Halfprin) 81 mg DAILY PO Last administered on 11/06/16 09:51; Admin Dose 81 MG; Start 11/03/16 at 09:00 Atenolol (Tenormin) 50 mg DAILY PO Last administered on 11/06/16 09:52; Admin Dose 50 MG; Start 11/03/16 at 09:00 Donepezil HCl (Aricept) 5 mg DAILY PO Last administered on 11/06/16 09:50; Admin Dose 5 MG; Start 11/03/16 at 09:00 Memantine (Namenda) 10 mg BID PO Last administered on 11/06/16 09:51; Admin Dose 10 MG; Start 11/02/16 at 21:00 Ondansetron HCl (Zofran Inj) 4 mg Q6H PRN IV NAUSEA AND/OR VOMITING; Start at 14:00 Acetaminophen (Tylenol Tab) 650 mg Q6H PRN PO PAIN LEVEL 1-3 OR FEVER Last administered on 11/04/16 22:00; Admin Dose 650 MG; Start 11/02/16 at 14:00 Acetaminophen (Tylenol Supp) 650 mg Q6H PRN [place] PAIN LEVEL 1-3 OR FEVER; Start 11/02/16 at 14:00 Acetaminophen/ Hydrocodone Bitart ([place] (5/325)) 1 tab Q6H PRN PO MODERATE PAIN LEVEL 4-6; Start 11/02/16 at 14:00 Acetaminophen/ Hydrocodone Bitart ([place] (5/325)) 2 tab Q6H PRN PO SEVERE PAIN LEVEL 7-10; Start 11/02/16 at 14:00 Morphine Sulfate (morphine) 2 mg Q4H PRN IV SEVERE PAIN LEVEL 7-10; Start 11/02 at 14:00 Docusate Sodium (Colace) 100 mg Q12H PRN PO CONSTIPATION; Start 11/02/16 at 14: 00 Magnesium Hydroxide (Milk Of Mag) 30 ml DAILY PRN PO CONSTIPATION; Start at 14:00 Bisacodyl (Dulcolax Supp) 10 mg DAILY PRN [place] CONSTIPATION; Start 11/02/16 at 14 :00 Collagenase (Santyl) 1 applic DAILY TOP Last administered on 11/06/16 09:55; Admin Dose 1 APPLIC; Start 11/03/16 at 12:00 Enoxaparin Sodium 40 mg 40 mg DAILY SC Last administered on 11/06/16 10:17; Admin Dose 40 MG; Start 11/03/16 at 14:00 Piperacillin Sod/ Tazobactam Sod (Zosyn 3.375gm/ 100 ml (Pmx)) 100 ml @ 200 mls /hr Q8H IVPB Last administered on 11/06/16 12:18; Admin Dose 200 MLS/HR; Start 11/03/16 at 20:00 Midodrine (Proamatine) 10 mg TID@,,17 PO Last administered on 11/06/16 12: 17; Admin Dose 10 MG; Start 11/03/16 at 21:30 ANISA PARRISH M.D. 11/07/16 1835: Assessment/Plan Assessment/Plan Additional Assessment/Plan Francois attestation: I discussed the management with FRANTZ Melara and agree with above Exam/Review of Systems Results Result Diagram: 11/06/16 1136 11/06/16 1136 PAULA MELARA NP Nov 06, 2016 17:15 ANISA PARRISH M.D. Nov 07, 2016 18:35
--- NOTE | 2016-11-06 17:46 | CONS ---
Date/Time of Note Date/Time of Note DATE: 11/06/16 TIME: 17:43 Assessment/Plan Assessment/Plan Additional Assessment/Plan On 11/03 I had a discussion with patients son.. he agreed that their was no advantage to advanced life support or intubation. Pt remains hospitalized however both son and granddaughter did not want comfort measures or Hospice care.. I will reschedule a family conference to discuss ongoing level of care. Consultation Date/Type/Reason Admit Date/Time Nov 02, 2016 at 15:32 Initial Consult Date 11/03/16 Type of Consultation: Palliative Care Referring Provider: CAMDEN ANDRADE Exam/Review of Systems Vital Signs Vitals Vital Signs Date Time Temp Pulse Resp B/P Pulse Ox O2 Delivery O2 Flow Rate FiO2 11/06/16 17:35 65 100 100 11/06/16 15:44 98.6 18 92/62 11/04/16 05:19 BIPAP 11/03/16 08:30 15.0 Intake and Output 11/05/16 11/05/16 11/06/16 15:00 23:00 07:00 Intake Total 1000 ml 1750 ml 660 ml Output Total 400 ml 650 ml Balance 1000 ml 1350 ml 10 ml Results Result Diagram: 11/06/16 1136 11/06/16 1136 Results 24 hrs Laboratory Tests Test 11/06/16 11:36 11/06/16 15:13 White Blood Count 14.9 H Red Blood Count 3.01 L Hemoglobin 7.6 L Hematocrit 25.3 L Mean Corpuscular Volume 84.1 Mean Corpuscular Hemoglobin 25.2 L Mean Corpuscular Hemoglobin Concent 30.0 L Red Cell Distribution Width 17.5 H Platelet Count 328 Mean Platelet Volume 8.3 Neutrophils % Segmented Neutrophils % (Manual) 70 Band Neutrophils % (Manual) 14 H Lymphocytes % Lymphocytes % (Manual) 7 L Monocytes % Monocytes % (Manual) 8 Eosinophils % Eosinophils % (Manual) 2 Basophils % Nucleated Red Blood Cells % 1 H Neutrophils # (Manual) 10.7 H Band Neutrophils # 2.0 H Absolute Lymphocytes (Manual) 1.0 Lymphocytes # Monocytes # Absolute Monocytes (Manual) 1.1 H Eosinophils # Basophils # Nucleated Red Blood Cells # Platelet Estimate DECREASED Polychromasia 3+ Hypochromasia 1+ Sodium Level 128 L Potassium Level 3.7 Chloride Level 99 Carbon Dioxide Level 25 Anion Gap 8 Blood Urea Nitrogen 34 H Creatinine 0.52 Glucose Level 143 Calcium Level 8.0 L Random Cortisol 50.9 Medications Medications Current Medications Amlodipine Besylate (Norvasc) 5 mg DAILY PO Last administered on 11/06/16 09:53 ; Admin Dose 5 MG; Start 11/03/16 at 09:00 Aspirin (Halfprin) 81 mg DAILY PO Last administered on 11/06/16 09:51; Admin Dose 81 MG; Start 11/03/16 at 09:00 Atenolol (Tenormin) 50 mg DAILY PO Last administered on 11/06/16 09:52; Admin Dose 50 MG; Start 11/03/16 at 09:00 Donepezil HCl (Aricept) 5 mg DAILY PO Last administered on 11/06/16 09:50; Admin Dose 5 MG; Start 11/03/16 at 09:00 Memantine (Namenda) 10 mg BID PO Last administered on 11/06/16 09:51; Admin Dose 10 MG; Start 11/02/16 at 21:00 Ondansetron HCl (Zofran Inj) 4 mg Q6H PRN IV NAUSEA AND/OR VOMITING; Start at 14:00 Acetaminophen (Tylenol Tab) 650 mg Q6H PRN PO PAIN LEVEL 1-3 OR FEVER Last administered on 11/04/16 22:00; Admin Dose 650 MG; Start 11/02/16 at 14:00 Acetaminophen (Tylenol Supp) 650 mg Q6H PRN [place] PAIN LEVEL 1-3 OR FEVER; Start 11/02/16 at 14:00 Acetaminophen/ Hydrocodone Bitart ([place] (5/325)) 1 tab Q6H PRN PO MODERATE PAIN LEVEL 4-6; Start 11/02/16 at 14:00 Acetaminophen/ Hydrocodone Bitart ([place] (5/325)) 2 tab Q6H PRN PO SEVERE PAIN LEVEL 7-10; Start 11/02/16 at 14:00 Morphine Sulfate (morphine) 2 mg Q4H PRN IV SEVERE PAIN LEVEL 7-10; Start 11/02 at 14:00 Docusate Sodium (Colace) 100 mg Q12H PRN PO CONSTIPATION; Start 11/02/16 at 14: 00 Magnesium Hydroxide (Milk Of Mag) 30 ml DAILY PRN PO CONSTIPATION; Start at 14:00 Bisacodyl (Dulcolax Supp) 10 mg DAILY PRN [place] CONSTIPATION; Start 11/02/16 at 14 :00 Collagenase (Santyl) 1 applic DAILY TOP Last administered on 11/06/16 09:55; Admin Dose 1 APPLIC; Start 11/03/16 at 12:00 Enoxaparin Sodium 40 mg 40 mg DAILY SC Last administered on 11/06/16 10:17; Admin Dose 40 MG; Start 11/03/16 at 14:00 Piperacillin Sod/ Tazobactam Sod (Zosyn 3.375gm/ 100 ml (Pmx)) 100 ml @ 200 mls /hr Q8H IVPB Last administered on 11/06/16 12:18; Admin Dose 200 MLS/HR; Start 11/03/16 at 20:00 Midodrine (Proamatine) 10 mg TID@09,13,17 PO Last administered on 11/06/16 12: 17; Admin Dose 10 MG; Start 11/03/16 at 21:30 ATIF ODOM Nov 06, 2016 17:46
[2016-11-07] VITALS (15 sets, daily range): BP systolic 65–81; BP diastolic 34–46; PULSE 60–72; RESP 24–30
[2016-11-07] MEDS: PIPER-TAZO 3.375 GM IV (PMX) 100 ML IVPB SCH ×2 (04:56→12:41)
[2016-11-07 07:36] LABS: ABNORMAL IP MESSAGE 1; HEMATOCRIT 26.5 % (37.0-47.0); HEMOGLOBIN 7.4 g/dl (12.0-16.0); MEAN CORPUSCULAR HEMOGLOBIN 24.5 pg (29.0-33.0); MEAN CORPUSCULAR HGB CONC 27.9 g/dl (32.0-37.0); MEAN CORPUSCULAR VOLUME 87.7 fl (82.0-101.0); MEAN PLATELET VOLUME 9.1 fl (7.4-10.4); NUCLEATED RED BLOOD CELLS% 1.8 /100WBC (0.0-0.0); RED BLOOD COUNT 3.02 10^6/ul (4.20-5.40); WHITE BLOOD COUNT 19.5 10^3/ul (4.8-10.8)
[2016-11-07 07:44] LABS: PLATELET COUNT 402 10^3/UL (140-415); POSITIVE DIFF @See below
[2016-11-07] MEDS: ENOXAPARIN 40 MG/0.4 ML SYG SC SCH (08:04)
[2016-11-07] MEDS: MIDODRINE 5 MG TAB PO SCH ×2 (08:05→12:50)
[2016-11-07] MEDS: MEMANTINE 10 MG TAB PO SCH (08:05)
[2016-11-07] MEDS: DONEPEZIL 5 MG TAB PO SCH (08:05)
[2016-11-07] MEDS: ASPIRIN (EC) 81 MG TAB PO SCH (08:05)
[2016-11-07] MEDS: AMLODIPINE 5 MG TAB PO SCH (08:06)
[2016-11-07] MEDS: ATENOLOL 50 MG TAB PO SCH (08:06)
[2016-11-07] MEDS: COLLAGENASE 30 GM TUBE TOP SCH (08:07)
[2016-11-07 08:12] LABS: CALCIUM 7.9 mg/dl (8.4-10.2); CREATININE 0.73 mg/dl (0.44-1.00)
--- NOTE | 2016-11-07 11:23 | RADRPT ---
PROCEDURE: XR Chest. CLINICAL INDICATION: evaluate infiltrate and/or pleural effusion TECHNIQUE: Single frontal view of the chest was obtained. COMPARISON: Chest x-ray from 11/03/2016 FINDINGS: A left-sided dual lead pacemaker is again noted. There are layering right greater than left pleural effusions which have increased since the prior est x-ray from 11/03/2016. Patchy opacities are identified in the right upper to mid lung zone which appear to have increased since the prior chest x-ray although this may at least in part be due to i ncreased vascular crowding. IMPRESSION: Layering right greater left pleural effusions which have increased. Increased prominence of patchy opacities at the right upper to mid lung zones which may be due to wo rsening infiltrates and / or increased vascular crowding. RPTAT: EE Physician Yuridia Date Time Electronically viewed and signed by Tong Boothe Physician on 11/07/2016 11:23 /
--- NOTE | 2016-11-07 11:29 | CONS ---
Date/Time of Note Date/Time of Note DATE: 11/07/16 TIME: 11:27 Assessment/Plan Assessment/Plan Additional Assessment/Plan Chest x-ray was reviewed from today which is showing severe bilateral pneumonia. Assessment and recommendations; 1. Patient admitted with severe bilateral pneumonia with persistent radiological findings. Possibly superimposed pulmonary edema. 2. Advanced dementia. 3. Chronic atrial fibrillation. Continue current supportive care. Prognosis is poor. Consultation Date/Type/Reason Admit Date/Time Nov 02, 2016 at 15:32 Initial Consult Date 11/03/16 Type of Consultation: Pulmonary Referring Provider: CAMDEN ANDRADE 24 HR Interval Summary Free Text/Dictation Patient condition remains critical. Requiring continuous BiPAP at 100% FiO2. Due to advanced dementia patient remains completely unresponsive. General exam; elderly woman, on BiPAP. Unresponsive. Currently in no distress. Exam/Review of Systems Vital Signs Vitals Vital Signs Date Time Temp Pulse Resp B/P Pulse Ox O2 Delivery O2 Flow Rate FiO2 11/07/16 11:06 60 96 100 11/07/16 08:07 97.5 30 65/36 11/04/16 05:19 BIPAP 11/03/16 08:30 15.0 Intake and Output 11/06/16 11/06/16 11/07/16 15:00 23:00 07:00 Intake Total 900 ml 660 ml Output Total 600 ml Balance 900 ml 60 ml Exam HEENT exam; supple neck, positive JVD. No lymphadenopathy. Midline trachea. Patient is edentulous. Chest exam; scattered crackles bilaterally. S1-S2 audible, no murmurs. Regular rhythm. Abdomen exam; soft, bowel sounds are sluggish. No organomegaly felt. Extremity exam; trace edema. 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 Results Result Diagram: 11/07/16 0646 11/07/16 0646 Results 24 hrs Laboratory Tests Test 11/06/16 11:36 11/06/16 15:13 11/07/16 06:46 White Blood Count 14.9 H 19.5 #H Red Blood Count 3.01 L 3.02 L Hemoglobin 7.6 L 7.4 L Hematocrit 25.3 L 26.5 L Mean Corpuscular Volume 84.1 87.7 Mean Corpuscular Hemoglobin 25.2 L 24.5 L Mean Corpuscular Hemoglobin Concent 30.0 L 27.9 L Red Cell Distribution Width 17.5 H 18.0 H Platelet Count 328 402 # Mean Platelet Volume 8.3 9.1 Neutrophils % Segmented Neutrophils % (Manual) 70 Band Neutrophils % (Manual) 14 H Lymphocytes % Lymphocytes % (Manual) 7 L Monocytes % Monocytes % (Manual) 8 Eosinophils % Eosinophils % (Manual) 2 Basophils % Nucleated Red Blood Cells % 1 H 1.8 H Neutrophils # (Manual) 10.7 H 16.0 H Band Neutrophils # 2.0 H Absolute Lymphocytes (Manual) 1.0 Lymphocytes # Monocytes # Absolute Monocytes (Manual) 1.1 H Eosinophils # Basophils # Nucleated Red Blood Cells # Platelet Estimate DECREASED Polychromasia 3+ Hypochromasia 1+ Sodium Level 128 L 127 L Potassium Level 3.7 5.0 Chloride Level 99 98 Carbon Dioxide Level 25 24 Anion Gap 8 10 Blood Urea Nitrogen 34 H 43 H Creatinine 0.52 0.73 Glucose Level 143 132 Calcium Level 8.0 L 7.9 L Random Cortisol 50.9 Medications Medications Current Medications Amlodipine Besylate (Norvasc) 5 mg DAILY PO Last administered on 11/06/16 09:53 ; Admin Dose 5 MG; Start 11/03/16 at 09:00 Aspirin (Halfprin) 81 mg DAILY PO Last administered on 11/07/16 08:05; Admin Dose 81 MG; Start 11/03/16 at 09:00 Atenolol (Tenormin) 50 mg DAILY PO Last administered on 11/06/16 09:52; Admin Dose 50 MG; Start 11/03/16 at 09:00 Donepezil HCl (Aricept) 5 mg DAILY PO Last administered on 11/07/16 08:05; Admin Dose 5 MG; Start 11/03/16 at 09:00 Memantine (Namenda) 10 mg BID PO Last administered on 11/07/16 08:05; Admin Dose 10 MG; Start 11/02/16 at 21:00 Ondansetron HCl (Zofran Inj) 4 mg Q6H PRN IV NAUSEA AND/OR VOMITING; Start at 14:00 Acetaminophen (Tylenol Tab) 650 mg Q6H PRN PO PAIN LEVEL 1-3 OR FEVER Last administered on 11/04/16 22:00; Admin Dose 650 MG; Start 11/02/16 at 14:00 Acetaminophen (Tylenol Supp) 650 mg Q6H PRN [place] PAIN LEVEL 1-3 OR FEVER; Start 11/02/16 at 14:00 Acetaminophen/ Hydrocodone Bitart ([place] (5/325)) 1 tab Q6H PRN PO MODERATE PAIN LEVEL 4-6; Start 11/02/16 at 14:00 Acetaminophen/ Hydrocodone Bitart ([place] (5/325)) 2 tab Q6H PRN PO SEVERE PAIN LEVEL 7-10; Start 11/02/16 at 14:00 Morphine Sulfate (morphine) 2 mg Q4H PRN IV SEVERE PAIN LEVEL 7-10; Start 11/02 at 14:00 Docusate Sodium (Colace) 100 mg Q12H PRN PO CONSTIPATION; Start 11/02/16 at 14: 00 Magnesium Hydroxide (Milk Of Mag) 30 ml DAILY PRN PO CONSTIPATION; Start at 14:00 Bisacodyl (Dulcolax Supp) 10 mg DAILY PRN [place] CONSTIPATION; Start 11/02/16 at 14 :00 Collagenase (Santyl) 1 applic DAILY TOP Last administered on 11/07/16 08:07; Admin Dose 1 APPLIC; Start 11/03/16 at 12:00 Enoxaparin Sodium 40 mg 40 mg DAILY SC Last administered on 11/07/16 08:04; Admin Dose 40 MG; Start 11/03/16 at 14:00 Piperacillin Sod/ Tazobactam Sod (Zosyn 3.375gm/ 100 ml (Pmx)) 100 ml @ 200 mls /hr Q8H IVPB Last administered on 11/07/16 04:56; Admin Dose 200 MLS/HR; Start 11/03/16 at 20:00 Midodrine (Proamatine) 10 mg TID@,,17 PO Last administered on 11/07/16 08: 05; Admin Dose 10 MG; Start 11/03/16 at 21:30 YESENIA STONE Nov 07, 2016 11:29
--- NOTE | 2016-11-07 14:09 | DES ---
Date/Time of Note Date/Time of Note DATE: 11/07/16 TIME: 14:03 Discharge/ Summary Admission/Discharge Info Admit Date/Time Nov 02, 2016 at 15:32 Discharge Date/Time Final Diagnosis respiratory failure Preliminary Cause of respiratory failure from aspiration pneumonia from dementia Hx of Present Illness This is a 85-year-old female with reported past medical history of pacemaker, arrhythmia, hypertension, dementia, Alzheimer's disease, who came to [facility] after reports of increased shortness of breath. It was reported that patient suffered a fall in July 2016 and since then has been bedbound as well as dysphagia requiring PEG tube placement. As result she does have multiple decubitus ulcers on right lateral olm[place] and left lateral olmstead as well as left lateral heel. Patient today comes in after 2 days worsening shortness of breath. Was reported that patient had been receiving PEG tube feedings and reportedly vomited 2 days ago. Patient likely aspirated and as such was brought to [facility] due to her worse breathing. She did have x-ray done of her chest that showed calcified atherosclerosis in the aorta and perihilar right lower lobe infiltrate. There is also seen blunting of the left costophrenic angle suspect for small pleural effusion. On labs she was noted with a white count of 11.9 hemoglobin of 9.0 hematocrit 28.2 and platelets of 408. She was hyponatremic with sodium of 121. Lactic acid was noted at 4.9. Patient also noted to be febrile with temperature as high as 1 1.4 and hypertensive with blood pressure as low as 75/21 with clinical picture of septic shock likely secondary to pneumonia. Currently patient remains on nonrebreather and tachycardic with overall poor prognosis. We will evaluate her for the aformentiond issues. Hospital Course 85 yo F with advanced dementia with resultant dysphagia discharged on home hospice readmitted for SOB 2/2 aspiration pna. Despite broad spectrum antibiotics and non-invasive pulmonary support, respiratory status consistently worsened during her hospital stay. Pt already DNR status at time of arrival. Family affirmed throughout patient's stay they did not want her intubated. Pt remained on BiPap with FIO2 100%. Pt went into asystole on 9.5. I came to evaluate patient. No heart sounds over entirety of precordium, no spontaneous respirations. No spontaneous movements and no response to pain. Pt pronounced at 157pm. Granddaughter was present at time of pt's expiration. Pending Labs/Cultures Laboratory Tests Test 11/06/16 15:13 11/07/16 06:46 Random Cortisol 50.9ug/dl White Blood Count 19.510^3/ul (4.8-10.8) Red Blood Count 3.0210^6/ul (4.20-5.40) Hemoglobin 7.4g/dl (12.0-16.0) Hematocrit 26.5% (37.0-47.0) Mean Corpuscular Volume 87.7fl (82.0-101.0) Mean Corpuscular Hemoglobin 24.5pg (29.0-33.0) Mean Corpuscular Hemoglobin Concent 27.9g/dl (32.0-37.0) Red Cell Distribution Width 18.0% (11.5-14.5) Platelet Count 03749^3/UL (140-415) Mean Platelet Volume 9.1fl (7.4-10.4) Neutrophils % % (39.0-77.0) Lymphocytes % % (15.0-51.0) Monocytes % % (0.0-11.0) Eosinophils % % (0.0-7.0) Basophils % % (0.0-2.0) Nucleated Red Blood Cells % 1.8/100WBC (0.0-0.0) Neutrophils # (Manual) 16.010^3/ul (1.7-7.5) Lymphocytes # 10^3/ul (0.8-2.9) Monocytes # 10^3/ul (0.3-0.9) Eosinophils # 10^3/ul (0.0-0.5) Basophils # 10^3/ul (0.0-0.1) Nucleated Red Blood Cells # 10^3/ul (0.0-0.0) Sodium Level 127mmol/L (135-144) Potassium Level 5.0mmol/L (3.5-5.1) Chloride Level 98mmol/L (97-110) Carbon Dioxide Level 24mmol/L (21-31) Anion Gap 10 (8-16) Blood Urea Nitrogen 43mg/dl (7-20) Creatinine 0.73mg/dl (0.44-1.00) Glucose Level 132mg/dl (70-220) Calcium Level 7.9mg/dl (8.4-10.2) SUMMER BHATTI MD Nov 07, 2016 14:09
--- NOTE | 2016-11-09 06:20 | PN ---
DATE: 11/07/2016 SUBJECTIVE DATA: The patient is clinically declining. The patient is hemodynamically hypertensive. A Palliative Care and hospice evaluation was placed. No other events noted. OBJECTIVE DATA: VITAL SIGNS: Blood pressure is 65/36, respirations 30, pulse 63, and temperature 97.5. HEENT: Head is normocephalic. NECK: Supple. HEART: Regular rate. LUNGS: Show diminished breath sounds base. ABDOMEN: Soft, nontender to palpation. No guarding. EXTREMITIES: Negative for clubbing, cyanosis. No edema. DERMATOLOGIC: Clean. No rashes. MUSCULOSKELETAL: No joint effusion. NEUROLOGIC: No change in exam. MEDICATIONS: Reviewed. LABORATORY AND DIAGNOSTIC DATA: Shows sodium 127, potassium 5.0, chloride 98, BUN 43, and creatinine 0.73. White count 19.5, hemoglobin 7.4, hematocrit 26.5, and platelet count is 402. ASSESSMENT AND PLAN: 1. Hyponatremia, etiology is multifactorial. Continue to monitor. 2. Sepsis. The patient is on antibiotic regimen. 3. Respiratory failure. Continue BiPAP. 4. Hypertension. 5. Anemia. Continue to monitor hemoglobin and hematocrit levels. 6. Multiple decubitus wounds. Continue wound care. DISPOSITION: The patient has poor prognosis. Follow up with Palliative Care's recommendations. Dictated By: Connor Hodgson DO /[email or web address] /Document#: [id number]
== END 2016-11-07 13:57 | disposition expired | DRG 871 ==
LOC: E/R 09:38 → MS4 15:32
PROVIDERS: ADMIT Internal Medicine; ATTEND Internal Medicine
PROC: 5A09557 Assistance with Respiratory Ventilation, Greater than 96 Consecutive Hours, Continuous Positive Airway Pressure (ICD-10-PCS; principal; 2016-11-03)
DX: A41.01 Sepsis due to Methicillin susceptible Staphylococcus aureus (principal); J96.01 Acute respiratory failure with hypoxia; J69.0 Pneumonitis due to inhalation of food and vomit; R65.21 Severe sepsis with septic shock; E43 Unspecified severe protein-calorie malnutrition; L89.150 Pressure ulcer of sacral region, unstageable; L89.101 Pressure ulcer of unspecified part of back, stage 1; L89.624 Pressure ulcer of left heel, stage 4; E87.1 Hypo-osmolality and hyponatremia; R13.10 Dysphagia, unspecified; L89.321 Pressure ulcer of left buttock, stage 1; Z66 Do not resuscitate; Z95.0 Presence of cardiac pacemaker; G30.9 Alzheimer's disease, unspecified; F02.80 Dementia in other diseases classified elsewhere, unspecified severity, without behavioral disturbance, psychotic disturbance, mood disturbance, and anxiety; Z93.1 Gastrostomy status; Z74.01 Bed confinement status; I25.10 Atherosclerotic heart disease of native coronary artery without angina pectoris; I11.0 Hypertensive heart disease with heart failure; I50.9 Heart failure, unspecified; I48.2 Chronic atrial fibrillation; D50.9 Iron deficiency anemia, unspecified; L89.890 Pressure ulcer of other site, unstageable; L89.510 Pressure ulcer of right ankle, unstageable; L89.891 Pressure ulcer of other site, stage 1; L89.610 Pressure ulcer of right heel, unstageable; I46.9 Cardiac arrest, cause unspecified
CPT/HCPCS: 36600; 71010; 80048; 80053; 80061; 80202; 81001; 82533; 82803; 82962; 83036; 83605; 83690; 83735; 83935; 84100; 84295; 84300; 84436; 84443; 84479; 84484; 84560; 85025; 85610; 85730; 87040; 87070; 87086; 93005; 94644; 94660; 94664; 96374; 96375; J1940; C9113; J0692; J1650; J1956; J2543; J3370; J7030; J7040; J7050; P9047